=== PATIENT | male | born 1945 | race Caucasian/White ===

== ENCOUNTER → 2016-07-31 | Outpatient (CLI) | payer OTHER ==
[~2016-07-31] MED LIST: ALEN70TA2 PO; ALPR-412 PO; ATV5 PO; CHOL1000 PO; CLTP PO; CYAN100020 PO; CYCL5TAB PO; CYT100 PO; DOCU100C31 PO; ERGO1CAP35 PO; FLV1 PO; HYT/2 PO; LYR50 PO; MECL1TAB42 PO; METH2.5T PO; MULT-506 PO; NAPR-1169 PO; NXM/40 PO; ONDA8TAB6 PO; OXYC-57 PO; PRD/1 PO; PRED-301 PO
[2016-07-31 12:31] LABS: ESTIMATED AVERAGE GLUCOSE 114 mg/dl; HA1C FLAG Normal (Normal)
== END | disposition home or self-care (01) ==
LOC: C.LAB1850 10:52
PROVIDERS: ATTEND Nurse Practitioner Family
DX: E78.1 Pure hyperglyceridemia (principal); R73.9 Hyperglycemia, unspecified; M06.30 Rheumatoid nodule, unspecified site

== ENCOUNTER → 2016-12-12 | Outpatient (CLI) | payer OTHER ==
[2016-12-12 12:03] LABS: BASO % 0.3 %; BASO ABS # 0.03 K/uL (0-0.2); COMPLETE YES; EOS % 0.5 %; HEMATOCRIT 41.7 % (42-52); LYMPH % 6.3 %; LYMPH ABS # 0.66 K/uL (1.2-3.4); MEAN CELL VOLUME 85.1 fL (80-100); MEAN CORPUSCULAR HEMOGLOBIN 27.8 pg (25-34); MEAN CORPUSCULAR HGB CONC 32.6 g/dl (32-36); MEAN PLATELET VOLUME 9.3 fL (7.4-10.4); MONO % 5.2 %; NEUT % 86.7 %; PLATELET COUNT 220 K/uL (130-400); WHITE BLOOD COUNT 10.52 K/uL (4.8-10.8)
[2016-12-12 12:10] LABS: CALCIUM 8.2 mg/dl (8.5-10.1)
[2016-12-12 12:12] LABS: BLOOD UREA NITROGEN 26 mg/dl (7-18); GLUCOSE 92 mg/dl (70-99)
[2016-12-12 12:13] LABS: ALT/SGPT 22 U/L (12-78); AST/SGOT 15 U/L (15-37); BUN/CREATININE RATIO 37.4 (10-20); CARBON DIOXIDE 22 mmol/L (21-32); CHLORIDE 111 mmol/L (98-107); CHOLESTEROL 171 mg/dl (0-200); CREATININE 0.69 mg/dl (0.60-1.40); POTASSIUM 3.9 mmol/L (3.5-5.1); SODIUM 141 mmol/L (136-145); TRIGLYCERIDES 170 mg/dl (0-150); VERY LOW DENSITY LIPOPROT CALC 34 mg/dl
[2016-12-12 12:14] LABS: ALB/GLOB RATIO 1.1 (0.9-2); ALKALINE PHOSPHATASE 71 U/L (45-117); HDL CHOLESTEROL 57 mg/dl; LDL CHOLESTEROL CALCULATED 80 mg/dl
[2016-12-13 14:39] LABS: VARICELLA ZOS VIR IGM AB <=0.90 (<=0.90)
== END | disposition home or self-care (01) ==
LOC: C.LAB1850 09:53
PROVIDERS: ATTEND Nurse Practitioner Family
DX: E78.1 Pure hyperglyceridemia (principal); Z78.9 Other specified health status

== ENCOUNTER → 2017-02-19 | Day surgery (SDC) | payer OTHER ==
[2017-02-04 13:06] VITALS: Ht 162.6 cm; Wt 63.6 kg
[~2017-02-19] VITALS: Ht 162.6 cm; Wt 63.6 kg
[~2017-02-19] MED LIST changes: -ATV5 PO; -CLTP PO; -CYCL5TAB PO; -DOCU100C31 PO; -ERGO1CAP35 PO; +LIDOCAINE HCL 2% 2 ML VIAL (20MG/ML) ONE; -LYR50 PO; +PHENYLEPHRINE 100MCG/ML 5ML SYR ONE; +PROPOFOL IV EMULSION 10 MG/ML 20 ML VIAL IV ONE; +SODIUM CHLORIDE 0.9% 500ML 500 ML IV ONE
--- NOTE | 2017-02-19 14:52 | Endo History and Physical ---
History & Physical Date of Service: Feb 19, 2017. Chief Complaint: Benign colonic polyp Referring Physician: MELECIO Zhu III History of Present Illness 71 yo CM who presents for colonoscopy secondary to history of colon polyp Past Medical History Arthritis, Asthma, Male Genitourinary Prob., Anxiety, Depression Past Surgical History Hx Cardiac Surgery: No Hx Internal Defibrillator: No Hx Pacemaker: No Hx Abdominal Surgery: No Hx of Implantable Prosthesis: No Hx Post-Op Nausea and Vomiting: No Hx Cancer Surgery: No Hx Thoracic Surgery: No Hx Orthopedic: Yes (RT TSA, LT KNEE SURGERY) Hx Urinary Tract Surgery: No Family History None Social History Smoking Status: Former Smoker Hx Substance Use: No Hx Alcohol Use: No Allergies Coded Allergies: Iodinated Contrast Media (Verified Allergy, Severe, "FELT FUNNY", 02/04/17) Clavulanic Acid (Verified Allergy, Intermediate, RASH, 02/04/17) Replaces AUGMENTIN 250 Penicillins (Verified Allergy, Intermediate, RASH, 02/04/17) Replaces AUGMENTIN 250 Adhesives (Verified Allergy, Unknown, REDNESS WITH EXTENDED USE, 02/04/17) Amoxicillin (Verified Allergy, Unknown, RED BLOTCHES HEAD TO TOE, 02/04/17) Food (Verified Allergy, Unknown, SEAFOOD - EYES SWELL IF DRINKS ALCOHOL WITH, 02/04/17) Ioversol (Verified Allergy, Unknown, PASSED OUT, 02/04/17) Sulfa Antibiotics (Verified Allergy, Unknown, RASH, 02/04/17) Sulfamethoxazole w/Trimethoprim (Verified Allergy, Unknown, RASH, 02/04/17) Carboxymethylcellulose (Verified Adverse Reaction, Mild, Irritates the skin, 02/04/17) Daughter reports he can only use plain Aquacel Silver (Verified Adverse Reaction, Mild, Irritates the skin, 02/04/17) Daughter reports he can only use plain Aquacel Current Medications Reported Home Medications Medications Dose Route/Sig Max Daily Dose Days Date Category Dose Instructions Meclizine Hcl 25 Mg Tab 0.5-1 Tab PO TID PRN 02/04/17 Reported Vitamin D3 (Cholecalciferol) 1,000 Unit Tab 1 Tab PO DAILY 02/04/17 Reported Prednisone 1 Mg Tab 2 Mg PO QPM 12/07/14 Reported Vitamin B12 (Cyanocobalamin) 1,000 Mcg Tab 1,000 Mcg PO DAILY 11/29/14 Reported Zofran (Ondansetron HCl) 8 Mg Tab 8 Mg PO Q6H PRN 11/29/14 Reported Prednisone 5 Mg Tab 1 Tab PO QAM 10/17/14 Reported Alprazolam 0.25 Mg Tab 0.25 Mg PO TID PRN 02/12/13 Reported Naprosyn (Naproxen) 500 Mg Tab 500 Mg PO BID 02/12/13 Reported TAKE AFTER MEALS Fosamax (Alendronate Sodium) 70 Mg Tab 70 Mg PO WK 01/19/12 Reported TAKES ON Percocet 5MG/325MG (Oxycodone/Acetaminophen) Tab 1 Tablets PO Q6H PRN 12/25/11 Reported Multivitamin (Multivitamins) Tab 1 Tab PO NOON 06/06/11 Reported Folvite * (Folic Acid) 1 Mg Tab 1 Mg PO QAM 06/06/11 Reported Methotrexate 2.5 Mg Tab 6 Tabs PO WK 08/21/09 Reported TAKES ON FRIDAY Nexium (Esomeprazole Magnesium) 40 Mg Capcr 40 Mg PO QAM 11/24/07 Reported Cytotec * (Misoprostol) 100 Mcg Tab 100 Mcg PO BID 11/24/07 Reported Vital Signs Weight (Kilograms): 63.64 Height (Feet): 5 Height (Inches): 4 Date Time Temp Pulse Resp B/P (MAP) Pulse Ox O2 Delivery O2 Flow Rate FiO2 02/19/17 14:28 36.3 100 18 171/97 (121) 95 Room Air Physical Exam General Appearance: WD/WN, no apparent distress Respiratory/Chest: Auscultation: breath sounds normal Cardiovascular: Heart Auscultation: RRR Abdomen: Bowel Sounds: normal Inspection & Palpation: soft, non-distended, no tenderness, guarding & rebound Assessment and Plan Assessment: 71 yo CM who presents for colonoscopy secondary to history of colon polyp Plan: Proceed with colonoscopy.
--- NOTE | 2017-02-19 15:37 | Discharge Instructions ---
Endoscopy Patient Instructions Date / Procedure(s) Performed Feb 19, 2017. Colonoscopy Allergy Information Coded Allergies: Iodinated Contrast Media (Verified Allergy, Severe, "FELT FUNNY", 02/04/17) Clavulanic Acid (Verified Allergy, Intermediate, RASH, 02/04/17) Replaces AUGMENTIN 250 Penicillins (Verified Allergy, Intermediate, RASH, 02/04/17) Replaces AUGMENTIN 250 Adhesives (Verified Allergy, Unknown, REDNESS WITH EXTENDED USE, 02/04/17) Amoxicillin (Verified Allergy, Unknown, RED BLOTCHES HEAD TO TOE, 02/04/17) Food (Verified Allergy, Unknown, SEAFOOD - EYES SWELL IF DRINKS ALCOHOL WITH, 02/04/17) Ioversol (Verified Allergy, Unknown, PASSED OUT, 02/04/17) Sulfa Antibiotics (Verified Allergy, Unknown, RASH, 02/04/17) Sulfamethoxazole w/Trimethoprim (Verified Allergy, Unknown, RASH, 02/04/17) Carboxymethylcellulose (Verified Adverse Reaction, Mild, Irritates the skin, 02/04/17) Daughter reports he can only use plain Aquacel Silver (Verified Adverse Reaction, Mild, Irritates the skin, 02/04/17) Daughter reports he can only use plain Aquacel Discharge Date / Findings Feb 19, 2017. Diverticulosis Internal hemorrhoids Rectal polyp Medication Instructions Stopped Medication(s): Patient was told to stop the naproxen and vitamins. OK to resume all medications today as prescribed Reported Home Medications Medications Dose Route/Sig Max Daily Dose Days Date Category Dose Instructions Meclizine Hcl 25 Mg Tab 0.5-1 Tab PO TID PRN 02/04/17 Reported Vitamin D3 (Cholecalciferol) 1,000 Unit Tab 1 Tab PO DAILY 02/04/17 Reported Prednisone 1 Mg Tab 2 Mg PO QPM 12/07/14 Reported Vitamin B12 (Cyanocobalamin) 1,000 Mcg Tab 1,000 Mcg PO DAILY 11/29/14 Reported Zofran (Ondansetron HCl) 8 Mg Tab 8 Mg PO Q6H PRN 11/29/14 Reported Prednisone 5 Mg Tab 1 Tab PO QAM 10/17/14 Reported Alprazolam 0.25 Mg Tab 0.25 Mg PO TID PRN 02/12/13 Reported Naprosyn (Naproxen) 500 Mg Tab 500 Mg PO BID 7/26/13 Reported TAKE AFTER MEALS Fosamax (Alendronate Sodium) 70 Mg Tab 70 Mg PO WK 01/19/12 Reported TAKES ON Percocet 5MG/325MG (Oxycodone/Acetaminophen) Tab 1 Tablets PO Q6H PRN 12/25/11 Reported Multivitamin (Multivitamins) Tab 1 Tab PO NOON 06/06/11 Reported Folvite * (Folic Acid) 1 Mg Tab 1 Mg PO QAM 06/06/11 Reported Methotrexate 2.5 Mg Tab 6 Tabs PO WK 08/21/09 Reported TAKES ON FRIDAY Nexium (Esomeprazole Magnesium) 40 Mg Capcr 40 Mg PO QAM 11/24/07 Reported Cytotec * (Misoprostol) 100 Mcg Tab 100 Mcg PO BID 11/24/07 Reported Provider Instructions Activity Restrictions - No exercising or heavy lifting for 24 hours. - Do not drink alcohol the day of the procedure. - Do not drive a car or operate machinery until the day after the procedure. - Do not make any important decisions or sign important papers in 24 hours after the procedure. Following Day: - Return to full activity which may include returning to work/school. Diet Start your diet with liquids and light foods (jello, soup, juice, toast). Then eat your usual diet if not nauseated. Treatment For Common After Affects For mild abdominal pain, bloating, or excessive gas: - Rest - Eat lightly - Lie on right side Follow-Up Information Follow-up with MELECIO Zhu III as scheduled Anesthesia Information What You Should Know You have had a procedure that required some medicine to reduce anxiety and discomfort. This treatment is called moderate sedation. After receiving the treatment, you may be sleepy, but you will be able to breathe on your own. The effects of the treatment may last for several hours. Follow these instructions along with Activity/Diet recommendations noted above: * Do NOT do anything where dizziness or clumsiness would be dangerous. * Rest quietly at home today, then you can be up and about tomorrow. * Have a responsible person stay with you the rest of today. * You may have had an I.V. today. If so, you may take the dressing off later today. Recommendations Call your doctor if: * Trouble breathing * Continuous vomiting for more than 24 hours * Temperature above 101 degrees * Severe abdominal pain or bloating * Pain not relieved by pain medicine ordered * There is increased drainage or redness from any incision * A large amount of rectal bleeding greater than 2-3 tablespoons. (If you had a polyp/s removed or have hemorrhoids, a small amount of blood - from the rectum is to be expected.) * You have any unanswered questions or concerns. IN THE EVENT OF A SERIOUS EMERGENCY, GO TO THE NEAREST EMERGENCY ROOM Your discharge instructions were prepared by provider Rolando Hunt. Patient Instructions Signature Page Juventino Condon Patient (or Guardian) Signature/Date: I have read and understand the instructions given to me by my caregivers. Caregiver/RN/Doctor Signature/Date: The above-named patient and/or guardian has received patient instructions on this date. + Original Patient Signature Page (only) stays with chart. Please make copy for patient.
[2017-02-19 15:55] VITALS: BP 141/91; PULSE 81; O2SAT 98
--- NOTE | 2017-02-19 15:57 | Anesthesiology Progress Note ---
Anesthesia Post Op Note Date & Time Feb 19, 2017 at 15:57 Vital Signs Pain Intensity: 0 Vital Signs Past 12 Hours Date Time Temp Pulse Resp B/P (MAP) Pulse Ox O2 Delivery O2 Flow Rate FiO2 02/19/17 15:40 85 18 126/67 (86) 97 Room Air 02/19/17 15:28 130/68 (88) 02/19/17 15:25 79 18 84/60 (68) 98 Room Air 02/19/17 14:28 36.3 100 18 171/97 (121) 95 Room Air Notes Mental Status: alert / awake / arousable, participated in evaluation Pt Amnestic to Procedure: Yes Nausea / Vomiting: adequately controlled Pain: adequately controlled Airway Patency, RR, SpO2: stable & adequate BP & HR: stable & adequate Hydration State: stable & adequate Anesthetic Complications: no major complications apparent
--- NOTE | 2017-02-19 16:13 | GI REPORT ---
Procedure Date: 02/19/2017 2:23 PM Procedure: Colonoscopy Indications: High risk colon cancer surveillance: Personal history of colonic polyps Medicines: Monitored Anesthesia Care Complications: No immediate complications. Estimated Blood Loss: Estimated blood loss: none. Procedure: Pre-Anesthesia Assessment: - Prior to the procedure, a History and Physical was performed, and patient medications and allergies were reviewed. The patient's tolerance of previous anesthesia was also reviewed. The risks and benefits of the procedure and the sedation options and risks were discussed with the patient. All questions were answered, and informed consent was obtained. Prior Anticoagulants: The patient has taken no previous anticoagulant or antiplatelet agents. ASA Grade Assessment: III - A patient with severe systemic disease. After reviewing the risks and benefits, the patient was deemed in satisfactory condition to undergo the procedure. After I obtained informed consent, the scope was passed under direct vision. Throughout the procedure, the patient's blood pressure, pulse, and oxygen saturations were monitored continuously. The scope was introduced through the anus and advanced to the terminal ileum. The colonoscopy was performed without difficulty. The patient tolerated the procedure well. The quality of the bowel preparation was good. The terminal ileum, ileocecal valve, appendiceal orifice, and rectum were photographed. Findings: A 4 mm polyp was found in the rectum. The polyp was sessile. The polyp was removed with a cold snare. Resection and retrieval were complete. Multiple small-mouthed diverticula were found in the sigmoid colon. Non-bleeding internal hemorrhoids were found during retroflexion. The hemorrhoids were small. Impression: - One 4 mm polyp in the rectum, removed with a cold snare. Resected and retrieved. - Diverticulosis in the sigmoid colon. - Non-bleeding internal hemorrhoids. Recommendation: - Resume previous diet. - Continue present medications. - Repeat colonoscopy for surveillance based on pathology results. - Return to primary care physician as previously scheduled. Rolando Hunt DO 02/19/2017 4:13:08 PM This report has been signed electronically. Note Initiated On: 02/19/2017 2:23 PM I attest to the content of the Intraoperative Record and orders documented therein, exceptions below
== END | disposition home or self-care (01) ==
LOC: C.GI 13:56
PROVIDERS: ATTEND Internal Medicine
DX: Z12.11 Encounter for screening for malignant neoplasm of colon (principal); K62.1 Rectal polyp; Z86.010 Personal history of colon polyps; K64.8 Other hemorrhoids; K57.30 Diverticulosis of large intestine without perforation or abscess without bleeding; M19.90 Unspecified osteoarthritis, unspecified site; J45.909 Unspecified asthma, uncomplicated; F41.9 Anxiety disorder, unspecified; F32.9 Major depressive disorder, single episode, unspecified; Z87.891 Personal history of nicotine dependence; I10 Essential (primary) hypertension; E78.5 Hyperlipidemia, unspecified; M06.9 Rheumatoid arthritis, unspecified; N40.0 Benign prostatic hyperplasia without lower urinary tract symptoms

== ENCOUNTER → 2017-04-04 | Outpatient (CLI) | payer OTHER ==
[~2017-04-04] MED LIST changes: -HYT/2 PO; -LIDOCAINE HCL 2% 2 ML VIAL (20MG/ML) ONE; -PHENYLEPHRINE 100MCG/ML 5ML SYR ONE; -PROPOFOL IV EMULSION 10 MG/ML 20 ML VIAL IV ONE; -SODIUM CHLORIDE 0.9% 500ML 500 ML IV ONE
[2017-04-04 12:11] LABS: BASO % 0.2 %; BASO ABS # 0.02 K/uL (0-0.2); COMPLETE YES; EOS % 0.9 %; HEMATOCRIT 44.7 % (42-52); IG% 1.4 %; LYMPH % 9.8 %; LYMPH ABS # 0.83 K/uL (1.2-3.4); MEAN CELL VOLUME 89.9 fL (80-100); MEAN CORPUSCULAR HEMOGLOBIN 28.8 pg (25-34); MEAN PLATELET VOLUME 9.3 fL (7.4-10.4); MONO % 7.4 %; NEUT % 80.3 %; PLATELET COUNT 197 K/uL (130-400); RED BLOOD COUNT 4.97 M/uL (4.7-6.1); WHITE BLOOD COUNT 8.48 K/uL (4.8-10.8)
[2017-04-04 12:27] LABS: ALT/SGPT 23 U/L (12-78); BLOOD UREA NITROGEN 19 mg/dl (7-18); BUN/CREATININE RATIO 28.9 (10-20); CALCIUM 8.8 mg/dl (8.5-10.1); CARBON DIOXIDE 26 mmol/L (21-32); CHLORIDE 109 mmol/L (98-107); CREATININE 0.66 mg/dl (0.60-1.40); GLUCOSE 88 mg/dl (70-99); SODIUM 139 mmol/L (136-145)
[2017-04-04 12:30] LABS: ALB/GLOB RATIO 1.2 (0.9-2); ALKALINE PHOSPHATASE 82 U/L (45-117); AST/SGOT 21 U/L (15-37)
== END | disposition home or self-care (01) ==
LOC: C.LAB1850 10:01
PROVIDERS: ATTEND Internal Medicine
DX: M06.09 Rheumatoid arthritis without rheumatoid factor, multiple sites (principal); Z79.899 Other long term (current) drug therapy

== ENCOUNTER → 2017-07-30 | Outpatient (CLI) | payer OTHER ==
[2017-07-30 13:19] LABS: BASO % 0.1 %; BASO ABS # 0.01 K/uL (0-0.2); HEMATOCRIT 42.1 % (42-52); HEMOGLOBIN 14.2 g/dL (14.0-18.0); IG# 0.13 K/uL (0.00-0.02); LYMPH % 5.7 %; LYMPH ABS # 0.78 K/uL (1.2-3.4); MEAN CELL VOLUME 88.6 fL (80-100); MEAN CORPUSCULAR HEMOGLOBIN 29.9 pg (25-34); MEAN CORPUSCULAR HGB CONC 33.7 g/dl (32-36); MEAN PLATELET VOLUME 9.4 fL (7.4-10.4); MONO % 4.8 %; MONO ABS # 0.66 K/uL (0.11-0.59); NEUT % 88.4 %; NEUT ABS # 12.04 K/uL (1.4-6.5); PLATELET COUNT 211 K/uL (130-400); RED CELL DISTRIBUTION WIDTH SD 50.7 fL (36.4-46.3); WHITE BLOOD COUNT 13.62 K/uL (4.8-10.8)
[2017-07-30 13:51] LABS: ALBUMIN 3.6 gm/dl (3.4-5.0); ALT/SGPT 33 U/L (12-78); BLOOD UREA NITROGEN 28 mg/dl (7-18); CALCIUM 8.9 mg/dl (8.5-10.1); CARBON DIOXIDE 22 mmol/L (21-32); CHOLESTEROL 190 mg/dl (0-200); CREATININE 0.67 mg/dl (0.60-1.40); GLUCOSE 111 mg/dl (70-99); POTASSIUM 3.9 mmol/L (3.5-5.1); SODIUM 137 mmol/L (136-145)
[2017-07-30 13:55] LABS: ALKALINE PHOSPHATASE 93 U/L (45-117); AST/SGOT 21 U/L (15-37); LDL CHOLESTEROL CALCULATED 110 mg/dl; PHOSPHORUS 2.4 mg/dl (2.5-4.9); TOTAL PROTEIN 7.4 gm/dl (6.4-8.2)
[2017-07-31 06:08] LABS: HEMOGLOBIN A1C 5.5 % (4.5-5.6)
== END | disposition home or self-care (01) ==
LOC: C.LAB1850 11:53
PROVIDERS: ATTEND Nurse Practitioner Family
DX: K21.9 Gastro-esophageal reflux disease without esophagitis (principal); M06.9 Rheumatoid arthritis, unspecified; E78.1 Pure hyperglyceridemia; R73.9 Hyperglycemia, unspecified; E53.8 Deficiency of other specified B group vitamins

== ENCOUNTER 2017-11-17 21:15 | Emergency (ER) | payer OTHER ==
[~2017-11-17 21:15] MED LIST changes: +ONDA-170 PO; -ONDA8TAB6 PO
[2017-11-17 21:28] VITALS: Ht 162.6 cm
--- NOTE | 2017-11-17 22:32 | DIAGNOSTIC IMAGING REPORT ---
FOOT MIN 3 VIEWS ROUTINE CLINICAL HISTORY: ?osteo and ulcer COMPARISON: None. DISCUSSION: Generalized degenerative change. Pars planus deformity of the calcaneus. Mild soft tissue edematous change. Bone osteopenia is present throughout. A true lytic or blastic process is not appreciated. Soft tissue vascular calcifications are present. IMPRESSION: Severe degenerative change. Osteopenia. Mild soft tissue edema. No evidence for bony destructive process The above report was generated using voice recognition software. It may contain grammatical, syntax or spelling errors. Electronically signed by: Janusz Owen M.D. 11/17/2017 10:31 PM Dictated Date/Time: 11/17/2017 10:28 PM
[2017-11-17 23:21] LABS: BASO % 0.4 %; BASO ABS # 0.03 K/uL (0-0.2); EOS % 2.1 %; EOS ABS # 0.17 K/uL (0-0.5); HEMATOCRIT 40.9 % (42-52); IG# 0.13 K/uL (0.00-0.02); LYMPH ABS # 1.39 K/uL (1.2-3.4); MEAN CORPUSCULAR HEMOGLOBIN 30.1 pg (25-34); MEAN CORPUSCULAR HGB CONC 34.2 g/dl (32-36); MEAN PLATELET VOLUME 9.1 fL (7.4-10.4); MONO ABS # 0.82 K/uL (0.11-0.59); NEUT % 68.9 %; NEUT ABS # 5.63 K/uL (1.4-6.5); PLATELET COUNT 174 K/uL (130-400); RED CELL DISTRIBUTION WIDTH CV 16.4 % (11.5-14.5); RED CELL DISTRIBUTION WIDTH SD 51.7 fL (36.4-46.3); WHITE BLOOD COUNT 8.17 K/uL (4.8-10.8)
[2017-11-17 23:41] LABS: BLOOD UREA NITROGEN 26 mg/dl (7-18); CALCIUM 8.7 mg/dl (8.5-10.1); CARBON DIOXIDE 25 mmol/L (21-32); GLUCOSE 102 mg/dl (70-99); POTASSIUM 4.2 mmol/L (3.5-5.1); SODIUM 141 mmol/L (136-145)
[2017-11-17] MEDS ORDERED: CEPH500C PO (23:53)
[2017-11-18] MEDS ORDERED: CEPHALEXIN MONOHYDRATE 250 MG CAP PO ONE
[2017-11-18 00:06] VITALS: BP 135/72; PULSE 78; TEMP 36.4; O2SAT 96
--- NOTE | 2017-11-18 01:44 | EMERGENCY ROOM VISIT NOTE ---
History Report prepared by Scott: Abram Christensen Under the Supervision of: Dr. Sukhi Nogueira D.O. First contact with patient: 22:03 Chief Complaint: FOOT PAIN Stated Complaint: RIGHT FOOT History of Present Illness The patient is a 72 year old male who presents to the Emergency Room with complaints of a worsening redness to his right foot beginning this morning. The patient states he has a nodule on the arch of his right foot that he has had for a year. He reports he follows with the wound clinic and evaluated two weeks ago. No new pain. No new discharge. No exacerbating or remitting factors. The patient notes his daughter changed his wound dressing today and noticed redness going up the patient's right calf. He denies fever, cough, runny nose, abdominal pain, any other pain than the foot, and a history of diabetes. At this point patient believes that the redness is now resolved which she saw her earlier. Source of History: patient Onset: this morning Position: foot (right) Quality: other (redness) Timing: worsening Associated Symptoms: No fevers, No cough, No abdominal pain Note: Denies: runny nose Review of Systems See HPI for pertinent positives & negatives. A total of 10 systems reviewed and were otherwise negative. Past Medical & Surgical Medical Problems: (1) Asthma (2) Essential hypertension (3) Gastroesophageal reflux disease (4) Rheumatoid arthritis Family History Heart disease Social History Smoking Status: Never Smoker Alcohol Use: none Drug Use: none Marital Status: Housing Status: lives with family Occupation Status: retired Current/Historical Medications Scheduled Alendronate Sodium (Fosamax), 70 MG PO WK Cephalexin Monohydrate (Keflex), 500 MG PO TID Cholecalciferol (Vitamin D3), 1 TAB PO DAILY Cyanocobalamin (Vitamin B12), 1,000 MCG PO DAILY Esomeprazole Magnesium (Nexium), 40 MG PO QAM Folic Acid (Folvite *), 1 MG PO QAM Methotrexate (Methotrexate), 6 TABS PO WK Misoprostol (Cytotec *), 100 MCG PO BID Multivitamin (Multivitamin), 1 TAB PO NOON Naproxen (Naprosyn), 500 MG PO BID Prednisone (Prednisone), 1 TAB PO QAM Prednisone (Prednisone), 2 MG PO QPM Scheduled PRN Alprazolam (Alprazolam), 0.25 MG PO TID PRN for Anxiety Meclizine Hcl (Meclizine Hcl), 0.5-1 TAB PO TID PRN for Dizziness or Vertigo Ondansetron Hcl (Zofran), 8 MG PO Q6H PRN for GI Upset Oxycodone/Acetaminophen 5MG/325MG (Percocet 5MG/325MG), 1 TABLETS PO Q6H PRN for Pain Allergies Coded Allergies: Iodinated Contrast Media (Verified Allergy, Severe, "FELT FUNNY", 11/18/17) Clavulanic Acid (Verified Allergy, Intermediate, RASH, 11/18/17) Replaces AUGMENTIN 250 Penicillins (Verified Allergy, Intermediate, RASH, 11/18/17) Replaces AUGMENTIN 250 Adhesives (Verified Allergy, Unknown, REDNESS WITH EXTENDED USE, 11/18/17) Amoxicillin (Verified Allergy, Unknown, RED BLOTCHES HEAD TO TOE, 11/18/17) Food (Verified Allergy, Unknown, SEAFOOD - EYES SWELL IF DRINKS ALCOHOL WITH, 11/18/17) Ioversol (Verified Allergy, Unknown, PASSED OUT, 11/18/17) Sulfa Antibiotics (Verified Allergy, Unknown, RASH, 11/18/17) Sulfamethoxazole w/Trimethoprim (Verified Allergy, Unknown, RASH, 11/18/17) Carboxymethylcellulose (Verified Adverse Reaction, Mild, Irritates the skin, 11/18/17) Daughter reports he can only use plain Aquacel Silver (Verified Adverse Reaction, Mild, Irritates the skin, 11/18/17) Daughter reports he can only use plain Aquacel Physical Exam Vital Signs Date Time Temp Pulse Resp B/P (MAP) Pulse Ox O2 Delivery O2 Flow Rate FiO2 11/18/17 00:06 36.4 78 18 135/72 96 Room Air 11/17/17 23:44 77 20 139/73 96 Room Air 11/17/17 21:28 36.9 89 20 161/82 96 Room Air Physical Exam GENERAL: Sitting up in bed, alert, well appearing, well nourished, no distress, non-toxic EYE EXAM: normal conjunctiva. OROPHARYNX: no exudate, no erythema, lips, buccal mucosa, and tongue normal and mucous membranes are moist NECK: supple, no nuchal rigidity, no adenopathy, non-tender LUNGS: Clear to auscultation. Normal chest wall mechanics HEART: no murmurs, S1 normal and S2 normal ABDOMEN: abdomen soft, non-tender, normo-active bowel sounds, no masses, no rebound or guarding. BACK: Back is symmetrical on inspection and there is no deformity, no midline tenderness, no CVA tenderness. SKIN: no rashes and no bruising UPPER EXTREMITIES: upper extremities are grossly normal. LOWER EXTREMITIES: No pitting edema. 0.5 cm opening on the right foot, mid-sole with 4.5cm x 5cm of erythema and a small vesicle posterior to the hole which is draining. NEURO EXAM: Normal sensorium, cranial nerves II-XII grossly intact, normal speech, no gross weakness of arms, no gross weakness of legs. Medical Decision & Procedures ER Provider Diagnostic Interpretation: Radiology results as stated below per my review and the radiologist's interpretation: FOOT MIN 3 VIEWS ROUTINE CLINICAL HISTORY: ?osteo and ulcer COMPARISON: None. DISCUSSION: Generalized degenerative change. Pars planus deformity of the calcaneus. Mild soft tissue edematous change. Bone osteopenia is present throughout. A true lytic or blastic process is not appreciated. Soft tissue vascular calcifications are present. IMPRESSION: Severe degenerative change. Osteopenia. Mild soft tissue edema. No evidence for bony destructive process The above report was generated using voice recognition software. It may contain grammatical, syntax or spelling errors. Electronically signed by: Janusz Owen M.D. 11/17/2017 10:31 PM Dictated Date/Time: 11/17/2017 10:28 PM Laboratory Results 11/17/17 23:07 Red Blood Count 4.65, Mean Corpuscular Volume 88.0, Mean Corpuscular Hemoglobin 30.1, Mean Corpuscular Hemoglobin Concent 34.2, Mean Platelet Volume 9.1, Neutrophils (%) (Auto) 68.9, Lymphocytes (%) (Auto) 17.0, Monocytes (%) (Auto) 10.0, Eosinophils (%) (Auto) 2.1, Basophils (%) (Auto) 0.4, Neutrophils # (Auto ) 5.63, Lymphocytes # (Auto) 1.39, Monocytes # (Auto) 0.82, Eosinophils # (Auto ) 0.17, Basophils # (Auto) 0.03 11/17/17 23:07 Test 11/17/17 23:07 White Blood Count 8.17 K/uL (4.8-10.8) Red Blood Count 4.65 M/uL (4.7-6.1) Hemoglobin 14.0 g/dL (14.0-18.0) Hematocrit 40.9 % (42-52) Mean Corpuscular Volume 88.0 fL (80-100) Mean Corpuscular Hemoglobin 30.1 pg (25-34) Mean Corpuscular Hemoglobin Concent 34.2 g/dl (32-36) Platelet Count 174 K/uL (130-400) Mean Platelet Volume 9.1 fL (7.4-10.4) Neutrophils (%) (Auto) 68.9 % Lymphocytes (%) (Auto) 17.0 % Monocytes (%) (Auto) 10.0 % Eosinophils (%) (Auto) 2.1 % Basophils (%) (Auto) 0.4 % Neutrophils # (Auto) 5.63 K/uL (1.4-6.5) Lymphocytes # (Auto) 1.39 K/uL (1.2-3.4) Monocytes # (Auto) 0.82 K/uL (0.11-0.59) Eosinophils # (Auto) 0.17 K/uL (0-0.5) Basophils # (Auto) 0.03 K/uL (0-0.2) RDW Standard Deviation 51.7 fL (36.4-46.3) RDW Coefficient of Variation 16.4 % (11.5-14.5) Immature Granulocyte % (Auto) 1.6 % Immature Granulocyte # (Auto) 0.13 K/uL (0.00-0.02) Anion Gap 6.0 mmol/L (3-11) Estimated GFR () 102.7 Estimated GFR (Non- 88.6 BUN/Creatinine Ratio 32.6 (10-20) Calcium Level 8.7 mg/dl (8.5-10.1) Laboratory results per my review. Medications Administered Medications (Trade) Dose Ordered Sig/Celso Route Start Time Stop Time Status Last Admin Dose Admin Cephalexin Monohydrate (Keflex Cap) 500 mg NOW ONCE PO 11/18/17 00:00 11/18/17 00:01 DC 11/18/17 00:08 500 MG ED Course ED COURSE: Vital signs were reviewed and showed normal vitals. The patients medical record was reviewed The above diagnostic studies were performed and reviewed. ED treatments and interventions as stated above. 2206: The patient was evaluated in room C06. A complete history and physical examination was performed. 0000: Ordered Keflex 500mg PO 2356: Upon reevaluation, the patient is resting comfortably.I discussed my findings with the patient and he understands and agrees with the treatment plan. Based on the patients age, coexisting illnesses, exam and lab findings the decision to treat as an outpatient was made. The patient remained stable while under my care. The patient appeared well at the time of discharge. Medical Decision Differential diagnosis includes etiologies such as cellulitis, abscess, MRSA infection, DVT, necrotizing fasciitis, dermatitis, drug eruption, as well as others were entertained. Patient has an ulcer with surrounding erythema on the right foot. Follows with wound care clinic. Does appear to be slightly worse. There is no obvious streaking up the leg. CBC and BMP were unremarkable. Vitals are stable. Patient was given Keflex. He is discharged follow-up wound care clinic as an outpatient. Discussed with Pt concerning signs and symptoms to watch out for. Pt was instructed to follow up with their PCP and discussed with the patient their option to return to the ED at anytime for persistent or worsening symptoms. The appropriate anticipatory guidance and out-patient management, including indications for return to the emergency department, were explained at length to the patient and understood. Medication Reconcilliation Current Medication List: was personally reviewed by me Blood Pressure Screening Patient's blood pressure: Normal blood pressure Blood pressure disposition: Did not require urgent referral Impression Primary Impression: Foot pain, right Scribe Attestation The scribe's documentation has been prepared under my direction and personally reviewed by me in its entirety. I confirm that the note above accurately reflects all work, treatment, procedures, and medical decision making performed by me. Departure Information Dispostion Home / Self-Care Prescriptions Cephalexin Monohydrate (Keflex) 500 Mg Cap 500 MG PO TID for 7 Days, CAP Prov: Sukhi Nogueira, DO 11/17/17 Referrals Daniele Martinez III, CRNP (PCP) Forms HOME CARE DOCUMENTATION FORM, IMPORTANT VISIT INFORMATION Patient Instructions Diabetes Treat Minor Foot Infecs, My [facility] Additional Instructions Please follow up with your primary care doctor with in the next 24 hours. Any worsening of your symptoms, please return to the ED immediately. This includes any fevers greater than 100.4, worsening pain, chest pain, shortness breath, persistent nausea, vomiting, unable to eat or drink, streaking redness up the leg or any other concerning signs or symptoms from your standpoint. Please take antibiotics as prescribed.
== END 2017-11-18 00:14 | disposition home or self-care (01) ==
LOC: C.EDB 21:16 → C.EDC 11-18 00:14
DX: L97.419 Non-pressure chronic ulcer of right heel and midfoot with unspecified severity (principal); K21.9 Gastro-esophageal reflux disease without esophagitis; M06.9 Rheumatoid arthritis, unspecified; I10 Essential (primary) hypertension; Z91.041 Radiographic dye allergy status; Z88.1 Allergy status to other antibiotic agents; Z88.0 Allergy status to penicillin; Z91.048 Other nonmedicinal substance allergy status; Z91.018 Allergy to other foods; Z88.2 Allergy status to sulfonamides; Z88.8 Allergy status to other drugs, medicaments and biological substances

== ENCOUNTER → 2018-02-09 | Outpatient (CLI) | payer OTHER ==
[~2018-02-09] MED LIST changes: -NAPR-1169 PO; +NAPR-22 PO
--- NOTE | 2018-02-09 07:58 | DIAGNOSTIC IMAGING REPORT ---
MRI of the LEFT FOREFOOT NO CONTRAST CLINICAL HISTORY: Nonhealing wound fourth toe. COMPARISON STUDY: Conventional radiographic evaluation dated 11/17/2017 FINDINGS: Imaging was performed in the sagittal, coronal, and axial planes. The examination is mildly compromised due to motion artifact. There are flexion deformities of the third through fifth toes. There are no areas of marrow edema to indicate osteomyelitis. There are no fluid collections to indicate an abscess. Arthritic changes are present the level of the tarsometatarsal joints. At the level the first tarsal metatarsal joint on the plantar aspect of the foot there is a cutaneous T1 and T2 hypointense lesion. This lesion is flat measuring 12 x 12 x 2 mm. The lesion appears cutaneous and likely represents an area of scarring/fibrosis. IMPRESSION: 1. No evidence of osteomyelitis 2. No evidence of soft tissue abscess Electronically signed by: Elfego Giron M.D. 02/09/2018 7:56 AM Dictated Date/Time: 02/09/2018 7:49 AM
== END | disposition home or self-care (01) ==
LOC: C.MRI 06:52
PROVIDERS: ATTEND Emergency Medicine
DX: S91.302D Unspecified open wound, left foot, subsequent encounter (principal); R60.0 Localized edema; X58.XXXD Exposure to other specified factors, subsequent encounter

== ENCOUNTER 2018-03-08 19:22 | Emergency (ER) | payer OTHER ==
[~2018-03-08] VITALS: Ht 165.1 cm; Wt 68.5 kg
[~2018-03-08 19:22] MED LIST changes: +DOXY100C76 PO
[2018-03-08 19:25] VITALS: TEMP 37.3; Ht 165.1 cm; Wt 68.5 kg
[2018-03-08] MEDS ORDERED: CEFTRIAXONE SOD INJ 1 GM ADDVIAL IV STA (20:07)
[2018-03-08 20:31] LABS: BASO % 0.1 %; BASO ABS # 0.01 K/uL (0-0.2); EOS % 2.9 %; HEMATOCRIT 36.5 % (42-52); HEMOGLOBIN 11.9 g/dL (14.0-18.0); IG# 0.05 K/uL (0.00-0.02); LYMPH % 16.7 %; LYMPH ABS # 1.15 K/uL (1.2-3.4); MEAN CELL VOLUME 89.7 fL (80-100); MEAN CORPUSCULAR HEMOGLOBIN 29.2 pg (25-34); MEAN CORPUSCULAR HGB CONC 32.6 g/dl (32-36); MEAN PLATELET VOLUME 9.2 fL (7.4-10.4); MONO % 12.6 %; MONO ABS # 0.87 K/uL (0.11-0.59); NEUT ABS # 4.62 K/uL (1.4-6.5); PLATELET COUNT 248 K/uL (130-400); RED CELL DISTRIBUTION WIDTH CV 16.1 % (11.5-14.5); RED CELL DISTRIBUTION WIDTH SD 52.7 fL (36.4-46.3)
--- NOTE | 2018-03-08 20:53 | DIAGNOSTIC IMAGING REPORT ---
L FOOT MIN 3 VIEWS ROUTINE CLINICAL HISTORY: Left foot pain. COMPARISON: Left third toe radiographs October 17, 2014 and MRI of the left forefoot February 09, 2018. FINDINGS: Tarsometatarsal joints are intact. Pes planus deformity is noted with extensive vascular calcification. Old, healed fracture of the distal shaft of the left second metatarsal is noted. 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 Amputation of the third digit at the level of the proximal interphalangeal joint is noted. Evaluation of the toes is difficult given chronic deformities. IMPRESSION: No acute fracture or evidence for osteomyelitis within the left foot although evaluation of the toes is difficult given chronic deformities. Electronically signed by: Edmund Bronson M.D. 03/08/2018 8:52 PM Dictated Date/Time: 03/08/2018 8:44 PM
[2018-03-08 21:03] LABS: CALCIUM 8.3 mg/dl (8.5-10.1); CREATININE 0.94 mg/dl (0.60-1.40)
--- NOTE | 2018-03-08 21:21 | EMERGENCY ROOM VISIT NOTE ---
History Report prepared by Scott: Yina Padilla Under the Supervision of: Dr. Sukhi Nogueira D.O. First contact with patient: 19:30 Chief Complaint: WOUND INFECTION Stated Complaint: PAIN IN FOOT AN LEG FROM WOUND History of Present Illness The patient is a 72 year old male who presents to the Emergency Room with complaints of a constant wound infection starting a year ago. The patient states that he is a Diabetic and has had an infection that started on his toe on his left foot and has since traveled. He states that he does follow with the wound care clinic and is currently been taking Doxycycline since the . The patient states that he came in tonight because the pain is so bad he has not been able to sleep. He states that he was given Tramadol and Oxycodone, but it is not working. The patient complains of increased leg swelling. The patient denies fever, cough, and a runny nose. Source of History: patient Onset: a year ago Position: foot (left) Quality: other (wound infection) Timing: constant Associated Symptoms: No fevers, No cough Note: The patient complains of not being able to sleep and increased leg swelling. The patient denies a runny nose. Review of Systems See HPI for pertinent positives & negatives. A total of 10 systems reviewed and were otherwise negative. Past Medical & Surgical Medical Problems: (1) Asthma (2) Diabetes (3) Essential hypertension (4) Gastroesophageal reflux disease (5) Rheumatoid arthritis Family History Heart disease Social History Smoking Status: Former Smoker Alcohol Use: none Drug Use: none Marital Status: Housing Status: lives with family Occupation Status: retired Current/Historical Medications Scheduled Alendronate Sodium (Fosamax), 70 MG PO WK Cholecalciferol (Vitamin D3), 1 TAB PO DAILY Cyanocobalamin (Vitamin B12), 1,000 MCG PO DAILY Doxycycline Monohydrate (Monodox), 100 MG PO BID Esomeprazole Magnesium (Nexium), 40 MG PO QAM Folic Acid (Folvite *), 1 MG PO QAM Methotrexate (Methotrexate), 6 TABS PO WK Misoprostol (Cytotec *), 100 MCG PO BID Multivitamin (Multivitamin), 1 TAB PO NOON Naproxen (Naprosyn), 500 MG PO BID Prednisone (Prednisone), 1 TAB PO QAM Prednisone (Prednisone), 2 MG PO QPM Scheduled PRN Alprazolam (Alprazolam), 0.25 MG PO TID PRN for Anxiety Meclizine Hcl (Meclizine Hcl), 0.5-1 TAB PO TID PRN for Dizziness or Vertigo Ondansetron Hcl (Zofran), 8 MG PO Q6H PRN for GI Upset Oxycodone/Acetaminophen 5MG/325MG (Percocet 5MG/325MG), 1 TABLETS PO Q6H PRN for Pain Allergies Coded Allergies: Iodinated Contrast Media (Verified Allergy, Severe, "FELT FUNNY", 11/18/17) Clavulanic Acid (Verified Allergy, Intermediate, RASH, 11/18/17) Replaces AUGMENTIN 250 Penicillins (Verified Allergy, Intermediate, RASH, 11/18/17) Replaces AUGMENTIN 250 Adhesives (Verified Allergy, Unknown, REDNESS WITH EXTENDED USE, 11/18/17) Amoxicillin (Verified Allergy, Unknown, RED BLOTCHES HEAD TO TOE, 11/18/17) Food (Verified Allergy, Unknown, SEAFOOD - EYES SWELL IF DRINKS ALCOHOL WITH, 11/18/17) Ioversol (Verified Allergy, Unknown, PASSED OUT, 11/18/17) Sulfa Antibiotics (Verified Allergy, Unknown, RASH, 11/18/17) Sulfamethoxazole w/Trimethoprim (Verified Allergy, Unknown, RASH, 11/18/17) Carboxymethylcellulose (Verified Adverse Reaction, Mild, Irritates the skin, 11/18/17) Daughter reports he can only use plain Aquacel Silver (Verified Adverse Reaction, Mild, Irritates the skin, 11/18/17) Daughter reports he can only use plain Aquacel Physical Exam Vital Signs Date Time Temp Pulse Resp B/P (MAP) Pulse Ox O2 Delivery O2 Flow Rate FiO2 03/08/18 21:40 97 20 142/88 95 Room Air 03/08/18 19:25 37.3 104 18 139/72 94 Room Air Physical Exam GENERAL: Sitting up in bed, alert, well appearing, well nourished, no distress, non-toxic EYE EXAM: normal conjunctiva. OROPHARYNX: no exudate, no erythema, lips, buccal mucosa, and tongue normal and mucous membranes are moist NECK: supple, no nuchal rigidity, no adenopathy, non-tender LUNGS: Clear to auscultation. Normal chest wall mechanics HEART: no murmurs, S1 normal and S2 normal ABDOMEN: abdomen soft, non-tender, normo-active bowel sounds, no masses, no rebound or guarding. BACK: Back is symmetrical on inspection and there is no deformity, no midline tenderness, no CVA tenderness. SKIN: Second and fourth toes on dorsal aspect have granulation tissue present, second toe has a 1.5 x 1 cm and fourth 2 x 1.5 cm. No bone involvement. Distal arch base of second through fourth MTPs 1x1 cm quarter cm deep wound. Mild surrounding redness. UPPER EXTREMITIES: upper extremities are grossly normal. LOWER EXTREMITIES: No pitting edema. NEURO EXAM: Normal sensorium, cranial nerves II-XII grossly intact, normal speech, no gross weakness of arms, no gross weakness of legs. Medical Decision & Procedures ER Provider Diagnostic Interpretation: Radiology results as stated below per my review and the radiologist's interpretation: L FOOT MIN 3 VIEWS ROUTINE CLINICAL HISTORY: Left foot pain. COMPARISON: Left third toe radiographs October 17, 2014 and MRI of the left forefoot February 09, 2018. FINDINGS: Tarsometatarsal joints are intact. Pes planus deformity is noted with extensive vascular calcification. Old, healed fracture of the distal shaft of the left second metatarsal is noted. 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 Amputation of the third digit at the level of the proximal interphalangeal joint is noted. Evaluation of the toes is difficult given chronic deformities. IMPRESSION: No acute fracture or evidence for osteomyelitis within the left foot although evaluation of the toes is difficult given chronic deformities. Electronically signed by: Edmund Bronson M.D. 03/08/2018 8:52 PM Dictated Date/Time: 03/08/2018 8:44 PM Laboratory Results 03/08/18 20:18 Red Blood Count 4.07, Mean Corpuscular Volume 89.7, Mean Corpuscular Hemoglobin 29.2, Mean Corpuscular Hemoglobin Concent 32.6, Mean Platelet Volume 9.2, Neutrophils (%) (Auto) 67.0, Lymphocytes (%) (Auto) 16.7, Monocytes (%) (Auto) 12.6, Eosinophils (%) (Auto) 2.9, Basophils (%) (Auto) 0.1, Neutrophils # (Auto ) 4.62, Lymphocytes # (Auto) 1.15, Monocytes # (Auto) 0.87, Eosinophils # (Auto ) 0.20, Basophils # (Auto) 0.01 03/08/18 20:18 Test 03/08/18 20:18 White Blood Count 6.90 K/uL (4.8-10.8) Red Blood Count 4.07 M/uL (4.7-6.1) Hemoglobin 11.9 g/dL (14.0-18.0) Hematocrit 36.5 % (42-52) Mean Corpuscular Volume 89.7 fL (80-100) Mean Corpuscular Hemoglobin 29.2 pg (25-34) Mean Corpuscular Hemoglobin Concent 32.6 g/dl (32-36) Platelet Count 248 K/uL (130-400) Mean Platelet Volume 9.2 fL (7.4-10.4) Neutrophils (%) (Auto) 67.0 % Lymphocytes (%) (Auto) 16.7 % Monocytes (%) (Auto) 12.6 % Eosinophils (%) (Auto) 2.9 % Basophils (%) (Auto) 0.1 % Neutrophils # (Auto) 4.62 K/uL (1.4-6.5) Lymphocytes # (Auto) 1.15 K/uL (1.2-3.4) Monocytes # (Auto) 0.87 K/uL (0.11-0.59) Eosinophils # (Auto) 0.20 K/uL (0-0.5) Basophils # (Auto) 0.01 K/uL (0-0.2) RDW Standard Deviation 52.7 fL (36.4-46.3) RDW Coefficient of Variation 16.1 % (11.5-14.5) Immature Granulocyte % (Auto) 0.7 % Immature Granulocyte # (Auto) 0.05 K/uL (0.00-0.02) Anion Gap 8.0 mmol/L (3-11) Est Creatinine Clear Calc Drug Dose 60.9 ml/min Estimated GFR () 92.9 Estimated GFR (Non- 80.1 BUN/Creatinine Ratio 17.8 (10-20) Calcium Level 8.3 mg/dl (8.5-10.1) Laboratory results per my review. Medications Administered Medications (Trade) Dose Ordered Sig/Celso Route Start Time Stop Time Status Last Admin Dose Admin Ceftriaxone Sodium (Rocephin Inj) 1 gm NOW STAT IV 03/08/18 20:07 03/08/18 20:08 DC 03/08/18 20:24 1 GM Morphine Sulfate (MoRPHine SULFATE INJ) 4 mg NOW STAT IV 03/08/18 21:43 03/08/18 21:44 DC 03/08/18 21:49 4 MG Ondansetron HCl (Zofran Inj) 4 mg NOW STAT IV 03/08/18 21:43 03/08/18 21:44 DC 03/08/18 21:48 4 MG ED Course ED COURSE: Vital signs were reviewed and showed tachycardic and hypertensive situationally. The patients medical record was reviewed The above diagnostic studies were performed and reviewed. ED treatments and interventions as stated above. 1930: The patient was evaluated in room B3B. A complete history and physical examination was performed. 2006: Ordered Rocephin Inj 1 gm IV. 2111: I reviewed the patient's previous imaging at this time and there is no significant change. 2142: Ordered Zofran Inj 4 mg IV, Morphine Sulfate 4 mg IV. 2157: Upon reevaluation, the patient is resting comfortably. I discussed my findings with the patient and he understands and agrees with the treatment plan. Based on the patients age, coexisting illnesses, exam and lab findings the decision to treat as an outpatient was made. The patient remained stable while under my care. The patient appeared well at the time of discharge. Medical Decision Differential diagnosis includes etiologies such as cellulitis, abscess, MRSA infection, DVT, necrotizing fasciitis, dermatitis, drug eruption, as well as others were entertained. Patient is a 72-year-old male who presents the ER for left foot pain secondary to 3 ulcers present. Patient follows with the wound care clinic. Images were reviewed from the of this month and does not appear to be significantly changed. No significant dilators. Vitals are stable. X-rays were unremarkable. CBC and BMP were fairly stable with previous blood work. Patient was given IV Rocephin. He was also given 1 dose of IV morphine. He was updated bedside and discharged follow-up with wound care clinic as an outpatient. Discussed with Pt concerning signs and symptoms to watch out for. Pt was instructed to follow up with their PCP and discussed with the patient their option to return to the ED at anytime for persistent or worsening symptoms. The appropriate anticipatory guidance and out-patient management, including indications for return to the emergency department, were explained at length to the patient and understood. Medication Reconcilliation Current Medication List: was personally reviewed by me Blood Pressure Screening Patient's blood pressure: Elevated blood pressure Blood pressure disposition: Elevated BP felt to be situational Impression Primary Impression: Ulcer Scribe Attestation The scribe's documentation has been prepared under my direction and personally reviewed by me in its entirety. I confirm that the note above accurately reflects all work, treatment, procedures, and medical decision making performed by me. Departure Information Dispostion Home / Self-Care Referrals Daniele Martinez III, CRNP (PCP) Forms HOME CARE DOCUMENTATION FORM, IMPORTANT VISIT INFORMATION, WORK / SCHOOL INSTRUCTIONS Patient Instructions My [facility] Additional Instructions Please follow up with your primary care doctor with in the next 24 hours. Any worsening of your symptoms, please return to the ED immediately. This includes any fevers greater than 100.4, worsening pain, chest pain, shortness breath, persistent nausea, vomiting, unable to eat or drink, or any other concerning signs or symptoms from your standpoint. Please continue your antibiotics as previously prescribed. Please follow-up with wound care clinic first thing tomorrow morning. Please continue OxyIR or Ultram but do not take both at the same time.
[2018-03-08 21:40] VITALS: BP 142/88; PULSE 97; O2SAT 95
[2018-03-08] MEDS ORDERED: MoRPHine SULFATE 4 MG/ML 1 ML CARP\\VIAL IV STA (21:43)
[2018-03-08] MEDS ORDERED: ONDANSETRON INJ 2 MG/ML 2 ML VIAL IV STA (21:43)
[2018-03-08 21:59] LABS: POTASSIUM 4.1 mmol/L (3.5-5.1)
== END 2018-03-08 22:11 | disposition home or self-care (01) ==
LOC: C.EDB 19:24
DX: L97.429 Non-pressure chronic ulcer of left heel and midfoot with unspecified severity (principal); M06.9 Rheumatoid arthritis, unspecified; I10 Essential (primary) hypertension; J45.909 Unspecified asthma, uncomplicated; E11.9 Type 2 diabetes mellitus without complications; K21.9 Gastro-esophageal reflux disease without esophagitis; Z87.891 Personal history of nicotine dependence; Z79.899 Other long term (current) drug therapy; Z91.041 Radiographic dye allergy status; Z88.1 Allergy status to other antibiotic agents; Z88.0 Allergy status to penicillin; Z88.2 Allergy status to sulfonamides; Z88.8 Allergy status to other drugs, medicaments and biological substances; Z91.048 Other nonmedicinal substance allergy status; Z91.018 Allergy to other foods

== ENCOUNTER 2018-08-04 16:15 | Inpatient (IN) ==
[2018-08-04] MEDS ORDERED: ACETAMINOPHEN 500 MG TAB PO STA (16:24)
--- NOTE | 2018-08-04 17:22 | CT Scan Report ---
CT chest wo con CLINICAL HISTORY: Right-sided chest pain status post trauma COMPARISON STUDY: CT scan dated 02/12/2013 CT DOSE: 415.74 mGycm TECHNIQUE: CT of the thorax was performed from the thoracic inlet to the lung bases. Images are revi ewed in the axial, sagittal, and coronal planes. IV contrast was not administered for this examinatio n. A dose lowering technique was utilized adhering to the principles of ALARA. FINDINGS: Thyroid: Imaged portions of the thyroid gland are normal in appearance. Thoracic aorta: The ascending thoracic aorta measures 37 mm. There is no mediastinal hematoma. Heart: There are coronary artery calcifications. There is trace pericardial fluid. Lungs and pleural spaces: There are no pleural effusions. There is no pneumothorax. There are depende nt atelectatic changes. There are upper lobe partially calcified irregular masses which are felt to b e chronic. There is a 16 mm focus of ill-defined groundglass attenuation within the right upper lobe. This is nonspecific. A six-month follow-up is recommended. There is a 4 mm right upper lobe pulmonar y nodule. Mediastinum: There is no mediastinal hematoma. There is no pathologic adenopathy. Rika: There is no evidence of pathologic hilar adenopathy given the limitations of a noncontrast stud y Axilla: There is no evidence of pathologic axillary lymphadenopathy Upper abdomen: Partially visualized upper abdominal viscera is within normal limits. Skeletal structures: There is a new/enlarging 8 mm sclerotic lesion within T4 vertebral body. Diagnos tic considerations include an enlarging bone island versus blastic metastasis. There is a healing rig ht posterior fifth rib fracture. There is a healing scapular fracture. There are acute fractures of t he right sixth through 10th ribs laterally. IMPRESSION: 1. Acute fractures of the right sixth through 10th ribs laterally 2. No evidence of pneumothorax. No pleural effusions 3. No evidence of mediastinal injury given the limitations of a noncontrast study 4. Postinflammatory upper lobe scarring. 5. Very subtle 16mm right upper lobe groundglass density. A six-month follow-up study is recommended. Electronically signed by: Elfego Giron M.D. 08/04/2018 5:20 PM
--- NOTE | 2018-08-04 17:25 | CT Scan Report ---
CT SCAN OF THE ABDOMEN AND PELVIS WITHOUT CONTRAST CLINICAL HISTORY: Right-sided pain status post trauma COMPARISON STUDY: 12/25/2011 TECHNIQUE: CT scan of the abdomen and pelvis was performed from the lung bases to the proximal femurs . Images are reviewed in the axial, sagittal, and coronal planes. IV contrast was not administered fo r this examination. A dose lowering technique was utilized adhering to the principles of ALARA. CT DOSE: 509.23 mGycm FINDINGS: Lower chest: There are dependent atelectatic changes. There are acute fractures of the right sixth th rough 10th ribs. There is an old right 11th rib fracture. Liver: The unenhanced liver is normal in size, contour, and attenuation. There is no intrahepatic bill iary ductal dilatation. Gallbladder: Unremarkable. Spleen: Normal in size and attenuation. Pancreas: Unremarkable. Adrenal glands: Unremarkable. Kidneys: There is a 3 mm left renal calculus. There are left renal parapelvic cysts. Bowel: There are no transition zones indicate bowel obstruction. There is colonic diverticulosis. The re is no evidence of acute peridiverticular inflammatory change. Appendix appears normal. There is no evidence for pathologic interloop fluid. There is a right inguinal hernia which contains several bow el loops. There is no current evidence of obstruction. Peritoneum: There is no intraperitoneal free air or abdominal ascites. Vasculature: The abdominal aorta is normal in course and caliber. Adenopathy: None. Pelvic viscera: The bladder, and pelvic viscera are unremarkable. Skeletal structures: There are acute fractures the right sixth through 10th ribs IMPRESSION: 1. No evidence of acute intra-abdominal or pelvic injury 2. Acute fractures of the right sixth through 10th ribs 3. Left-sided nephrolithiasis 4. Right inguinal hernia containing small bowel loops. No current evidence of obstruction Electronically signed by: Elfego Giron M.D. 08/04/2018 5:24 PM
[2018-08-04] MEDS ORDERED: fentaNYL citrate 100 MCG/2 ML VIAL IV STA (17:47)
[2018-08-04] MEDS ORDERED: KETOROLAC TROMETHAMINE 15 MG/ML VIAL IV STA (17:51)
[2018-08-04 18:25] LABS: Basophils # (auto) 0.02 K/uL (0-0.2); Basophils % (auto) 0.2 %; Eosinophils # (auto) 0.08 K/uL (0-0.5); Eosinophils % (auto) 0.7 %; Hematocrit (blood only) 33.8 % (42-52); Hemoglobin 10.7 g/dL (14.0-18.0); Immature Granulocytes # (auto) 0.11 K/uL (0.00-0.02); Immature Granulocytes % (auto) 0.9 %; Lymphocytes # (auto) 1.07 K/uL (1.2-3.4); Lymphocytes % (auto) 9.2 %; Mean Corpuscular Hgb Conc 31.7 g/dL (32-36); Mean Corpuscular Volume 80.7 fL (80-100); Mean Platelet Volume 9.3 fL (7.4-10.4); Monocytes # (auto) 0.82 K/uL (0.11-0.59); Neutrophils # (auto) 9.54 K/uL (1.4-6.5); Platelet Count 185 K/uL (130-400); RDW Coefficient of Variation 18.1 % (11.5-14.5); RDW Standard Deviation 53.4 fL (36.4-46.3); Red Blood Count 4.19 M/uL (4.7-6.1); White Blood Count 11.64 K/uL (4.8-10.8)
--- NOTE | 2018-08-04 18:26 | History & Physical Report ---
Date of Service August 04, 2018 Assessment & Plan (1) Fall: (2) Rib fracture: - Admit to med surg for mechanical fall off scooter. -Incentive spirometry, O2 as needed, continue pain control with morphine sulfate IV for now, encourage deep breaths -CT of the chest reviewed: 1. No evidence of acute intra-abdominal or pelvic injury 2. Acute fractures of the right sixth through 10th ribs 3. Left-sided nephrolithiasis 4. Right inguinal hernia containing small bowel loops. No current evidence of obstruction -Consider pulmonary consult if status worsens -O2 sats are adequate on room air at 99% (3) B12 deficiency: -Continue supplementation (4) Rheumatoid arthritis: -Continue prednisone 5 mg every morning and 2 mg every evening -Continue methotrexate weekly (5) PAD (peripheral artery disease): (6) Chronic foot ulcer with fat layer exposed: -Patient follows with podiatry and infectious disease as an outpatient -Last known cultures of this wound grew out stenotrophomonas maltophilia resistant to multiple drugs -Has wound care/home health nurse come to wrap the foot several times per week as an outpatient -We will consult wound care here -Continue Levaquin 500 mg daily and doxycycline 100 p.o. BID -PT/OT (7) Essential hypertension: - Monitor BP, slightly elevated likely secondary to pain. History of Present Illness Primary Care Provider: Daniele Martinez, III, MELECIO This is a 73 yo M with asthma, RA, B12 deficiency, HTN, DM II, chronic foot ulceration and PAD who presents after mechanical fall with subsequent rib fracture. Patient states that he was at home sitting on a scooter which did not have the arms on it and accidentally slid off the side fell down. Patient denies any trauma to the head or other area of injury. He does have pain currently in his right side of his ribs but states that is manageable with pain medication given in the ER. Patient is able to take deep breaths currently without much difficulty. Imaging reveals right-sided 6th-10th fractures. Allergies Allergy/AdvReac Type Severity Reaction Status Date / Time amoxicillin Allergy Severe RED Verified 08/04/18 17:51 BLOTCHES HEAD TO TOE Iodinated Contrast- Oral and Allergy Severe "FELT Verified 08/04/18 17:51 IV Dye FUNNY" ioversol Allergy Severe PASSED OUT Verified 08/04/18 17:51 clavulanic acid Allergy Intermediate RASH Verified 08/04/18 17:51 Penicillins Allergy Intermediate RASH Verified 08/04/18 17:51 adhesive Allergy Mild REDNESS Verified 08/04/18 17:51 WITH EXTENDED USE Sulfa (Sulfonamide Allergy Mild RASH Verified 08/04/18 17:51 Antibiotics) sulfamethoxazole Allergy Mild RASH Verified 08/04/18 17:51 trimethoprim Allergy Mild RASH Verified 08/04/18 17:51 Bactrim Allergy Unknown RASH Verified 11/18/17 00:19 Fish Containing Products Allergy Verified 08/04/18 17:51 fish derived Allergy Verified 08/04/18 17:51 fish oil Allergy Verified 08/04/18 17:51 shellfish derived Allergy Verified 08/04/18 17:51 Latex, Natural Rubber AdvReac Intermediate Redness of Verified 08/04/18 17:51 Skin silver AdvReac Mild Irritates Verified 08/04/18 17:51 the skin Food Allergy Severe SEAFOOD - Uncoded 08/04/18 17:51 EYES SWELL IF DRINKS ALCOHOL WITH Carboxymethylcellulose AdvReac Mild Irritates Uncoded 08/04/18 17:51 the skin Home Medications Home Medications Medication Instructions Recorded Confirmed Type meclizine 25 mg tablet 12.5 - 25 mg PO TID PRN 03/18/18 08/04/18 History levofloxacin [Levaquin] 500 mg PO QAM 04/22/18 08/04/18 History acetaminophen [Tylenol Extra 500 mg PO Q6H PRN 07/14/18 08/04/18 History Strength] cyanocobalamin (vitamin B-12) 1,000 mcg PO QAM 07/14/18 08/04/18 History [Vitamin B-12] alendronate [Fosamax] 70 mg PO WK 07/16/18 08/04/18 History alprazolam [Xanax] 0.25 mg PO TID PRN 07/16/18 08/04/18 History esomeprazole magnesium [Nexium] 40 mg PO QAM 07/16/18 08/04/18 History folic acid 1 mg PO QAM 07/16/18 08/04/18 History methotrexate sodium 15 mg PO WK 07/16/18 08/04/18 History misoprostol 100 mcg PO BID 07/16/18 08/04/18 History multivitamin 1 cap PO DAILY 07/16/18 08/04/18 History naproxen 500 mg PO BID PRN 07/16/18 08/04/18 History prednisone 2 mg PO QPM 07/16/18 08/04/18 History prednisone 5 mg PO QAM 07/16/18 08/04/18 History albuterol sulfate [ProAir 2 inha INH Q4H 08/04/18 08/04/18 History RespiClick] cholecalciferol (vitamin D3) 1,000 unit PO QAM 08/04/18 08/04/18 History [Vitamin D3] doxycycline hyclate 100 mg PO BID 08/04/18 08/04/18 History ondansetron 8 mg PO Q6 PRN 08/04/18 08/04/18 History terazosin 2 mg PO HS 08/04/18 08/04/18 History Past Med/Surg History Medical History Rib fracture Fall Asthma exacerbation B12 deficiency Rheumatoid arthritis PAD (peripheral artery disease) Chronic foot ulcer with fat layer exposed Essential hypertension (Chronic 02/12/13) Diabetes Asthma (Chronic) Cellulitis (Chronic) Foot pain, right (Chronic) GERD (gastroesophageal reflux disease) (Chronic) Ulcer (Chronic) LEFT FOOT Anxiety Arrhythmia BPH (benign prostatic hyperplasia) Osteoarthritis Rheumatoid arthritis Surgical History History of colectomy POLYPS REMOVED History of colonoscopy History of esophagogastroduodenoscopy (EGD) History of repair of rotator cuff RT History of tooth extraction Social History Current Living Situation: Family Current Living Situation Comment: home w/ and dtr Other Information That Helps Us Care for You: No Feels Safe at Home: Yes Safety Concerns: Feels Safe At This Time Smoking Status: Former smoker Do You Dip or Chew Tobacco: No Smoking End Date: quit in the s Second Hand Exposure: No Hx Alcohol Use: No Hx Substance Use: No Beliefs That Will Affect Care: None Preferred Language: Mohawk Communication Ability: Effective 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 Extremities: Chronic left foot ulcer Neurologic: No weakness, numbness/tingling, or balance problems Psychiatric: No anxiety or depression Skin: No rash or itch Physical Exam 2 Vital Signs (Past 24 Hours): Last Vital Signs Temp 36.6 C 08/04/18 16:00 Pulse 114 H 08/04/18 16:00 Resp 18 08/04/18 16:00 BP 146/85 H 08/04/18 16:00 Pulse Ox 99 08/04/18 16:00 Physical Exam: General: awake, alert, no apparent distress Head: Normocephalic, atraumatic ENT: PERRL, EOMI, no pharyngeal exudate, mucous membranes moist Chest: Clear to auscultation, on room air, no adventitious breath sounds Cardiac: Regular rhythm, slightly tachycardic with HR around 100, no murmur, no JVD, normal peripheral pulses, good capillary refill Abdominal: NABS x 4 quadrants, soft, nontender to palpation, no rebound, guarding or tenderness Extremities: + Severe arthritic deformities of fingers, wrists ankles and feet. + mild erythema on BLE, + chronic Left sided foot ulceration with dressing intact. No peripheral edema or erythema, calfs nontender to palpation Psych: Normal mood and affect Neuro: AAO x 3, speech is clear, no peripheral sensory deficits Constitutional: WD/WN, vitals as above Eyes: normal visual pang by confrontation and + anicteric sclerae Neck: normal visual inspection and trachea midline Respiratory: normal respiratory effort, lungs clear to auscultation Cardiovascular: Rate/Rhythm: regular rate and regular rhythm Gastrointestinal (Abdomen): Inspection/Auscultation: abdomen not distended Percussion/Palpation: abdomen soft; abdomen nontender Musculoskeletal: Head/Neck/Chest: normocephalic and head atraumatic Neg for peripheral LE edema, + pedal pulses Skin: R dorsal surface of foot with skin breakdown and purulence. R foot is wrapped Neurologic: awake; not confused Psychiatric: A+Ox3, euthymic affect Lymphatic: Exam as done by Cecelia Shrestha DO Results & Data Diagnostic Findings CT SCAN OF THE ABDOMEN AND PELVIS WITHOUT CONTRAST CLINICAL HISTORY: Right-sided pain status post trauma COMPARISON STUDY: 12/25/2011 TECHNIQUE: CT scan of the abdomen and pelvis was performed from the lung bases to the proximal femurs. Images are reviewed in the axial, sagittal, and coronal planes. IV contrast was not administered for this examination. A dose lowering technique was utilized adhering to the principles of ALARA. CT DOSE: 509.23 mGycm FINDINGS: Lower chest: There are dependent atelectatic changes. There are acute fractures of the right sixth through 10th ribs. There is an old right 11th rib fracture. Liver: The unenhanced liver is normal in size, contour, and attenuation. There is no intrahepatic biliary ductal dilatation. Gallbladder: Unremarkable. Spleen: Normal in size and attenuation. Pancreas: Unremarkable. Adrenal glands: Unremarkable. Kidneys: There is a 3 mm left renal calculus. There are left renal parapelvic cysts. Bowel: There are no transition zones indicate bowel obstruction. There is colonic diverticulosis. There is no evidence of acute peridiverticular inflammatory change. Appendix appears normal. There is no evidence for pathologic interloop fluid. There is a right inguinal hernia which contains several bowel loops. There is no current evidence of obstruction. Peritoneum: There is no intraperitoneal free air or abdominal ascites. Vasculature: The abdominal aorta is normal in course and caliber. Adenopathy: None. Pelvic viscera: The bladder, and pelvic viscera are unremarkable. Skeletal structures: There are acute fractures the right sixth through 10th ribs IMPRESSION: 1. No evidence of acute intra-abdominal or pelvic injury 2. Acute fractures of the right sixth through 10th ribs 3. Left-sided nephrolithiasis 4. Right inguinal hernia containing small bowel loops. No current evidence of obstruction ECG Additional Comments: 04-AUG-2018 16:38:34 [facility] Sinus tachycardia Right bundle branch block Left posterior fascicular block Bifascicular block Cannot rule out Inferior infarct , age undetermined Abnormal ECG When compared with ECG of 14-JUL-2018 12:33, No significant change was found Vent. rate 109 BPM HI interval 168 ms QRS duration 134 ms QT/QTc 360/484 ms P-R-T axes 65 115 -12 Supervising Physician Co-Signing Physician Notes Pt seen and examined by me. Denies SOB. States he fell asleep in his wheelchair and the arms had been removed for some reason. He fell out of chair while sleeping. Has pain related to R sided rib fractures. Tolerating PO without issue. Agree with HPI/ROS as noted by PA See above for my exam in PE section Agree with plan as outlined above R sided rib fractures s/p falling out of wheelchair while sleeping Pt states he is not following with wound care clinic, but a Dr. Bernal (sp) and Dr. Johns. Chronic abx use CT chest neg for pneumothorax Did note a density with recs for 6 mo f/u
[2018-08-04 18:30] LABS: BUN Creatinine Ratio 28.7 (10-20); Calcium 8.5 mg/dl (8.5-10.1); Creatinine Clr Calc Pharmacy 72.4 ml/min; Est GFR (African American) 104.7; Est GFR (Non-African American) 90.4; Potassium 4.4 mmol/L (3.5-5.1)
[2018-08-04] MEDS ORDERED: ONDANSETRON 8MG OD TAB PO PRN (20:10)
[2018-08-04] MEDS ORDERED: ONDANSETRON INJ 2 MG/ML 2 ML VIAL IV PRN (20:10)
[2018-08-04] MEDS ORDERED: ACETAMINOPHEN 500 MG TAB PO PRN (20:10)
[2018-08-04] MEDS ORDERED: ALPRAZolam 0.25 MG TABLET PO PRN (20:10)
[2018-08-04] MEDS ORDERED: ALBUTEROL HFA 8 GM INHALER INH PRN (20:10)
[2018-08-04] MEDS: TERAZOSIN HCL 1 MG CAP PO SCH (22:20)
[2018-08-04] MEDS: predniSONE 1 MG TAB PO SCH (22:20)
[2018-08-04] MEDS: miSOPROStol 50 MCG TAB PO SCH (22:21)
[2018-08-04] MEDS: DOXYCYCLINE HYCLATE 100 MG CAP PO SCH (22:22)
[2018-08-04] MEDS: MoRPHine SULFATE 2 MG/ML CARP IV PRN (22:34)
--- NOTE | 2018-08-04 22:49 | Emergency Department Note ---
Entered by Perri Torrez acting as a scribe for Дмитрий Bonner M.D. History of Present Illness General Chief complaint: Fall Stated complaint: FALL, R RIB PAIN Source: patient Mode of arrival: EMS Limitations: no limitations History of Present Illness Provider complaint: fall Location: chest and right Pain Consistency: + other (episode) Quality: + other (fall) Relieved By: + other (deep breath) Associated symptoms: no shortness of breath Treatments prior to arrival: none The patient is a 73 year old male who presents to the Emergency Room via EMS following a fall that occurred at 1500 today. The patient reports that he fell asleep and fell from his wheelchair and on his right side. He denies any head injuries or neck pain as well as any right arm or right leg pain but states that since his fall, he has been experiencing right-sided rib pain. He notes that the pain is exacerbated by deep breaths but denies any shortness of breath. He denies any treatments prior to arrival. Home Medications Home Medications Medication Instructions Recorded Confirmed Type meclizine 25 mg tablet 12.5 - 25 mg PO TID PRN 03/18/18 08/04/18 History levofloxacin [Levaquin] 500 mg PO QAM 04/22/18 08/04/18 History acetaminophen [Tylenol Extra 500 mg PO Q6H PRN 07/14/18 08/04/18 History Strength] cyanocobalamin (vitamin B-12) 1,000 mcg PO QAM 07/14/18 08/04/18 History [Vitamin B-12] alendronate [Fosamax] 70 mg PO WK 07/16/18 08/04/18 History alprazolam [Xanax] 0.25 mg PO TID PRN 07/16/18 08/04/18 History esomeprazole magnesium [Nexium] 40 mg PO QAM 07/16/18 08/04/18 History folic acid 1 mg PO QAM 07/16/18 08/04/18 History methotrexate sodium 15 mg PO WK 07/16/18 08/04/18 History misoprostol 100 mcg PO BID 07/16/18 08/04/18 History multivitamin 1 cap PO DAILY 07/16/18 08/04/18 History naproxen 500 mg PO BID PRN 07/16/18 08/04/18 History prednisone 2 mg PO QPM 07/16/18 08/04/18 History prednisone 5 mg PO QAM 07/16/18 08/04/18 History albuterol sulfate [ProAir 2 inha INH Q4H 08/04/18 08/04/18 History RespiClick] cholecalciferol (vitamin D3) 1,000 unit PO QAM 08/04/18 08/04/18 History [Vitamin D3] doxycycline hyclate 100 mg PO BID 08/04/18 08/04/18 History ondansetron 8 mg PO Q6 PRN 08/04/18 08/04/18 History terazosin 2 mg PO HS 08/04/18 08/04/18 History Allergies Allergy/AdvReac Type Severity Reaction Status Date / Time amoxicillin Allergy Severe RED Verified 08/04/18 17:51 BLOTCHES HEAD TO TOE Iodinated Contrast- Oral and Allergy Severe "FELT Verified 08/04/18 17:51 IV Dye FUNNY" ioversol Allergy Severe PASSED OUT Verified 08/04/18 17:51 clavulanic acid Allergy Intermediate RASH Verified 08/04/18 17:51 Penicillins Allergy Intermediate RASH Verified 08/04/18 17:51 adhesive Allergy Mild REDNESS Verified 08/04/18 17:51 WITH EXTENDED USE Sulfa (Sulfonamide Allergy Mild RASH Verified 08/04/18 17:51 Antibiotics) sulfamethoxazole Allergy Mild RASH Verified 08/04/18 17:51 trimethoprim Allergy Mild RASH Verified 08/04/18 17:51 Bactrim Allergy Unknown RASH Verified 11/18/17 00:19 Fish Containing Products Allergy Verified 08/04/18 17:51 fish derived Allergy Verified 08/04/18 17:51 fish oil Allergy Verified 08/04/18 17:51 shellfish derived Allergy Verified 08/04/18 17:51 Latex, Natural Rubber AdvReac Intermediate Redness of Verified 08/04/18 17:51 Skin silver AdvReac Mild Irritates Verified 08/04/18 17:51 the skin Food Allergy Severe SEAFOOD - Uncoded 08/04/18 17:51 EYES SWELL IF DRINKS ALCOHOL WITH Carboxymethylcellulose AdvReac Mild Irritates Uncoded 08/04/18 17:51 the skin Past Med/Surg History Medical History Rib fracture Fall Asthma exacerbation B12 deficiency Rheumatoid arthritis PAD (peripheral artery disease) Chronic foot ulcer with fat layer exposed Essential hypertension (Chronic 02/12/13) Diabetes Asthma (Chronic) Cellulitis (Chronic) Foot pain, right (Chronic) GERD (gastroesophageal reflux disease) (Chronic) Ulcer (Chronic) LEFT FOOT Anxiety Arrhythmia BPH (benign prostatic hyperplasia) Osteoarthritis Rheumatoid arthritis Surgical History History of colectomy POLYPS REMOVED History of colonoscopy History of esophagogastroduodenoscopy (EGD) History of repair of rotator cuff RT History of tooth extraction Social History Current Living Situation: Family Current Living Situation Comment: home w/ and dtr Other Information That Helps Us Care for You: No Feels Safe at Home: Yes Safety Concerns: Feels Safe At This Time Smoking Status: Former smoker Do You Dip or Chew Tobacco: No Smoking End Date: quit in the Second Hand Exposure: No Hx Alcohol Use: No Hx Substance Use: No Beliefs That Will Affect Care: None Preferred Language: [place] Communication Ability: Effective Talent Sourcer Required: No Review of Systems See HPI for pertinent positives & negatives. and A total of 10 systems reviewed and were otherwise negative Physical Exam Vital Signs Vital Signs - 24 hr 08/04/18 16:00 08/04/18 18:51 08/04/18 19:34 Temperature 36.6 C Temperature Source Oral Sepsis Recent Fever Within 48 Hours No Sepsis New/Unexplained Change in Mental Status No Sepsis Action Taken by Nursing No Action Required Pulse Rate 114 H 115 H Pulse Rhythm Regular Pulse Strength Normal Respiratory Rate 18 22 Respiratory Effort / Characteristics Non-Labored Spontaneous Respiratory Depth Normal Respiratory Pattern Regular Regular Blood Pressure 146/85 H 125/80 Blood Pressure Mean 105 Blood Pressure Position Lying Pulse Oximetry 99 96 Oxygen Delivery Method Room Air Room Air Room Air GENERAL: Awake, alert, in no distress HENT: Normocephalic, atraumatic. EYES: Normal conjunctiva. Sclera non-icteric. NECK: Supple. No nuchal rigidity. CHEST: right chest wall pain, no bruising. RESPIRATORY: Clear to auscultation. No wheezes. Normal respiratory effort. CARDIAC: Normal rate. Normal rhythm. Extremities warm and well perfused. GI: Soft, non-distended. No tenderness to palpation. No rebound or guarding. RECTAL: Deferred. MUSCULOSKELETAL: Atraumatic. Chest examination reveals no tenderness. LOWER EXTREMITIES: Calves are equal size bilaterally and non-tender. No edema. Chronic bilateral foot wounds bandaged. NEURO: Normal sensorium. No lsurred speech. No facial droop. SKIN: Warm and dry. No rash or jaundice noted. Course 1617: Past medical records reviewed. The patient was evaluated in room C1B, and a complete history and physical examination were performed. 1809: I reviewed the patient's case with Dr. Shrestha - [facility] Hospitalist. She will evaluate the patient for further management. Administered Medications Doxycycline Hyclate (Vibramycin) 100 mg PO BID ROBIN Stop: 08/14/18 20:59 Last Admin: 08/04/18 22:22 Dose: 100 mg Misoprostol (Cytotec) 100 mcg PO BID ROBIN Stop: 09/03/18 20:59 Last Admin: 08/04/18 22:21 Dose: 100 mcg Morphine Sulfate (Morphine Sulfate) 2 mg IV Q2H PRN PRN Reason: Pain Stop: 08/18/18 20:09 Last Admin: 08/04/18 22:34 Dose: 2 mg Prednisone (Prednisone) 2 mg PO QPM ROBIN Stop: 09/03/18 20:59 Last Admin: 08/04/18 22:20 Dose: 2 mg Terazosin HCl (Hytrin) 2 mg PO HS ROBIN Stop: 09/03/18 20:59 Last Admin: 08/04/18 22:20 Dose: 2 mg Discontinued Medications Acetaminophen (Tylenol) 1,000 mg PO NOW STA Stop: 08/04/18 16:25 Last Admin: 08/04/18 16:49 Dose: 1,000 mg Fentanyl Citrate (Fentanyl Citrate) 25 mcg IV NOW STA Stop: 08/04/18 17:48 Last Admin: 08/04/18 18:14 Dose: 25 mcg Ketorolac Tromethamine (Toradol) 10 mg IV NOW STA Stop: 08/04/18 17:52 Last Admin: 08/04/18 18:12 Dose: 10 mg Medical Decision Making Differential Diagnosis Differential diagnosis includes: major intracranial, cervical, spinal, thoracic , abdominal, pelvic and neurologic injury, fracture, contusion, sprain, strain, laceration, and abrasions. Medical Records Attestation: I reviewed the patient's medical records. Home Medications Current Medication List: was personally reviewed by me Laboratory Data Attestation: I reviewed the patient's lab results. Result diagrams: 08/04/18 18:08 08/04/18 18:08 Lab Results 08/04/18 08/04/18 Range/Units 18:08 18:08 WBC 11.64 H (4.8-10.8) K/uL RBC 4.19 L (4.7-6.1) M/uL Hgb 10.7 L (14.0-18.0) g/dL Hct 33.8 L (42-52) % MCV 80.7 (80-100) fL MCH 25.5 (25-34) pg MCHC 31.7 L (32-36) g/dL RDW Std Deviation 53.4 H (36.4-46.3) fL RDW Coeff of Nick 18.1 H (11.5-14.5) % Plt Count 185 (130-400) K/uL MPV 9.3 (7.4-10.4) fL Immature Gran % (Auto) 0.9 % Neut % (Auto) 82.0 % Lymph % (Auto) 9.2 % [place] % (Auto) 7.0 % Eos % (Auto) 0.7 % Baso % (Auto) 0.2 % Immature Gran # (Auto) 0.11 H (0.00-0.02) K/uL Neut # (Auto) 9.54 H (1.4-6.5) K/uL Lymph # (Auto) 1.07 L (1.2-3.4) K/uL [place] # (Auto) 0.82 H (0.11-0.59) K/uL Eos # (Auto) 0.08 (0-0.5) K/uL Baso # (Auto) 0.02 (0-0.2) K/uL Sodium 138 (136-145) mmol/L Potassium 4.4 (3.5-5.1) mmol/L Chloride 108 H (98-107) mmol/L Carbon Dioxide 23 (21-32) mmol/L Anion Gap 7.0 (3-11) BUN 21 H (7-18) mg/dl Creatinine 0.75 (0.6-1.4) mg/dl Est Cr Clr Drug Dosing 72.4 ml/min Est GFR ( Amer) 104.7 Est GFR (Non-Af Amer) 90.4 BUN/Creatinine Ratio 28.7 H (10-20) Glucose 100 H (70-99) mg/dl Calcium 8.5 (8.5-10.1) mg/dl Imaging Data Radiologist's Impression: Radiology results as stated below per my review and the radiologist's interpretation: CT SCAN OF THE ABDOMEN AND PELVIS WITHOUT CONTRAST CLINICAL HISTORY: Right-sided pain status post trauma COMPARISON STUDY: 12/25/2011 TECHNIQUE: CT scan of the abdomen and pelvis was performed from the lung bases to the proximal femurs. Images are reviewed in the axial, sagittal, and coronal planes. IV contrast was not administered for this examination. A dose lowering technique was utilized adhering to the principles of ALARA. CT DOSE: 509.23 mGycm FINDINGS: Lower chest: There are dependent atelectatic changes. There are acute fractures of the right sixth through 10th ribs. There is an old right 11th rib fracture. Liver: The unenhanced liver is normal in size, contour, and attenuation. There is no intrahepatic biliary ductal dilatation. Gallbladder: Unremarkable. Spleen: Normal in size and attenuation. Pancreas: Unremarkable. Adrenal glands: Unremarkable. Kidneys: There is a 3 mm left renal calculus. There are left renal parapelvic cysts. Bowel: There are no transition zones indicate bowel obstruction. There is colonic diverticulosis. There is no evidence of acute peridiverticular inflammatory change. Appendix appears normal. There is no evidence for pathologic interloop fluid. There is a right inguinal hernia which contains several bowel loops. There is no current evidence of obstruction. Peritoneum: There is no intraperitoneal free air or abdominal ascites. Vasculature: The abdominal aorta is normal in course and caliber. Adenopathy: None. Pelvic viscera: The bladder, and pelvic viscera are unremarkable. Skeletal structures: There are acute fractures the right sixth through 10th ribs IMPRESSION: 1. No evidence of acute intra-abdominal or pelvic injury 2. Acute fractures of the right sixth through 10th ribs 3. Left-sided nephrolithiasis 4. Right inguinal hernia containing small bowel loops. No current evidence of obstruction Electronically signed by: Elfego Giron M.D. 08/04/2018 5:[address] chest wo con CLINICAL HISTORY: Right-sided chest pain status post trauma COMPARISON STUDY: CT scan dated 02/12/2013 CT DOSE: 415.74 mGycm TECHNIQUE: CT of the thorax was performed from the thoracic inlet to the lung bases. Images are reviewed in the axial, sagittal, and coronal planes. IV contrast was not administered for this examination. A dose lowering technique was utilized adhering to the principles of ALARA. FINDINGS: Thyroid: Imaged portions of the thyroid gland are normal in appearance. Thoracic aorta: The ascending thoracic aorta measures 37 mm. There is no mediastinal hematoma. Heart: There are coronary artery calcifications. There is trace pericardial fluid. Lungs and pleural spaces: There are no pleural effusions. There is no pneumothorax. There are dependent atelectatic changes. There are upper lobe partially calcified irregular masses which are felt to be chronic. There is a 16 mm focus of ill-defined groundglass attenuation within the right upper lobe. This is nonspecific. A six-month follow-up is recommended. There is a 4 mm right upper lobe pulmonary nodule. Mediastinum: There is no mediastinal hematoma. There is no pathologic adenopathy. Rika: There is no evidence of pathologic hilar adenopathy given the limitations of a noncontrast study Axilla: There is no evidence of pathologic axillary lymphadenopathy Upper abdomen: Partially visualized upper abdominal viscera is within normal limits. Skeletal structures: There is a new/enlarging 8 mm sclerotic lesion within T4 vertebral body. Diagnostic considerations include an enlarging bone island versus blastic metastasis. There is a healing right posterior fifth rib fracture. There is a healing scapular fracture. There are acute fractures of the right sixth through 10th ribs laterally. IMPRESSION: 1. Acute fractures of the right sixth through 10th ribs laterally 2. No evidence of pneumothorax. No pleural effusions 3. No evidence of mediastinal injury given the limitations of a noncontrast study 4. Postinflammatory upper lobe scarring. 5. Very subtle 16mm right upper lobe groundglass density. A six-month follow-up study is recommended. Electronically signed by: Elfego Giron M.D. 08/04/2018 5:20 PM ECG Data Attestation: I personally reviewed and interpreted this ECG as follows: Indication: chest pain Rate (beats per minute): 109 Rhythm: sinus tachycardia Findings: + other (non specific T wave changes) and + RBBB; no ST elevation Comparison ECG Date: from (14-JUL-2018) Change: no significant change Blood Pressure Blood Pressure Findings: Elevated blood pressure Blood Pressure Disposition: further management by hospitalist CASIMIRO Narrative 73-year-old gentleman presented via EMS today after a fall complaining of rib pain. Was in his electric wheelchair and slid out of the right side onto the rug. States he was sleeping at this time. Occurred around 3 PM. Denies striking his head. Complaining only some right-sided chest pain and pain with deep breath. No anticoagulants or antiplatelets. CT of the chest and abdomen pelvis completed noncontrast given his allergies. EKG completed. Doubt this is ACS. Denies any prodromal symptoms. Do not believe additional laboratory studies are indicated. Given some Tylenol, Toradol, and fentanyl with 10/10 pain. Given the finding of 5 right-sided rib fractures and given his age and comorbidities feel that monitoring overnight for pain control is prudent. Discussed with hospitalist for admission the patient. Basic laboratory studies were obtained without significant abnormality. Impression & Plan Fracture of rib of right side, Fall Discharge Plan Visit Data *Final* Discharge Date/Time: 08/04/18 19:34 Chief Complaint: Fall Stated Complaint: FALL, R RIB PAIN ED Provider: Дмитрий Bonner Discharge Problem: Fracture of rib of right side, Fall Patient Disposition: Admitted As Inpatient Discharge Instructions Interventions: ED Discharge Assessment Last Done: 08/04/18 19:34 The jessicaibe's documentation has been prepared under my direction and personally reviewed by me in its entirety. I confirm that the note above accurately reflects all work, treatment, procedures, and medical decision making performed by me.
[2018-08-05] MEDS: ACETAMINOPHEN 325 MG TAB PO PRN ×2 (06:10→16:15)
[2018-08-05 07:27] LABS: Hematocrit (blood only) 30.6 % (42-52); Hemoglobin 9.7 g/dL (14.0-18.0); Mean Corpuscular Hgb Conc 31.7 g/dL (32-36); Mean Corpuscular Volume 80.3 fL (80-100); Mean Platelet Volume 9.8 fL (7.4-10.4); Platelet Count 163 K/uL (130-400); RDW Coefficient of Variation 18.1 % (11.5-14.5); RDW Standard Deviation 52.8 fL (36.4-46.3); Red Blood Count 3.81 M/uL (4.7-6.1); White Blood Count 8.51 K/uL (4.8-10.8)
[2018-08-05 08:06] LABS: Albumin Level 2.6 gm/dl (3.4-5.0); BUN Creatinine Ratio 34.8 (10-20); Calcium 7.8 mg/dl (8.5-10.1); Creatinine Clr Calc Pharmacy 87.5 ml/min; Est GFR (African American) 113.3; Est GFR (Non-African American) 97.7; Potassium 3.8 mmol/L (3.5-5.1)
[2018-08-05 08:09] LABS: Albumin Globulin Ratio 0.9 (0.9-2); Bilirubin,Total 0.6 mg/dl (0.2-1); Total Protein 5.6 gm/dl (6.4-8.2)
[2018-08-05] MEDS: predniSONE 5 MG TAB PO SCH (08:18)
[2018-08-05] MEDS: FOLIC ACID 1 MG TAB PO SCH (08:18)
[2018-08-05] MEDS: CHOLECALCIFEROL 1,000 UNITS TAB PO SCH (08:18)
[2018-08-05] MEDS: CYANOCOBALAMIN 500 MCG TABLET (VITAMIN B-12) PO SCH (08:18)
[2018-08-05] MEDS: levoFLOXacin 500 MG TAB PO SCH (08:18)
[2018-08-05] MEDS: MULTIVITAMIN TAB PO SCH (08:18)
[2018-08-05] MEDS: DOXYCYCLINE HYCLATE 100 MG CAP PO SCH ×2 (08:18→20:21)
[2018-08-05] MEDS: PANTOprazole 40 MG TAB PO SCH (08:18)
[2018-08-05] MEDS: miSOPROStol 50 MCG TAB PO SCH ×2 (08:19→20:21)
[2018-08-05] MEDS ORDERED: metHOTREXate sodium 2.5 MG TAB PO SCH (09:00)
[2018-08-05] MEDS: NAPROXEN 250 MG TAB PO PRN (09:36)
[2018-08-05] MEDS: MoRPHine SULFATE 2 MG/ML CARP IV PRN (13:43)
[2018-08-05] MEDS: LIDOCAINE 5% 1 PATCH TD SCH (19:20)
[2018-08-05] MEDS: TERAZOSIN HCL 1 MG CAP PO SCH (20:20)
[2018-08-05] MEDS: predniSONE 1 MG TAB PO SCH (20:21)
--- NOTE | 2018-08-05 23:37 | Hospitalist Progress Note ---
Date of Service August 05, 2018 Assessment & Plan (1) Fall: (2) Rib fracture: - Admit to med surg for mechanical fall off scooter. -Incentive spirometry, O2 as needed, continue pain control with morphine sulfate IV for now, encourage deep breaths -CT of the chest reviewed: 1. No evidence of acute intra-abdominal or pelvic injury 2. Acute fractures of the right sixth through 10th ribs 3. Left-sided nephrolithiasis 4. Right inguinal hernia containing small bowel loops. No current evidence of obstruction Patient appears to be tolerating his pain. Plan is to consult PT/OT in AM, to assess his abiltiy to transfer into [place]ooter. Patient continues to tolerate room air. Placed lidoderm patch for better pain control (3) B12 deficiency: -Continue supplementation (4) Rheumatoid arthritis: -Continue prednisone 5 mg every morning and 2 mg every evening -Continue methotrexate weekly (5) PAD (peripheral artery disease): (6) Chronic foot ulcer with fat layer exposed: -Patient follows with podiatry and infectious disease as an outpatient -Last known cultures of this wound grew out stenotrophomonas maltophilia resistant to multiple drugs -Has wound care/home health nurse come to wrap the foot several times per week as an outpatient -We will consult wound care here -Continue Levaquin 500 mg daily and doxycycline 100 p.o. BID -PT/OT Will also consult podiatry at request of family. (7) Essential hypertension: - Monitor BP, slightly elevated likely secondary to pain. Spent 35 minutes in management of patient. Subjective Patient reports that he uses a motorized scooter at home. He states he feel and this likely caused his fractures. He states that he is able to transfer from bed to his chair. He states his pain is better today than it was yesterday. Pain is located on R side of his chest, non radiating, 4/10 pain. Patient states that tylenol is helping, however. Nurse states that he grimaces with pain on movement. Physical Exam 2 Vital Signs (Past 24 Hours): Last Vital Signs Temp 37.3 C 08/05/18 14:23 Pulse 110 H 08/05/18 14:23 Resp 20 08/05/18 14:23 BP 105/67 08/05/18 14:23 Pulse Ox 93 08/05/18 14:23 Physical Exam: General: awake, alert, no apparent distress Head: Normocephalic, atraumatic ENT: PERRL, EOMI, no pharyngeal exudate, mucous membranes moist Chest: Clear to auscultation, on room air, no adventitious breath sounds, tenderness to palpation on righ side of chest. Cardiac: Regular rhythm, slightly tachycardic with HR around 100, no murmur, no JVD, normal peripheral pulses, good capillary refill Abdominal: NABS x 4 quadrants, soft, nontender to palpation, no rebound, guarding or tenderness Extremities: + Severe arthritic deformities of fingers, wrists ankles and feet. + mild erythema on BLE, + chronic Left sided foot ulceration with dressing intact. No peripheral edema or erythema, calfs nontender to palpation Psych: Normal mood and affect Neuro: AAO x 3, speech is clear, no peripheral sensory deficits
[2018-08-06] MEDS: ACETAMINOPHEN 325 MG TAB PO PRN (00:20)
[2018-08-06] MEDS: MoRPHine SULFATE 2 MG/ML CARP IV PRN ×3 (05:23→21:27)
[2018-08-06 07:15] LABS: Hematocrit (blood only) 32.8 % (42-52); Hemoglobin 10.4 g/dL (14.0-18.0); Mean Corpuscular Hgb Conc 31.7 g/dL (32-36); Mean Corpuscular Volume 80.4 fL (80-100); Mean Platelet Volume 11.2 fL (7.4-10.4); Platelet Count 133 K/uL (130-400); RDW Coefficient of Variation 18.2 % (11.5-14.5); RDW Standard Deviation 52.9 fL (36.4-46.3); Red Blood Count 4.08 M/uL (4.7-6.1); White Blood Count 9.07 K/uL (4.8-10.8)
[2018-08-06 07:59] LABS: Albumin Globulin Ratio 0.8 (0.9-2); Albumin Level 2.7 gm/dl (3.4-5.0); BUN Creatinine Ratio 31.2 (10-20); Bilirubin,Total 0.7 mg/dl (0.2-1); Calcium 8.1 mg/dl (8.5-10.1); Creatinine Clr Calc Pharmacy 77.5 ml/min; Est GFR (African American) 107.8; Globulin 3.4 gm/dl (2.5-4.0); Total Protein 6.1 gm/dl (6.4-8.2)
[2018-08-06] MEDS: FOLIC ACID 1 MG TAB PO SCH (08:08)
[2018-08-06] MEDS: levoFLOXacin 500 MG TAB PO SCH (08:08)
[2018-08-06] MEDS: miSOPROStol 50 MCG TAB PO SCH ×2 (08:08→20:53)
[2018-08-06] MEDS: LIDOCAINE 5% 1 PATCH TD SCH (08:08)
[2018-08-06] MEDS: PANTOprazole 40 MG TAB PO SCH (08:09)
[2018-08-06] MEDS: CYANOCOBALAMIN 500 MCG TABLET (VITAMIN B-12) PO SCH (08:09)
[2018-08-06] MEDS: DOXYCYCLINE HYCLATE 100 MG CAP PO SCH (08:09)
[2018-08-06] MEDS: predniSONE 5 MG TAB PO SCH (08:09)
[2018-08-06] MEDS: MULTIVITAMIN TAB PO SCH (08:09)
[2018-08-06] MEDS: CHOLECALCIFEROL 1,000 UNITS TAB PO SCH (08:09)
--- NOTE | 2018-08-06 09:43 | Infectious Disease Consult ---
Date of Consultation August 06, 2018 Assessment & Plan (1) Chronic foot ulcer with fat layer exposed: 73-year-old male with chronic left foot ulceration with previous secondary infection with MRSA and stenotrophomonas. Foot wound appears improved , given multiple drug resistance of previous isolates, would consider holding antibiotics for now given clinical improvement, and will follow as outpatient at the wound care center. Will discuss with all involved. 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 Has been treated with courses of antibiotics, most recently doxycycline in ofloxacin with positive cultures for stenotrophomonas and MRSA. Most recent isolates now resistant to current therapy. Patient has had slow improvement in the wound over the last 2 weeks, no increase in redness or swelling, no purulent drainage , no fever chills. Now admitted after falling from his wheelchair and suffering multiple fractures. Complaining of severe right-sided chest pain, currently 9/10 in intensity. Allergies Allergy/AdvReac Type Severity Reaction Status Date / Time amoxicillin Allergy Severe RED Verified 08/05/18 10:45 BLOTCHES HEAD TO TOE Iodinated Contrast- Oral and Allergy Severe "FELT Verified 08/05/18 10:45 IV Dye FUNNY" ioversol Allergy Severe PASSED OUT Verified 08/05/18 10:45 clavulanic acid Allergy Intermediate RASH Verified 08/05/18 10:45 Penicillins Allergy Intermediate RASH Verified 08/05/18 10:45 adhesive Allergy Mild REDNESS Verified 08/05/18 10:45 WITH EXTENDED USE Sulfa (Sulfonamide Allergy Mild RASH Verified 08/05/18 10:45 Antibiotics) sulfamethoxazole Allergy Mild RASH Verified 08/05/18 10:45 trimethoprim Allergy Mild RASH Verified 08/05/18 10:45 Bactrim Allergy Unknown RASH Verified 11/18/17 00:19 Fish Containing Products Allergy Unknown Verified 08/05/18 10:45 fish derived Allergy Unknown Verified 08/05/18 10:45 fish oil Allergy Unknown Verified 08/05/18 10:45 shellfish derived Allergy Unknown Verified 08/05/18 10:45 Latex, Natural Rubber AdvReac Intermediate Redness of Verified 08/05/18 10:45 Skin silver AdvReac Mild Irritates Verified 08/05/18 10:45 the skin Food Allergy Severe SEAFOOD - Uncoded 08/05/18 10:45 EYES SWELL IF DRINKS ALCOHOL WITH Carboxymethylcellulose AdvReac Mild Irritates Uncoded 08/05/18 10:45 the skin Home Medications Home Medications Medication Instructions Recorded Confirmed Type meclizine 25 mg tablet 12.5 - 25 mg PO TID PRN 03/18/18 08/05/18 History levofloxacin [Levaquin] 500 mg PO QAM 04/22/18 08/05/18 History acetaminophen [Tylenol Extra 500 mg PO Q6H PRN 07/14/18 08/05/18 History Strength] cyanocobalamin (vitamin B-12) 1,000 mcg PO QAM 07/14/18 08/05/18 History [Vitamin B-12] alendronate [Fosamax] 70 mg PO WK 07/16/18 08/05/18 History alprazolam [Xanax] 0.25 mg PO TID PRN 07/16/18 08/05/18 History esomeprazole magnesium [Nexium] 40 mg PO QAM 07/16/18 08/05/18 History folic acid 1 mg PO QAM 07/16/18 08/05/18 History methotrexate sodium 15 mg PO WK 07/16/18 08/05/18 History misoprostol 100 mcg PO BID 07/16/18 08/05/18 History multivitamin 1 cap PO DAILY 07/16/18 08/05/18 History naproxen 500 mg PO BID PRN 07/16/18 08/05/18 History prednisone 2 mg PO QPM 07/16/18 08/05/18 History prednisone 5 mg PO QAM 07/16/18 08/05/18 History albuterol sulfate [ProAir 2 inha INH Q4H 08/04/18 08/05/18 History RespiClick] cholecalciferol (vitamin D3) 1,000 unit PO QAM 08/04/18 08/05/18 History [Vitamin D3] doxycycline hyclate 100 mg PO BID 08/04/18 08/05/18 History ondansetron 8 mg PO Q6 PRN 08/04/18 08/05/18 History terazosin 2 mg PO HS 08/04/18 08/05/18 History Patient History Medical History Rib fracture Fall Asthma exacerbation B12 deficiency Rheumatoid arthritis PAD (peripheral artery disease) Chronic foot ulcer with fat layer exposed - continue treatment with aqaucell ag and gauze to left foot and adaptic with allyven foam to right foot and ankle, continue recommendations per ID for left foot - patient will follow up in the office with me after discharge Essential hypertension (Chronic 02/12/13) Diabetes Asthma (Chronic) Cellulitis (Chronic) Foot pain, right (Chronic) GERD (gastroesophageal reflux disease) (Chronic) Ulcer (Chronic) LEFT FOOT Anxiety Arrhythmia BPH (benign prostatic hyperplasia) Osteoarthritis Rheumatoid arthritis Surgical History History of colectomy POLYPS REMOVED History of colonoscopy History of esophagogastroduodenoscopy (EGD) History of repair of rotator cuff RT History of tooth extraction Social History Current Living Situation: Family Current Living Situation Comment: home w/ and dtr Other Information That Helps Us Care for You: No Feels Safe at Home: Yes Safety Concerns: Feels Safe At This Time Smoking Status: Former smoker Do You Dip or Chew Tobacco: No Smoking End Date: quit in the s Second Hand Exposure: No Hx Alcohol Use: No Hx Substance Use: No Beliefs That Will Affect Care: None Communication Ability: Effective Review of Systems All systems were reviewed and are negative except as per HPI Physical Exam 2 Vital Signs (Past 24 Hours): Last Vital Signs Temp 36.7 C 08/06/18 07:15 Pulse 105 H 08/06/18 07:15 Resp 20 08/06/18 07:15 BP 109/66 08/06/18 07:15 Pulse Ox 96 08/06/18 07:15 Constitutional: WD/WN, vitals as above + acute distress (From right-sided chest pain) Eyes: PERRL, conjunctivae normal, anicteric sclerae ENMT: external ear and nose normal, oropharynx normal Neck: trachea midline, no thyromegaly neck nontender Respiratory: normal respiratory effort, lungs clear to auscultation normal percussion; does not use accessory muscles Cardiovascular: Rate/Rhythm: regular rate and regular rhythm Heart Sounds: normal S1 and normal S2; no gallop, no murmur and no cardiac rub Vessels: normal peripheral pulses; no JVD Gastrointestinal (Abdomen): normal bowel sounds, soft, nontender, no hepatosplenomegaly Musculoskeletal: Head/Neck/Chest: normocephalic and head atraumatic Severe rheumatoid deformities Skin: no rashes, warm and dry Large open dorsal foot wound without purulence or significant surrounding erythema Neurologic: patellar DTR's 2+ bilat, sensation intact no focal motor deficits Psychiatric: A+Ox3, euthymic affect Orientation: cooperative Lymphatic: no cervical or axillary lymphadenopathy no inguinal lymphadenopathy Results & Data Laboratory Results Short CBC 08/06/18 Range/Units 06:42 WBC 9.07 (4.8-10.8) K/uL Hgb 10.4 L (14.0-18.0) g/dL Hct 32.8 L (42-52) % Plt Count 133 (130-400) K/uL BMP 08/06/18 06:42 Sodium 137 Potassium 4.0 Chloride 106 Carbon Dioxide 21 BUN 22 H Creatinine 0.70 Glucose 91 Calcium 8.1 L Liver Function 08/06/18 Range/Units 06:42 Total Bilirubin 0.7 (0.2-1) mg/dl AST 27 (15-37) U/L ALT 20 (12-78) U/L Alkaline Phosphatase 59 (45-117) U/L Albumin 2.7 L (3.4-5.0) gm/dl Diagnostic Findings OV Order: Ordered: Aer/Mary Cult/Sm Procedure Result Verified Site Gram Stain Final 04/25/18-0707 Gram Stain Result Rare Epithelial Cells No WBCs Seen No Organisms Seen Aero/Mary Cult Final 04/29/18-1301 Organism 1 Stenotrophomonas maltophilia Quantity Few Sens Sensitivities to Follow No Anaerobes Isolated No Anaerobes Isolated Organism 2 Staph aureus MRSA Quantity Rare Sens Sensitivities to Follow Sensitivity results indicate a Methicillin-Resistant Staph aureus. Phoned to [facility] AND [facility]ENJI CRUZ () on 04/27/18 at 1251 by Santana Duggan and results were verbalized back. Steno malt MRSA RX M.I.C. RX M.I.C. --- --------- --- --------- Ceftazidime I 16 Clindamycin R >4 Daptomycin S <=0.5 Erythromycin R >4 Levofloxacin R >4 Oxacillin R >2 Rifampin S <=1 Tetracycline R >8 Trimeth/Sulfa S <=2/38 S <=0.5/9.5 Vancomycin S 2 S = SENSITIVE I = INTERMEDIATE R = RESISTANT FINDINGS: Thyroid: Imaged portions of the thyroid gland are normal in appearance. Thoracic aorta: The ascending thoracic aorta measures 37 mm. There is no mediastinal hematoma. Heart: There are coronary artery calcifications. There is trace pericardial fluid. Lungs and pleural spaces: There are no pleural effusions. There is no pneumothorax. There are dependent atelectatic changes. There are upper lobe partially calcified irregular masses which are felt to be chronic. There is a 16 mm focus of ill-defined groundglass attenuation within the right upper lobe. This is nonspecific. A six-month follow-up is recommended. There is a 4 mm right upper lobe pulmonary nodule. Mediastinum: There is no mediastinal hematoma. There is no pathologic adenopathy. Rika: There is no evidence of pathologic hilar adenopathy given the limitations of a noncontrast study Axilla: There is no evidence of pathologic axillary lymphadenopathy Upper abdomen: Partially visualized upper abdominal viscera is within normal limits. Skeletal structures: There is a new/enlarging 8 mm sclerotic lesion within T4 vertebral body. Diagnostic considerations include an enlarging bone island versus blastic metastasis. There is a healing right posterior fifth rib fracture. There is a healing scapular fracture. There are acute fractures of the right sixth through 10th ribs laterally. IMPRESSION: 1. Acute fractures of the right sixth through 10th ribs laterally 2. No evidence of pneumothorax. No pleural effusions 3. No evidence of mediastinal injury given the limitations of a noncontrast study 4. Postinflammatory upper lobe scarring. 5. Very subtle 16mm right upper lobe groundglass density. A six-month follow-up study is recommended. Electronically signed by: Elfego Giron M.D. 08/04/2018 5:20 PM
[2018-08-06] MEDS: NAPROXEN 250 MG TAB PO PRN ×2 (09:46→20:51)
--- NOTE | 2018-08-06 12:11 | Podiatry Consultation ---
Date of Consultation August 06, 2018 History of Present Illness Reason for Consultation: left foot ulcer, right foot ulcer, continuity of care for bilateral foot ulcers Requesting Physician: Dr. Suarez Attending Physician: Joseph Suarez History of Present Illness Patient is a pleasant 73 year old male patient, known to me. Patient is seen weekly at the office for debridement and ulceration evaluations. Patient has a dorsal left foot ulcer that is chronic, healing complicated related to his medical co morbidities including rheumatoid arthritis, PAD, and diabetes. Patient most recently had a infection of the left foot after being hospitalized due to the flu over [place], after stay in hospital patient developed cellulitis of the left foot, cultures taken at [facility] showed gram negative bacteria - patient has been treat by ID for this as well,currently on Levo and doxy with improvement noted to the foot Allergies Allergy/AdvReac Type Severity Reaction Status Date / Time amoxicillin Allergy Severe RED Verified 08/05/18 10:45 BLOTCHES HEAD TO TOE Iodinated Contrast- Oral and Allergy Severe "FELT Verified 08/05/18 10:45 IV Dye FUNNY" ioversol Allergy Severe PASSED OUT Verified 08/05/18 10:45 clavulanic acid Allergy Intermediate RASH Verified 08/05/18 10:45 Penicillins Allergy Intermediate RASH Verified 08/05/18 10:45 adhesive Allergy Mild REDNESS Verified 08/05/18 10:45 WITH EXTENDED USE Sulfa (Sulfonamide Allergy Mild RASH Verified 08/05/18 10:45 Antibiotics) sulfamethoxazole Allergy Mild RASH Verified 08/05/18 10:45 trimethoprim Allergy Mild RASH Verified 08/05/18 10:45 Bactrim Allergy Unknown RASH Verified 11/18/17 00:19 Fish Containing Products Allergy Unknown Verified 08/05/18 10:45 fish derived Allergy Unknown Verified 08/05/18 10:45 fish oil Allergy Unknown Verified 08/05/18 10:45 shellfish derived Allergy Unknown Verified 08/05/18 10:45 Latex, Natural Rubber AdvReac Intermediate Redness of Verified 08/05/18 10:45 Skin silver AdvReac Mild Irritates Verified 08/05/18 10:45 the skin Food Allergy Severe SEAFOOD - Uncoded 08/05/18 10:45 EYES SWELL IF DRINKS ALCOHOL WITH Carboxymethylcellulose AdvReac Mild Irritates Uncoded 08/05/18 10:45 the skin Home Medications Home Medications Medication Instructions Recorded Confirmed Type meclizine 25 mg tablet 12.5 - 25 mg PO TID PRN 03/18/18 08/05/18 History levofloxacin [Levaquin] 500 mg PO QAM 04/22/18 08/05/18 History acetaminophen [Tylenol Extra 500 mg PO Q6H PRN 07/14/18 08/05/18 History Strength] cyanocobalamin (vitamin B-12) 1,000 mcg PO QAM 07/14/18 08/05/18 History [Vitamin B-12] alendronate [Fosamax] 70 mg PO WK 07/16/18 08/05/18 History alprazolam [Xanax] 0.25 mg PO TID PRN 07/16/18 08/05/18 History esomeprazole magnesium [Nexium] 40 mg PO QAM 07/16/18 08/05/18 History folic acid 1 mg PO QAM 07/16/18 08/05/18 History methotrexate sodium 15 mg PO WK 07/16/18 08/05/18 History misoprostol 100 mcg PO BID 07/16/18 08/05/18 History multivitamin 1 cap PO DAILY 07/16/18 08/05/18 History naproxen 500 mg PO BID PRN 07/16/18 08/05/18 History prednisone 2 mg PO QPM 07/16/18 08/05/18 History prednisone 5 mg PO QAM 07/16/18 08/05/18 History albuterol sulfate [ProAir 2 inha INH Q4H 08/04/18 08/05/18 History RespiClick] cholecalciferol (vitamin D3) 1,000 unit PO QAM 08/04/18 08/05/18 History [Vitamin D3] doxycycline hyclate 100 mg PO BID 08/04/18 08/05/18 History ondansetron 8 mg PO Q6 PRN 08/04/18 08/05/18 History terazosin 2 mg PO HS 08/04/18 08/05/18 History Patient History Medical History Rib fracture Fall Asthma exacerbation B12 deficiency Rheumatoid arthritis PAD (peripheral artery disease) Chronic foot ulcer with fat layer exposed Essential hypertension (Chronic 02/12/13) Diabetes Asthma (Chronic) Cellulitis (Chronic) Foot pain, right (Chronic) GERD (gastroesophageal reflux disease) (Chronic) Ulcer (Chronic) LEFT FOOT Anxiety Arrhythmia BPH (benign prostatic hyperplasia) Osteoarthritis Rheumatoid arthritis Surgical History History of colectomy POLYPS REMOVED History of colonoscopy History of esophagogastroduodenoscopy (EGD) History of repair of rotator cuff RT History of tooth extraction Social History Current Living Situation: Family Current Living Situation Comment: home w/ and dtr Other Information That Helps Us Care for You: No Feels Safe at Home: Yes Safety Concerns: Feels Safe At This Time Smoking Status: Former smoker Do You Dip or Chew Tobacco: No Smoking End Date: quit in the Second Hand Exposure: No Hx Alcohol Use: No Hx Substance Use: No Beliefs That Will Affect Care: None Communication Ability: Effective Review of Systems Integumentary: + non-healing lesions, + skin ulcer and + sores ulcer present on the dorsal aspect of the left - ulceration is full thickness with exposed tendons, granular with fibrotic tissue is present, much improved erythema (erythema was present over the entire forefoot) it is almost fully resolved at this point, swelling is resolved left foot with dorsal digital wounds over digits 2,3,4 with fibrotic tissue present - patient is having dressings applied by wound care consisting of aquacell ag and gauze, this should continue ulcer present right ankle - likely arterial in nature with granular tissue ulcer plantar medial right foot - related to arthritic changes of the midfoot with dry Escher and granular tissue ulcer right 4th digit dorsal aspect - stable with granular and dry tissue present Physical Exam 2 Vital Signs (Past 24 Hours): Last Vital Signs Temp 36.7 C 08/06/18 07:15 Pulse 105 H 08/06/18 07:15 Resp 20 08/06/18 07:15 BP 109/66 08/06/18 07:15 Pulse Ox 96 08/06/18 07:15 Skin: - stable ulcers present bilateral feet, right medial ankle, midfoot plantar aspect and 4th digit - improving / stable ulcer dorsal left foot and dorsal 2,3,4 digits
[2018-08-06] MEDS: predniSONE 1 MG TAB PO SCH (20:53)
[2018-08-06] MEDS: TERAZOSIN HCL 1 MG CAP PO SCH (20:54)
--- NOTE | 2018-08-06 21:31 | Hospitalist Progress Note ---
Date of Service August 06, 2018 Assessment & Plan (1) Fall: (2) Rib fracture: - Admit to med surg for mechanical fall off scooter. -Incentive spirometry, O2 as needed, continue pain control with morphine sulfate IV for now, encourage deep breaths -CT of the chest reviewed: 1. No evidence of acute intra-abdominal or pelvic injury 2. Acute fractures of the right sixth through 10th ribs 3. Left-sided nephrolithiasis 4. Right inguinal hernia containing small bowel loops. No current evidence of obstruction Patient is breathing well, tolerating the pain. Ordered lidoderm patch to see if this help his pain. Ordered PT/OT. Recommend SNF. Will try to taper off narcotic due to possibilty of causing confusion. (3) B12 deficiency: -Continue supplementation (4) Rheumatoid arthritis: -Continue prednisone 5 mg every morning and 2 mg every evening -Continue methotrexate weekly (5) PAD (peripheral artery disease): (6) Chronic foot ulcer with fat layer exposed: -Patient follows with podiatry and infectious disease as an outpatient -Last known cultures of this wound grew out stenotrophomonas maltophilia resistant to multiple drugs -Has wound care/home health nurse come to wrap the foot several times per week as an outpatient -We will consult wound care here Consulted ID. Recommend stopping antibiotics at this time. Foot appears to be healing. Consulted podiatry. (7) Essential hypertension: - Monitor BP, slightly elevated likely secondary to pain. Spent 25 minutes in management of patient. Subjective Patient reports that he uses a motorized scooter at home. Patient continues to have pain in the right side of his chest. Pain is still about a 4/10. Patient though reports he is able to breath well. Physical Exam 2 Vital Signs (Past 24 Hours): Last Vital Signs Temp 37.1 C 08/06/18 15:22 Pulse 99 H 08/06/18 15:22 Resp 18 08/06/18 15:22 BP 123/68 08/06/18 15:22 Pulse Ox 93 08/06/18 15:22 Physical Exam: General: awake, alert, no apparent distress Head: Normocephalic, atraumatic ENT: PERRL, EOMI, no pharyngeal exudate, mucous membranes moist Chest: Clear to auscultation, on room air, no adventitious breath sounds, tenderness to palpation on righ side of chest. Cardiac: Regular rhythm, regular rate, no murmur, no JVD, normal peripheral pulses, good capillary refill Abdominal: NABS x 4 quadrants, soft, nontender to palpation, no rebound, guarding or tenderness Extremities: + Severe arthritic deformities of fingers, wrists ankles and feet. + chronic Left sided foot ulceration with dressing intact. No peripheral edema or erythema, calfs nontender to palpation Psych: Normal mood and affect Neuro: AAO x 3, speech is clear, no peripheral sensory deficits
[2018-08-07] MEDS ORDERED: ALENDRONATE SODIUM 70 MG TAB PO SCH (06:00)
[2018-08-07 07:40] LABS: Hematocrit (blood only) 31.6 % (42-52); Hemoglobin 9.9 g/dL (14.0-18.0); Mean Corpuscular Hgb Conc 31.3 g/dL (32-36); Mean Corpuscular Volume 80.6 fL (80-100); Mean Platelet Volume 9.4 fL (7.4-10.4); Platelet Count 157 K/uL (130-400); RDW Coefficient of Variation 18.4 % (11.5-14.5); RDW Standard Deviation 53.5 fL (36.4-46.3); Red Blood Count 3.92 M/uL (4.7-6.1)
[2018-08-07 08:03] LABS: Albumin Level 2.6 gm/dl (3.4-5.0); BUN Creatinine Ratio 30.4 (10-20); Calcium 7.7 mg/dl (8.5-10.1); Creatinine Clr Calc Pharmacy 77.5 ml/min; Est GFR (African American) 107.8
[2018-08-07 08:05] LABS: Albumin Globulin Ratio 0.8 (0.9-2); Bilirubin,Total 0.7 mg/dl (0.2-1); Globulin 3.2 gm/dl (2.5-4.0); Total Protein 5.8 gm/dl (6.4-8.2)
[2018-08-07] MEDS: LIDOCAINE 5% 1 PATCH TD SCH (08:26)
[2018-08-07] MEDS: predniSONE 5 MG TAB PO SCH (08:27)
[2018-08-07] MEDS: PANTOprazole 40 MG TAB PO SCH (08:27)
[2018-08-07] MEDS: MULTIVITAMIN TAB PO SCH (08:27)
[2018-08-07] MEDS: CHOLECALCIFEROL 1,000 UNITS TAB PO SCH (08:27)
[2018-08-07] MEDS: NAPROXEN 250 MG TAB PO PRN (08:28)
[2018-08-07] MEDS: CYANOCOBALAMIN 500 MCG TABLET (VITAMIN B-12) PO SCH (08:28)
[2018-08-07] MEDS: miSOPROStol 50 MCG TAB PO SCH (08:29)
[2018-08-07] MEDS: FOLIC ACID 1 MG TAB PO SCH (08:30)
[2018-08-07] MEDS ORDERED: LACTULOSE SYRUP 30 GM/45 ML UDP PO ONE (11:15)
--- NOTE | 2018-08-07 12:36 | Progress Note ---
Date of Service August 07, 2018 Subjective patient seen today at bedside prior to going to [facility] dressign removed left foot and ulcers examined - dressings removed, area cleaned and aquacell with gauze reapplied - dressing orders placed for [facility] - they are to change the dressings daily and apply aquacell with gauze to the left foot, right foot to apply adaptic with allyven foam - patient will follow up with me in my offcei in 1 week - patient is beign d/c today Integumentary: + non-healing lesions, + skin ulcer and + sores Physical Exam 2 Vital Signs (Past 24 Hours): Last Vital Signs Temp 36.8 C 08/07/18 11:21 Pulse 100 H 08/07/18 11:21 Resp 20 08/07/18 11:21 BP 99/62 L 08/07/18 11:21 Pulse Ox 95 08/07/18 11:21 Skin: left foot examined and dressing removed, improved erythema and swelling - noted bleeding fromthe digits - new dressings applied - stable appearance of the left foot
--- NOTE | 2018-08-12 11:47 | Discharge Summary ---
Date of Service August 07, 2018 Admission HPI Per Admitting Provider This is a 73 yo M with asthma, RA, B12 deficiency, HTN, DM II, chronic foot ulceration and PAD who presents after mechanical fall with subsequent rib fracture. Patient states that he was at home sitting on a scooter which did not have the arms on it and accidentally slid off the side fell down. Patient denies any trauma to the head or other area of injury. He does have pain currently in his right side of his ribs but states that is manageable with pain medication given in the ER. Patient is able to take deep breaths currently without much difficulty. Imaging reveals right-sided 6th-10th fractures. Principal Diagnosis Rib fracture Discharge Exam General: awake, alert, no apparent distress Head: Normocephalic, atraumatic ENT: PERRL, EOMI, no pharyngeal exudate, mucous membranes moist Chest: Clear to auscultation, on room air, no adventitious breath sounds, tenderness to palpation on right side of chest. Cardiac: Regular rhythm, regular rate, no murmur, no JVD, normal peripheral pulses, good capillary refill Abdominal: NABS x 4 quadrants, soft, nontender to palpation, no rebound, guarding or tenderness Extremities: + Severe arthritic deformities of fingers, wrists ankles and feet. + chronic Left sided foot ulceration with dressing intact. No peripheral edema or erythema, calfs nontender to palpation Psych: Normal mood and affect Neuro: AAO x 3, speech is clear, no peripheral sensory deficits Discharge Data Allergies Allergy/AdvReac Type Severity Reaction Status Date / Time amoxicillin Allergy Severe RED Verified 08/05/18 10:45 BLOTCHES HEAD TO TOE Iodinated Contrast- Oral and Allergy Severe "FELT Verified 08/05/18 10:45 IV Dye FUNNY" ioversol Allergy Severe PASSED OUT Verified 08/05/18 10:45 clavulanic acid Allergy Intermediate RASH Verified 08/05/18 10:45 Penicillins Allergy Intermediate RASH Verified 08/05/18 10:45 adhesive Allergy Mild REDNESS Verified 08/05/18 10:45 WITH EXTENDED USE Sulfa (Sulfonamide Allergy Mild RASH Verified 08/05/18 10:45 Antibiotics) sulfamethoxazole Allergy Mild RASH Verified 08/05/18 10:45 trimethoprim Allergy Mild RASH Verified 08/05/18 10:45 Bactrim Allergy Unknown RASH Verified 11/18/17 00:19 Fish Containing Products Allergy Unknown Verified 08/05/18 10:45 fish derived Allergy Unknown Verified 08/05/18 10:45 fish oil Allergy Unknown Verified 08/05/18 10:45 shellfish derived Allergy Unknown Verified 08/05/18 10:45 Latex, Natural Rubber AdvReac Intermediate Redness of Verified 08/05/18 10:45 Skin silver AdvReac Mild Irritates Verified 08/05/18 10:45 the skin Food Allergy Severe SEAFOOD - Uncoded 08/05/18 10:45 EYES SWELL IF DRINKS ALCOHOL WITH Carboxymethylcellulose AdvReac Mild Irritates Uncoded 08/05/18 10:45 the skin Consultations 08/04/18 17:58 ED Decision to Admit Stat 08/04/18 20:10 Consult Case Management - Discharge Planning Routine 08/05/18 11:34 Consult Infectious Diseases Routine 08/05/18 16:34 Consult Podiatry Routine Ordered Studies 08/04/18 16:23 CT abd pelvis wo con Stat CT chest wo con Stat Hospital Course (1) Fall: (2) Rib fracture: - Admit to med surg for mechanical fall off scooter. -Incentive spirometry, O2 as needed, continue pain control with morphine sulfate IV for now, encourage deep breaths -CT of the chest reviewed: 1. No evidence of acute intra-abdominal or pelvic injury 2. Acute fractures of the right sixth through 10th ribs 3. Left-sided nephrolithiasis 4. Right inguinal hernia containing small bowel loops. No current evidence of obstruction Patient is breathing well, tolerating the pain. Ordered lidoderm patch to see if this help his pain. On day of discharge, patient noticed an improvement with the lidocrem patch. Ordered PT/OT. Recommended SNF. Will hold off narcotics at discharge (3) B12 deficiency: -Continue supplementation (4) Rheumatoid arthritis: -Continue prednisone 5 mg every morning and 2 mg every evening -Continue methotrexate weekly (5) PAD (peripheral artery disease): (6) Chronic foot ulcer with fat layer exposed: -Patient follows with podiatry and infectious disease as an outpatient -Last known cultures of this wound grew out stenotrophomonas maltophilia resistant to multiple drugs -Has wound care/home health nurse come to wrap the foot several times per week as an outpatient -We will consult wound care here Consulted ID. Recommend stopping antibiotics at this time. Foot appears to be healing. Consulted podiatry. (7) Essential hypertension: - Monitor BP, slightly elevated likely secondary to pain. Total Time Total Time Spent Total Time Spent (In Minutes): 33 Total Time Includes: Examination of the Patient, Discharge Planning and Medication Reconciliation Discharge Plan Discharge Items Patient Disposition: Transfer [facility] Fac Reason For Visit: S/P FALL,R 6-10 RIB FRACTURE Discharge Diagnosis: S/P fall, rib fracture Condition: Fair Discharge Goals: Decrease discomfort and Improve nutritional status Activity: Resume your previous activity Non-emergency contact: Primary Care Provider Call non-emergency contact if: you have any medication questions Diet: Carb Consistent or DM2 Addtl Provider Instructions: Followup with PCP in 1-[address] Johns for ID Appointment scheduled for Thursday 08/[address] Long for Monday 08/14 Followup with podiatry Prescriptions: New lidocaine 5 % Adhesive Patch,Medicated 1 patch Transdermal QAM Qty: 30 RF: 0 oxycodone-acetaminophen [Percocet] 5-325 mg tablet 1 tab PO HS PRN (Reason: pain) Qty: 1 RF: 0 Continue cyanocobalamin (vitamin B-12) [Vitamin B-12] 1,000 mcg Tablet 1,000 mcg PO QAM RF: 0 acetaminophen [Tylenol Extra Strength] 500 mg Tablet 500 mg PO Q6H PRN (Reason: Pain) RF: 0 alendronate [Fosamax] 70 mg tablet 70 mg PO WK RF: 0 alprazolam [Xanax] 0.25 mg tablet 0.25 mg PO TID PRN (Reason: Anxiety) RF: 0 multivitamin Tablet 1 cap PO DAILY RF: 0 prednisone 5 mg tablet 5 mg PO QAM RF: 0 methotrexate sodium 2.5 mg tablet 15 mg PO WK RF: 0 prednisone 1 mg tablet 2 mg PO QPM RF: 0 esomeprazole magnesium [Nexium] 40 mg capsule,delayed release(DR/EC) 40 mg PO QAM RF: 0 misoprostol 100 mcg tablet 100 mcg PO BID RF: 0 folic acid 1 mg tablet 1 mg PO QAM RF: 0 naproxen 500 mg tablet 500 mg PO BID PRN (Reason: Inflammation) RF: 0 cholecalciferol (vitamin D3) [Vitamin D3] 1,000 unit Capsule 1,000 unit PO QAM RF: 0 ondansetron 8 mg Tablet,Disintegrating 8 mg PO Q6 PRN (Reason: Nausea) RF: 0 terazosin 2 mg capsule 2 mg PO HS RF: 0 albuterol sulfate [ProAir RespiClick] 90 mcg/actuation aerosol powdr breath activated 2 inha INH Q4H RF: 0 Discontinued meclizine 25 mg tablet 12.5 - 25 mg PO TID PRN (Reason: Dizziness) RF: 0 levofloxacin [Levaquin] 500 mg Tablet 500 mg PO QAM RF: 0 doxycycline hyclate 100 mg capsule 100 mg PO BID RF: 0 Visit Report Forms: [facility] Stand-Alone Forms: [facility] Discharge Orders: Discharge Order (Routine); Ordered 08/07/18 Ordered By: Joseph Suarez Skilled Items Patient informed of condition?: Yes DNR: No Discharge Level of Care: Skilled Communicable Disease: No Discharge Prognosis: Stable Admission Data Admit Date/Time: 08/04/18 18:53 Attending Provider: Joseph Suarez Admit Provider: Cecelia Shrestha Primary Care Provider: Daniele Martinez III Other Providers: Allison Fleming Evan T. Service: Medical Other Interventions: Discharge Summary Assessment (RN) Last Done: 08/07/18 11:21 DC Date/Time DO NOT enter until pt leaves facility: 08/07/18 13:22
== END 2018-08-07 13:22 | DRG 184 ==
LOC: ED 16:15 → 4W 18:53 → SUATTDRO 18:53 → 4W 19:34
DX: Z79.899 Other long term (current) drug therapy; Z79.52 Long term (current) use of systemic steroids; L97.529 Non-pressure chronic ulcer of other part of left foot with unspecified severity; E11.621 Type 2 diabetes mellitus with foot ulcer; K21.9 Gastro-esophageal reflux disease without esophagitis; I10 Essential (primary) hypertension; N40.0 Benign prostatic hyperplasia without lower urinary tract symptoms; L97.319 Non-pressure chronic ulcer of right ankle with unspecified severity; W05.0XXA Fall from non-moving wheelchair, initial encounter; M06.9 Rheumatoid arthritis, unspecified; E53.8 Deficiency of other specified B group vitamins; S22.41XA Multiple fractures of ribs, right side, initial encounter for closed fracture; E11.51 Type 2 diabetes mellitus with diabetic peripheral angiopathy without gangrene

== ENCOUNTER 2018-09-02 08:55 | Inpatient (IN) ==
[2018-09-02] MEDS ORDERED: ALBUT/IPRATROP 3MG/0.5MG NEB 3 ML VIAL NEB STA (09:28)
--- NOTE | 2018-09-02 09:28 | Emergency Department Note ---
Entered by Airam Mota acting as a scribe for Nico Nicolas DO History of Present Illness General Chief complaint: Shortness of Breath/Dyspnea Stated complaint: SHORT OF BREATH Source: patient History of Present Illness Provider complaint: shortness of breath Onset (ago): week(s) 1 Location: chest Pain Consistency: + other (persistent) Quality: + other (shortness of breath) Associated symptoms: + other (wheezing. denies: cough, chest pain) Treatments prior to arrival: other (steroids) The patient is a 73 year old male who presents to the Emergency Room with complaints of persistent, worsening shortness of breath beginning 1 week ago. He reports he has been wheezing. The patient denies a cough, chest pain. He notes a history of asthma and states he is currently taking steroids for his foot. The patient was sent to the ED by his PCP. Home Medications Home Medications Medication Instructions Recorded Confirmed Type acetaminophen [Tylenol Extra 500 mg PO Q6H PRN 07/14/18 09/02/18 History Strength] cyanocobalamin (vitamin B-12) 1,000 mcg PO QAM 07/14/18 09/02/18 History [Vitamin B-12] alendronate [Fosamax] 70 mg PO WK 07/16/18 09/02/18 History alprazolam [Xanax] 0.25 mg PO TID PRN 07/16/18 09/02/18 History esomeprazole magnesium [Nexium] 40 mg PO QAM 07/16/18 09/02/18 History folic acid 1 mg PO QAM 07/16/18 09/02/18 History methotrexate sodium 15 mg PO WK 07/16/18 09/02/18 History misoprostol 100 mcg PO BID 07/16/18 09/02/18 History multivitamin 1 cap PO DAILY 07/16/18 09/02/18 History naproxen 500 mg PO BID PRN 07/16/18 09/02/18 History prednisone 2 mg PO QPM 07/16/18 09/02/18 History prednisone 5 mg PO QAM 07/16/18 09/02/18 History albuterol sulfate [ProAir 2 inha INH Q4H 08/04/18 09/02/18 History RespiClick] cholecalciferol (vitamin D3) 1,000 unit PO QAM 08/04/18 09/02/18 History [Vitamin D3] ondansetron 8 mg PO Q6 PRN 08/04/18 09/02/18 History terazosin 2 mg PO HS 08/04/18 09/02/18 History lidocaine 1 patch TRANSDERMAL QAM #30 ea 08/07/18 09/02/18 Rx oxycodone-acetaminophen [Percocet] 1 tab PO HS PRN #1 tab 08/07/18 09/02/18 Rx Allergies Allergy/AdvReac Type Severity Reaction Status Date / Time amoxicillin Allergy Severe RED Verified 09/02/18 10:14 BLOTCHES HEAD TO TOE Iodinated Contrast- Oral and Allergy Severe "FELT Verified 09/02/18 10:14 IV Dye FUNNY" ioversol Allergy Severe PASSED OUT Verified 09/02/18 10:14 clavulanic acid Allergy Intermediate RASH Verified 09/02/18 10:14 Penicillins Allergy Intermediate RASH Verified 09/02/18 10:14 adhesive Allergy Mild REDNESS Verified 09/02/18 10:14 WITH EXTENDED USE Sulfa (Sulfonamide Allergy Mild RASH Verified 09/02/18 10:14 Antibiotics) sulfamethoxazole Allergy Mild RASH Verified 09/02/18 10:14 trimethoprim Allergy Mild RASH Verified 09/02/18 10:14 Bactrim Allergy Unknown RASH Verified 11/18/17 00:19 Fish Containing Products Allergy Unknown Verified 09/02/18 10:14 fish derived Allergy Unknown Verified 09/02/18 10:14 fish oil Allergy Unknown Verified 09/02/18 10:14 shellfish derived Allergy Unknown Verified 09/02/18 10:14 Latex, Natural Rubber AdvReac Intermediate Redness of Verified 09/02/18 10:14 Skin silver AdvReac Mild Irritates Verified 09/02/18 10:14 the skin Food Allergy Severe SEAFOOD - Uncoded 09/02/18 10:14 EYES SWELL IF DRINKS ALCOHOL WITH Carboxymethylcellulose AdvReac Mild Irritates Uncoded 09/02/18 10:14 the skin Past Med/Surg History Medical History Rib fracture Fall Asthma exacerbation B12 deficiency Rheumatoid arthritis PAD (peripheral artery disease) Chronic foot ulcer with fat layer exposed - continue treatment with aqaucell ag and gauze to left foot and adaptic with allyven foam to right foot and ankle, continue recommendations per ID for left foot - patient will follow up in the office with me after discharge Essential hypertension (Chronic 02/12/13) Diabetes Asthma (Chronic) Cellulitis (Chronic) Foot pain, right (Chronic) GERD (gastroesophageal reflux disease) (Chronic) Ulcer (Chronic) LEFT FOOT Anxiety Arrhythmia BPH (benign prostatic hyperplasia) Osteoarthritis Rheumatoid arthritis Surgical History History of colectomy POLYPS REMOVED History of colonoscopy History of esophagogastroduodenoscopy (EGD) History of repair of rotator cuff RT History of tooth extraction Social History Current Living Situation: Family Current Living Situation Comment: home w/ and dtr Feels Safe at Home: Yes Smoking Status: Former smoker Second Hand Exposure: No Hx Alcohol Use: No Hx Substance Use: No Beliefs That Will Affect Care: None Preferred Language: Japanese Review of Systems See HPI for pertinent positives & negatives. and A total of 10 systems reviewed and were otherwise negative Physical Exam Vital Signs Vital Signs - 24 hr 09/02/18 09:02 09/02/18 09:39 09/02/18 10:03 Temperature 36.3 C L Temperature Source Oral Sepsis Recent Fever Within 48 Hours No Sepsis New/Unexplained Change in Mental Status No Sepsis Action Taken by Nursing No Action Required Pulse Rate 107 H Pulse Rate [Left Finger] 115 H Respiratory Rate 24 20 Respiratory Effort / Characteristics Non-Labored Spontaneous Respiratory Depth Normal Respiratory Pattern Regular Blood Pressure 101/49 L Blood Pressure [Left Arm] 112/80 Blood Pressure Mean 66 Blood Pressure Mean [Left Arm] 90 Blood Pressure Position [Left Arm] Lying Pulse Oximetry 99 98 98 Oxygen Delivery Method Room Air Room Air Room Air 09/02/18 11:04 09/02/18 12:10 09/02/18 13:28 Temperature Temperature Source Sepsis Recent Fever Within 48 Hours Sepsis New/Unexplained Change in Mental Status Sepsis Action Taken by Nursing Pulse Rate Pulse Rate [Left Finger] 112 H 116 H 115 H Respiratory Rate 18 20 20 Respiratory Effort / Characteristics Non-Labored Spontaneous Non-Labored Spontaneous Non-Labored Spontaneous Respiratory Depth Normal Normal Normal Respiratory Pattern Regular Regular Regular Blood Pressure Blood Pressure [Left Arm] 119/96 129/95 123/79 Blood Pressure Mean Blood Pressure Mean [Left Arm] 103 106 93 Blood Pressure Position [Left Arm] Lying Lying Lying Pulse Oximetry 98 97 96 Oxygen Delivery Method Room Air Room Air Room Air GENERAL: Patient is awake and alert. He is not anxious appearing. EYES: The conjunctivae are clear. The pupils are round and reactive. EARS, NOSE, MOUTH AND THROAT: The nose is without any evidence of any deformity. Mucous membranes are moist tongue is midline NECK: The neck is nontender and supple. RESPIRATORY: Shallow respirations were noted. There are rales noted in all lung pang. There is no tachypnea or conversational dyspnea. CARDIOVASCULAR: Regular rate and rhythm noted there no murmurs rubs or gallops normal S1 normal S2 GASTROINTESTINAL: The abdomen is soft. Bowel sounds are present in all quadrants. Abdomen is nontender PELVIS: The Pelvis is stable. No tenderness to palpation is noted. MUSCULOSKELETAL/EXTREMITIES: There is no evidence of gross deformity full range of motion is noted in the hips and shoulders. There were deformities in both hands which appear to be chronic. SKIN: There is no obvious evidence of any rash. Trace pedal edema was noted bilaterally. NEUROLOGIC: Patient is awake alert and oriented x3. Course 0918: Past medical records reviewed. The patient was evaluated in room B9, and a complete history and physical examination were performed. 1133: I reevlauated and updated the patient. 1422: Upon reevaluation, the patient is resting. I discussed test results. They verbalized agreement with the treatment plan. 1436: Dr. Clancy, [facility] hospitalist, is aware of the case. Consultations Consultation #1: Dr. Clancy, [facility] hospitalist Time: 14:36 Administered Medications Discontinued Medications Albuterol (Duoneb) 3 ml NEB NOW STA Stop: 09/02/18 09:29 Last Admin: 09/02/18 09:43 Dose: 3 ml Furosemide (Lasix) 40 mg IV NOW STA Stop: 09/02/18 12:01 Last Admin: 09/02/18 12:11 Dose: 40 mg Medical Decision Making Differential Diagnosis Etiologies such as infections, reactive airway disease, COPD, pneumonia, pleural effusion, pulmonary edema, ARDS, pneumothorax, CHF, cardiac ischemia, cardiac tamponade, dysrhythmia, anemia, pulmonary embolism, musculoskeletal, gastrointestinal process, as well as others were entertained. Medical Records Attestation: I reviewed the patient's medical records. Home Medications Current Medication List: was personally reviewed by me Laboratory Data Attestation: I reviewed the patient's lab results. Result diagrams: 09/02/18 09:35 09/02/18 09:35 Lab Results 09/02/18 09/02/18 09/02/18 Range/Units 09:35 09:35 09:35 WBC 8.07 (4.8-10.8) K/uL RBC 4.19 L (4.7-6.1) M/uL Hgb 10.7 L (14.0-18.0) g/dL Hct 34.1 L (42-52) % MCV 81.4 (80-100) fL MCH 25.5 (25-34) pg MCHC 31.4 L (32-36) g/dL RDW Std Deviation 56.1 H (36.4-46.3) fL RDW Coeff of Nick 19.3 H (11.5-14.5) % Plt Count 225 (130-400) K/uL MPV 9.3 (7.4-10.4) fL Immature Gran % (Auto) 0.5 % Neut % (Auto) 67.5 % Lymph % (Auto) 14.4 % Latimer % (Auto) 13.8 % Eos % (Auto) 3.6 % Baso % (Auto) 0.2 % Immature Gran # (Auto) 0.04 H (0.00-0.02) K/uL Neut # (Auto) 5.45 (1.4-6.5) K/uL Lymph # (Auto) 1.16 L (1.2-3.4) K/uL [place]imer # (Auto) 1.11 H (0.11-0.59) K/uL Eos # (Auto) 0.29 (0-0.5) K/uL Baso # (Auto) 0.02 (0-0.2) K/uL PT 11.4 (9.0-12.0) Seconds INR 1.1 (0.9-1.1) APTT 24.9 (21.0-31.0) Seconds PTT Ratio 1.0 Sodium 141 (136-145) mmol/L Potassium 4.0 (3.5-5.1) mmol/L Chloride 109 H (98-107) mmol/L Carbon Dioxide 23 (21-32) mmol/L Anion Gap 8.0 (3-11) BUN 27 H (7-18) mg/dl Creatinine 0.63 (0.6-1.4) mg/dl Est Cr Clr Drug Dosing 80.0 ml/min Est GFR ( Amer) 112.5 Est GFR (Non-Af Amer) 97.1 BUN/Creatinine Ratio 42.9 H (10-20) Glucose 96 (70-99) mg/dl Calcium 8.7 (8.5-10.1) mg/dl Magnesium 2.1 (1.8-2.4) mg/dl Total Bilirubin 0.5 (0.2-1) mg/dl AST 24 (15-37) U/L ALT 37 (12-78) U/L Alkaline Phosphatase 99 (45-117) U/L Troponin I 0.031 (0-0.045) ng/ml NT-Pro-B Natriuret Pep 2214 H (0-900) pg/ml Total Protein 6.7 (6.4-8.2) gm/dl Albumin 3.4 (3.4-5.0) gm/dl Globulin 3.3 (2.5-4.0) gm/dl Albumin/Globulin Ratio 1.0 (0.9-2) Urine Color Urine Appearance (Clear) Urine pH (4.5-7.5) Ur Specific [place] (1.000-1.030) Urine Protein (Negative) Urine Glucose (UA) (Negative) Urine Ketones (Negative) Urine Blood (Negative) Urine Nitrite (Negative) Urine Bilirubin (Negative) Urine Urobilinogen (Negative) Ur Leukocyte Esterase (Negative) 09/02/18 Range/Units 12:30 WBC (4.8-10.8) K/uL RBC (4.7-6.1) M/uL Hgb (14.0-18.0) g/dL Hct (42-52) % MCV (80-100) fL MCH (25-34) pg MCHC (32-36) g/dL RDW Std Deviation (36.4-46.3) fL RDW Coeff of Nick (11.5-14.5) % Plt Count (130-400) K/uL MPV (7.4-10.4) fL Immature Gran % (Auto) % Neut % (Auto) % Lymph % (Auto) % Latimer % (Auto) % Eos % (Auto) % Baso % (Auto) % Immature Gran # (Auto) (0.00-0.02) K/uL Neut # (Auto) (1.4-6.5) K/uL Lymph # (Auto) (1.2-3.4) K/uL [place] # (Auto) (0.11-0.59) K/uL Eos # (Auto) (0-0.5) K/uL Baso # (Auto) (0-0.2) K/uL PT (9.0-12.0) Seconds INR (0.9-1.1) APTT (21.0-31.0) Seconds PTT Ratio Sodium (136-145) mmol/L Potassium (3.5-5.1) mmol/L Chloride (98-107) mmol/L Carbon Dioxide (21-32) mmol/L Anion Gap (3-11) BUN (7-18) mg/dl Creatinine (0.6-1.4) mg/dl Est Cr Clr Drug Dosing ml/min Est GFR ( Amer) Est GFR (Non-Af Amer) BUN/Creatinine Ratio (10-20) Glucose (70-99) mg/dl Calcium (8.5-10.1) mg/dl Magnesium (1.8-2.4) mg/dl Total Bilirubin (0.2-1) mg/dl AST (15-37) U/L ALT (12-78) U/L Alkaline Phosphatase (45-117) U/L Troponin I (0-0.045) ng/ml NT-Pro-B Natriuret Pep (0-900) pg/ml Total Protein (6.4-8.2) gm/dl Albumin (3.4-5.0) gm/dl Globulin (2.5-4.0) gm/dl Albumin/Globulin Ratio (0.9-2) Urine Color Yellow Urine Appearance Clear (Clear) Urine pH 5.5 (4.5-7.5) Ur Specific [place] 1.013 (1.000-1.030) Urine Protein Negative (Negative) Urine Glucose (UA) Negative (Negative) Urine Ketones Negative (Negative) Urine Blood Negative (Negative) Urine Nitrite Negative (Negative) Urine Bilirubin Negative (Negative) Urine Urobilinogen Negative (Negative) Ur Leukocyte Esterase Negative (Negative) Imaging Data Radiologist's Impression: Radiology results as stated below per my review and the radiologist's interpretation: SINGLE VIEW CHEST CLINICAL HISTORY: Dyspnea. FINDINGS: An AP, portable, upright chest radiograph is compared to study dated and correlated with chest CT dated 08/04/2018. The examination is degraded by portable technique and patient rotation. The heart is enlarged and there is atherosclerotic calcification of the thoracic aorta. There is pulmonary vascular congestion and interstitial edema. Small layering pleural effusions are identified with bibasilar consolidation. No pneumothorax is seen. The skeletal structures are osteopenic. There are healed bilateral rib fractures. A right shoulder arthroplasty is in place. Advanced arthritic change is noted in the left shoulder. Degenerative change is also seen throughout the thoracic spine. IMPRESSION: 1. Cardiomegaly with evidence of congestive failure and interstitial edema. 2. There are layering pleural effusions with bibasilar consolidation. This likely represents atelectasis. Clinical correlation will be required. Electronically signed by: Kemar Wright M.D. 09/02/2018 9:50 AM ECG Data Attestation: I personally reviewed and interpreted this ECG as follows: Indication: SOB/dyspnea Rate (beats per minute): 109 Rhythm: sinus tachycardia Findings: + PVC and + RBBB Comparison ECG Date: from (08/04/18) Change: no significant change Blood Pressure Blood Pressure Findings: Normal blood pressure Blood Pressure Disposition: did not require urgent referral MDM Narrative The patient is a 73-year-old male who presented to the emergency department for an evaluation of difficulty breathing. Patient's history and physical exam appear to be consistent with pulmonary edema. The patient was treated with Lasix in the emergency department and diuresed a significant amount of fluid. He was feeling somewhat better. Certainly before diuresis the patient had significant dyspnea at rest. I discussed the patient's laboratory and radiographic studies with him. Since this would appear to be a new diagnosis for the patient I discussed his case with the on-call [facility] hospitalist. They have agreed to evaluate the patient in the emergency department for further management and disposition. Impression & Plan Pulmonary edema, Elevated troponin Discharge Plan Visit Data Chief Complaint: Shortness of Breath/Dyspnea Stated Complaint: SHORT OF BREATH ED Provider: Nico Nicolas Discharge Problem: Pulmonary edema, Elevated troponin Patient Disposition: Being Evaluated by Hospitalist Forms Stand Alone Forms: [facility] Prescriptions Prescriptions: No Action cyanocobalamin (vitamin B-12) [Vitamin B-12] 1,000 mcg Tablet 1,000 mcg PO QAM RF: 0 acetaminophen [Tylenol Extra Strength] 500 mg Tablet 500 mg PO Q6H PRN (Reason: Pain) RF: 0 alendronate [Fosamax] 70 mg tablet 70 mg PO WK RF: 0 alprazolam [Xanax] 0.25 mg tablet 0.25 mg PO TID PRN (Reason: Anxiety) RF: 0 multivitamin Tablet 1 cap PO DAILY RF: 0 prednisone 5 mg tablet 5 mg PO QAM RF: 0 methotrexate sodium 2.5 mg tablet 15 mg PO WK RF: 0 prednisone 1 mg tablet 2 mg PO QPM RF: 0 esomeprazole magnesium [Nexium] 40 mg capsule,delayed release(DR/EC) 40 mg PO QAM RF: 0 misoprostol 100 mcg tablet 100 mcg PO BID RF: 0 folic acid 1 mg tablet 1 mg PO QAM RF: 0 naproxen 500 mg tablet 500 mg PO BID PRN (Reason: Inflammation) RF: 0 cholecalciferol (vitamin D3) [Vitamin D3] 1,000 unit Capsule 1,000 unit PO QAM RF: 0 ondansetron 8 mg Tablet,Disintegrating 8 mg PO Q6 PRN (Reason: Nausea) RF: 0 terazosin 2 mg capsule 2 mg PO HS RF: 0 albuterol sulfate [ProAir RespiClick] 90 mcg/actuation aerosol powdr breath activated 2 inha INH Q4H RF: 0 lidocaine 5 % Adhesive Patch,Medicated 1 patch Transdermal QAM Qty: 30 RF: 0 oxycodone-acetaminophen [Percocet] 5-325 mg tablet 1 tab PO HS PRN (Reason: pain) Qty: 1 RF: 0 Referrals Referrals: Daniele Martinez III, CRNP [Primary Care Provider] - The scribe's documentation has been prepared under my direction and personally reviewed by me in its entirety. I confirm that the note above accurately reflects all work, treatment, procedures, and medical decision making performed by me.
[2018-09-02 09:43] LABS: Basophils # (auto) 0.02 K/uL (0-0.2); Basophils % (auto) 0.2 %; Eosinophils # (auto) 0.29 K/uL (0-0.5); Eosinophils % (auto) 3.6 %; Hematocrit (blood only) 34.1 % (42-52); Hemoglobin 10.7 g/dL (14.0-18.0); Immature Granulocytes # (auto) 0.04 K/uL (0.00-0.02); Immature Granulocytes % (auto) 0.5 %; Lymphocytes # (auto) 1.16 K/uL (1.2-3.4); Lymphocytes % (auto) 14.4 %; Mean Corpuscular Hgb Conc 31.4 g/dL (32-36); Mean Corpuscular Volume 81.4 fL (80-100); Mean Platelet Volume 9.3 fL (7.4-10.4); Monocytes # (auto) 1.11 K/uL (0.11-0.59); Monocytes % (auto) 13.8 %; Neutrophils # (auto) 5.45 K/uL (1.4-6.5); Neutrophils % (auto) 67.5 %; Platelet Count 225 K/uL (130-400); RDW Coefficient of Variation 19.3 % (11.5-14.5); RDW Standard Deviation 56.1 fL (36.4-46.3); Red Blood Count 4.19 M/uL (4.7-6.1); White Blood Count 8.07 K/uL (4.8-10.8)
--- NOTE | 2018-09-02 09:52 | XRay Report ---
SINGLE VIEW CHEST CLINICAL HISTORY: Dyspnea. FINDINGS: An AP, portable, upright chest radiograph is compared to study dated 08/28/2018 and correlate d with chest CT dated 08/04/2018. The examination is degraded by portable technique and patient rotati on. The heart is enlarged and there is atherosclerotic calcification of the thoracic aorta. There is pulmonary vascular congestion and interstitial edema. Small layering pleural effusions are identifie d with bibasilar consolidation. No pneumothorax is seen. The skeletal structures are osteopenic. Ther e are healed bilateral rib fractures. A right shoulder arthroplasty is in place. Advanced arthritic c hange is noted in the left shoulder. Degenerative change is also seen throughout the thoracic spine. IMPRESSION: 1. Cardiomegaly with evidence of congestive failure and interstitial edema. 2. There are layering pleural effusions with bibasilar consolidation. This likely represents atelecta sis. Clinical correlation will be required. Electronically signed by: Kemar Wright M.D. 09/02/2018 9:50 AM
[2018-09-02 09:54] LABS: INR 1.1 (0.9-1.1); Partial Thromboplastin Time 24.9 Seconds (21.0-31.0); Prothrombin Time 11.4 Seconds (9.0-12.0)
[2018-09-02 10:01] LABS: Albumin Level 3.4 gm/dl (3.4-5.0); BUN Creatinine Ratio 42.9 (10-20); Calcium 8.7 mg/dl (8.5-10.1); Est GFR (African American) 112.5; Est GFR (Non-African American) 97.1; Magnesium 2.1 mg/dl (1.8-2.4)
[2018-09-02 10:06] LABS: Bilirubin,Total 0.5 mg/dl (0.2-1); Globulin 3.3 gm/dl (2.5-4.0); Total Protein 6.7 gm/dl (6.4-8.2); Troponin I 0.031 ng/ml (0-0.045)
[2018-09-02] MEDS ORDERED: FUROSEMIDE 40 MG/4 ML VIAL IV STA (12:00)
[2018-09-02 12:38] LABS: Appearance Urine Clear (Clear); Bilirubin Urine Negative (Negative); Blood Urine Negative (Negative); Color Urine Yellow; Glucose Urine UA Negative (Negative); Ketones Urine Negative (Negative); Leukocyte Esterase Urine Negative (Negative); Nitrite Urine Negative (Negative); Protein Urine Negative (Negative); Specific Gravity Urine 1.013 (1.000-1.030); Urobilinogen Urine Negative (Negative); pH Urine 5.5 (4.5-7.5)
--- NOTE | 2018-09-02 14:46 | History & Physical Report ---
Date of Service September 02, 2018 Assessment & Plan (1) Pulmonary edema: 73 y/o M Hx RA treated with Prednisone and MTx. Recurrent BL lower extremity ulcers, PAD. Recenty admitted with influenza and acute on chronic wound infections. Presents with progressive SOB and orthopnea. Denies a productive cough, CP or a fever. Initial imaging, labs and exam are consistent with new onset CHF. Regarding his wounds, he is following up at a wound clinic and with a manager winter for a large ulcer on the dorsum of the L foot which appears to be improving some. He has an additional ulcer on the medial R ankle which his daughter feels is getting worse. Wound cultures from 04/07 proved + for MRSA and strep maltophilia. He is currently being treated with BID doxy. 1) New-onset CHF - provided with Lasix in ER which led to rapid improvement. We will schedule an echo and request a cardiology consult. He will be maintained on BID Lasix and we will trend I/O, daily weights. The pt's trop is within normal limits but higher than prior. There is no evidence of ACS and an EKG is essentially unchanged. We will repeat an additional trop. 2) Chronic ulcers - cont Doxy and wound care. As his daughter states his R ankle ulcer is worsening, we will obtain a new culture. 3) RA - cont prednisone - MTx due Fri Full code - Lovenox prophylaxis Total time for this admit including review of labs, meds, imaging, records - discussion with pt, daughter and ER attending - 39 min History of Present Illness Chief Complaint: Shortness of breath Primary Care Provider: Daniele Martinez, III, [employer]EL[employer] 73 y/o M Hx RA treated with Prednisone and MTx. Recurrent BL lower extremity ulcers, PAD. Recenty admitted with influenza and acute on chronic wound infections. Presents with progressive SOB and orthopnea. Denies a productive cough, CP or a fever. Initial imaging, labs and exam are consistent with new onset CHF. Regarding his wounds, he is following up at a wound clinic and with a manager winter for a large ulcer on the dorsum of the L foot which appears to be improving some. He has an additional ulcer on the medial R ankle which his daughter feels is getting worse. Wound cultures from 04/07 proved + for MRSA and strep maltophilia. He is currently being treated with BID doxy. PMH: 1) RA - Prednisone, MTx 2) Nonhealing LE ulcers 3) B12 deficiency 4) Osteoporosis 5) PAD Surgical: Multiple wound debridements L SFA stent Social: Distant smoking history, does not drink alcohol Family: Noncontributory to preset complaint Allergies Allergy/AdvReac Type Severity Reaction Status Date / Time amoxicillin Allergy Severe RED Verified 09/02/18 10:14 BLOTCHES HEAD TO TOE Iodinated Contrast- Oral and Allergy Severe "FELT Verified 09/02/18 10:14 IV Dye FUNNY" ioversol Allergy Severe PASSED OUT Verified 09/02/18 10:14 clavulanic acid Allergy Intermediate RASH Verified 09/02/18 10:14 Penicillins Allergy Intermediate RASH Verified 09/02/18 10:14 adhesive Allergy Mild REDNESS Verified 09/02/18 10:14 WITH EXTENDED USE Sulfa (Sulfonamide Allergy Mild RASH Verified 09/02/18 10:14 Antibiotics) sulfamethoxazole Allergy Mild RASH Verified 09/02/18 10:14 trimethoprim Allergy Mild RASH Verified 09/02/18 10:14 Bactrim Allergy Unknown RASH Verified 11/18/17 00:19 Fish Containing Products Allergy Unknown Verified 09/02/18 10:14 fish derived Allergy Unknown Verified 09/02/18 10:14 fish oil Allergy Unknown Verified 09/02/18 10:14 shellfish derived Allergy Unknown Verified 09/02/18 10:14 Latex, Natural Rubber AdvReac Intermediate Redness of Verified 09/02/18 10:14 Skin silver AdvReac Mild Irritates Verified 09/02/18 10:14 the skin Food Allergy Severe SEAFOOD - Uncoded 09/02/18 10:14 EYES SWELL IF DRINKS ALCOHOL WITH Carboxymethylcellulose AdvReac Mild Irritates Uncoded 09/02/18 10:14 the skin Home Medications Home Medications Medication Instructions Recorded Confirmed Type acetaminophen [Tylenol Extra 500 mg PO Q6H PRN 07/14/18 09/02/18 History Strength] cyanocobalamin (vitamin B-12) 1,000 mcg PO QAM 07/14/18 09/02/18 History [Vitamin B-12] alendronate [Fosamax] 70 mg PO WK 07/16/18 09/02/18 History alprazolam [Xanax] 0.25 mg PO TID PRN 07/16/18 09/02/18 History esomeprazole magnesium [Nexium] 40 mg PO QAM 07/16/18 09/02/18 History folic acid 1 mg PO QAM 07/16/18 09/02/18 History methotrexate sodium 15 mg PO WK 07/16/18 09/02/18 History misoprostol 100 mcg PO BID 07/16/18 09/02/18 History multivitamin 1 cap PO DAILY 07/16/18 09/02/18 History naproxen 500 mg PO BID PRN 07/16/18 09/02/18 History prednisone 2 mg PO QPM 07/16/18 09/02/18 History prednisone 5 mg PO QAM 07/16/18 09/02/18 History albuterol sulfate [ProAir 2 inha INH Q4H 08/04/18 09/02/18 History RespiClick] cholecalciferol (vitamin D3) 1,000 unit PO QAM 08/04/18 09/02/18 History [Vitamin D3] ondansetron 8 mg PO Q6 PRN 08/04/18 09/02/18 History terazosin 2 mg PO HS 08/04/18 09/02/18 History lidocaine 1 patch TRANSDERMAL QAM #30 ea 08/07/18 09/02/18 Rx oxycodone-acetaminophen [Percocet] 1 tab PO HS PRN #1 tab 08/07/18 09/02/18 Rx Past Med/Surg History Medical History Rib fracture Fall Asthma exacerbation B12 deficiency Rheumatoid arthritis PAD (peripheral artery disease) Chronic foot ulcer with fat layer exposed - continue treatment with aqaucell ag and gauze to left foot and adaptic with allyven foam to right foot and ankle, continue recommendations per ID for left foot - patient will follow up in the office with me after discharge Essential hypertension (Chronic 02/12/13) Diabetes Asthma (Chronic) Cellulitis (Chronic) Foot pain, right (Chronic) GERD (gastroesophageal reflux disease) (Chronic) Ulcer (Chronic) LEFT FOOT Anxiety Arrhythmia BPH (benign prostatic hyperplasia) Osteoarthritis Rheumatoid arthritis Surgical History History of colectomy POLYPS REMOVED History of colonoscopy History of esophagogastroduodenoscopy (EGD) History of repair of rotator cuff RT History of tooth extraction Social History Current Living Situation: Family Current Living Situation Comment: home w/ and dtr Feels Safe at Home: Yes Smoking Status: Former smoker Second Hand Exposure: No Hx Alcohol Use: No Hx Substance Use: No Beliefs That Will Affect Care: None Preferred Language: Sinhala Review of Systems Gen: Denies fevers, night sweats, rigors, fatigue, malaise, weight loss/gain ENT: Denies congestion, throat pain, hearing loss Eyes: Denies acute visual changes CV: Denies CP, palpitations Pulmonary: Progressive SOB as per HPI GI: Denies N/V, diarrhea, constipation Neuro: Denies acute or unilateral weakness, acute gait impairment, headache or acute visual changes Musculoskeletal: Denies joint pain, inflammation Endocrine: Denies polydipsia, polyuria Skin: Chronic BL ulcers as aboves Physical Exam 2 Vital Signs (Past 24 Hours): Last Vital Signs Temp 36.3 C L 09/02/18 09:02 Pulse 115 H 09/02/18 13:28 Resp 20 09/02/18 13:28 BP 123/79 09/02/18 13:28 Pulse Ox 96 09/02/18 13:28 Physical Exam: General: AAO x 3, no distress ENT: No erythema or exudates, no thrush Eyes: LANETTE, EOMI Head and neck: Normocephalic, atraumatic - JVD is apparent Chest/heart: Nontender, S1,2, RRR, no murmurs, no gallops Lungs: BL crackles at bases Abdomen: Nontender, nondistended, BS+ Neuro: AAO x 3, speech is clear, no unilateral weakness or loss of sensation, coordination intact Musculoskeletal: RA-related deformities Skin: Ulcers as per extrem exam Extremities: edema and multiple ulcers - BL shins, dorsum of L foot, medial R ankle - some surrounding erythema which by distribution looks to be related to the adhesives he had on Results & Data Diagnostic Findings 1. Cardiomegaly with evidence of congestive failure and interstitial edema. 2. There are layering pleural effusions with bibasilar consolidation. This likely represents atelectasis. Clinical correlation will be required. EKG: Sinus tach, RBBB - no significant change from recent _ (1) Pulmonary edema Chronicity: acute Qualified Code(s): J81.0 - Acute pulmonary edema
[2018-09-02] MEDS ORDERED: MAGNESIUM HYDROXIDE SUSP 30 ML UDC PO PRN (17:28)
[2018-09-02] MEDS ORDERED: ALBUTEROL HFA 8 GM INHALER INH PRN (17:28)
[2018-09-02] MEDS ORDERED: ALUMINUM/MAGNESIUM SUSP 30 ML UDC PO PRN (17:28)
[2018-09-02] MEDS: FUROSEMIDE 20 MG in SYRINGE 0 ML IV SCH (18:40)
[2018-09-02] MEDS: DOXYCYCLINE HYCLATE 100 MG CAP PO SCH (18:40)
[2018-09-02] MEDS: OXYCODONE/ACETAMINOPHEN 5mg/325mg TAB PO PRN (20:32)
[2018-09-02] MEDS: predniSONE 1 MG TAB PO SCH (20:34)
[2018-09-02] MEDS: ENOXAPARIN INJ 30 MG/0.3 ML SYR SQ SCH (20:34)
[2018-09-02] MEDS: miSOPROStol 50 MCG TAB PO SCH (20:35)
[2018-09-02] MEDS: TERAZOSIN HCL 1 MG CAP PO SCH (20:35)
[2018-09-02] MEDS ORDERED: FUROSEMIDE 40 MG/4 ML VIAL IV SCH (21:00)
[2018-09-02] MEDS ORDERED: ROPINIROLE HCL 1 MG TABLET PO PRN (21:33)
[2018-09-02] MEDS ORDERED: LIDOCAINE 5% 1 PATCH TD SCH (23:50)
[2018-09-03] MEDS: DOXYCYCLINE HYCLATE 100 MG CAP PO SCH ×2 (05:45→17:07)
[2018-09-03 06:57] LABS: BUN Creatinine Ratio 39.1 (10-20); Calcium 7.8 mg/dl (8.5-10.1); Creatinine Clr Calc Pharmacy 77.5 ml/min; Est GFR (African American) 107.8; Magnesium 1.8 mg/dl (1.8-2.4); Potassium 3.5 mmol/L (3.5-5.1)
[2018-09-03] MEDS: CYANOCOBALAMIN 500 MCG TABLET (VITAMIN B-12) PO SCH (08:30)
[2018-09-03] MEDS: miSOPROStol 50 MCG TAB PO SCH ×2 (08:30→19:36)
[2018-09-03] MEDS: FOLIC ACID 1 MG TAB PO SCH (08:30)
[2018-09-03] MEDS: predniSONE 5 MG TAB PO SCH (08:31)
[2018-09-03] MEDS: FUROSEMIDE 20 MG in SYRINGE 0 ML IV SCH ×2 (08:31→17:06)
[2018-09-03] MEDS: PANTOprazole 40 MG TAB PO SCH (08:31)
--- NOTE | 2018-09-03 08:52 | Cardiology Consultation ---
Date of Consultation September 03, 2018 Assessment & Plan (1) Heart failure with reduced ejection fraction: Mr. Viera is a 73yo M with aPMHx of PAD, prior HTN no longer on medical therapy, and remote history of DM with A1C 5.5 in 12/2017 not on medical therapy who presented to the ED with increasing shortness of breath and orthopnea with pulmonary vascular congestions and bibasilar effusions consistent with new onset congestive heart failure. New Heart Failure with Reduced EF 30-35% - Feels SoB has improved following diuresis in ED with 40mg IV lasix and 20mg lasix BID17. No chest pain/chest pressure/shoulder pain/palpitations. - His echocardiogram shows a dilated LV with LVEF 30-35% and an akenetic inferior wall and mid-apical anterior and lateral hypokinesis consistent with new onset HFrEF suspicious for ischemic origin. No ST changes on ECG, troponins equivocal (.031,.[phone]) - Begin medical directed therapy for ischemic heart disease & heart failure as follows: - Atorvastatin 40mg - Metoprolol tartrate 12.5mg, titrate as appropriate and convert to succinate on d/c - Valsartan 80mg qAM. Would not start entresto at this point given his normal pressure, would be at increased risk for hypotension. - ASA 81mg - Plan for cardiac catheterization tomorrow, NPO at midnight. Cr normal. - Fasting lipid panel in AM. Glucose 91mg/dL today. - Continue diuresis with lasix 20mg BID17. Improved today, but remains mildly clinically overloaded with soft crackles and mild JVD 1cm below the angle of the mandible. Supervising Physician Co-Signing Physician Notes DR. CHOWDHURY ADDENDUM Patient seen and examined. Agree with assessment and plan as outlined above by Dr. Guzman. Reviewed patient's echocardiogram which shows new severe LV dysfunction with regional wall motion abnormalities. Concern for ischemic cardiomyopathy and multivessel coronary artery disease. Recommend cardiac catheterization for further ischemic evaluation. In the interim continue diuresis for mild residual congestion. Attempt to initiate guideline directed medical therapy for cardiomyopathy as BP allows. History of Present Illness Reason for Consultation: New CHF Requesting Physician: Sudheer Ambrosio Attending Physician: Joseph Suarez History of Present Illness Mr. Viera is a 73yo M with a PMHx of RA tx with prednisone & MTX who presented to the ED with one week of increasing shortness of breath and 2-3 weeks of worsening orthopnea. On admit his CXR showed pulmonary vascular congestion, interstitial edema, and bibasilar effusions with a proBNP of 2214. He was treated with lasix 40mg IV in the ED with rapid improvement in his symptoms. Mr. Viera reports his symptoms began with shortness of breath which began to acutely worsen 1 week ago. His has noted slow worsening of his breathing while lying flat for a few weeks prior to this. Denies any chest pain/chest pressure/ palpitations/lightheadedness/dizziness/syncope/presyncope. Endorses some weakness and increased fatigue for a few weeks. Denies any history of heart disease and heart failure. Thinks he had an ' irregular rhythm' at one point. [employer] review shows he was seen by Dr. Chowdhury on [id number] for an irregular rhythm noted during a vascular ultrasound ultimately asymptomatic and though to be consistent with PACs/PVS. RBBB was noted on ECG at the time. He has a history of venous insufficiency and lower extremity peripheral artery disease s/p SFA [place] [address] Long. MedHx: Endorses Rheumatoid Arthritis, HTN many years ago. Denies other medical history. Meds: Prednisone, MTX. Denies other medications. Previously on 'a blood pressure medicine' several years ago but was stopped for hypotension. FHx: ID in his father in 70s, HTN in mother. Denies other family history Social: <5 pack year history of tobacco use abstinent since 1960s. Rare EtoH use. Denies recreational drug use. Lives at his home in [place] with his and daughter. Diet: Reports he is a 'light eater.' Denies increased salt intake in the last few weeks. ROS: In addition to above denies nausea, vomiting, diarrhea, abdominal pain, vision change, hearing change, skin lesions, rash, fever, chills, diaphoresis. Endorses some chronic constipation at baseline. no melana, bright red blood per rectum. No dysuria, polyuria, anuria. No numbness/tingling. Endorses chronic arthritis and joint pain at baseline. Allergies Allergy/AdvReac Type Severity Reaction Status Date / Time amoxicillin Allergy Severe RED Verified 09/02/18 10:14 BLOTCHES HEAD TO TOE Iodinated Contrast- Oral and Allergy Severe "FELT Verified 09/02/18 10:14 IV Dye FUNNY" ioversol Allergy Severe PASSED OUT Verified 09/02/18 10:14 clavulanic acid Allergy Intermediate RASH Verified 09/02/18 10:14 Penicillins Allergy Intermediate RASH Verified 09/02/18 10:14 adhesive Allergy Mild REDNESS Verified 09/02/18 10:14 WITH EXTENDED USE Sulfa (Sulfonamide Allergy Mild RASH Verified 09/02/18 10:14 Antibiotics) sulfamethoxazole Allergy Mild RASH Verified 09/02/18 10:14 trimethoprim Allergy Mild RASH Verified 09/02/18 10:14 Bactrim Allergy Unknown RASH Verified 11/18/17 00:19 Fish Containing Products Allergy Unknown Verified 09/02/18 10:14 fish derived Allergy Unknown Verified 09/02/18 10:14 fish oil Allergy Unknown Verified 09/02/18 10:14 shellfish derived Allergy Unknown Verified 09/02/18 10:14 Latex, Natural Rubber AdvReac Intermediate Redness of Verified 09/02/18 10:14 Skin silver AdvReac Mild Irritates Verified 09/02/18 10:14 the skin Food Allergy Severe SEAFOOD - Uncoded 09/02/18 10:14 EYES SWELL IF DRINKS ALCOHOL WITH Carboxymethylcellulose AdvReac Mild Irritates Uncoded 09/02/18 10:14 the skin Home Medications Home Medications Medication Instructions Recorded Confirmed Type acetaminophen [Tylenol Extra 500 mg PO Q6H PRN 07/14/18 09/02/18 History Strength] cyanocobalamin (vitamin B-12) 1,000 mcg PO QAM 07/14/18 09/02/18 History [Vitamin B-12] alendronate [Fosamax] 70 mg PO WK 07/16/18 09/02/18 History alprazolam [Xanax] 0.25 mg PO TID PRN 07/16/18 09/02/18 History esomeprazole magnesium [Nexium] 40 mg PO QAM 07/16/18 09/02/18 History folic acid 1 mg PO QAM 07/16/18 09/02/18 History methotrexate sodium 15 mg PO WK 07/16/18 09/02/18 History misoprostol 100 mcg PO BID 07/16/18 09/02/18 History multivitamin 1 cap PO DAILY 07/16/18 09/02/18 History naproxen 500 mg PO BID PRN 07/16/18 09/02/18 History prednisone 2 mg PO QPM 07/16/18 09/02/18 History prednisone 5 mg PO QAM 07/16/18 09/02/18 History albuterol sulfate [ProAir 2 inha INH Q4H 08/04/18 09/02/18 History RespiClick] cholecalciferol (vitamin D3) 1,000 unit PO QAM 08/04/18 09/02/18 History [Vitamin D3] ondansetron 8 mg PO Q6 PRN 08/04/18 09/02/18 History terazosin 2 mg PO HS 08/04/18 09/02/18 History lidocaine 1 patch TRANSDERMAL QAM #30 ea 08/07/18 09/02/18 Rx oxycodone-acetaminophen [Percocet] 1 tab PO HS PRN #1 tab 08/07/18 09/02/18 Rx Patient History Medical History Rib fracture Fall Asthma exacerbation B12 deficiency Rheumatoid arthritis PAD (peripheral artery disease) Chronic foot ulcer with fat layer exposed - continue treatment with aqaucell ag and gauze to left foot and adaptic with allyven foam to right foot and ankle, continue recommendations per ID for left foot - patient will follow up in the office with me after discharge Essential hypertension (Chronic 02/12/13) Diabetes Asthma (Chronic) Cellulitis (Chronic) Foot pain, right (Chronic) GERD (gastroesophageal reflux disease) (Chronic) Ulcer (Chronic) LEFT FOOT Anxiety Arrhythmia BPH (benign prostatic hyperplasia) Osteoarthritis Rheumatoid arthritis Surgical History History of colectomy POLYPS REMOVED History of colonoscopy History of esophagogastroduodenoscopy (EGD) History of repair of rotator cuff RT History of tooth extraction Social History Current Living Situation: Spouse and Family Current Living Situation Comment: spouse and dtr Feels Safe at Home: Yes Safety Concerns: Feels Safe At This Time Smoking Status: Former smoker Do You Dip or Chew Tobacco: No Smoking End Date: quit in the s Hx Alcohol Use: No Hx Substance Use: No Beliefs That Will Affect Care: None Communication Ability: Effective Review of Systems See HPI Physical Exam 2 Vital Signs (Past 24 Hours): Last Vital Signs Temp 36.8 C 09/03/18 07:16 Pulse 113 H 09/03/18 07:16 Resp 20 09/03/18 07:16 BP 113/71 09/03/18 07:16 Pulse Ox 96 09/03/18 07:16 Physical Exam: General: A&Ox3. NAD. Cooperative. HEENT: Atraumatic, normocephalic. Pulm: Fine crackles in RLL>LLL. Otherwise CTAB A&P. -wheezes, -rhonchi. Symmetrical chest rise. No increase work of breathing. No respiratory distress. Cardiac: RRR, -mrg. Radial pulses intact and symmetrical. 1+ pitting edema to calf bilaterally. JVD to 1cm below the angle of the mandible bilaterally. Ext: Prominent arthritic changes in MCP joints bilaterally. Results & Data Laboratory Results Abnormal lab results 09/03/18 Range/Units 06:00 Chloride 110 H (98-107) mmol/L BUN 27 H (7-18) mg/dl BUN/Creatinine Ratio 39.1 H (10-20) Calcium 7.8 L (8.5-10.1) mg/dl Medications Administered Current Inpatient Medications Acetaminophen (Tylenol) 650 mg PO Q4H PRN PRN Reason: Pain or Fever Stop: 10/02/18 17:27 Al Hydrox/Mg Hydrox/Simethicone (Maalox) 15 ml PO Q4H PRN PRN Reason: Dyspepsia Stop: 10/02/18 17:27 Albuterol (Ventolin Hfa) 2 puffs INH Q4H PRN PRN Reason: Shortness Of Breath Stop: 10/02/18 17:27 Alprazolam (Xanax) 0.25 mg PO TID PRN PRN Reason: Anxiety Stop: 10/02/18 17:27 Aspirin (Ecotrin Ectab) [facility] Stop: 10/03/18 10:44 Atorvastatin Calcium (Lipitor) 40 mg PO QAM [facility] Stop: 10/03/18 10:44 Cyanocobalamin (Vitamin B-12) 1,000 mcg PO [facility] Stop: 10/03/18 08:59 Last Admin: 09/03/18 08:30 Dose: 1,000 mcg Doxycycline Hyclate (Vibramycin) 100 mg PO BID@0600,1800 [facility] Stop: 09/12/18 17:59 Last Admin: 09/03/18 05:45 Dose: 100 mg Enoxaparin Sodium (Lovenox) 30 mg SQ Q24H [facility] Stop: 10/02/18 19:29 Last Admin: 09/02/18 20:34 Dose: 30 mg Folic Acid (Folvite) 1 mg [facility] Stop: 10/03/18 08:59 Last Admin: 09/03/18 08:30 Dose: 1 mg Furosemide 20 mg/ Syringe 2 mls @ 4 mls/min IV BID17 [facility] Stop: 10/02/18 17:59 Last Admin: 09/03/18 08:31 Dose: 4 mls/min Lidocaine (Lidoderm 5%) 1 patch TD [facility] Stop: 10/03/18 08:59 Last Admin: 09/03/18 08:31 Dose: 1 patch Lidocaine (Lidoderm 5%) 1 patch TD QPM [facility] Stop: 10/02/18 23:49 Last Admin: 09/03/18 00:43 Dose: 1 patch Magnesium Hydroxide (Milk Of Magnesia) 30 ml PO Q12H PRN PRN Reason: Constipation Stop: 10/02/18 17:27 Metoprolol Tartrate (Lopressor) 12.5 mg PO [facility] Stop: 10/03/18 10:44 Miscellaneous (Remove Lidoderm Patch) 1 ea N/A DAILY@2100 [facility] Stop: 10/02/18 20:59 Last Admin: 09/02/18 20:33 Dose: Not Given Miscellaneous (Remove Lidoderm Patch) 1 ea N/A [facility] Stop: 10/03/18 09:59 Last Admin: 09/03/18 08:32 Dose: 1 ea Misoprostol (Cytotec) 100 mcg PO BID [facility] Stop: 10/02/18 20:59 Last Admin: 09/03/18 08:30 Dose: 100 mcg Ondansetron HCl (Zofran) 4 mg IV Q6H PRN PRN Reason: Nausea Stop: 10/02/18 17:27 Oxycodone/Acetaminophen (Percocet 5mg/325mg) 1 tab PO HS PRN PRN Reason: pain Stop: 09/16/18 17:27 Last Admin: 09/02/18 20:32 Dose: 1 tab Pantoprazole Sodium (Protonix) 40 mg PO QAM [facility] Stop: 10/03/18 08:59 Last Admin: 09/03/18 08:31 Dose: 40 mg Polyethylene Glycol (Miralax Powder Packet) 17 gm PO DAILY PRN PRN Reason: Constipation Stop: 10/02/18 17:27 Prednisone (Prednisone) 5 mg PO QAM [facility] Stop: 10/03/18 08:59 Last Admin: 09/03/18 08:31 Dose: 5 mg Prednisone (Prednisone) 2 mg PO QPM [facility] Stop: 10/02/18 20:59 Last Admin: 09/02/18 20:34 Dose: 2 mg Ropinirole HCl (Requip) 1 mg PO HS PRN PRN Reason: restless legs Stop: 10/03/18 20:59 Last Admin: 09/02/18 22:19 Dose: 1 mg Terazosin HCl (Hytrin) 2 mg PO HS [facility] Stop: 10/02/18 20:59 Last Admin: 09/02/18 20:35 Dose: 2 mg Valsartan (Diovan) 80 mg PO QAM [facility] Stop: 10/03/18 10:44 Resident Activity Tracking Resident Involvement: Resident Care Provided Care Provided: Adult Hospital Medicine
[2018-09-03] MEDS ORDERED: LIDOCAINE 5% 1 PATCH TD SCH (09:00)
[2018-09-03] MEDS: POLYETHYLENE (MIRALAX) 17 GM PACK PO PRN (10:49)
[2018-09-03] MEDS: ASPIRIN 81 MG ECTAB PO SCH (11:27)
[2018-09-03] MEDS: METOPROLOL TARTRATE 25 MG TAB PO SCH (11:27)
[2018-09-03] MEDS: VALSARTAN 80 MG TAB PO SCH (11:27)
[2018-09-03] MEDS: ATORVASTATIN 40 MG TAB PO SCH (11:27)
[2018-09-03] MEDS: ONDANSETRON INJ 2 MG/ML 2 ML VIAL IV PRN (12:08)
[2018-09-03] MEDS: ACETAMINOPHEN 325 MG TAB PO PRN ×2 (15:18→18:32)
[2018-09-03] MEDS ORDERED: ROPINIROLE HCL 1 MG TABLET PO STA (17:45)
[2018-09-03] MEDS: ALPRAZolam 0.25 MG TABLET PO PRN (19:22)
[2018-09-03] MEDS: TERAZOSIN HCL 1 MG CAP PO SCH (19:35)
[2018-09-03] MEDS: ENOXAPARIN INJ 30 MG/0.3 ML SYR SQ SCH (19:36)
[2018-09-03] MEDS: predniSONE 1 MG TAB PO SCH (19:36)
[2018-09-03] MEDS: ROPINIROLE HCL 1 MG TABLET PO SCH (19:36)
--- NOTE | 2018-09-03 22:54 | Hospitalist Progress Note ---
Date of Service September 03, 2018 Assessment & Plan (1) Pulmonary edema: 73 y/o M Hx RA treated with Prednisone and MTx. Recurrent BL lower extremity ulcers, PAD. Recenty admitted with influenza and acute on chronic wound infections. Presents with progressive SOB and orthopnea. Denies a productive cough, CP or a fever. Initial imaging, labs and exam are consistent with new onset CHF. Regarding his wounds, he is following up at a wound clinic and with a cigarette lighter repairer for a large ulcer on the dorsum of the L foot which appears to be improving some. He has an additional ulcer on the medial R ankle which his daughter feels is getting worse. Wound cultures from 04/07 proved + for MRSA and strep maltophilia. He is currently being treated with BID doxy. 1) New Heart Failure with Reduced EF 30-35% -Likely ischemic. -provided with Lasix in ER which led to rapid improvement. -Appreciate cardio input. - He will be maintained on BID Lasix and we will trend I/O, daily weights. -Patient will need ischemic workup, will likely get a cath tomorrow. 2) Chronic ulcers - cont Doxy and wound care. As his daughter states his R ankle ulcer is worsening, we will obtain a new culture. Awaiting wound culture consult 3) RA - cont prednisone - MTx due Fri Full code - Lovenox prophylaxis Spent 35 minutes in management of patient. Subjective Patient reports breathing better today. As per nurse patient has been tolerating room air. Patient denies any new complaints. Family at bedside and are updated. Physical Exam 2 Vital Signs (Past 24 Hours): Last Vital Signs Temp 36.7 C 09/03/18 19:10 Pulse 91 H 09/03/18 19:10 Resp 20 09/03/18 19:10 BP 76/44 L 09/03/18 19:10 Pulse Ox 93 09/03/18 19:10 Physical Exam: General: AAO x 3, no distress ENT: No erythema or exudates, no thrush Eyes: LANETTE, EOMI Head and neck: Normocephalic, atraumatic - JVD is apparent Chest/heart: Nontender, S1,2, RRR, no murmurs, no gallops Lungs: BL crackles at bases Abdomen: Nontender, nondistended, BS+ Neuro: AAO x 3, speech is clear Musculoskeletal: RA-related deformities Skin: Ulcers as per extrem exam Extremities: edema and multiple ulcers - BL shins, dorsum of L foot, medial R ankle - some surrounding erythema which by distribution looks to be related to the adhesives he had on _ (1) Pulmonary edema Chronicity: acute Qualified Code(s): J81.0 - Acute pulmonary edema
[2018-09-04] MEDS: ACETAMINOPHEN 325 MG TAB PO PRN (04:01)
[2018-09-04] MEDS: DOXYCYCLINE HYCLATE 100 MG CAP PO SCH ×2 (05:56→18:00)
[2018-09-04 06:44] LABS: Chol HDL Ratio 2; Cholesterol 106 mg/dl (0-200); HDL Cholesterol 48 mg/dl; LDL Cholesterol Calculated 36 mg/dl; Triglycerides 108 mg/dl (0-150); VLDL Cholesterol 22 mg/dl
[2018-09-04] MEDS: METOPROLOL TARTRATE 25 MG TAB PO SCH ×3 (07:43→08:57)
[2018-09-04] MEDS: miSOPROStol 50 MCG TAB PO SCH ×2 (09:10→19:54)
[2018-09-04] MEDS: CYANOCOBALAMIN 500 MCG TABLET (VITAMIN B-12) PO SCH (09:14)
--- NOTE | 2018-09-04 09:20 | Cardiology Progress Note ---
Date of Service September 04, 2018 Assessment & Plan (1) Heart failure with reduced ejection fraction: 2. Ischemic cardiomyopathy with regional wall motion abnormalities 3. History of peripheral arterial disease post prior SFA stenting in 2010 4. Rheumatoid arthritis on methotrexate, prednisone 5. Anemia 6. Questionable IV contrast allergy Patient here with new acute heart failure in the setting of newly diagnosed, presumed ischemic cardiomyopathy. Today appears well-perfused, congestion improved. Plan for cardiac catheterization later today to evaluate for coronary artery disease. Would hold ARB. OK to try low dose beta-thomas. Appears euvolemic on exam. Can hold IV diuretics this AM. Subjective Breathing improved from admission today. Denies any chest pain. Telemetry reviewno events Review of Systems 10 point review of systems was completed and was otherwise negative unless stated in HPI Physical Exam 2 Vital Signs (Past 24 Hours): Last Vital Signs Temp 36.6 C 09/04/18 07:07 Pulse 88 09/04/18 08:27 Resp 19 09/04/18 07:07 BP 88/49 L 09/04/18 07:07 Pulse Ox 96 09/04/18 07:07 Physical Exam: General: Comfortable, no acute distress, thin Eyes: Sclerae anicteric, extraocular movements intact HENT: Oropharynx clear mucous membranes moist Neck: Normal carotid upstrokes, no bruits. No JVD. Lungs: Clear to auscultation bilaterally, no rhonchi or wheezes Cardiac: Regular rate and rhythm, no murmurs, rubs or gallops. Vascular: 2+ radial, bilaterally Abdomen: Soft, nontender, nondistended, positive bowel sounds. Extremities: Well perfused, no peripheral edema, left lower extremity wound dressed, clean/dry/intact Neuro: Nonfocal Psych: Alert orient x3, normal affect and mood
[2018-09-04] MEDS: PANTOprazole 40 MG TAB PO SCH (09:40)
[2018-09-04] MEDS: FOLIC ACID 1 MG TAB PO SCH (09:40)
[2018-09-04] MEDS: ATORVASTATIN 40 MG TAB PO SCH (09:41)
[2018-09-04] MEDS: predniSONE 5 MG TAB PO SCH (09:41)
[2018-09-04] MEDS: ROPINIROLE HCL 1 MG TABLET PO SCH ×3 (09:41→19:56)
[2018-09-04] MEDS: ASPIRIN 81 MG ECTAB PO SCH (09:42)
[2018-09-04] MEDS: VALSARTAN 80 MG TAB PO SCH (11:01)
[2018-09-04] MEDS: FUROSEMIDE 20 MG in SYRINGE 0 ML IV SCH (11:01)
[2018-09-04] MEDS: ALPRAZolam 0.25 MG TABLET PO PRN ×2 (14:07→19:54)
[2018-09-04] MEDS ORDERED: HEPARIN (PORCINE) 1000 UNIT/ML 10 ML (CATH LAB USE ONLY) ONE (14:54)
[2018-09-04] MEDS ORDERED: fentaNYL citrate 100 MCG/2 ML VIAL ONE (14:54)
[2018-09-04] MEDS ORDERED: MIDAZOLAM HCL 1 MG/ML 2ML VIAL ONE ×2 (14:54→16:03)
[2018-09-04] MEDS ORDERED: raNITIdine HCl 25 MG/ML VIAL ONE (14:55)
[2018-09-04] MEDS ORDERED: NITROGLYCERIN/D5W 100MCG/ML 20ML SYR ONE (14:55)
[2018-09-04] MEDS ORDERED: DiphenhydrAMINE HCL 50 MG/ML VIAL ONE (14:55)
[2018-09-04] MEDS ORDERED: NiCARDipine HCL INJ 2.5 MG/ML 10 ML AMP ONE (14:55)
[2018-09-04] MEDS ORDERED: methylPREDNISolone 125 MG/2 ML VIAL ONE (14:56)
[2018-09-04] MEDS ORDERED: NOREPINEPHRINE BITARTRATE 1 MG/ML 4 ML VIAL (CATH LAB USE ONLY) ONE (16:03)
[2018-09-04] MEDS ORDERED: CLOPIDOGREL BISULFATE 300 MG TAB ONE (16:22)
--- NOTE | 2018-09-04 16:39 | Pre Anesthesia Assessment ---
Date of Service September 04, 2018 Pre Sedation Assessment Vital Signs Temp Pulse Pulse Resp BP BP Pulse Ox 09/04/18 14:55 86/53 L 09/04/18 10:55 36.6 C 72 18 76/46 L 94 09/04/18 08:27 88 09/04/18 07:07 36.6 C 86 19 88/49 L 96 09/04/18 03:33 36.8 C 96 H 21 95/57 L 95 09/03/18 23:13 95 H 09/03/18 22:58 36.6 C 92 H 20 82/49 L 94 09/03/18 19:10 36.7 C 91 H 20 76/44 L 93 Cardiovascular RRR, no murmur, no edema Respiratory normal respiratory effort, lungs clear to auscultation Pre-Sedation Airway Assessment Smoking Status: Former smoker Hx Sleep Apnea: No Hx Difficult Intubation: No Short, Thick Neck: No Thyromental Distance: > or= 3.5 Finger Breadths Mallampati Class: II Procedure Planning Contraindications for Sedation: none Current Medications Reviewed: Yes Notes The planned sedation has been discussed with the patient. Informed Consent was obtained. I have identified the patient, determined the appropriateness of sedation and have assessed the patient immediately prior to the procedure. All medicine(s) and interventions are by my order.
--- NOTE | 2018-09-04 16:40 | Post Anesthesia Assessment ---
Date of Service September 04, 2018 Post Sedation Assessment Vital Signs Temp Pulse Pulse Resp BP BP Pulse Ox 09/04/18 14:55 86/53 L 09/04/18 10:55 36.6 C 72 18 76/46 L 94 09/04/18 08:27 88 09/04/18 07:07 36.6 C 86 19 88/49 L 96 09/04/18 03:33 36.8 C 96 H 21 95/57 L 95 09/03/18 23:13 95 H 09/03/18 22:58 36.6 C 92 H 20 82/49 L 94 09/03/18 19:10 36.7 C 91 H 20 76/44 L 93 Recovery Score Activity: Moves 4 extremities Respiration: Deep Breath/Cough Circulation: +/-20% PreAnes Value Consciousness: Fully Awake Oxygen Saturation: O2 needed for >90% Discharge Sedation Level of Care: Fast Track Phase II Post Sedation Plan On clinical assessment, the patient appears to have tolerated the sedation without complications. Patient is recovering as anticipated. Patient will continue to be monitored by nursing and may be discharged when sedation discharge criteria are met per below protocol. Upon Completions of procedure and additional 15 minutes continue every 5 minute vital signs and the P.A.R. score; then discharge to a Phase I or Fast Track to Phase II per the following guidelines: * Discharge Patient to appropriate Phase II area if PAR is 8 or greater or return to pre- procedure baseline. The post - procedure orders will be as directed. * If PAR score is less than 8 or not return to pre-procedure baseline then patient will follow Phase I monitoring till PAR is reached for Phase II. The Phase I may be done in procedure room or may call to secure a Phase I area. * If naloxone or flumazenil are used for reversal, hold in Phase I for continued monitoring from when last reversal dose was given for a minimum of 60 minutes or longer pending the nurse and/or physician discretion of patient condition before discharge to Phase II. Please call the Sedation Physician to re-evaluate and complete post-note for discharge to Phase II area. Do NOT discharge from procedure sedation or Phase 1 until post- sedation evaluation note is complete by procedure /sedation MD Sedation Discharge Instructions to be given to the patient at discharge to home.
--- NOTE | 2018-09-04 16:53 | Cardiac Catheterization ---
Cardiac Cath Procedure Full Procedure Date September 04, 2018 Pre-Procedure Diagnosis Pre-Procedure Diagnosis: Cardiomyopathy AUC Score AUC Score: 7 Post-Procedure Diagnosis Post-Procedure Diagnosis: Severe CAD, Successful PCI and Elevated Intracardiac Pressures Procedure(s) Performed Procedure(s) Performed: Coronary Angiography, Left Heart Cath and Drug Eluting Stent Music Box Mechanic Joce Wright MD Explosive Operator Supervisor(s) Bernadette Estimated Blood Loss Estimated Blood Loss: 15 Medication(s) Medication(s): Clopidogrel, Fentanyl, Heparin, Lidocaine 1%, Nitroglycerin and Versed Summary of Findings Indication: New severe LV dysfunction with regional wall motion abnormalities and acute heart failure Access: 6 Maori right radial artery with ultrasound guidance Catheters: Stacy, EBU 3.5 guide Findings: LM -moderate caliber, long length, luminal irregularities LAD -moderate caliber, 70-80% lateproximal stenosis, mid and distal vessel tortuous without significant disease and wraps around apex. Gives off collaterals to right PDA. Circumflex -small caliber vessel, 60-70 % diffuse mid segment disease RCA -dominant, 100% mid RCA chronic occlusion. Right PLB, PDA partially filled via left to right collaterals. LVEDP -22 -- PCI -- Antithrombotic therapy: Heparin, clopidogrel Procedure: Left main cannulated with EBU 3.5 guide Automotive Buyer 50 wire passed across lesion into distal vessel Lateproximal LAD lesion predilated with 2.0 compliant balloon Dilated lesion stented with 2.5 x 18 mm Zachary drug-eluting stent Stent post-dilated with 2.5 noncompliant balloon Post procedure ROSSY 3 flow, stent well expanded with minimal residual stenosis and no apparent cardiac complications. Arterial Closure: TR band Summary: 1. Severe multi vessel coronary artery disease -70-80% lateproximal LAD 60-70% diffuse small mid circumflex 100% chronic mid RCA occlusion, PDA/PLB fills via [id number] collaterals 2. Elevated intracardiac filling pressure 3. Successful PCI of lateproximal LAD with single drug-eluting stent (2.5 x 18 mm Zachary). Recommendations: To PCU for continued monitoring Loaded with clopidogrel 600 mg in cath Continue dual-antiplatelet therapy for at least 6 months Continue statin, and ASCVD risk factor modification Continue IV diuresis Continue guideline directed medical therapy for cardiomyopathy as BP allows Consult cardiac Rehab Hemodynamics Rest Ao:: 90/52/68 Final Ao: 84/45/61 LV: 96/22 Recommendations Recommendations: PCI without planned CABG Specimens Specimens: None Radiation Exposure (mGy) 2058 Contrast (mls) 120 Fluids (cc crystalloids) Fluids (cc crystalloids): 50 Drains Drains: None Anesthesia Moderate Procedural Complication(s) None Disposition PCU 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 Cardiac Status Clinical evaluation leading to the procedure CAD Presenation: Sx unlikely to be ischemic Anginal Classification: No Symptoms Heart Failure: NYHA Class: CCS IV Cardiogenic Shock within 24 Hours: No Cardiac Arrest within 24 Hours: No Imaging Studies Past 6 Months: Yes Stress Studies Past 6 Months: No Diagnostic Physicians Name: Joce Wright MD Status: Elective Closure Device Percutaneous Entry Location: Radial Closure Device: Radial Band Recommendations: PCI without planned CABG PCI Indication: Unstable Angina Lesion Segment Name: Proximal LAD Culprit Artery: Yes Stenosis Prior to Rx (%): 70-80 Chronic Total Occlusion: No IVUS: No FFR: No Pre-Procedure ROSSY Flow: 3 Previously Treated Lesion: No Lesion Complexity: Non-High/Non-C Lesion Length (mm): 15 Thrombus Present: No Bifurcation Lesion: No Guidewire Across Lesion: Stenosis Post-Procedure (%): 0 Post-Procedure ROSSY Flow : 3 Devices(s) Deployed: Yes Yes Intraprocedure Events Significant Disection: No Perforation: No
[2018-09-04] MEDS: TERAZOSIN HCL 1 MG CAP PO SCH (19:56)
[2018-09-04] MEDS: ENOXAPARIN INJ 30 MG/0.3 ML SYR SQ SCH (19:57)
[2018-09-04] MEDS: predniSONE 1 MG TAB PO SCH (19:57)
[2018-09-05] MEDS: ACETAMINOPHEN 325 MG TAB PO PRN ×3 (01:11→21:56)
[2018-09-05] MEDS: DOXYCYCLINE HYCLATE 100 MG CAP PO SCH ×2 (05:43→17:37)
[2018-09-05 08:39] LABS: Hematocrit (blood only) 34.2 % (42-52); Hemoglobin 10.7 g/dL (14.0-18.0); Mean Corpuscular Hgb Conc 31.3 g/dL (32-36); Mean Corpuscular Volume 80.7 fL (80-100); Platelet Count 247 K/uL (130-400); RDW Coefficient of Variation 18.8 % (11.5-14.5); Red Blood Count 4.24 M/uL (4.7-6.1); White Blood Count 7.66 K/uL (4.8-10.8)
[2018-09-05] MEDS: METOPROLOL TARTRATE 25 MG TAB PO SCH (08:40)
[2018-09-05] MEDS: miSOPROStol 50 MCG TAB PO SCH ×2 (08:40→21:56)
[2018-09-05] MEDS: ASPIRIN 81 MG ECTAB PO SCH (08:40)
[2018-09-05] MEDS: CLOPIDOGREL BISULFATE 75 MG TAB PO SCH (08:41)
[2018-09-05] MEDS: CYANOCOBALAMIN 500 MCG TABLET (VITAMIN B-12) PO SCH (08:41)
[2018-09-05] MEDS: FOLIC ACID 1 MG TAB PO SCH (08:41)
[2018-09-05] MEDS: predniSONE 5 MG TAB PO SCH (08:41)
[2018-09-05] MEDS: PANTOprazole 40 MG TAB PO SCH (08:41)
[2018-09-05] MEDS: ATORVASTATIN 40 MG TAB PO SCH (08:42)
[2018-09-05] MEDS: ROPINIROLE HCL 1 MG TABLET PO SCH ×3 (08:42→21:56)
[2018-09-05 09:08] LABS: BUN Creatinine Ratio 58.3 (10-20); Calcium 8.5 mg/dl (8.5-10.1); Creatinine Clr Calc Pharmacy 68.7 ml/min; Est GFR (African American) 102.5; Est GFR (Non-African American) 88.5; Potassium 4.5 mmol/L (3.5-5.1)
[2018-09-05] MEDS ORDERED: NITROGLYCERIN SL 0.4 MG/TAB TAB ONE (12:39)
--- NOTE | 2018-09-05 15:13 | Cardiology Progress Note ---
Date of Service September 05, 2018 Assessment & Plan (1) Heart failure with reduced ejection fraction: 2. Ischemic cardiomyopathy with regional wall motion abnormalities 3. History of peripheral arterial disease post prior SFA stenting in 2010 4. Rheumatoid arthritis on methotrexate, prednisone 5. Anemia 6. Questionable IV contrast allergy Patient found to have severe multivessel CAD on cardiac cath yesterday. Now s/ p PCI with single KATHERINE to proximal LAD. Today appears well-perfused with minimal residual congestion. Going forward: -- continue DAPT with ASA/Clopidogrel -- Transition to metoprolol succinate 25 mg daily -- ARB as BP allows -- Home on maintenance lasix 20mg daily -- continue high intensity statin. From a cardiac standpoint would be OK with d/c tomorrow if remains chest pain free. Follow-up with cardiology in 1 week. Subjective Brief episode of chest pain this AM. Resolved without intervention. Denies significant shortness of breath. Mild discomfort at right radial artery access site. Ecchymosis extending up forearm. Telemetry reviewno events Review of Systems All systems reviewed & are unremarkable except as noted in HPI & below Physical Exam 2 Vital Signs (Past 24 Hours): Last Vital Signs Temp 36.8 C 09/05/18 11:58 Pulse 66 09/05/18 12:50 Resp 20 09/05/18 12:39 BP 98/66 L 09/05/18 12:50 Pulse Ox 96 09/05/18 12:50 Constitutional: WD/WN, vitals as above Eyes: PERRL, conjunctivae normal, anicteric sclerae Respiratory: normal respiratory effort, lungs clear to auscultation Cardiovascular: RRR, no murmur, no edema Vessels: no JVD Gastrointestinal (Abdomen): Percussion/Palpation: abdomen soft Musculoskeletal: RA contractures Skin: Diffuse ecchymosis involving right radial artery access site extending up forearm. Distal pulse, sensation intact Psychiatric: A+Ox3, euthymic affect
--- NOTE | 2018-09-05 18:15 | Hospitalist Progress Note ---
Date of Service September 04, 2018 Assessment & Plan (1) Pulmonary edema: 73 y/o M Hx RA treated with Prednisone and MTx. Recurrent BL lower extremity ulcers, PAD. Recenty admitted with influenza and acute on chronic wound infections. Presents with progressive SOB and orthopnea. Denies a productive cough, CP or a fever. Initial imaging, labs and exam are consistent with new onset CHF. Regarding his wounds, he is following up at a wound clinic and with a spectacle truer for a large ulcer on the dorsum of the L foot which appears to be improving some. He has an additional ulcer on the medial R ankle which his daughter feels is getting worse. Wound cultures from 04/07 proved + for MRSA and strep maltophilia. He is currently being treated with BID doxy. 1) New Heart Failure with Reduced EF 30-35% -cath shows evidence of ischemia Cath findings and recommendations are the following: Summary: 1. Severe multi vessel coronary artery disease -70-80% lateproximal LAD 60-70% diffuse small mid circumflex 100% chronic mid RCA occlusion, PDA/PLB fills via [id number] collaterals 2. Elevated intracardiac filling pressure 3. Successful PCI of lateproximal LAD with single drug-eluting stent (2.5 x 18 mm [employer]). Recommendations: To PCU for continued monitoring Loaded with clopidogrel 600 mg in cath Continue dual-antiplatelet therapy for at least 6 months Continue statin, and ASCVD risk factor modification Continue IV diuresis Continue guideline directed medical therapy for cardiomyopathy as BP allows Consult cardiac Rehab 2) Chronic ulcers - Unstageable wounds on r ankle. cont Doxy and wound care. As his daughter states his R ankle ulcer is worsening, we will obtain a new culture. Awaiting wound culture consult 3) RA - cont prednisone - MTx due Fri Full code - Lovenox prophylaxis Spent 25 minutes in management of patient. Subjective Patient reports feeling better. Patient denies any chest pain at this time. Physical Exam 2 Vital Signs (Past 24 Hours): Last Vital Signs Temp 37 C L 09/04/18 18:01 Pulse 80 09/04/18 18:01 Resp 15 09/04/18 18:01 BP 93/56 09/04/18 18:01 Pulse Ox 100 09/04/18 18:01 Physical Exam: General: AAO x 3, no distress ENT: No erythema or exudates, no thrush Eyes: LANETTE, EOMI Head and neck: Normocephalic, atraumatic - JVD is apparent Chest/heart: Nontender, S1,2, RRR, no murmurs, no gallops Lungs: clear Abdomen: Nontender, nondistended, BS+ Neuro: AAO x 3, speech is clear Musculoskeletal: RA-related deformities Skin: Ulcers as per extrem exam Extremities: edema and multiple ulcers - BL shins, dorsum of L foot, medial R ankle _ (1) Pulmonary edema Chronicity: acute Qualified Code(s): J81.0 - Acute pulmonary edema
[2018-09-05] MEDS ORDERED: METOPROLOL SUCC 25MG EXT REL TAB PO STA (18:30)
[2018-09-05] MEDS: ENOXAPARIN INJ 30 MG/0.3 ML SYR SQ SCH (19:54)
[2018-09-05] MEDS: TERAZOSIN HCL 1 MG CAP PO SCH (21:56)
[2018-09-05] MEDS: predniSONE 1 MG TAB PO SCH (21:56)
[2018-09-06] MEDS: DOXYCYCLINE HYCLATE 100 MG CAP PO SCH ×2 (06:25→17:53)
--- NOTE | 2018-09-06 08:06 | Hospitalist Progress Note ---
Date of Service September 05, 2018 Assessment & Plan (1) Pulmonary edema: 73 y/o M Hx RA treated with Prednisone and MTx. Recurrent BL lower extremity ulcers, PAD. Recenty admitted with influenza and acute on chronic wound infections. Presents with progressive SOB and orthopnea. Denies a productive cough, CP or a fever. Initial imaging, labs and exam are consistent with new onset CHF. Regarding his wounds, he is following up at a wound clinic and with a metal fabricating shop helper for a large ulcer on the dorsum of the L foot which appears to be improving some. He has an additional ulcer on the medial R ankle which his daughter feels is getting worse. Wound cultures from 04/07 proved + for MRSA and strep maltophilia. He is currently being treated with BID doxy. 1) New Heart Failure with Reduced EF 30-35% -cath shows evidence of ischemia Cath findings and recommendations are the following: Summary: 1. Severe multi vessel coronary artery disease -70-80% lateproximal LAD 60-70% diffuse small mid circumflex 100% chronic mid RCA occlusion, PDA/PLB fills via [id number] collaterals 2. Elevated intracardiac filling pressure 3. Successful PCI of lateproximal LAD with single drug-eluting stent (2.5 x 18 mm [place]). Recommendations: To PCU for continued monitoring Loaded with clopidogrel 600 mg in cath Continue dual-antiplatelet therapy for at least 6 months Continue statin, and ASCVD risk factor modification Continue IV diuresis Continue guideline directed medical therapy for cardiomyopathy as BP allows Consult cardiac Rehab On 09/05 switch metoprolol tartrate to succinate and will give a one time dose of 12.5 PM and start 25 mg AM thereafter. Goal is to improve HR control prior to discharge.. 2) Chronic ulcers - Unstageable wounds on r ankle. cont Doxy and wound care. As his daughter states his R ankle ulcer is worsening, we will obtain a new culture. Awaiting wound culture consult 3) RA - cont prednisone - MTx due Fri Full code - Lovenox prophylaxis Spent 25 minutes in management of patient. Subjective Patient reports feeling better. Patient denies any chest pain at this time. Physical Exam 2 Vital Signs (Past 24 Hours): Last Vital Signs Temp 36.4 C 09/05/18 16:00 Pulse 93 09/05/18 16:00 Resp 20 09/05/18 16:00 BP 98/75 09/05/18 16:00 Pulse Ox 95 09/05/18 16:00 Physical Exam: Physical Exam: General: AAO x 3, no distress ENT: No erythema or exudates, no thrush Eyes: LANETTE, EOMI Head and neck: Normocephalic, atraumatic - JVD is apparent Chest/heart: Nontender, S1,2, RRR, no murmurs, no gallops Lungs: clear Abdomen: Nontender, nondistended, BS+ Neuro: AAO x 3, speech is clear Musculoskeletal: RA-related deformities Skin: Ulcers as per extrem exam Extremities: edema and multiple ulcers - BL shins, dorsum of L foot, medial R ankle _ (1) Pulmonary edema Chronicity: acute Qualified Code(s): J81.0 - Acute pulmonary edema
[2018-09-06] MEDS: predniSONE 5 MG TAB PO SCH (08:17)
[2018-09-06] MEDS: ROPINIROLE HCL 1 MG TABLET PO SCH ×3 (08:17→20:17)
[2018-09-06] MEDS: miSOPROStol 50 MCG TAB PO SCH ×2 (08:17→20:16)
[2018-09-06] MEDS: PANTOprazole 40 MG TAB PO SCH (08:17)
[2018-09-06] MEDS: CLOPIDOGREL BISULFATE 75 MG TAB PO SCH (08:17)
[2018-09-06] MEDS: CYANOCOBALAMIN 500 MCG TABLET (VITAMIN B-12) PO SCH (08:17)
[2018-09-06] MEDS: ATORVASTATIN 40 MG TAB PO SCH (08:17)
[2018-09-06] MEDS: METOPROLOL SUCC 25MG EXT REL TAB PO SCH (08:17)
[2018-09-06] MEDS: ASPIRIN 81 MG ECTAB PO SCH (08:17)
[2018-09-06] MEDS: FOLIC ACID 1 MG TAB PO SCH (08:17)
[2018-09-06] MEDS: ACETAMINOPHEN 325 MG TAB PO PRN (08:18)
[2018-09-06] MEDS: ONDANSETRON INJ 2 MG/ML 2 ML VIAL IV PRN (10:03)
--- NOTE | 2018-09-06 10:15 | Hospitalist Progress Note ---
Date of Service September 06, 2018 Assessment & Plan (1) Pulmonary edema: 73 y/o M Hx RA treated with Prednisone and MTx. Recurrent BL lower extremity ulcers, PAD. Recenty admitted with influenza and acute on chronic wound infections. Presents with progressive SOB and orthopnea. Denies a productive cough, CP or a fever. Initial imaging, labs and exam are consistent with new onset CHF. Regarding his wounds, he is following up at a wound clinic and with a commercial field inspector for a large ulcer on the dorsum of the L foot which appears to be improving some. He has an additional ulcer on the medial R ankle which his daughter feels is getting worse. Wound cultures from 04/07 proved + for MRSA and strep maltophilia. He is currently being treated with BID doxy. 1) New Heart Failure with Reduced EF 30-35% Ischemic cardiomyopathy -cath shows evidence of ischemia Cath findings and recommendations are the following: Summary: -Severe multi vessel coronary artery disease -70-80% lateproximal LAD 60-70% diffuse small mid circumflex 100% chronic mid RCA occlusion, PDA/PLB fills via [id number] collaterals -Elevated intracardiac filling pressure -Successful PCI of lateproximal LAD with single drug-eluting stent (2.5 x 18 mm Zachary). Continue dual-antiplatelet therapy for at least 6 months Continue statin, and ASCVD risk factor modification Continue IV diuresis Continue guideline directed medical therapy for cardiomyopathy as BP allows Consult cardiac Rehab On 09/05 switched metoprolol tartrate to succinate and will give a one time dose of 12.5 PM and start 25 mg AM thereafter. Goal is to improve HR control prior to discharge.. on 09/06, will continue current management. 2) Chronic ulcers - Unstageable wounds on r ankle. cont Doxy and wound care. As his daughter states his R ankle ulcer is worsening, we will obtain a new culture. Awaiting wound culture consult 3) RA - cont prednisone - MTx due Fri Full code - Lovenox prophylaxis Spent 25 minutes in management of patient. discharge was held as patient was tachycardic and may not have taken his pills. patient will be on zofran. obtain speech eval. Perhaps discharge in AM. Subjective Patient seen in the morning. Patient reports that he had an episode of nausea and vomited a portion of his morning pills. I had discussed this with his nurse. The nurse believes he only vomited perhaps the ASA. Patient reports not having an appetite today. His family states that he normally needs to take zofran. Patient is denying chest pain at this time. Physical Exam 2 Vital Signs (Past 24 Hours): Last Vital Signs Temp 36.7 C 09/06/18 07:06 Pulse 92 H 09/06/18 08:00 Resp 16 09/06/18 07:06 BP 113/71 09/06/18 07:06 Pulse Ox 98 09/06/18 07:06 Physical Exam: Physical Exam: General: AAO x 3, no distress ENT: No erythema or exudates, no thrush Eyes: LANETTE, EOMI Head and neck: Normocephalic, atraumatic - JVD is apparent Chest/heart: Nontender, S1,2, RRR, no murmurs, no gallops Lungs: clear Abdomen: Nontender, nondistended, BS+ Neuro: AAO x 3, speech is clear Musculoskeletal: RA-related deformities Skin: Ulcers as per extrem exam Extremities: edema and multiple ulcers - BL shins, dorsum of L foot, medial R ankle _ (1) Pulmonary edema Chronicity: acute Qualified Code(s): J81.0 - Acute pulmonary edema
[2018-09-06] MEDS: ENOXAPARIN INJ 30 MG/0.3 ML SYR SQ SCH (20:16)
[2018-09-06] MEDS: TERAZOSIN HCL 1 MG CAP PO SCH (20:16)
[2018-09-06] MEDS: predniSONE 1 MG TAB PO SCH (20:17)
[2018-09-06] MEDS: OXYCODONE/ACETAMINOPHEN 5mg/325mg TAB PO PRN (23:00)
[2018-09-07] MEDS: DOXYCYCLINE HYCLATE 100 MG CAP PO SCH ×2 (05:00→16:33)
[2018-09-07 06:32] LABS: Basophils # (auto) 0.01 K/uL (0-0.2); Basophils % (auto) 0.1 %; Eosinophils % (auto) 1.2 %; Hematocrit (blood only) 31.3 % (42-52); Hemoglobin 9.9 g/dL (14.0-18.0); Immature Granulocytes # (auto) 0.03 K/uL (0.00-0.02); Immature Granulocytes % (auto) 0.4 %; Lymphocytes # (auto) 0.93 K/uL (1.2-3.4); Lymphocytes % (auto) 11.1 %; Mean Corpuscular Hgb Conc 31.6 g/dL (32-36); Mean Corpuscular Volume 79.4 fL (80-100); Mean Platelet Volume 9.8 fL (7.4-10.4); Monocytes # (auto) 1.08 K/uL (0.11-0.59); Monocytes % (auto) 12.9 %; Neutrophils # (auto) 6.21 K/uL (1.4-6.5); Neutrophils % (auto) 74.3 %; Platelet Count 205 K/uL (130-400); RDW Coefficient of Variation 18.5 % (11.5-14.5); RDW Standard Deviation 53.4 fL (36.4-46.3); Red Blood Count 3.94 M/uL (4.7-6.1); White Blood Count 8.36 K/uL (4.8-10.8)
[2018-09-07 07:14] LABS: BUN Creatinine Ratio 53.1 (10-20); Calcium 7.8 mg/dl (8.5-10.1); Creatinine Clr Calc Pharmacy 93.6 ml/min; Est GFR (African American) 116.4; Est GFR (Non-African American) 100.4; Potassium 3.7 mmol/L (3.5-5.1)
--- NOTE | 2018-09-07 08:40 | Hospitalist Progress Note ---
Date of Service September 07, 2018 Assessment & Plan (1) Pulmonary edema: 73 y/o M Hx RA treated with Prednisone and MTx. Recurrent BL lower extremity ulcers, PAD. Recenty admitted with influenza and acute on chronic wound infections. Presents with progressive SOB and orthopnea. Initial imaging, labs and exam are consistent with new onset CHF. acute systolic Heart Failure with Reduced EF 30-35% Ischemic cardiomyopathy Cath findings and recommendations are the following: Summary: -Severe multi vessel coronary artery disease -70-80% lateproximal LAD 60-70% diffuse small mid circumflex 100% chronic mid RCA occlusion, PDA/PLB fills via [id number] collaterals -Elevated intracardiac filling pressure -Successful PCI of lateproximal LAD with single drug-eluting stent (2.5 x 18 mm Zachary). Continue dual-antiplatelet therapy for at least 6 months Continue statin, and ASCVD risk factor modification Continue diuresis Continue guideline directed medical therapy for cardiomyopathy as BP allows Consult cardiac Rehab switched metoprolol tartrate to succinate goal is to improve HR control prior to discharge.. (2) PAD (peripheral artery disease): Regarding his wounds, he is following up at a wound clinic and with a brass cutter for a large ulcer on the dorsum of the L foot which appears to be improving . He has an additional ulcer on the medial R ankle. Wound cultures from 04/07 proved + for MRSA and strep maltophilia. He is currently being treated with BID doxy. (3) Rheumatoid arthritis: RA - cont prednisone - MTx usually on Fri (4) Restless leg: Pt will has requip stopped and try on time dose of neurontin since requip was not helping (5) Constipation: Pt given prune juice and mom this am, will try to add senna in afternoon if not successful Subjective Patient has multiple somatic complaints mostly revolving around his restless legs and constipation with increased gas. Patient has no complaints of chest pain or pressure or no side effects resulting from him having a cardiac stent. His daughter is at the bedside and updated she is agreeable that he needs to come home because he will be more settled at home is he does have significant physical limitations and she believes that they are better to accommodate him at home Review of Systems ROS: Appears chronically ill with obvious rheumatological deformities No double vision blurry vision No problems with speech or swallowing No palpitations, chest pain or pressure No Wheezing or breathing issues Patient complains of increased belching some generalized abdominal pain and constipation No burning urine urine frequency or changes in color No new focal joint pain or muscle pain No skin rashes or oral lesions No unusual bruising or bleeding No focused back pain or numbness or loss of strength No changes in memory or confusion Physical Exam 2 Vital Signs (Past 24 Hours): Last Vital Signs Temp 36.8 C 09/07/18 07:13 Pulse 86 09/07/18 07:13 Resp 16 09/07/18 07:13 BP 102/66 09/07/18 07:13 Pulse Ox 94 09/07/18 07:13 The patient appeared chronically ill and thin Vital signs as documented. Head exam is unremarkable. normocephalic, atraumatic Neck is without jugular venous distension, thyromegaly, or lymphademopathy Lungs are clear to auscultation and percussion. Cardiac exam reveals Rhythm is regular. First and second heart sounds normal. Abdominal exam reveals normal bowel sounds, no masses, no organomegaly soft no focal tenderness Extremities are nonedematous and both pedal pulses are present marked rheumatoid arthritic deformities with enlarged joints and ulnar deviation Neurologic exam is A&Ox3, patient has deformities which make his strength and movement challenging Psychologically seems neither anxious or depressed _ (1) Pulmonary edema Chronicity: acute Qualified Code(s): J81.0 - Acute pulmonary edema
[2018-09-07] MEDS: CLOPIDOGREL BISULFATE 75 MG TAB PO SCH (08:52)
[2018-09-07] MEDS: CYANOCOBALAMIN 500 MCG TABLET (VITAMIN B-12) PO SCH (08:52)
[2018-09-07] MEDS: METOPROLOL SUCC 25MG EXT REL TAB PO SCH (08:52)
[2018-09-07] MEDS: ATORVASTATIN 40 MG TAB PO SCH (08:52)
[2018-09-07] MEDS: ALPRAZolam 0.25 MG TABLET PO PRN (08:52)
[2018-09-07] MEDS: ONDANSETRON INJ 2 MG/ML 2 ML VIAL IV PRN (08:52)
[2018-09-07] MEDS: ASPIRIN 81 MG ECTAB PO SCH (08:53)
[2018-09-07] MEDS: PANTOprazole 40 MG TAB PO SCH (08:53)
[2018-09-07] MEDS: miSOPROStol 50 MCG TAB PO SCH ×2 (08:53→20:31)
[2018-09-07] MEDS: FOLIC ACID 1 MG TAB PO SCH (08:53)
[2018-09-07] MEDS: ROPINIROLE HCL 1 MG TABLET PO SCH ×2 (08:53→12:34)
[2018-09-07] MEDS: predniSONE 5 MG TAB PO SCH (08:53)
[2018-09-07] MEDS: POLYETHYLENE (MIRALAX) 17 GM PACK PO PRN (11:24)
[2018-09-07] MEDS: ACETAMINOPHEN 325 MG TAB PO PRN (12:34)
[2018-09-07] MEDS ORDERED: SENNA 8.6 MG TAB PO PRN (14:01)
--- NOTE | 2018-09-07 16:25 | Heart Failure Progress Note ---
Date of Service September 07, 2018 Assessment & Plan (1) Heart failure with reduced ejection fraction: Acute systolic congestive heart failure: As per Dr. Wright: -- continue DAPT with ASA/Clopidogrel -- Transition to metoprolol succinate 25 mg daily -- ARB as BP allows -- Home on maintenance lasix 20mg daily -- continue high intensity statin. Consider transitioning Valsartan to Entresto however he is hypotensive today, may re-evaluate on an outpatient basis. We discussed the importance of daily weights and low sodium diet. Recommend Lasix 20 mg daily as above on discharge. Recommend close follow up with the heart failure program within 7 days of discharge. Subjective Mr. Condon has been referred to the heart failure program by Dr. Moss. He has a new onset of CHF with ischemic cardiomyopathy with EF of 30-25%. Patient found to have severe multi-vessel CAD on cardiac cath. Now s/p PCI with single KATHERINE to proximal LAD. Denies significant shortness of breath and swelling currently. He is net negative 2.8 L so far this admission. His weight is up from 55 kg to 63 kg. He is currently getting IV Lasix 20 mg BID. Physical Exam 2 Vital Signs (Past 24 Hours): Last Vital Signs Temp 36.8 C 09/07/18 16:00 Pulse 94 H 09/07/18 16:00 Resp 20 09/07/18 16:00 BP 98/60 L 09/07/18 16:00 Pulse Ox 95 09/07/18 16:00
[2018-09-07] MEDS: GABAPENTIN 600 MG TAB PO SCH (16:33)
[2018-09-07] MEDS: ENOXAPARIN INJ 30 MG/0.3 ML SYR SQ SCH (20:29)
[2018-09-07] MEDS: predniSONE 1 MG TAB PO SCH (20:30)
[2018-09-07] MEDS: TERAZOSIN HCL 1 MG CAP PO SCH (20:30)
[2018-09-08] MEDS: DOXYCYCLINE HYCLATE 100 MG CAP PO SCH ×2 (05:50→15:59)
[2018-09-08] MEDS: miSOPROStol 50 MCG TAB PO SCH (07:30)
[2018-09-08] MEDS: ALPRAZolam 0.25 MG TABLET PO PRN (07:30)
[2018-09-08] MEDS: PANTOprazole 40 MG TAB PO SCH (07:30)
[2018-09-08] MEDS: METOPROLOL SUCC 25MG EXT REL TAB PO SCH (08:51)
[2018-09-08] MEDS: ASPIRIN 81 MG ECTAB PO SCH (08:51)
[2018-09-08] MEDS: predniSONE 5 MG TAB PO SCH (08:51)
[2018-09-08] MEDS: CLOPIDOGREL BISULFATE 75 MG TAB PO SCH (08:51)
[2018-09-08] MEDS: CYANOCOBALAMIN 500 MCG TABLET (VITAMIN B-12) PO SCH (08:51)
[2018-09-08] MEDS: ATORVASTATIN 40 MG TAB PO SCH (08:51)
[2018-09-08] MEDS: FOLIC ACID 1 MG TAB PO SCH (08:52)
--- NOTE | 2018-09-08 11:09 | Cardiology Progress Note ---
Date of Service September 08, 2018 Assessment & Plan (1) Heart failure with reduced ejection fraction: 2. Ischemic cardiomyopathy 3. History of peripheral arterial disease post prior SFA stenting 2010 4. Multivessel CAD-- s/p PCI with single KATHERINE to proximal LAD 5. Rheumatoid arthritis on methotrexate, prednisone 6. Anemia 7. Paroxysmal atrial fibrillation--new onset Patient found to have severe, multivessel CAD on cath 09/04/18 status post PCI of prox LAD. He is chest pain free. Noted to have new onset paroxysmal atrial fibrillation with controlled rate. He is asymptomatic. He has an elevated CHADS- VASc and recommend anticoagulation for stroke risk reduction. Discontinue aspirin. Continue antiplatelet therapy with Plavix alone. He appears well perfused on exam without any significant congestion. He has a negative fluid balance. Continue Lasix 20 mg daily. Recommend daily weights, low sodium diet. Continue guideline based medical therapy with metoprolol succinate and valsartan, can titrate meds as outpatient as BP allows. He will need close followup with cardiology after discharge. Supervising Physician Co-Signing Physician Notes Patient seen and examined. Agree with assessment and plan as outlined by physician medical clerical assistant Rosy Padilla. No recurrent chest pain. Well compensated on exam. New rate controlled A. fib without symptoms. Agree with starting anticoagulation along with clopidogrel. Can discontinue aspirin. Follow-up with cardiology in 1-2 weeks. Subjective Patient is feeling well. No recurrent episodes of chest pain. He denies shortness of breath, orthopnea, PND or edema. Paroxysmal atrial fibrillation noted on telemetry. He is asymptomatic without palpitations. No prior history of afib. No significant discomfort at R radial access site. Review of Systems All systems reviewed & are unremarkable except as noted in HPI & below Physical Exam 2 Vital Signs (Past 24 Hours): Last Vital Signs Temp 36.7 C 09/08/18 07:03 Pulse 84 09/08/18 07:03 Resp 17 09/08/18 07:03 BP 103/64 09/08/18 07:03 Pulse Ox 94 09/08/18 07:03 Physical Exam: General: No acute distress. Comfortable. HEENT: Head is normal. PERRLA. Anicteric sclerae Neck: No JVD. Lungs: Clear to auscultation bilaterally without rales, rhonchi or wheezes. Cardiac: Regular rate and rhythm. S1 and S2 normal. No murmur, gallop or rub. Abdomen: Soft. Nontender. Bowel sounds present. No abdominal bruit. Extremities: No peripheral edema. Peripheral pulses intact. R radial artery access site with ecchymosis extending up forearm. No hematoma. Neuro: nonfocal. Psych: Alert and oriented.
[2018-09-08] MEDS: GABAPENTIN 600 MG TAB PO SCH (15:59)
--- NOTE | 2018-09-08 18:31 | Discharge Summary ---
Date of Service September 08, 2018 Admission HPI Per Admitting Provider 73 y/o M Hx RA treated with Prednisone and MTx. Recurrent BL lower extremity ulcers, PAD. Recenty admitted with influenza and acute on chronic wound infections. Presents with progressive SOB and orthopnea. Denies a productive cough, CP or a fever. Initial imaging, labs and exam are consistent with new onset CHF. Regarding his wounds, he is following up at a wound clinic and with a baby registry sales consultant for a large ulcer on the dorsum of the L foot which appears to be improving some. He has an additional ulcer on the medial R ankle which his daughter feels is getting worse. Wound cultures from 04/07 proved + for MRSA and strep maltophilia. He is currently being treated with BID doxy. PMH: 1) RA - Prednisone, MTx 2) Nonhealing LE ulcers 3) B12 deficiency 4) Osteoporosis 5) PAD Surgical: Multiple wound debridements L SFA stent Social: Distant smoking history, does not drink alcohol Family: Noncontributory to preset complaint Principal Diagnosis new onset of systolic heart failure cardiac catheterization with intervention PCI, lower extremity wounds deforming rheumatoid arthritis Discharge Exam Patient is a significant rheumatological deformities he is in no further shortness of breath he is fairly sedentary is markedly weak his leg wounds are improved Discharge Data Allergies Allergy/AdvReac Type Severity Reaction Status Date / Time amoxicillin Allergy Severe RED Verified 09/02/18 10:14 BLOTCHES HEAD TO TOE Iodinated Contrast- Oral and Allergy Severe "FELT Verified 09/02/18 10:14 IV Dye FUNNY" ioversol Allergy Severe PASSED OUT Verified 09/02/18 10:14 clavulanic acid Allergy Intermediate RASH Verified 09/02/18 10:14 Penicillins Allergy Intermediate RASH Verified 09/02/18 10:14 adhesive Allergy Mild REDNESS Verified 09/02/18 10:14 WITH EXTENDED USE Sulfa (Sulfonamide Allergy Mild RASH Verified 09/02/18 10:14 Antibiotics) sulfamethoxazole Allergy Mild RASH Verified 09/02/18 10:14 trimethoprim Allergy Mild RASH Verified 09/02/18 10:14 Bactrim Allergy Unknown RASH Verified 11/18/17 00:19 Fish Containing Products Allergy Unknown Verified 09/02/18 10:14 fish derived Allergy Unknown Verified 09/02/18 10:14 fish oil Allergy Unknown Verified 09/02/18 10:14 shellfish derived Allergy Unknown Verified 09/02/18 10:14 Latex, Natural Rubber AdvReac Intermediate Redness of Verified 09/02/18 10:14 Skin silver AdvReac Mild Irritates Verified 09/02/18 10:14 the skin Food Allergy Severe SEAFOOD - Uncoded 09/02/18 10:14 EYES SWELL IF DRINKS ALCOHOL WITH Carboxymethylcellulose AdvReac Mild Irritates Uncoded 09/02/18 10:14 the skin Consultations 09/02/18 14:35 ED Decision to Admit Stat 09/02/18 17:28 Consult Cardiology Stat Procedures Performed Operation Date: 09/04/18 12:00 Actual Procedures s Cineradiography w/Routine Exam - Kuldip Woodward MD p Cath, Left with Cors and Vent - Kuldip Woodward MD s Drug Eluting Stent SGl Vessel - Kuldip Woodward MD Ordered Studies 09/04/18 07:10 CL Cath Imgs for PACS use only Routine Hospital Course (1) Pulmonary edema: 73 y/o M Hx RA treated with Prednisone and MTx. Recurrent BL lower extremity ulcers, PAD. Recenty admitted with influenza and acute on chronic wound infections. Presents with progressive SOB and orthopnea. Initial imaging, labs and exam are consistent with new onset CHF. acute systolic Heart Failure with Reduced EF 30-35% Ischemic cardiomyopathy Cath findings and recommendations are the following: Summary: -Severe multi vessel coronary artery disease -70-80% lateproximal LAD 60-70% diffuse small mid circumflex 100% chronic mid RCA occlusion, PDA/PLB fills via [id number] collaterals -Elevated intracardiac filling pressure -Successful PCI of lateproximal LAD with single drug-eluting stent (2.5 x 18 mm [place]). Continue dual-antiplatelet therapy for at least 6 months Continue statin, and ASCVD risk factor modification Continue diuresis Continue guideline directed medical therapy for cardiomyopathy as BP allow switched metoprolol tartrate to succinate (2) PAD (peripheral artery disease): Regarding his wounds, he is following up at a wound clinic and with a baby registry sales consultant for a large ulcer on the dorsum of the L foot which appears to be improving . He has an additional ulcer on the medial R ankle. Wound cultures from 04/07 proved + for MRSA and strep maltophilia. He is currently being treated with BID doxy racially based on the wound improvement. (3) Rheumatoid arthritis: RA - cont prednisone - MTx usually on Fri (4) Restless leg: Pt will has requip stopped , greatly improved with Neurontin (5) Constipation: Total Time Total Time Spent Total Time Spent (In Minutes): greater than 30 minutes were required to prepare discharge Discharge Plan Discharge Items Patient Disposition: Transfer Inpatient Rehab Fac Reason For Visit: NEW CHF Discharge Diagnosis: acute IA s/p stent Discharge Goals: Decrease discomfort, Diagnostic testing and Improve disease control Activity: As commented below Activity Comment: as per PT/OT recommendations Non-emergency contact: Primary Care Provider and Telephone Cleaner Call non-emergency contact if: you have any medication questions Follow-up/Referrals: Daniele Martinez III, CRNP [Primary Care Provider] - 09/15/18 11:00 am (Please, follow up with Daniele MAJANO on FridaySeptember 15 at 11:00 am. *If you need to change this appointment, call the office at [phone].) Diet: Heart Healthy Addtl Provider Instructions: please follow up with dr woodward Prescriptions: New doxycycline hyclate 100 mg Capsule 100 mg PO BID@0600,1800 Qty: 14 RF: 0 atorvastatin 40 mg Tablet 40 mg PO QAM Qty: 30 RF: 0 valsartan [Diovan] 80 mg Tablet 80 mg PO QAM Qty: 30 RF: 0 clopidogrel 75 mg Tablet 75 mg PO QAM Qty: 30 RF: 0 metoprolol succinate 25 mg Tablet Extended Release 24 Hr 25 mg PO QAM Qty: 30 RF: 0 apixaban [Eliquis] 5 mg Tablet 5 mg PO BID Qty: 30 RF: 0 gabapentin 600 mg Tablet 600 mg PO DAILY@1700 Qty: 30 RF: 0 Continue cyanocobalamin (vitamin B-12) [Vitamin B-12] 1,000 mcg Tablet 1,000 mcg PO QAM RF: 0 acetaminophen [Tylenol Extra Strength] 500 mg Tablet 500 mg PO Q6H PRN (Reason: Pain) RF: 0 alendronate [Fosamax] 70 mg tablet 70 mg PO WK RF: 0 multivitamin Tablet 1 cap PO DAILY RF: 0 prednisone 5 mg tablet 5 mg PO QAM RF: 0 methotrexate sodium 2.5 mg tablet 15 mg PO WK RF: 0 prednisone 1 mg tablet 2 mg PO QPM RF: 0 esomeprazole magnesium [Nexium] 40 mg capsule,delayed release(/EC) 40 mg PO QAM RF: 0 misoprostol 100 mcg tablet 100 mcg PO BID RF: 0 folic acid 1 mg tablet 1 mg PO QAM RF: 0 cholecalciferol (vitamin D3) [Vitamin D3] 1,000 unit Capsule 1,000 unit PO QAM RF: 0 ondansetron 8 mg Tablet,Disintegrating 8 mg PO Q6 PRN (Reason: Nausea) RF: 0 terazosin 2 mg capsule 2 mg PO HS RF: 0 albuterol sulfate [ProAir RespiClick] 90 mcg/actuation aerosol powdr breath activated 2 inha INH Q4H RF: 0 lidocaine 5 % Adhesive Patch,Medicated 1 patch Transdermal QAM Qty: 30 RF: 0 oxycodone-acetaminophen [Percocet] 5-325 mg tablet 1 tab PO HS PRN (Reason: pain) Qty: 10 RF: 0 alprazolam [Xanax] 0.25 mg tablet 0.25 mg PO TID PRN (Reason: Anxiety) Qty: 10 RF: 0 Discontinued naproxen 500 mg tablet 500 mg PO BID PRN (Reason: Inflammation) RF: 0 Stand-Alone Forms: [facility] Discharge Orders: Discharge Order (Routine); Ordered 09/08/18 Ordered By: Thomas Moss Skilled Items Patient informed of condition?: Yes DNR: No Discharge Level of Care: Acute rehab Communicable Disease: No Discharge Prognosis: Stable Admission Data Admit Date/Time: 09/02/18 15:45 Attending Provider: Thomas Moss Admit Provider: Sudheer Clancy Primary Care Provider: Daniele Martinez III Other Providers: Sudheer Clancy ; Pepe Calle ; Home,Nursing Agency ; Joseph Suarez Service: Telemetry Other Interventions: Discharge Summary Assessment (RN) Last Done: 09/08/18 15:25 DC Date/Time DO NOT enter until pt leaves facility: 09/08/18 17:29
[2018-09-08] MEDS ORDERED: APIXABAN 5 MG TABLET PO SCH (21:00)
== END 2018-09-08 17:29 | DRG 246 ==
LOC: ED 08:55 → SUATTDRO 15:45 → 2E 15:45

== ENCOUNTER 2018-09-29 13:48 | Inpatient (IN) ==
--- NOTE | 2018-09-29 15:23 | XRay Report ---
SINGLE VIEW CHEST CLINICAL HISTORY: Dyspnea. FINDINGS: An AP, portable, upright chest radiograph is compared to study dated 09/02/2018 and correlat ed with chest CT dated 08/04/2018. The examination is degraded by portable technique and patient rotat ion. The heart is enlarged and there is atherosclerotic calcification of the thoracic aorta. There i s mild pulmonary vascular congestion. Small layering pleural effusions are identified with bibasilar consolidation. Apical scarring is observed. No pneumothorax is seen. The skeletal structures are oste openic. There are healed bilateral rib fractures. A right shoulder arthroplasty is in place. Advanced arthritic change end deformity is noted in the left shoulder. Degenerative change is also seen throu ghout the thoracic spine. IMPRESSION: 1. Cardiomegaly with evidence of mild congestive failure. 2. There are layering pleural effusions with bibasilar consolidation. This likely represents atelecta sis. Clinical correlation will be required. Electronically signed by: Kemar Wright M.D. 09/29/2018 3:22 PM
[2018-09-29] MEDS ORDERED: FUROSEMIDE 20 MG in SYRINGE 0 ML IV ONE (15:56)
[2018-09-29 16:14] LABS: Basophils # (auto) 0.01 K/uL (0-0.2); Basophils % (auto) 0.1 %; Eosinophils # (auto) 0.02 K/uL (0-0.5); Eosinophils % (auto) 0.2 %; Hematocrit (blood only) 29.2 % (42-52); Hemoglobin 9.3 g/dL (14.0-18.0); Immature Granulocytes # (auto) 0.07 K/uL (0.00-0.02); Immature Granulocytes % (auto) 0.7 %; Lymphocytes # (auto) 0.49 K/uL (1.2-3.4); Lymphocytes % (auto) 4.7 %; Mean Corpuscular Hgb Conc 31.8 g/dL (32-36); Mean Platelet Volume 9.3 fL (7.4-10.4); Monocytes # (auto) 0.58 K/uL (0.11-0.59); Monocytes % (auto) 5.6 %; Neutrophils # (auto) 9.18 K/uL (1.4-6.5); Neutrophils % (auto) 88.7 %; Platelet Count 279 K/uL (130-400); RDW Standard Deviation 53.2 fL (36.4-46.3); Red Blood Count 3.79 M/uL (4.7-6.1); White Blood Count 10.35 K/uL (4.8-10.8)
[2018-09-29] MEDS ORDERED: FUROSEMIDE 40 MG/4 ML VIAL IV ONE (16:17)
[2018-09-29 16:24] LABS: INR 1.6 (0.9-1.1); Partial Thromboplastin Ratio 1.2; Partial Thromboplastin Time 32.2 Seconds (21.0-31.0); Prothrombin Time 16.1 Seconds (9.0-12.0)
[2018-09-29 16:33] LABS: Appearance Urine Cloudy (Clear); Bacteria Urine Automated Negative (Negative); Bilirubin Urine Negative (Negative); Blood Urine Negative (Negative); Color Urine Yellow; Epithelial Cell Urine Auto 20-30 /lpf (0-5); Glucose Urine UA Negative (Negative); Ketones Urine Trace (Negative); Leukocyte Esterase Urine Negative (Negative); Nitrite Urine Negative (Negative); Protein Urine Negative (Negative); RBC Urine Automated 0-4 /hpf (0-4); Specific Gravity Urine 1.017 (1.000-1.030); Urobilinogen Urine Negative (Negative)
[2018-09-29 16:35] LABS: Albumin Level 2.3 gm/dl (3.4-5.0); BUN Creatinine Ratio 34.8 (10-20); Calcium 7.9 mg/dl (8.5-10.1); Creatinine Clr Calc Pharmacy 96.9 ml/min; Est GFR (African American) 118.1; Est GFR (Non-African American) 101.9; Magnesium 2.2 mg/dl (1.8-2.4); Potassium 4.1 mmol/L (3.5-5.1)
[2018-09-29 16:39] LABS: Albumin Globulin Ratio 0.6 (0.9-2); Bilirubin,Total 0.7 mg/dl (0.2-1); Globulin 3.8 gm/dl (2.5-4.0); Total Protein 6.1 gm/dl (6.4-8.2); Troponin I 0.028 ng/ml (0-0.045)
--- NOTE | 2018-09-29 17:32 | History & Physical Report ---
Date of Service September 29, 2018 Assessment & Plan (1) CHF (congestive heart failure): Concern from cardiology regarding missing medical tx and lung exam Pt was to be on lasix 20mg BID and this was not continued on d/c Lasix in the ED, will resume tx Cardiology c/s pending ECHO last month, will leave status of repeat ECHO to their discretion (2) Weakness: Likely deconditioning s/p AR in the setting of other medical issues PT/OT pending Daughter states that if pt needs rehab on d/c, they would prefer a facility other than [facility] (3) Rheumatoid arthritis: continue home meds Mild leukocytosis in the setting of chronic steroid use (4) Chronic foot ulcer with fat layer exposed: WCC Follows with podiatry as outpt generally (5) Diabetes: Listed in PMH, daughter states no prior hx of DM A1c pending (6) Essential hypertension: continue home meds (7) CAD (coronary artery disease): Continue plavix Cath 09/04/[address] Wright (8) Anxiety: xanax PRN as at home (9) Afib: continue home meds Eliquis (10) Restless leg: continue home meds (11) DVT prophylaxis: Eliquis History of Present Illness Primary Care Provider: Daniele Martinez III, SOIL SCIENCE PROFESSOR 73 y/o M who was sent here from the office after being seen by Dr. Wright for routine f/u. Pt states he has felt very weak and tired since his d/c from [facility]. His daughter states he has no strength and he sleeps most of the day. He is awake about 3 hours. Pt has no appetite and daughter states he does not eat much since this d/c. Pt had been admitted to [facility] and underwent a cath on 09/04. He had a stent placed. Pt is mostly wheelchair bound at baseline due to RA. He has issues with using his hands due to RA as well. Pt states he has his baseline pain in his joints, but no other new issues other than the fatigue and weakness. Pt denies fever, SOB, chest pain, abd pain, n/v/c/d, LE swelling. Pt was seen in the office today and Dr. Wright was concerned as pt was supposed to continue lasix on d/c from [facility], however this was not ordered. He has not had this medication since d/c and Dr. Wright was concerned on exam of lungs. Pt has no LE swelling. Allergies Allergy/AdvReac Type Severity Reaction Status Date / Time amoxicillin Allergy Severe RED Verified 09/28/18 12:52 BLOTCHES HEAD TO TOE Iodinated Contrast- Oral and Allergy Severe "FELT Verified 09/28/18 12:52 IV Dye FUNNY" ioversol Allergy Severe PASSED OUT Verified 09/28/18 12:52 clavulanic acid Allergy Intermediate RASH Verified 09/28/18 12:52 Penicillins Allergy Intermediate RASH Verified 09/28/18 12:52 adhesive Allergy Mild REDNESS Verified 09/28/18 12:52 WITH EXTENDED USE Sulfa (Sulfonamide Allergy Mild RASH Verified 09/28/18 12:52 Antibiotics) sulfamethoxazole Allergy Mild RASH Verified 09/28/18 12:52 trimethoprim Allergy Mild RASH Verified 09/28/18 12:52 Bactrim Allergy Unknown RASH Verified 11/18/17 00:19 Fish Containing Products Allergy Unknown Verified 09/28/18 12:52 fish derived Allergy Unknown Verified 09/28/18 12:52 fish oil Allergy Unknown Verified 09/28/18 12:52 shellfish derived Allergy Unknown Verified 09/28/18 12:52 Latex, Natural Rubber AdvReac Intermediate Redness of Verified 09/28/18 12:52 Skin silver AdvReac Mild Irritates Verified 09/28/18 12:52 the skin Food Allergy Severe SEAFOOD - Uncoded 09/02/18 10:14 EYES SWELL IF DRINKS ALCOHOL WITH Carboxymethylcellulose AdvReac Mild Irritates Uncoded 09/02/18 10:14 the skin Home Medications Home Medications Medication Instructions Recorded Confirmed Type cyanocobalamin (vitamin B-12) 1,000 mcg PO QAM 07/14/18 09/29/18 History [Vitamin B-12] alendronate [Fosamax] 70 mg PO WK 07/16/18 09/29/18 History esomeprazole magnesium [Nexium] 40 mg PO QAM 07/16/18 09/29/18 History folic acid 1 mg PO QAM 07/16/18 09/29/18 History methotrexate sodium 15 mg PO WK 07/16/18 09/29/18 History misoprostol 100 mcg PO BID 07/16/18 09/29/18 History multivitamin 1 cap PO DAILY 07/16/18 09/29/18 History prednisone 2 mg PO QPM 07/16/18 09/29/18 History prednisone 5 mg PO QAM 07/16/18 09/29/18 History ProAir RespiClick 2 inha INH Q4H 08/04/18 09/29/18 History cholecalciferol (vitamin D3) 1,000 unit PO QAM 08/04/18 09/29/18 History [Vitamin D3] apixaban [Eliquis] 5 mg PO BID #30 tab 09/08/18 09/29/18 Rx atorvastatin 40 mg PO QAM #30 tab 09/08/18 09/29/18 Rx clopidogrel 75 mg PO QAM #30 tab 09/08/18 09/29/18 Rx gabapentin 600 mg PO DAILY@1700 #30 tab 09/08/18 09/29/18 Rx acetaminophen [Tylenol] 650 mg PO Q4 PRN 09/29/18 09/29/18 History ferrous sulfate 325 mg PO BID 09/29/18 09/29/18 History metoprolol succinate 12.5 mg PO QAM 09/29/18 09/29/18 History ropinirole [Requip] 0.25 mg PO HS 09/29/18 09/29/18 History terazosin 1 mg PO HS 09/29/18 09/29/18 History tramadol [Ultram] 50 - 100 mg PO Q6 PRN 09/29/18 09/29/18 History Past Med/Surg History Medical History Rib fracture Fall Asthma exacerbation B12 deficiency Rheumatoid arthritis PAD (peripheral artery disease) Chronic foot ulcer with fat layer exposed - continue treatment with aqaucell ag and gauze to left foot and adaptic with allyven foam to right foot and ankle, continue recommendations per ID for left foot - patient will follow up in the office with me after discharge Essential hypertension (Chronic 02/12/13) Diabetes Asthma (Chronic) Cellulitis (Chronic) Foot pain, right (Chronic) GERD (gastroesophageal reflux disease) (Chronic) Ulcer (Chronic) LEFT FOOT Anxiety Arrhythmia BPH (benign prostatic hyperplasia) Osteoarthritis Rheumatoid arthritis Surgical History History of colectomy POLYPS REMOVED History of colonoscopy History of esophagogastroduodenoscopy (EGD) History of repair of rotator cuff RT History of tooth extraction Social History Preferred Language: Syriac Beliefs That Will Affect Care: None Current Living Situation: Spouse and Family Current Living Situation Comment: spouse and dtr Feels Safe at Home: Yes Smoking Status: Former smoker Hx Alcohol Use: Yes (hx of heavy use, none since 1984) Hx Substance Use: No Review of Systems Pertinent positives and negatives reviewed in HPI--all others negative Physical Exam Vital Signs (Past 24 Hours): Last Vital Signs Temp 36.4 C L 09/29/18 13:50 Pulse 96 H 09/29/18 17:00 Resp 23 09/29/18 17:00 BP 111/75 09/29/18 17:00 Pulse Ox 97 09/29/18 17:00 Constitutional: WD/WN, vitals as above Eyes: normal visual pang by confrontation and + anicteric sclerae Neck: normal visual inspection and trachea midline Respiratory: normal respiratory effort; no respiratory distress Auscultation: + crackles (bases); no wheezes Cardiovascular: Rate/Rhythm: regular rate and regular rhythm Gastrointestinal (Abdomen): Inspection/Auscultation: abdomen not distended Percussion/Palpation: abdomen soft; abdomen nontender Musculoskeletal: Head/Neck/Chest: normocephalic and head atraumatic negative for edema, peripheral pulses intact Skin: no rashes, warm and dry many superficial ulcerations on LE Neurologic: awake; not confused Speech / Cognition: normal speech Psychiatric: A+Ox3, euthymic affect Results & Data Diagnostic Findings CXR: CHF ECG Rhythm: normal sinus Additional Comments: non-specific conduction block Code Status & VTE Plan Code Status Full code VTE Prophylaxis Plan VTE Prophylaxis will be ordered: Yes (1) CHF (congestive heart failure) Heart failure chronicity: acute on chronic Heart failure type: unspecified Qualified Code(s): I50.9 - Heart failure, unspecified
[2018-09-29] MEDS ORDERED: ONDANSETRON INJ 2 MG/ML 2 ML VIAL IV PRN (17:47)
[2018-09-29] MEDS ORDERED: MAGNESIUM HYDROXIDE SUSP 30 ML UDC PO PRN (17:47)
[2018-09-29] MEDS ORDERED: ACETAMINOPHEN 325 MG TAB PO PRN (17:47)
[2018-09-29] MEDS: TRAMADOL HCL 50 MG TABLET PO PRN (20:15)
[2018-09-29] MEDS: ALBUTEROL HFA 8 GM INHALER INH SCH ×2 (20:20→23:00)
[2018-09-29] MEDS: miSOPROStol 50 MCG TAB PO SCH (20:23)
[2018-09-29] MEDS: predniSONE 1 MG TAB PO SCH (20:23)
[2018-09-29] MEDS: ROPINIROLE HCL 0.25 MG TABLET PO SCH (20:24)
[2018-09-29] MEDS: APIXABAN 5 MG TABLET PO SCH (20:26)
[2018-09-29] MEDS: TERAZOSIN HCL 1 MG CAP PO SCH (20:27)
--- NOTE | 2018-09-29 21:44 | Emergency Department Note ---
Entered by Isaías Horton acting as a scribe for Yasemin Justice MD History of Present Illness General Chief complaint: Referred by Doctor Stated complaint: REF BY DOC FOR ADMISSION Source: patient and family History of Present Illness Onset (ago): day(s) 3 Location: lower extremity Pain Consistency: + other (persistent) Quality: + other (swelling) Relieved By: + other (at night after urination) Exacerbated By: + other (getting up and moving around in the morning) Associated symptoms: + other (wheezing last night per family) The patient is a 73 year old male who presents to the Emergency Room with complaints of persistent leg swelling beginning three days ago. Family reports that the patient was evaluated by Dr. Wright Cardiology prior to arrival, who referred the patient to the ER for possible hospitalization. She states that the patients swelling seems to improve at night after he urinates, but it worsens again in the morning when he starts to get up and move around. She states that he is not wearing compression socks throughout the day. The patient denies shortness of breath, but family notes that he was wheezing last night. The patient has a history of heart failure and had cardiac stents placed the last time he was admitted to the hospital. 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 Home Medications Home Medications Medication Instructions Recorded Confirmed Type cyanocobalamin (vitamin B-12) 1,000 mcg PO QAM 07/14/18 09/29/18 History [Vitamin B-12] alendronate [Fosamax] 70 mg PO WK 07/16/18 09/29/18 History esomeprazole magnesium [Nexium] 40 mg PO QAM 07/16/18 09/29/18 History folic acid 1 mg PO QAM 07/16/18 09/29/18 History methotrexate sodium 15 mg PO WK 07/16/18 09/29/18 History misoprostol 100 mcg PO BID 07/16/18 09/29/18 History multivitamin 1 cap PO DAILY 07/16/18 09/29/18 History prednisone 2 mg PO QPM 07/16/18 09/29/18 History prednisone 5 mg PO QAM 07/16/18 09/29/18 History ProAir RespiClick 2 inha INH Q4H 08/04/18 09/29/18 History cholecalciferol (vitamin D3) 1,000 unit PO QAM 08/04/18 09/29/18 History [Vitamin D3] apixaban [Eliquis] 5 mg PO BID #30 tab 09/08/18 09/29/18 Rx atorvastatin 40 mg PO QAM #30 tab 09/08/18 09/29/18 Rx clopidogrel 75 mg PO QAM #30 tab 09/08/18 09/29/18 Rx gabapentin 600 mg PO DAILY@1700 #30 tab 09/08/18 09/29/18 Rx acetaminophen [Tylenol] 650 mg PO Q4 PRN 09/29/18 09/29/18 History dalbavancin 1,500 mg IV UD 09/29/18 09/29/18 History ferrous sulfate 325 mg PO BID 09/29/18 09/29/18 History metoprolol succinate 12.5 mg PO QAM 09/29/18 09/29/18 History ropinirole [Requip] 0.25 mg PO HS 09/29/18 09/29/18 History terazosin 1 mg PO HS 09/29/18 09/29/18 History tramadol [Ultram] 50 - 100 mg PO Q6 PRN 09/29/18 09/29/18 History Allergies Allergy/AdvReac Type Severity Reaction Status Date / Time amoxicillin Allergy Severe RED Verified 09/28/18 12:52 BLOTCHES HEAD TO TOE Iodinated Contrast- Oral and Allergy Severe "FELT Verified 09/28/18 12:52 IV Dye FUNNY" ioversol Allergy Severe PASSED OUT Verified 09/28/18 12:52 clavulanic acid Allergy Intermediate RASH Verified 09/28/18 12:52 Penicillins Allergy Intermediate RASH Verified 09/28/18 12:52 adhesive Allergy Mild REDNESS Verified 09/28/18 12:52 WITH EXTENDED USE Sulfa (Sulfonamide Allergy Mild RASH Verified 09/28/18 12:52 Antibiotics) sulfamethoxazole Allergy Mild RASH Verified 09/28/18 12:52 trimethoprim Allergy Mild RASH Verified 09/28/18 12:52 Bactrim Allergy Unknown RASH Verified 11/18/17 00:19 Fish Containing Products Allergy Unknown Verified 09/28/18 12:52 fish derived Allergy Unknown Verified 09/28/18 12:52 fish oil Allergy Unknown Verified 09/28/18 12:52 shellfish derived Allergy Unknown Verified 09/28/18 12:52 Latex, Natural Rubber AdvReac Intermediate Redness of Verified 09/28/18 12:52 Skin silver AdvReac Mild Irritates Verified 09/28/18 12:52 the skin Food Allergy Severe SEAFOOD - Uncoded 09/02/18 10:14 EYES SWELL IF DRINKS ALCOHOL WITH Carboxymethylcellulose AdvReac Mild Irritates Uncoded 09/02/18 10:14 the skin Past Med/Surg History Medical History Rib fracture Fall Asthma exacerbation B12 deficiency Rheumatoid arthritis PAD (peripheral artery disease) Chronic foot ulcer with fat layer exposed - continue treatment with aqaucell ag and gauze to left foot and adaptic with allyven foam to right foot and ankle, continue recommendations per ID for left foot - patient will follow up in the office with me after discharge Essential hypertension (Chronic 02/12/13) Diabetes Asthma (Chronic) Cellulitis (Chronic) Foot pain, right (Chronic) GERD (gastroesophageal reflux disease) (Chronic) Ulcer (Chronic) LEFT FOOT Anxiety Arrhythmia BPH (benign prostatic hyperplasia) Osteoarthritis Rheumatoid arthritis Surgical History History of colectomy POLYPS REMOVED History of colonoscopy History of esophagogastroduodenoscopy (EGD) History of repair of rotator cuff RT History of tooth extraction Social History Communication Ability: Impaired Beliefs That Will Affect Care: None Current Living Situation: Spouse and Family Current Living Situation Comment: spouse and dtr Other Information That Helps Us Care for You: No Feels Safe at Home: Yes Safety Concerns: Feels Safe At This Time Smoking Status: Former smoker Hx Alcohol Use: No Hx Substance Use: No Review of Systems See HPI for pertinent positives & negatives. and A total of 10 systems reviewed and were otherwise negative Physical Exam Vital Signs Vital Signs - 24 hr 09/29/18 23:00 09/30/18 00:00 09/30/18 04:13 Temperature 37.3 C 37.2 C Temperature Source Oral Oral Pulse Rate - Sitting Pulse Rate 96 H Pulse Rate [Apical] 96 H 96 H Pulse Rate [Finger] Respiratory Rate 19 16 Respiratory Effort / Characteristics Non-Labored Spontaneous Non-Labored Respiratory Depth Normal Normal Respiratory Pattern Regular Regular Blood Pressure - Sitting Blood Pressure [Left Arm] 91/51 L 109/55 L Blood Pressure Mean [Left Arm] 64 73 Blood Pressure Position [Left Arm] Lying Pulse Oximetry 95 96 Oxygen Delivery Method Room Air Room Air 09/30/18 08:20 09/30/18 08:21 09/30/18 15:09 Temperature 36.9 C Temperature Source Oral Pulse Rate - Sitting 107 H Pulse Rate 94 H Pulse Rate [Apical] 95 H Pulse Rate [Finger] Respiratory Rate 20 Respiratory Effort / Characteristics Non-Labored Spontaneous Respiratory Depth Normal Respiratory Pattern Regular Blood Pressure - Sitting 109/67 Blood Pressure [Left Arm] 102/62 Blood Pressure Mean [Left Arm] 75 Blood Pressure Position [Left Arm] Lying Pulse Oximetry 95 96 Oxygen Delivery Method Room Air Room Air 09/30/18 20:00 09/30/18 21:20 Temperature 36.5 C Temperature Source Oral Pulse Rate - Sitting Pulse Rate Pulse Rate [Apical] Pulse Rate [Finger] 90 Respiratory Rate 16 Respiratory Effort / Characteristics Respiratory Depth Respiratory Pattern Blood Pressure - Sitting Blood Pressure [Left Arm] 96/62 L 101/68 Blood Pressure Mean [Left Arm] 73 79 Blood Pressure Position [Left Arm] Lying Sitting Pulse Oximetry 93 Oxygen Delivery Method Room Air Vital signs reviewed. General: Chronically ill-appearing and edentulous male, in no significant distress. HEENT: No scleral icterus, PERRLA, neck supple. Atraumatic. Cardiovascular: Regular rate and rhythm, no extra sounds. Pulmonary: Clear to auscultation bilaterally, diminished breath sounds at the bases, normal work of breathing. Abdomen: Soft, nontender, nondistended, positive bowel sounds. Musculoskeletal: 1+ pitting edema of the ankles bilaterally. There is a large wound on the dorsum of the left foot that appears to be surgically debrided with serous-appearing drainage and no acute infectious findings. There is also a quarter-sized ulceration on the medial malleolus of the right ankle with minimal surrounding erythema, no drainage, and no tenderness. Neurologic: Patient awake alert and oriented x 3. Skin: Warm, dry. Course 1435: Past medical records reviewed. The patient was evaluated in room A2, and a complete history and physical examination were performed. 1607: I consulted Dr. Shrestha [facility] Hospitalist. She will reevaluate the patient for hospitalization. 161: I consulted Dr. Wright [facility] Cardiology, he recommends evaluation by the hospitalist for diuresis and further care. Consultations Consultation #1: I consulted Dr. Shrestha [facility] Hospitalist. She will reevaluate the patient for hospitalization. Time: 16:07 Consultation #2: I consulted Dr. Wright [facility] Cardiology. Time: 16:11 Administered Medications Albuterol (Ventolin Hfa) 2 puffs INH Q4H ROBIN Stop: 10/29/18 17:46 Last Admin: 09/30/18 21:18 Dose: 2 puffs Documented by: [id number] Admin: 09/30/18 17:45 Dose: 2 puffs Documented by: [id number] Admin: 09/30/18 14:21 Dose: 2 puffs Documented by: [id number] Admin: 09/30/18 10:25 Dose: 2 puffs Documented by: [id number] Admin: 09/30/18 05:55 Dose: 2 puffs Documented by: [id number] Admin: 09/30/18 02:05 Dose: 2 puffs Documented by: [id number] Admin: 09/29/18 23:00 Dose: 2 puffs Documented by: [id number] Admin: 09/29/18 20:20 Dose: 2 puffs Documented by: [id number] Apixaban (Eliquis) 5 mg PO BID ROBIN Stop: 10/29/18 20:59 Last Admin: 09/30/18 21:17 Dose: 5 mg Documented by: [id number] Admin: 09/30/18 07:48 Dose: 5 mg Documented by: [id number] Admin: 09/29/18 20:26 Dose: 5 mg Documented by: [id number] Atorvastatin Calcium [facility]) [facility] [place] Stop: 10/30/18 08:59 Last Admin: 09/30/18 07:49 Dose: 40 mg Documented by: [id number] Clopidogrel Bisulfate (Plavix) 75 mg PO QAM [facility] Stop: 10/30/18 08:59 Last Admin: 09/30/18 07:49 Dose: 75 mg Documented by: [id number] Cyanocobalamin (Vitamin B-12) 1,000 mcg PO QAM [facility] Stop: 10/30/18 08:59 Last Admin: 09/30/18 07:49 Dose: 1,000 mcg Documented by: [id number] Ferrous Sulfate (Feosol) 325 mg PO BIDM [facility] Stop: 10/30/18 07:59 Last Admin: 09/30/18 17:45 Dose: 325 mg Documented by: [id number] Admin: 09/30/18 07:47 Dose: 325 mg Documented by: [id number] Folic Acid (Folvite) 1 mg PO QAM ROBIN Stop: 10/30/18 08:59 Last Admin: 09/30/18 07:48 Dose: 1 mg Documented by: [id number] Furosemide (Lasix) 20 mg PO BID17 ROBIN Stop: 10/30/18 08:59 Last Admin: 09/30/18 17:45 Dose: 20 mg Documented by: [id number] Admin: 09/30/18 07:49 Dose: 20 mg Documented by: [id number] Gabapentin (Neurontin) 600 mg PO DAILY@1700 [facility] Stop: 10/30/18 16:59 Last Admin: 09/30/18 17:45 Dose: 600 mg Documented by: [id number] Methotrexate (Methotrexate) 15 mg PO We@0900 [facility]IN Stop: 10/30/18 08:59 Last Admin: 09/30/18 07:50 Dose: 15 mg Documented by: [id number] Cosigned by: [id number] Metoprolol Succinate (Toprol Xl) 12.5 mg PO QAM [facility] Stop: 10/30/18 08:59 Last Admin: 09/30/18 07:49 Dose: 12.5 mg Documented by: [id number] Misoprostol (Cytotec) 100 mcg PO BID [facility] Stop: 10/29/18 20:59 Last Admin: 09/30/18 07:47 Dose: 100 mcg Documented by: [id number] Admin: 09/29/18 20:23 Dose: 100 mcg Documented by: [id number] Multivitamins (Multivitamin Tab) 1 tab PO DAILY ROBIN Stop: 10/30/18 08:59 Last Admin: 09/30/18 07:48 Dose: 1 tab Documented by: [id number] Pantoprazole Sodium (Protonix) 40 mg PO QAM [facility]IN Stop: 10/30/18 08:59 Last Admin: 09/30/18 07:49 Dose: 40 mg Documented by: [id number] Prednisone (Prednisone) 2 mg PO QPM [facility] Stop: 10/29/18 20:59 Last Admin: 09/30/18 21:16 Dose: 2 mg Documented by: [id number] Admin: 09/29/18 20:23 Dose: 2 mg Documented by: [id number] Prednisone (Prednisone) [facility] [place] Stop: 10/30/18 08:59 Last Admin: 09/30/18 07:48 Dose: 5 mg Documented by: [id number] Ropinirole HCl (Requip) 0.25 mg PO [facility] Stop: 10/29/18 20:59 Last Admin: 09/30/18 21:17 Dose: 0.25 mg Documented by: [id number] Admin: 09/29/18 20:24 Dose: 0.25 mg Documented by: [id number] Terazosin HCl (Hytrin) 1 mg PO [facility] Stop: 10/29/18 20:59 Last Admin: 09/30/18 21:20 Dose: 1 mg Documented by: [id number] Admin: 09/29/18 20:27 Dose: 1 mg Documented by: [id number] Tramadol HCl (Ultram) 50 - 100 mg PO Q6 PRN PRN Reason: Pain Stop: 10/29/18 17:46 Last Admin: 09/30/18 02:03 Dose: 100 mg Documented by: [id number] Admin: 09/29/18 20:15 Dose: 50 mg Documented by: [id number] Vitamin D (Vitamin D3) 1,000 [facility] [place] Stop: 10/30/18 08:59 Last Admin: 09/30/18 07:48 Dose: 1,000 units Documented by: [id number] Discontinued Medications Furosemide (Lasix) Confirm Administered Dose 40 mg IV .STK-MED ONE Stop: 09/29/18 16:18 Last Admin: 09/29/18 16:18 Dose: 20 mg Documented by: [id number] Furosemide 20 mg/ Syringe 2 mls @ 4 mls/min IV ONE ONE Stop: 09/29/18 15:57 Last Admin: 09/29/18 16:18 Dose: Not Given Documented by: [id number] Medical Decision Making Differential Diagnosis Differential diagnosis: Etiologies such as infections, reactive airway disease, pneumonia, pneumothorax, COPD, CHF, cardiac ischemia, pulmonary embolism, musculoskeletal, gastrointestinal, as well as others were entertained. Medical Records Attestation: I reviewed the patient's medical records. Home Medications Current Medication List: was personally reviewed by me Laboratory Data Attestation: I reviewed the patient's lab results. Result diagrams: 09/30/18 16:10 09/30/18 06:51 Lab Results 03/07/0809/29/18 09/29/18 Range/Units 16:03 16:03 16:03 WBC 10.35 (4.8-10.8) K/uL RBC 3.79 L (4.7-6.1) M/uL Hgb 9.3 L (14.0-18.0) g/dL Hct 29.2 L (42-52) % MCV 77.0 L (80-100) fL MCH 24.5 L (25-34) pg MCHC 31.8 L (32-36) g/dL RDW Std Deviation 53.2 H (36.4-46.3) fL RDW Coeff of Nick 19.0 H (11.5-14.5) % Plt Count 279 (130-400) K/uL MPV 9.3 (7.4-10.4) fL Immature Gran % (Auto) 0.7 % Neut % (Auto) 88.7 % Lymph % (Auto) 4.7 % [place] % (Auto) 5.6 % Eos % (Auto) 0.2 % Baso % (Auto) 0.1 % Immature Gran # (Auto) 0.07 H (0.00-0.02) K/uL Neut # (Auto) 9.18 H (1.4-6.5) K/uL Lymph # (Auto) 0.49 L (1.2-3.4) K/uL [place] # (Auto) 0.58 (0.11-0.59) K/uL Eos # (Auto) 0.02 (0-0.5) K/uL Baso # (Auto) 0.01 (0-0.2) K/uL Toxic Granulation Ovalocytes PT 16.1 H (9.0-12.0) Seconds INR 1.6 H (0.9-1.1) APTT 32.2 H (21.0-31.0) Seconds PTT Ratio 1.2 Sodium 134 L (136-145) mmol/L Potassium 4.1 (3.5-5.1) mmol/L Chloride 105 (98-107) mmol/L Carbon Dioxide 22 (21-32) mmol/L Anion Gap 7.0 (3-11) BUN 20 H (7-18) mg/dl Creatinine 0.56 L (0.6-1.4) mg/dl Est Cr Clr Drug Dosing 96.9 ml/min Est GFR ( Amer) 118.1 Est GFR (Non-Af Amer) 101.9 BUN/Creatinine Ratio 34.8 H (10-20) Glucose 100 H (70-99) mg/dl Estimat Average Glucose mg/dl Hemoglobin A1c (4.5-5.6) % Calcium 7.9 L (8.5-10.1) mg/dl Phosphorus (2.5-4.9) mg/dl Magnesium 2.2 (1.8-2.4) mg/dl Total Bilirubin 0.7 (0.2-1) mg/dl AST 22 (15-37) U/L ALT 28 (12-78) U/L Alkaline Phosphatase 86 (45-117) U/L Troponin I 0.028 (0-0.045) ng/ml Total Protein 6.1 L (6.4-8.2) gm/dl Albumin 2.3 L (3.4-5.0) gm/dl Globulin 3.8 (2.5-4.0) gm/dl Albumin/Globulin Ratio 0.6 L (0.9-2) Urine Color Urine Appearance (Clear) Urine pH (4.5-7.5) Ur Specific [place] (1.000-1.030) Urine Protein (Negative) Urine Glucose (UA) (Negative) Urine Ketones (Negative) Urine Blood (Negative) Urine Nitrite (Negative) Urine Bilirubin (Negative) Urine Urobilinogen (Negative) Ur Leukocyte Esterase (Negative) Urine WBC (Auto) (0-5) /hpf Urine RBC (Auto) (0-4) /hpf U Hyaline Cast (Auto) (0-5) /lpf U Epithel Cells (Auto) (0-5) /lpf Urine Bacteria (Auto) (Negative) Urine Yeast 09/29/18 09/30/18 09/30/18 Range/Units 16:19 06:51 06:51 WBC 8.26 (4.8-10.8) K/uL RBC 3.26 L (4.7-6.1) M/uL Hgb 7.9 L (14.0-18.0) g/dL Hct 25.1 L (42-52) % MCV 77.0 L (80-100) fL MCH 24.2 L (25-34) pg MCHC 31.5 L (32-36) g/dL RDW Std Deviation 52.9 H (36.4-46.3) fL RDW Coeff of Nick 19.0 H (11.5-14.5) % Plt Count 274 (130-400) K/uL MPV 9.6 (7.4-10.4) fL Immature Gran % (Auto) 0.6 % Neut % (Auto) 78.1 % Lymph % (Auto) 12.0 % [place] % (Auto) 8.4 % Eos % (Auto) 0.8 % Baso % (Auto) 0.1 % Immature Gran # (Auto) 0.05 H (0.00-0.02) K/uL Neut # (Auto) 6.45 (1.4-6.5) K/uL Lymph # (Auto) 0.99 L (1.2-3.4) K/uL [place] # (Auto) 0.69 H (0.11-0.59) K/uL Eos # (Auto) 0.07 (0-0.5) K/uL Baso # (Auto) 0.01 (0-0.2) K/uL Toxic Granulation 1+ Ovalocytes 1+ PT (9.0-12.0) Seconds INR (0.9-1.1) APTT (21.0-31.0) Seconds PTT Ratio Sodium 140 (136-145) mmol/L Potassium 3.5 (3.5-5.1) mmol/L Chloride 108 H (98-107) mmol/L Carbon Dioxide 22 (21-32) mmol/L Anion Gap 10.0 (3-11) BUN 19 H (7-18) mg/dl Creatinine 0.63 (0.6-1.4) mg/dl Est Cr Clr Drug Dosing 86.1 ml/min Est GFR ( Amer) 112.5 Est GFR (Non-Af Amer) 97.1 BUN/Creatinine Ratio 29.6 H (10-20) Glucose 81 (70-99) mg/dl Estimat Average Glucose mg/dl Hemoglobin A1c (4.5-5.6) % Calcium 7.7 L (8.5-10.1) mg/dl Phosphorus 3.2 (2.5-4.9) mg/dl Magnesium 1.9 (1.8-2.4) mg/dl Total Bilirubin (0.2-1) mg/dl AST (15-37) U/L ALT (12-78) U/L Alkaline Phosphatase (45-117) U/L Troponin I (0-0.045) ng/ml Total Protein (6.4-8.2) gm/dl Albumin (3.4-5.0) gm/dl Globulin (2.5-4.0) gm/dl Albumin/Globulin Ratio (0.9-2) Urine Color Yellow Urine Appearance Cloudy H (Clear) Urine pH 6.0 (4.5-7.5) Ur Specific [place] 1.017 (1.000-1.030) Urine Protein Negative (Negative) Urine Glucose (UA) Negative (Negative) Urine Ketones Trace H (Negative) Urine Blood Negative (Negative) Urine Nitrite Negative (Negative) Urine Bilirubin Negative (Negative) Urine Urobilinogen Negative (Negative) Ur Leukocyte Esterase Negative (Negative) Urine WBC (Auto) 1-5 (0-5) /hpf Urine RBC (Auto) 0-4 (0-4) /hpf U Hyaline Cast (Auto) 1-5 (0-5) /lpf U Epithel Cells (Auto) 20-30 H (0-5) /lpf Urine Bacteria (Auto) Negative (Negative) Urine Yeast Not Reportable 09/30/18 09/30/18 Range/Units 06:51 16:10 WBC (4.8-10.8) K/uL RBC (4.7-6.1) M/uL Hgb 8.6 L (14.0-18.0) g/dL Hct 27.4 L (42-52) % MCV (80-100) fL MCH (25-34) pg MCHC (32-36) g/dL RDW Std Deviation (36.4-46.3) fL RDW Coeff of Nick (11.5-14.5) % Plt Count (130-400) K/uL MPV (7.4-10.4) fL Immature Gran % (Auto) % Neut % (Auto) % Lymph % (Auto) % [place] % (Auto) % Eos % (Auto) % Baso % (Auto) % Immature Gran # (Auto) (0.00-0.02) K/uL Neut # (Auto) (1.4-6.5) K/uL Lymph # (Auto) (1.2-3.4) K/uL [place] # (Auto) (0.11-0.59) K/uL Eos # (Auto) (0-0.5) K/uL Baso # (Auto) (0-0.2) K/uL Toxic Granulation Ovalocytes PT (9.0-12.0) Seconds INR (0.9-1.1) APTT (21.0-31.0) Seconds PTT Ratio Sodium (136-145) mmol/L Potassium (3.5-5.1) mmol/L Chloride (98-107) mmol/L Carbon Dioxide (21-32) mmol/L Anion Gap (3-11) BUN (7-18) mg/dl Creatinine (0.6-1.4) mg/dl Est Cr Clr Drug Dosing ml/min Est GFR ( Amer) Est GFR (Non-Af Amer) BUN/Creatinine Ratio (10-20) Glucose (70-99) mg/dl Estimat Average Glucose 120 mg/dl Hemoglobin A1c 5.8 H (4.5-5.6) % Calcium (8.5-10.1) mg/dl Phosphorus (2.5-4.9) mg/dl Magnesium (1.8-2.4) mg/dl Total Bilirubin (0.2-1) mg/dl AST (15-37) U/L ALT (12-78) U/L Alkaline Phosphatase (45-117) U/L Troponin I (0-0.045) ng/ml Total Protein (6.4-8.2) gm/dl Albumin (3.4-5.0) gm/dl Globulin (2.5-4.0) gm/dl Albumin/Globulin Ratio (0.9-2) Urine Color Urine Appearance (Clear) Urine pH (4.5-7.5) Ur Specific [place] (1.000-1.030) Urine Protein (Negative) Urine Glucose (UA) (Negative) Urine Ketones (Negative) Urine Blood (Negative) Urine Nitrite (Negative) Urine Bilirubin (Negative) Urine Urobilinogen (Negative) Ur Leukocyte Esterase (Negative) Urine WBC (Auto) (0-5) /hpf Urine RBC (Auto) (0-4) /hpf U Hyaline Cast (Auto) (0-5) /lpf U Epithel Cells (Auto) (0-5) /lpf Urine Bacteria (Auto) (Negative) Urine Yeast Imaging Data Radiologist's Impression: Radiology results as stated below per my review and the radiologist's interpretation: SINGLE VIEW CHEST CLINICAL HISTORY: Dyspnea. FINDINGS: An AP, portable, upright chest radiograph is compared to study dated 09/02/2018 and correlated with chest CT dated 08/04/2018. The examination is degraded by portable technique and patient rotation. The heart is enlarged and there is atherosclerotic calcification of the thoracic aorta. There is mild pulmonary vascular congestion. Small layering pleural effusions are identified with bibasilar consolidation. Apical scarring is observed. No pneumothorax is seen. The skeletal structures are osteopenic. There are healed bilateral rib fractures. A right shoulder arthroplasty is in place. Advanced arthritic change end deformity is noted in the left shoulder. Degenerative change is also seen throughout the thoracic spine. IMPRESSION: 1. Cardiomegaly with evidence of mild congestive failure. 2. There are layering pleural effusions with bibasilar consolidation. This likely represents atelectasis. Clinical correlation will be required. Electronically signed by: Kemar Wright M.D. 09/29/2018 3:22 PM ECG Data Attestation: I personally reviewed and interpreted this ECG as follows: Indication: other (leg swelling) Rate (beats per minute): 94 Rhythm: normal sinus Findings: + other (intraventricular conduction delay; prior septal infarct); no PAC, no PVC, no ST depression and no ST elevation Blood Pressure Blood Pressure Findings: Normal blood pressure Blood Pressure Disposition: did not require urgent referral MDM Narrative This patient was evaluated and appeared to be in no significant distress. IV access was obtained and laboratory work was drawn. Patient was placed on the bus monitor and found to be in a normal sinus rhythm. EKG confirms no acute ischemic change. Laboratory work reveals anemia which is at the patient's baseline. Patient's weight was trended and it appears to be up by almost 20 pounds. Patient was given 20 mg of IV Lasix as his blood pressure is borderline. He was resting comfortably and appears to be happy with the plan for admission. I did speak with Dr. Wright of cardiology who feels the patient should be diuresed secondary to his significant fluid retention and weakness. Impression & Plan CHF (congestive heart failure), Anemia, Bilateral leg ulcer Discharge Plan Visit Data *Final* Discharge Date/Time: 09/29/18 17:38 Chief Complaint: Referred by Doctor Stated Complaint: REF BY DOC FOR ADMISSION ED Provider: Yasemin Justice Discharge Problem: CHF (congestive heart failure), Anemia, Bilateral leg ulcer Patient Disposition: Admitted As Inpatient Discharge Instructions Interventions: ED Discharge Assessment Last Done: 09/29/18 17:38 Discharge Problem: CHF (congestive heart failure) Qualifiers: Heart failure type: unspecified Heart failure chronicity: acute on chronic Qualified Code(s): I50.9 - Heart failure, unspecified Anemia Qualifiers: Anemia type: unspecified type Qualified Code(s): D64.9 - Anemia, unspecified Bilateral leg ulcer Qualifiers: Non-pressure ulcer stage: with fat layer exposed Qualified Code(s): L97.912 - Non-pressure chronic ulcer of unspecified part of right lower leg with fat layer exposed The scribe's documentation has been prepared under my direction and personally reviewed by me in its entirety. I confirm that the note above accurately reflects all work, treatment, procedures, and medical decision making performed by me.
[2018-09-30] MEDS: TRAMADOL HCL 50 MG TABLET PO PRN (02:03)
[2018-09-30] MEDS: ALBUTEROL HFA 8 GM INHALER INH SCH ×6 (02:05→21:18)
[2018-09-30 07:30] LABS: Basophils # (auto) 0.01 K/uL (0-0.2); Basophils % (auto) 0.1 %; Eosinophils # (auto) 0.07 K/uL (0-0.5); Eosinophils % (auto) 0.8 %; Hematocrit (blood only) 25.1 % (42-52); Hemoglobin 7.9 g/dL (14.0-18.0); Immature Granulocytes # (auto) 0.05 K/uL (0.00-0.02); Immature Granulocytes % (auto) 0.6 %; Lymphocytes # (auto) 0.99 K/uL (1.2-3.4); Mean Corpuscular Hgb Conc 31.5 g/dL (32-36); Mean Platelet Volume 9.6 fL (7.4-10.4); Monocytes # (auto) 0.69 K/uL (0.11-0.59); Monocytes % (auto) 8.4 %; Neutrophils # (auto) 6.45 K/uL (1.4-6.5); Neutrophils % (auto) 78.1 %; Platelet Count 274 K/uL (130-400); RDW Standard Deviation 52.9 fL (36.4-46.3); Red Blood Count 3.26 M/uL (4.7-6.1); White Blood Count 8.26 K/uL (4.8-10.8)
[2018-09-30] MEDS: miSOPROStol 50 MCG TAB PO SCH ×2 (07:47→22:28)
[2018-09-30] MEDS: FERROUS SULFATE 325 MG TAB PO SCH ×2 (07:47→17:45)
[2018-09-30] MEDS: CHOLECALCIFEROL 1,000 UNITS TAB PO SCH (07:48)
[2018-09-30] MEDS: FOLIC ACID 1 MG TAB PO SCH (07:48)
[2018-09-30] MEDS: MULTIVITAMIN TAB PO SCH (07:48)
[2018-09-30] MEDS: APIXABAN 5 MG TABLET PO SCH ×2 (07:48→21:17)
[2018-09-30] MEDS: predniSONE 5 MG TAB PO SCH (07:48)
[2018-09-30] MEDS: PANTOprazole 40 MG TAB PO SCH (07:49)
[2018-09-30] MEDS: ATORVASTATIN 40 MG TAB PO SCH (07:49)
[2018-09-30] MEDS: CYANOCOBALAMIN 500 MCG TABLET (VITAMIN B-12) PO SCH (07:49)
[2018-09-30] MEDS: FUROSEMIDE 20 MG TAB PO SCH ×2 (07:49→17:45)
[2018-09-30] MEDS: CLOPIDOGREL BISULFATE 75 MG TAB PO SCH (07:49)
[2018-09-30] MEDS: METOPROLOL SUCC 25MG EXT REL TAB PO SCH (07:49)
[2018-09-30 07:53] LABS: Ovalocytes 1+; Toxic Granulation 1+
[2018-09-30 08:08] LABS: BUN Creatinine Ratio 29.6 (10-20); Calcium 7.7 mg/dl (8.5-10.1); Creatinine Clr Calc Pharmacy 86.1 ml/min; Est GFR (African American) 112.5; Est GFR (Non-African American) 97.1; Magnesium 1.9 mg/dl (1.8-2.4); Potassium 3.5 mmol/L (3.5-5.1)
[2018-09-30 08:09] LABS: Phosphorus 3.2 mg/dl (2.5-4.9)
[2018-09-30 08:18] LABS: Estimated Average Glucose 120 mg/dl; Hemoglobin A1C 5.8 % (4.5-5.6)
--- NOTE | 2018-09-30 08:59 | Cardiology Consultation ---
Date of Consultation September 30, 2018 Assessment & Plan (1) CAD (coronary artery disease): 2. Acute systolic CHF 3. Ischemic cardiomyopathy 4. Peripheral arterial disease 5. Lower extremity ulcerations 6. Weakness 7. Rheumatoid arthritis Patient was admitted about one month ago with new onset systolic CHF (LVEF 30- 35%). Cardiac cath revealed multivessel CAD status post proximal LAD stent. He was not discharged on any diuretics. He presented to the office yesterday with progressive weakness and failure to thrive at home. He appeared hypervolemic but was also hypotensive and there was concern for a possible infectious process. He was referred for admission. Since receiving Lasix he is feeling better and on exam vascular congestion has improved significantly. Renal function and electrolytes are stable. Going forward recommend: -PT/OT evaluation and discharge to rehab facility -Discharge on PO Lasix -Continue anticoagulation and Plavix -Continue losartan and metoprolol succinate -Followup in cardiology office in 2 weeks Supervising Physician Co-Signing Physician Notes Patient seen and examined. Agree with assessment and plan as oultined by Physician Drug Purchaser Rosy Padilla. Briefly, patient with moderately improved vascular congestion on exam following IV Lasix yesterday. Recorded fluid balance net even. Now on twice daily p.o. diuretics. Remains well perfused. Blood pressure stable. No evidence of active infection. From a cardiac standpoint we will continue to follow I/Os, weights on current diuretics. If remains net even would consider additional IV diuretic. No change to home guideline directed medical therapy for ischemic cardiomyopathy. Continue anticoagulation with Eliquis, antiplatelet therapy with clopidogrel. History of Present Illness Attending Physician: Joseph Suarez History of Present Illness Mr. Viera is a 73 year old male with a medical history significant for PAD (SFA stenting 2010), hypertension, rheumatoid arthritis and recently diagnosed multivessel CAD status post LAD stent and ischemic cardiomyopathy. He was admitted to [facility] on 09/03/18 with new onset acute systolic CHF. He presented with shortness of breath and orthopnea. He was noted to have a new cardiomyopathy (EF 30-35%) as well as multiple wall motion abnormalities. His troponin was mildly elevated (0.038) and he had no acute changes noted on EKG. Cardiac catheterization demonstrated severe multi vessel CAD (70-80% late- proximal LAD, 60-70% diffuse small mid circumflex, 100% chronic mid RCA with collaterals). He underwent successful PCI to proximal LAD with single KATHERINE. He was diuresed with IV Lasix. He was also noted to have new onset rate controlled afib and was initiated on anticoagulation plus antiplatelet therapy with Plavix alone. He was also initiated on losartan and metoprolol succinate given his cardiomyopathy. He was discharged to rehab facility and then home about 5 days ago. He was seen in our office yesterday for hospital followup appointment. He was accompanied by his daughter who was concerned about progressive weakness. He was also sleeping the majority of the day. He denied any significant shortness of breath, orthopnea or PND. He was noted to have increased lower extremity edema. He had not been discharged on any diuretics. He also noted an episode of fever and chills in the setting of multiple lower extremity wounds. Due to concerns of fluid retention and a possible infectious process he was referred to [facility] for admission. His chest x-ray demonstrated mild pulmonary vascular congestion with small pleural effusions. He was given a dose of IV Lasix in the ED and then was started on PO Lasix 20 mg BID. Labs demonstrated worsening anemia and an elevated WBC. He reports feeling much better today. His energy level has improved and he notes significant improvement in his breathing. No orthopnea, PND or chest pain. No fever, chills or sweats. No palpitations, lightheadedness, near syncope or syncope. ROS: 10 point ROS completed and otherwise negative. Allergies Allergy/AdvReac Type Severity Reaction Status Date / Time amoxicillin Allergy Severe RED Verified 09/28/18 12:52 BLOTCHES HEAD TO TOE Iodinated Contrast- Oral and Allergy Severe "FELT Verified 09/28/18 12:52 IV Dye FUNNY" ioversol Allergy Severe PASSED OUT Verified 09/28/18 12:52 clavulanic acid Allergy Intermediate RASH Verified 09/28/18 12:52 Penicillins Allergy Intermediate RASH Verified 09/28/18 12:52 adhesive Allergy Mild REDNESS Verified 09/28/18 12:52 WITH EXTENDED USE Sulfa (Sulfonamide Allergy Mild RASH Verified 09/28/18 12:52 Antibiotics) sulfamethoxazole Allergy Mild RASH Verified 09/28/18 12:52 trimethoprim Allergy Mild RASH Verified 09/28/18 12:52 Bactrim Allergy Unknown RASH Verified 11/18/17 00:19 Fish Containing Products Allergy Unknown Verified 09/28/18 12:52 fish derived Allergy Unknown Verified 09/28/18 12:52 fish oil Allergy Unknown Verified 09/28/18 12:52 shellfish derived Allergy Unknown Verified 09/28/18 12:52 Latex, Natural Rubber AdvReac Intermediate Redness of Verified 09/28/18 12:52 Skin silver AdvReac Mild Irritates Verified 09/28/18 12:52 the skin Food Allergy Severe SEAFOOD - Uncoded 09/02/18 10:14 EYES SWELL IF DRINKS ALCOHOL WITH Carboxymethylcellulose AdvReac Mild Irritates Uncoded 09/02/18 10:14 the skin Home Medications Home Medications Medication Instructions Recorded Confirmed Type cyanocobalamin (vitamin B-12) 1,000 mcg PO QAM 07/14/18 09/29/18 History [Vitamin B-12] alendronate [Fosamax] 70 mg PO WK 07/16/18 09/29/18 History esomeprazole magnesium [Nexium] 40 mg PO QAM 07/16/18 09/29/18 History folic acid 1 mg PO QAM 07/16/18 09/29/18 History methotrexate sodium 15 mg PO WK 07/16/18 09/29/18 History misoprostol 100 mcg PO BID 07/16/18 09/29/18 History multivitamin 1 cap PO DAILY 07/16/18 09/29/18 History prednisone 2 mg PO QPM 07/16/18 09/29/18 History prednisone 5 mg PO QAM 07/16/18 09/29/18 History ProAir RespiClick 2 inha INH Q4H 08/04/18 09/29/18 History cholecalciferol (vitamin D3) 1,000 unit PO QAM 08/04/18 09/29/18 History [Vitamin D3] apixaban [Eliquis] 5 mg PO BID #30 tab 09/08/18 09/29/18 Rx atorvastatin 40 mg PO QAM #30 tab 09/08/18 09/29/18 Rx clopidogrel 75 mg PO QAM #30 tab 09/08/18 09/29/18 Rx gabapentin 600 mg PO DAILY@1700 #30 tab 09/08/18 09/29/18 Rx acetaminophen [Tylenol] 650 mg PO Q4 PRN 09/29/18 09/29/18 History dalbavancin 1,500 mg IV UD 09/29/18 09/29/18 History ferrous sulfate 325 mg PO BID 09/29/18 09/29/18 History metoprolol succinate 12.5 mg PO QAM 09/29/18 09/29/18 History ropinirole [Requip] 0.25 mg PO HS 09/29/18 09/29/18 History terazosin 1 mg PO HS 09/29/18 09/29/18 History tramadol [Ultram] 50 - 100 mg PO Q6 PRN 09/29/18 09/29/18 History Patient History Medical History Rib fracture Fall Asthma exacerbation B12 deficiency Rheumatoid arthritis PAD (peripheral artery disease) Chronic foot ulcer with fat layer exposed - continue treatment with aqaucell ag and gauze to left foot and adaptic with allyven foam to right foot and ankle, continue recommendations per ID for left foot - patient will follow up in the office with me after discharge Essential hypertension (Chronic 02/12/13) Diabetes Asthma (Chronic) Cellulitis (Chronic) Foot pain, right (Chronic) GERD (gastroesophageal reflux disease) (Chronic) Ulcer (Chronic) LEFT FOOT Anxiety Arrhythmia BPH (benign prostatic hyperplasia) Osteoarthritis Rheumatoid arthritis Surgical History History of colectomy POLYPS REMOVED History of colonoscopy History of esophagogastroduodenoscopy (EGD) History of repair of rotator cuff RT History of tooth extraction Social History Communication Ability: Impaired Beliefs That Will Affect Care: None Current Living Situation: Spouse and Family Current Living Situation Comment: spouse and dtr Other Information That Helps Us Care for You: No Feels Safe at Home: Yes Safety Concerns: Feels Safe At This Time Smoking Status: Former smoker Hx Alcohol Use: No Hx Substance Use: No Physical Exam Vital Signs (Past 24 Hours): Last Vital Signs Temp 36.9 C 09/30/18 08:21 Pulse 95 H 09/30/18 08:21 Resp 20 09/30/18 08:21 BP 102/62 09/30/18 08:21 Pulse Ox 95 09/30/18 08:21 Physical Exam: General: No acute distress, comfortable. HEENT: Head is normal. PERRLA. EOMI. Sclerae anicteric. Ears, nose and throat unremarkable. Mucous membranes moist. Neck: Normal carotid upstrokes, no bruits. No significant JVD. Lungs: Few faint bibasilar crackes, improved from exam yesterday. Cardiac: Regular rate and rhythm. S1-S2 normal. Grade 2/6 holosystolic murmur at the apex. Abdomen: Soft and nontender. Bowel sounds normal. No mass or organomegaly. No abdominal bruit. Extremities/vascular: Well perfused. Trace pretibial edema bilaterally. Radial pulses 2+, DP/PT pulses diminished Skin: Multiple superficial ulcerations bilateral lower extremities/feet. Neurologic: Nonfocal Psychiatric: Affect appropriate. Alert and oriented. Results & Data Laboratory Results Laboratory Results - last 24 hr 09/29/18 09/29/18 09/29/18 16:03 16:03 16:03 WBC 10.35 RBC 3.79 L Hgb 9.3 L Hct 29.2 L MCV 77.0 L MCH 24.5 L MCHC 31.8 L RDW Std Deviation 53.2 H RDW Coeff of Nick 19.0 H Plt Count 279 MPV 9.3 Immature Gran % (Auto) 0.7 Neut % (Auto) 88.7 Lymph % (Auto) 4.7 Josephine % (Auto) 5.6 Eos % (Auto) 0.2 Baso % (Auto) 0.1 Immature Gran # (Auto) 0.07 H Neut # (Auto) 9.18 H Lymph # (Auto) 0.49 L Josephine # (Auto) 0.58 Eos # (Auto) 0.02 Baso # (Auto) 0.01 Toxic Granulation Ovalocytes PT 16.1 H INR 1.6 H APTT 32.2 H PTT Ratio 1.2 Sodium 134 L Potassium 4.1 Chloride 105 Carbon Dioxide 22 Anion Gap 7.0 BUN 20 H Creatinine 0.56 L Est Cr Clr Drug Dosing 96.9 Est GFR ( Amer) 118.1 Est GFR (Non-Af Amer) 101.9 BUN/Creatinine Ratio 34.8 H Glucose 100 H Estimat Average Glucose Hemoglobin A1c Calcium 7.9 L Phosphorus Magnesium 2.2 Total Bilirubin 0.7 AST 22 ALT 28 Alkaline Phosphatase 86 Troponin I 0.028 Total Protein 6.1 L Albumin 2.3 L Globulin 3.8 Albumin/Globulin Ratio 0.6 L Urine Color Urine Appearance Urine pH Ur Specific Jewell Urine Protein Urine Glucose (UA) Urine Ketones Urine Blood Urine Nitrite Urine Bilirubin Urine Urobilinogen Ur Leukocyte Esterase Urine WBC (Auto) Urine RBC (Auto) U Hyaline Cast (Auto) U Epithel Cells (Auto) Urine Bacteria (Auto) Urine Yeast 09/29/18 09/30/18 09/30/18 16:19 06:51 06:51 WBC 8.26 RBC 3.26 L Hgb 7.9 L Hct 25.1 L MCV 77.0 L MCH 24.2 L MCHC 31.5 L RDW Std Deviation 52.9 H RDW Coeff of Nick 19.0 H Plt Count 274 MPV 9.6 Immature Gran % (Auto) 0.6 Neut % (Auto) 78.1 Lymph % (Auto) 12.0 Josephine % (Auto) 8.4 Eos % (Auto) 0.8 Baso % (Auto) 0.1 Immature Gran # (Auto) 0.05 H Neut # (Auto) 6.45 Lymph # (Auto) 0.99 L Josephine # (Auto) 0.69 H Eos # (Auto) 0.07 Baso # (Auto) 0.01 Toxic Granulation 1+ Ovalocytes 1+ PT INR APTT PTT Ratio Sodium 140 Potassium 3.5 Chloride 108 H Carbon Dioxide 22 Anion Gap 10.0 BUN 19 H Creatinine 0.63 Est Cr Clr Drug Dosing 86.1 Est GFR ( Amer) 112.5 Est GFR (Non-Af Amer) 97.1 BUN/Creatinine Ratio 29.6 H Glucose 81 Estimat Average Glucose Hemoglobin A1c Calcium 7.7 L Phosphorus 3.2 Magnesium 1.9 Total Bilirubin AST ALT Alkaline Phosphatase Troponin I Total Protein Albumin Globulin Albumin/Globulin Ratio Urine Color Yellow Urine Appearance Cloudy H Urine pH 6.0 Ur Specific Jewell 1.017 Urine Protein Negative Urine Glucose (UA) Negative Urine Ketones Trace H Urine Blood Negative Urine Nitrite Negative Urine Bilirubin Negative Urine Urobilinogen Negative Ur Leukocyte Esterase Negative Urine WBC (Auto) 1-5 Urine RBC (Auto) 0-4 U Hyaline Cast (Auto) 1-5 U Epithel Cells (Auto) 20-30 H Urine Bacteria (Auto) Negative Urine Yeast Not Reportable 09/30/18 06:51 WBC RBC Hgb Hct MCV MCH MCHC RDW Std Deviation RDW Coeff of Nick Plt Count MPV Immature Gran % (Auto) Neut % (Auto) Lymph % (Auto) Josephine % (Auto) Eos % (Auto) Baso % (Auto) Immature Gran # (Auto) Neut # (Auto) Lymph # (Auto) Josephine # (Auto) Eos # (Auto) Baso # (Auto) Toxic Granulation Ovalocytes PT INR APTT PTT Ratio Sodium Potassium Chloride Carbon Dioxide Anion Gap BUN Creatinine Est Cr Clr Drug Dosing Est GFR ( Amer) Est GFR (Non-Af Amer) BUN/Creatinine Ratio Glucose Estimat Average Glucose 120 Hemoglobin A1c 5.8 H Calcium Phosphorus Magnesium Total Bilirubin AST ALT Alkaline Phosphatase Troponin I Total Protein Albumin Globulin Albumin/Globulin Ratio Urine Color Urine Appearance Urine pH Ur Specific Jewell Urine Protein Urine Glucose (UA) Urine Ketones Urine Blood Urine Nitrite Urine Bilirubin Urine Urobilinogen Ur Leukocyte Esterase Urine WBC (Auto) Urine RBC (Auto) U Hyaline Cast (Auto) U Epithel Cells (Auto) Urine Bacteria (Auto) Urine Yeast ECG Additional Comments: EKG 09/29/18: Sinus rhythm, RBBB Telemetry reviewed: Sinus rhythm
[2018-09-30] MEDS ORDERED: metHOTREXate sodium 2.5 MG TAB PO SCH (09:00)
--- NOTE | 2018-09-30 15:31 | Hospitalist Progress Note ---
Date of Service September 30, 2018 Assessment & Plan (1) CHF (congestive heart failure): Possible patient may have acute systolic CHF. However possiblity remains that his symptoms could be from symptomatic anemia. Will continue to monitor. Currently there is concern from cardiology that patient was not taking his diuretics. Pt was to be on lasix 20mg BID and this was not continued on d/c Lasix in the ED, will resume tx Cardiology consulted appreciate input. ECHO last month, will leave status of repeat ECHO to their discretion; (2) Weakness: Likely deconditioning s/p PA in the setting of other medical issues PT/OT pending Daughter states that if pt needs rehab on d/c, they would prefer a facility other than [facility] (3) Rheumatoid arthritis: continue home meds Mild leukocytosis in the setting of chronic steroid use (4) Chronic foot ulcer with fat layer exposed: W[facility] Follows with podiatry as outpt generally (5) Diabetes: Listed in PMH, daughter states no prior hx of DM A1c at goal. (6) Essential hypertension: continue home meds (7) CAD (coronary artery disease): Continue plavix Cath 09/04/[address] Wright (8) Anxiety: xanax PRN as at home (9) Afib: continue home meds Eliquis (10) Restless leg: continue home meds (11) DVT prophylaxis: Kellyqumyrna Spent 35 minutes in management of patient. Subjective 73 yo male is a poor historian. I was call patient daughter, concerned about his blood work. All questions were answered. As stated above patient is a poor hsitorian but currently has no new complaints. Review of Systems Unobtainable due to mental health condition Physical Exam Vital Signs (Past 24 Hours): Last Vital Signs Temp 36.9 C 09/30/18 08:21 Pulse 95 H 09/30/18 08:21 Resp 20 09/30/18 08:21 BP 102/62 09/30/18 08:21 Pulse Ox 96 09/30/18 15:09 Physical Exam: Constitutional: WD/WN, vitals as above Eyes: normal visual pang by confrontation and + anicteric sclerae Neck: normal visual inspection and trachea midline Respiratory: normal respiratory effort; no respiratory distress Auscultation: + mild crackles (bases); no wheezes Cardiovascular: Rate/Rhythm: regular rate and regular rhythm Gastrointestinal (Abdomen): Inspection/Auscultation: abdomen not distended Percussion/Palpation: abdomen soft; abdomen nontender Musculoskeletal: Head/Neck/Chest: normocephalic and head atraumatic negative for edema, peripheral pulses intact Skin: no rashes, warm and dry many superficial ulcerations on LE Neurologic: awake; not confused Speech / Cognition: normal speech Psychiatric: A+Ox2, not oriented to time, euthymic affect (1) CHF (congestive heart failure) Heart failure chronicity: acute on chronic Heart failure type: unspecified Qualified Code(s): I50.9 - Heart failure, unspecified
[2018-09-30 16:44] LABS: Hematocrit (blood only) 27.4 % (42-52); Hemoglobin 8.6 g/dL (14.0-18.0)
[2018-09-30] MEDS: GABAPENTIN 600 MG TAB PO SCH (17:45)
[2018-09-30] MEDS: predniSONE 1 MG TAB PO SCH (21:16)
[2018-09-30] MEDS: ROPINIROLE HCL 0.25 MG TABLET PO SCH (21:17)
[2018-09-30] MEDS: TERAZOSIN HCL 1 MG CAP PO SCH (21:20)
[2018-10-01] MEDS: TRAMADOL HCL 50 MG TABLET PO PRN ×3 (01:35→21:04)
[2018-10-01] MEDS: ALBUTEROL HFA 8 GM INHALER INH SCH ×6 (01:54→21:08)
[2018-10-01 07:54] LABS: Basophils # (auto) 0.01 K/uL (0-0.2); Basophils % (auto) 0.2 %; Eosinophils # (auto) 0.09 K/uL (0-0.5); Eosinophils % (auto) 1.4 %; Hematocrit (blood only) 25.4 % (42-52); Hemoglobin 7.9 g/dL (14.0-18.0); Immature Granulocytes # (auto) 0.02 K/uL (0.00-0.02); Immature Granulocytes % (auto) 0.3 %; Lymphocytes # (auto) 0.84 K/uL (1.2-3.4); Lymphocytes % (auto) 13.4 %; Mean Corpuscular Hgb Conc 31.1 g/dL (32-36); Mean Corpuscular Volume 76.5 fL (80-100); Mean Platelet Volume 9.2 fL (7.4-10.4); Monocytes # (auto) 0.44 K/uL (0.11-0.59); Neutrophils # (auto) 4.87 K/uL (1.4-6.5); Neutrophils % (auto) 77.7 %; Platelet Count 251 K/uL (130-400); RDW Coefficient of Variation 18.9 % (11.5-14.5); RDW Standard Deviation 52.7 fL (36.4-46.3); Red Blood Count 3.32 M/uL (4.7-6.1); White Blood Count 6.27 K/uL (4.8-10.8)
[2018-10-01 08:24] LABS: Microcytosis Present; Ovalocytes 1+
[2018-10-01 08:32] LABS: Calcium 7.6 mg/dl (8.5-10.1); Creatinine Clr Calc Pharmacy 110.7 ml/min; Est GFR (African American) 124.8; Est GFR (Non-African American) 107.6; Potassium 3.2 mmol/L (3.5-5.1)
[2018-10-01 08:36] LABS: Ferritin 89.2 ng/ml (8-388)
[2018-10-01] MEDS: APIXABAN 5 MG TABLET PO SCH ×2 (08:59→21:09)
[2018-10-01] MEDS: FUROSEMIDE 20 MG TAB PO SCH ×2 (08:59→17:30)
[2018-10-01] MEDS: FERROUS SULFATE 325 MG TAB PO SCH ×2 (08:59→17:30)
[2018-10-01] MEDS: PANTOprazole 40 MG TAB PO SCH (08:59)
[2018-10-01] MEDS: MULTIVITAMIN TAB PO SCH (08:59)
[2018-10-01] MEDS: FOLIC ACID 1 MG TAB PO SCH (08:59)
[2018-10-01] MEDS: ATORVASTATIN 40 MG TAB PO SCH (09:00)
[2018-10-01] MEDS: CHOLECALCIFEROL 1,000 UNITS TAB PO SCH (09:00)
[2018-10-01] MEDS: CYANOCOBALAMIN 500 MCG TABLET (VITAMIN B-12) PO SCH (09:00)
[2018-10-01] MEDS: miSOPROStol 50 MCG TAB PO SCH ×2 (09:00→21:10)
[2018-10-01] MEDS: CLOPIDOGREL BISULFATE 75 MG TAB PO SCH (09:00)
[2018-10-01] MEDS: predniSONE 5 MG TAB PO SCH (09:00)
[2018-10-01] MEDS: METOPROLOL SUCC 25MG EXT REL TAB PO SCH (09:01)
[2018-10-01] MEDS ORDERED: POTASSIUM CHLORIDE 20 MEQ TABCR PO STA (13:10)
--- NOTE | 2018-10-01 16:11 | Cardiology Progress Note ---
Date of Service October 01, 2018 Assessment & Plan (1) CAD (coronary artery disease): 2. Acute systolic CHF 3. Ischemic cardiomyopathy 4. Peripheral arterial disease 5. Lower extremity ulcerations 6. Weakness 7. Rheumatoid arthritis 8. Anemia Patient with moderately improved vascular congestion post IV diuretic, initiation of twice daily p.o. diuretics. On exam today appears well-perfused. Blood pressure well controlled. Renal function stable. Feel patient approaching euvolemia. Would give additional dose of IV Lasix today in the setting of modest residual congestion. Lasix 20 mg IV today Continue maintenance Lasix 20 mg p.o. twice daily Continue current metoprolol, add back low-dose losartan 12.5 mg daily Continue dual antiplatelet therapy with aspirin, Clopidogrel Continue anticoagulation with Eliquis. Follow H/H, target hemoglobin greater than 8 From a cardiac standpoint okay for discharge to SNF when bed available. Will need close heart failure follow-up on discharge Subjective Breathing symptoms improved. Denies any chest pain. Continues to endorse joint pain which he attributes to his rheumatoid arthritis. Telemetry reviewprimarily sinus rhythm, no significant arrhythmia Physical Exam Vital Signs (Past 24 Hours): Last Vital Signs Temp 36.6 C 10/01/18 15:34 Pulse 98 H 10/01/18 15:34 Resp 20 10/01/18 15:34 BP 102/64 10/01/18 15:34 Pulse Ox 98 10/01/18 15:34 Physical Exam: General: Comfortable, no acute distress, frail Eyes: Sclerae anicteric, extraocular movements intact HENT: Oropharynx clear mucous membranes moist Neck: JVP approximately 8 Lungs: Clear to auscultation bilaterally, no rhonchi or wheezes Cardiac: Regular rate and rhythm, 2/6 ejection murmur Vascular: 2+ radial. Abdomen: Soft, nontender, nondistended, positive bowel sounds. Extremities: Well perfused, trace bilateral lower extremity edema Skin: Lower extremity wounds dressed, reviewed images from wound care, no signs of active infection Psych: Alert and oriented
[2018-10-01] MEDS ORDERED: FUROSEMIDE 20 MG in SYRINGE 0 ML IV ONE ×2 (16:35→17:00)
--- NOTE | 2018-10-01 17:06 | Podiatry Consultation ---
Date of Consultation October 01, 2018 History of Present Illness Attending Physician: Joseph Suarez Patient is a very pleasant 73 y/o male patient known to me, I see him weekly in office, for bilateral foot and ankle ulcerations; patient has extensive ulcerations to bilateral lower extremity, with complicated healing due to medical comorbidities including RA, PVD and DM Patient seen at bedside and all dressings removed, all ulcerations examined, all ulcers are found to be stable from previous visit with me in the office, patient has been additionally seeing ID and was receiving IV vanco and enteroceptin Patient was most recently admitted from [facility] due to worsening CAD and swelling Allergies Allergy/AdvReac Type Severity Reaction Status Date / Time amoxicillin Allergy Severe RED Verified 09/28/18 12:52 BLOTCHES HEAD TO TOE Iodinated Contrast- Oral and Allergy Severe "FELT Verified 09/28/18 12:52 IV Dye FUNNY" ioversol Allergy Severe PASSED OUT Verified 09/28/18 12:52 clavulanic acid Allergy Intermediate RASH Verified 09/28/18 12:52 Penicillins Allergy Intermediate RASH Verified 09/28/18 12:52 adhesive Allergy Mild REDNESS Verified 09/28/18 12:52 WITH EXTENDED USE Sulfa (Sulfonamide Allergy Mild RASH Verified 09/28/18 12:52 Antibiotics) sulfamethoxazole Allergy Mild RASH Verified 09/28/18 12:52 trimethoprim Allergy Mild RASH Verified 09/28/18 12:52 Bactrim Allergy Unknown RASH Verified 11/18/17 00:19 Fish Containing Products Allergy Unknown Verified 09/28/18 12:52 fish derived Allergy Unknown Verified 09/28/18 12:52 fish oil Allergy Unknown Verified 09/28/18 12:52 shellfish derived Allergy Unknown Verified 09/28/18 12:52 Latex, Natural Rubber AdvReac Intermediate Redness of Verified 09/28/18 12:52 Skin Food Allergy Severe SEAFOOD - Uncoded 09/02/18 10:14 EYES SWELL IF DRINKS ALCOHOL WITH Carboxymethylcellulose AdvReac Mild Irritates Uncoded 09/02/18 10:14 the skin Home Medications Home Medications Medication Instructions Recorded Confirmed Type cyanocobalamin (vitamin B-12) 1,000 mcg PO QAM 07/14/18 09/29/18 History [Vitamin B-12] alendronate [Fosamax] 70 mg PO WK 07/16/18 09/29/18 History esomeprazole magnesium [Nexium] 40 mg PO QAM 07/16/18 09/29/18 History folic acid 1 mg PO QAM 07/16/18 09/29/18 History methotrexate sodium 15 mg PO WK 07/16/18 09/29/18 History misoprostol 100 mcg PO BID 07/16/18 09/29/18 History multivitamin 1 cap PO DAILY 07/16/18 09/29/18 History prednisone 2 mg PO QPM 07/16/18 09/29/18 History prednisone 5 mg PO QAM 07/16/18 09/29/18 History ProAir RespiClick 2 inha INH Q4H 08/04/18 09/29/18 History cholecalciferol (vitamin D3) 1,000 unit PO QAM 08/04/18 09/29/18 History [Vitamin D3] apixaban [Eliquis] 5 mg PO BID #30 tab 09/08/18 09/29/18 Rx atorvastatin 40 mg PO QAM #30 tab 09/08/18 09/29/18 Rx clopidogrel 75 mg PO QAM #30 tab 09/08/18 09/29/18 Rx gabapentin 600 mg PO DAILY@1700 #30 tab 09/08/18 09/29/18 Rx acetaminophen [Tylenol] 650 mg PO Q4 PRN 09/29/18 09/29/18 History dalbavancin 1,500 mg IV UD 09/29/18 09/29/18 History ferrous sulfate 325 mg PO BID 09/29/18 09/29/18 History metoprolol succinate 12.5 mg PO QAM 09/29/18 09/29/18 History ropinirole [Requip] 0.25 mg PO HS 09/29/18 09/29/18 History terazosin 1 mg PO HS 09/29/18 09/29/18 History tramadol [Ultram] 50 - 100 mg PO Q6 PRN 09/29/18 09/29/18 History Patient History Medical History Rib fracture Fall Asthma exacerbation B12 deficiency Rheumatoid arthritis PAD (peripheral artery disease) Chronic foot ulcer with fat layer exposed - continue treatment with aqaucell ag and gauze to left foot and adaptic with allyven foam to right foot and ankle, continue recommendations per ID for left foot - patient will follow up in the office with me after discharge Essential hypertension (Chronic 02/12/13) Diabetes Asthma (Chronic) Cellulitis (Chronic) Foot pain, right (Chronic) GERD (gastroesophageal reflux disease) (Chronic) Ulcer (Chronic) LEFT FOOT Anxiety Arrhythmia BPH (benign prostatic hyperplasia) Osteoarthritis Rheumatoid arthritis Surgical History History of colectomy POLYPS REMOVED History of colonoscopy History of esophagogastroduodenoscopy (EGD) History of repair of rotator cuff RT History of tooth extraction Family History Father Heart attack Other Family history non-contributory Social History Communication Ability: Impaired Beliefs That Will Affect Care: None Current Living Situation: Spouse and Family Current Living Situation Comment: spouse and dtr Other Information That Helps Us Care for You: No Feels Safe at Home: Yes Safety Concerns: Feels Safe At This Time Smoking Status: Former smoker Hx Alcohol Use: No Hx Substance Use: No Physical Exam Vital Signs (Past 24 Hours): Last Vital Signs Temp 36.6 C 10/01/18 15:34 Pulse 98 H 10/01/18 15:34 Resp 20 10/01/18 15:34 BP 102/64 10/01/18 15:34 Pulse Ox 98 10/01/18 15:34 Skin: bilateral ulcerations present right foot with ulcers present at medial ankle, 4th toe and heel all stable with dressings consisting of foam left foot with large dorsal foot ulcer stable in appearance with granular base, ulcer present at dorsal digits 2 and 4 and heel; both stable and unchanged from previous office visit - dressings removed and ulcers examined, new dressing with aquacell applied to left foot - this was used at home allergy that was indicated is not correct and removed
[2018-10-01] MEDS: GABAPENTIN 600 MG TAB PO SCH (17:30)
[2018-10-01] MEDS: ACETAMINOPHEN 325 MG TAB PO PRN (19:05)
[2018-10-01] MEDS: TERAZOSIN HCL 1 MG CAP PO SCH (21:05)
[2018-10-01] MEDS: ROPINIROLE HCL 0.25 MG TABLET PO SCH (21:09)
[2018-10-01] MEDS: predniSONE 1 MG TAB PO SCH (21:09)
[2018-10-02] MEDS: ALBUTEROL HFA 8 GM INHALER INH SCH ×6 (01:48→21:39)
[2018-10-02] MEDS ORDERED: ALENDRONATE SODIUM 70 MG TAB PO SCH (06:00)
[2018-10-02] MEDS: TRAMADOL HCL 50 MG TABLET PO PRN ×2 (08:54→21:47)
[2018-10-02] MEDS: METOPROLOL SUCC 25MG EXT REL TAB PO SCH (08:55)
[2018-10-02] MEDS: CLOPIDOGREL BISULFATE 75 MG TAB PO SCH (08:56)
[2018-10-02] MEDS: ATORVASTATIN 40 MG TAB PO SCH (08:56)
[2018-10-02] MEDS: predniSONE 5 MG TAB PO SCH (08:56)
[2018-10-02] MEDS: CYANOCOBALAMIN 500 MCG TABLET (VITAMIN B-12) PO SCH (08:56)
[2018-10-02] MEDS: MULTIVITAMIN TAB PO SCH (08:56)
[2018-10-02] MEDS: FERROUS SULFATE 325 MG TAB PO SCH ×2 (08:56→16:52)
[2018-10-02] MEDS: PANTOprazole 40 MG TAB PO SCH (08:56)
[2018-10-02] MEDS: FOLIC ACID 1 MG TAB PO SCH (08:56)
[2018-10-02] MEDS: FUROSEMIDE 20 MG TAB PO SCH (08:56)
[2018-10-02] MEDS: CHOLECALCIFEROL 1,000 UNITS TAB PO SCH (08:56)
[2018-10-02] MEDS: APIXABAN 5 MG TABLET PO SCH ×2 (08:57→21:39)
[2018-10-02] MEDS: miSOPROStol 50 MCG TAB PO SCH ×2 (08:57→21:39)
[2018-10-02] MEDS ORDERED: FUROSEMIDE 40 MG/4 ML VIAL IV STA (09:45)
[2018-10-02] MEDS ORDERED: LOSARTAN POTASSIUM 25 MG TAB PO SCH (09:45)
--- NOTE | 2018-10-02 09:49 | Cardiology Progress Note ---
Date of Service October 02, 2018 Assessment & Plan (1) CAD (coronary artery disease): 2. Acute systolic CHF 3. Ischemic cardiomyopathy 4. Peripheral arterial disease 5. Lower extremity ulcerations 6. Weakness 7. Rheumatoid arthritis 8. Anemia Patient with moderately improved vascular congestion overall. He appears well perfused on exam. He is approaching euvolemia but is not diuresing as well as hoped on current dose of Lasix. Renal function is stable. Blood pressure is well controlled. Recommend the following: Lasix 40 mg IV today Change maintenance Lasix to 40 mg PO once daily Continue current metoprolol, add back low-dose losartan 12.5 mg daily Continue antiplatelet therapy with Clopidogrel and anticoagulation with Eliquis Follow H/H, target hemoglobin greater than 8 --Replace K From a cardiac standpoint okay for discharge to SNF when bed available. Will need close heart failure follow-up on discharge Subjective Patient reports feeling much better overall. No significant shortness of breath. No orthopnea, PND or chest pain. His main complaint continues to be his chronic joint pain from his RA. Telemetry reviewprimarily sinus rhythm, no significant arrhythmia Physical Exam Vital Signs (Past 24 Hours): Last Vital Signs Temp 36.8 C 10/02/18 07:43 Pulse 88 10/02/18 07:43 Resp 16 10/02/18 07:43 BP 100/61 10/02/18 07:43 Pulse Ox 94 10/02/18 07:43 Physical Exam: General: No acute distress, comfortable. HEENT: Head is normal. PERRLA. EOMI. Sclerae anicteric. Ears, nose and throat unremarkable. Mucous membranes moist. Neck: Normal carotid upstrokes, no bruits. No significant JVD. Lungs: Clear to auscultation without rales, rhonchi or wheezes. Cardiac: Regular rate and rhythm. S1-S2 normal. Grade 2/6 holosystolic murmur at the apex. Abdomen: Soft and nontender. Bowel sounds normal. No mass or organomegaly. No abdominal bruit. Extremities/vascular: Well perfused. Trace pretibial edema bilaterally. Radial pulses 2+, DP/PT pulses diminished Skin: Multiple superficial ulcerations bilateral lower extremities/feet. Neurologic: Nonfocal Psychiatric: Affect appropriate. Alert and oriented.
[2018-10-02] MEDS ORDERED: FUROSEMIDE 40 MG in SYRINGE 0 ML IV STA (09:50)
--- NOTE | 2018-10-02 10:30 | Hospitalist Progress Note ---
Date of Service October 01, 2018 Assessment & Plan (1) CHF (congestive heart failure): Possible patient may have acute systolic CHF. However possiblity remains that his symptoms could be from symptomatic anemia. Cardiology is consulted and believes this to be mainly CHF. However hemoglobin has juliette hovering around 8. Will likely transfuse one unit of PRBC. Will continue to monitor. Will conitnue diuretics. Cardiology consulted appreciate input. ECHO last month, will leave status of repeat ECHO to their discretion; (2) Weakness: Likely deconditioning s/p MT in the setting of other medical issues PT/OT pending Daughter states that if pt needs rehab on d/c, they would prefer a facility other than [facility] (3) Rheumatoid arthritis: continue home meds Mild leukocytosis in the setting of chronic steroid use May require a higher dose of prednisone. (4) Chronic foot ulcer with fat layer exposed: Stage 3 pressure ulcer on right medial plantar foot, unstageable pressure ulcer on right medial ankle, full thickness unknown type of ulcer on right 3rd dorsal toe, a right unstageable pressure ulcer, unstageable ulcer of left posterior heel, and a full thickness failed graft on dorsum of left foot [facility] Follows with podiatry as outpt generall; consultued podiatry in hospital as daughter requested this. Patient is on Dalvance. Next dose on 10/05 (5) Diabetes: Listed in PMH, daughter states no prior hx of DM A1c at goal. (6) Essential hypertension: continue home meds (7) CAD (coronary artery disease): Continue plavix Cath 09/04/[address] Wright (8) Anxiety: xanax PRN as at home (9) Afib: continue home meds Eliquis (10) Restless leg: continue home meds (11) DVT prophylaxis: Eliquis Spent 25 minutes in management of patient. Subjective 73 yo male is a poor historian. Patient today has no complaints and reports breathing well. Physical Exam Vital Signs (Past 24 Hours): Last Vital Signs Temp 36.6 C 10/01/18 15:34 Pulse 98 10/01/18 15:34 Resp 20 10/01/18 15:34 BP 102/64 10/01/18 15:34 Pulse Ox 98 10/01/18 15:34 Physical Exam: Exam: Constitutional: WD/WN, vitals as above Eyes: normal visual pang by confrontation and + anicteric sclerae Neck: normal visual inspection and trachea midline Respiratory: normal respiratory effort; no respiratory distress Auscultation: + mild crackles (bases); no wheezes Cardiovascular: Rate/Rhythm: regular rate and regular rhythm Gastrointestinal (Abdomen): Inspection/Auscultation: abdomen not distended Percussion/Palpation: abdomen soft; abdomen nontender Musculoskeletal: Head/Neck/Chest: normocephalic and head atraumatic negative for edema, peripheral pulses intact Skin: no rashes, warm and dry many superficial ulcerations on LE Neurologic: awake; not confused Speech / Cognition: normal speech Psychiatric: A+Ox2, not oriented to time, euthymic affect (1) CHF (congestive heart failure) Heart failure chronicity: acute on chronic Heart failure type: unspecified Qualified Code(s): I50.9 - Heart failure, unspecified
[2018-10-02 10:35] LABS: Basophils # (auto) 0.01 K/uL (0-0.2); Basophils % (auto) 0.1 %; Eosinophils # (auto) 0.12 K/uL (0-0.5); Eosinophils % (auto) 1.8 %; Hematocrit (blood only) 26.8 % (42-52); Hemoglobin 8.3 g/dL (14.0-18.0); Immature Granulocytes # (auto) 0.02 K/uL (0.00-0.02); Immature Granulocytes % (auto) 0.3 %; Lymphocytes # (auto) 0.86 K/uL (1.2-3.4); Lymphocytes % (auto) 12.7 %; Mean Corpuscular Volume 77.2 fL (80-100); Mean Platelet Volume 9.4 fL (7.4-10.4); Monocytes # (auto) 0.84 K/uL (0.11-0.59); Monocytes % (auto) 12.4 %; Neutrophils # (auto) 4.93 K/uL (1.4-6.5); Neutrophils % (auto) 72.7 %; Platelet Count 274 K/uL (130-400); RDW Coefficient of Variation 18.9 % (11.5-14.5); RDW Standard Deviation 53.3 fL (36.4-46.3); Red Blood Count 3.47 M/uL (4.7-6.1); White Blood Count 6.78 K/uL (4.8-10.8)
[2018-10-02 10:58] LABS: Giant Platelets 1+; Hypochromasia Present; Ovalocytes 1+
[2018-10-02 11:13] LABS: Calcium 7.7 mg/dl (8.5-10.1); Est GFR (African American) 109.7; Est GFR (Non-African American) 94.7; Magnesium 1.8 mg/dl (1.8-2.4); Potassium 3.5 mmol/L (3.5-5.1)
[2018-10-02 11:23] LABS: Phosphorus 2.5 mg/dl (2.5-4.9)
[2018-10-02] MEDS ORDERED: SODIUM CHLORIDE 0.9% 250 ML IV PRN (14:53)
--- NOTE | 2018-10-02 16:38 | Progress Note ---
Date of Service October 02, 2018 Subjective Patient seen at bedside today, dressings removed and changed - patient stating he will be d/c to a nursing facility likely tomorrow, if so OK for skilled nursing to change dressings daily, applying aquacell with gauze over all dressings and to continue using the offloading heel boots at all times - ulcers stable at this point - patient will have follow up arranged with me in office next fridayoctober 07 Integumentary: + skin ulcer bilateral ulcers present on feet - stable in appearance, all dressings removed and reapplied today Physical Exam Vital Signs (Past 24 Hours): Last Vital Signs Temp 36.8 C 10/02/18 15:38 Pulse 96 H 10/02/18 15:56 Resp 20 10/02/18 15:38 BP 106/69 10/02/18 15:38 Pulse Ox 95 10/02/18 15:38 Skin: bilateral foot ulcerations with dressings in place
[2018-10-02] MEDS: GABAPENTIN 600 MG TAB PO SCH (16:52)
[2018-10-02] MEDS: ROPINIROLE HCL 0.25 MG TABLET PO SCH (21:38)
[2018-10-02] MEDS: TERAZOSIN HCL 1 MG CAP PO SCH (21:38)
[2018-10-02] MEDS: predniSONE 1 MG TAB PO SCH (21:38)
--- NOTE | 2018-10-02 23:54 | Hospitalist Progress Note ---
Date of Service October 02, 2018 Assessment & Plan (1) CHF (congestive heart failure): Possible patient may have acute systolic CHF. However possiblity remains that his symptoms could be from symptomatic anemia. Cardiology is consulted and believes this to be mainly CHF. However hemoglobin has been hovering around 8. Obtained consent and will transfuse one unit of PRBC. Will continue diuretics. Cardiology consulted appreciate input. ECHO last month, will leave status of repeat ECHO to their discretion; (2) Weakness: Likely deconditioning s/p [place] in the setting of other medical issues PT/OT ordered Daughter states that if pt needs rehab on d/c, they would prefer a facility other than [facility] (3) Rheumatoid arthritis: continue home meds Mild leukocytosis in the setting of chronic steroid use May require a higher dose of prednisone. Will hold off for now as patient is getting transfusion (4) Chronic foot ulcer with fat layer exposed: Stage 3 pressure ulcer on right medial plantar foot, unstageable pressure ulcer on right medial ankle, full thickness unknown type of ulcer on right 3rd dorsal toe, a right unstageable pressure ulcer, unstageable ulcer of left posterior heel, and a full thickness failed graft on dorsum of left foot [facility] Follows with podiatry as outpt generall; consultued podiatry in hospital as daughter requested this. Patient is on Dalvance. Next dose on 10/05 (5) Diabetes: Listed in PMH, daughter states no prior hx of DM A1c at goal. (6) Essential hypertension: continue home meds (7) CAD (coronary artery disease): Continue plavix Cath 09/04/[address] Wright (8) Anxiety: xanax PRN as at home (9) Afib: continue home meds Eliquis (10) Restless leg: continue home meds (11) DVT prophylaxis: Eliquis Spent 28 minutes in management of patient. Subjective 73 yo male is a poor historian. Patient today has no complaints and reports breathing well. Daughter was at bedside and was updated. Physical Exam Vital Signs (Past 24 Hours): Last Vital Signs Temp 36.3 C L 10/02/18 20:45 Pulse 93 H 10/02/18 20:45 Resp 16 10/02/18 20:45 BP 96/58 L 10/02/18 20:45 Pulse Ox 91 03/15/19 20:45 Physical Exam: Exam: Constitutional: WD/WN, vitals as above Eyes: normal visual pang by confrontation and + anicteric sclerae Neck: normal visual inspection and trachea midline Respiratory: normal respiratory effort; no respiratory distress Auscultation: + mild crackles (bases); no wheezes Cardiovascular: Rate/Rhythm: regular rate and regular rhythm Gastrointestinal (Abdomen): Inspection/Auscultation: abdomen not distended Percussion/Palpation: abdomen soft; abdomen nontender Musculoskeletal: Head/Neck/Chest: normocephalic and head atraumatic negative for edema, peripheral pulses intact Skin: no rashes, warm and dry many superficial ulcerations on LE Neurologic: awake; not confused Speech / Cognition: normal speech Psychiatric: A+Ox2, not oriented to time, euthymic affect (1) CHF (congestive heart failure) Heart failure chronicity: acute on chronic Heart failure type: unspecified Qualified Code(s): I50.9 - Heart failure, unspecified
[2018-10-03] MEDS: ALBUTEROL HFA 8 GM INHALER INH SCH ×7 (02:23→21:42)
[2018-10-03] MEDS: MULTIVITAMIN TAB PO SCH (08:45)
[2018-10-03] MEDS: predniSONE 5 MG TAB PO SCH (08:45)
[2018-10-03] MEDS: CYANOCOBALAMIN 500 MCG TABLET (VITAMIN B-12) PO SCH (08:45)
[2018-10-03] MEDS: PANTOprazole 40 MG TAB PO SCH (08:45)
[2018-10-03] MEDS: CLOPIDOGREL BISULFATE 75 MG TAB PO SCH (08:46)
[2018-10-03] MEDS: CHOLECALCIFEROL 1,000 UNITS TAB PO SCH (08:46)
[2018-10-03] MEDS: ATORVASTATIN 40 MG TAB PO SCH (08:46)
[2018-10-03] MEDS: TRAMADOL HCL 50 MG TABLET PO PRN (08:46)
[2018-10-03] MEDS: APIXABAN 5 MG TABLET PO SCH ×3 (08:47→21:41)
[2018-10-03] MEDS: FERROUS SULFATE 325 MG TAB PO SCH ×2 (08:47→16:49)
[2018-10-03] MEDS: FOLIC ACID 1 MG TAB PO SCH (08:47)
[2018-10-03] MEDS: LOSARTAN POTASSIUM 25 MG TAB PO SCH (08:48)
[2018-10-03] MEDS: miSOPROStol 50 MCG TAB PO SCH ×3 (08:48→21:41)
[2018-10-03] MEDS: METOPROLOL SUCC 25MG EXT REL TAB PO SCH (08:49)
[2018-10-03] MEDS ORDERED: FUROSEMIDE 40 MG TAB PO SCH (09:00)
[2018-10-03 09:18] LABS: Hematocrit (blood only) 31.6 % (42-52); Hemoglobin 9.9 g/dL (14.0-18.0); Mean Corpuscular Hgb Conc 31.3 g/dL (32-36); Mean Corpuscular Volume 77.1 fL (80-100); Mean Platelet Volume 9.5 fL (7.4-10.4); Platelet Count 269 K/uL (130-400); RDW Coefficient of Variation 18.2 % (11.5-14.5); RDW Standard Deviation 50.9 fL (36.4-46.3); White Blood Count 7.52 K/uL (4.8-10.8)
[2018-10-03 09:44] LABS: BUN Creatinine Ratio 22.4 (10-20); Calcium 7.9 mg/dl (8.5-10.1); Creatinine Clr Calc Pharmacy 74.3 ml/min; Est GFR (African American) 105.9; Est GFR (Non-African American) 91.4; Potassium 3.5 mmol/L (3.5-5.1)
--- NOTE | 2018-10-03 11:39 | Cardiology Progress Note ---
Date of Service October 03, 2018 Assessment & Plan (1) CAD (coronary artery disease): 2. Acute systolic CHF 3. Ischemic cardiomyopathy 4. Peripheral arterial disease 5. Lower extremity ulcerations 6. Weakness 7. Rheumatoid arthritis 8. Anemia Well-perfused with minimal residual congestion on exam today. Continue maintenance Lasix 40 mg daily. Continue current metoprolol, and losartan 12.5 mg daily Continue antiplatelet therapy with Clopidogrel and anticoagulation with Eliquis From a cardiac standpoint okay for discharge to SNF when bed available. Will need close heart failure follow-up on discharge Subjective No events overnight. No new concerns today. Breathing improved. His main complaint continues to be his chronic joint pain from his RA. Telemetry reviewsinus, no events Physical Exam Vital Signs (Past 24 Hours): Last Vital Signs Temp 36.7 C 10/03/18 11:31 Pulse 102 H 10/03/18 11:31 Resp 20 10/03/18 11:31 BP 98/61 L 10/03/18 11:31 Pulse Ox 96 10/03/18 11:31 Physical Exam: General: Comfortable, no acute distress Eyes: Sclerae anicteric, extraocular movements intact HENT: Oropharynx clear mucous membranes moist Lungs: Clear to auscultation bilaterally, no rhonchi or wheezes Cardiac: Tachycardic, regular, no murmurs Abdomen: Soft, nontender, nondistended, positive bowel sounds. Extremities: Well perfused, no peripheral edema Skin: No rashes or lesions. Psych: Alert orient x3, normal affect and mood
[2018-10-03] MEDS: GABAPENTIN 600 MG TAB PO SCH (16:49)
[2018-10-03] MEDS: TERAZOSIN HCL 1 MG CAP PO SCH ×2 (21:02→21:41)
[2018-10-03] MEDS: ROPINIROLE HCL 0.25 MG TABLET PO SCH ×2 (21:03→21:42)
[2018-10-03] MEDS: predniSONE 1 MG TAB PO SCH ×2 (21:03→21:42)
[2018-10-04] MEDS: ALBUTEROL HFA 8 GM INHALER INH SCH ×6 (02:21→22:02)
[2018-10-04] MEDS: TRAMADOL HCL 50 MG TABLET PO PRN ×2 (05:32→22:01)
--- NOTE | 2018-10-04 07:53 | Hospitalist Progress Note ---
Date of Service October 03, 2018 Assessment & Plan (1) Symptomatic anemia: It appears likely that the patient symptoms were stemming from his anemia rather than his congestive heart failure. Patient does not appear to be overloaded. Patient also appears to have responded from his blood transfusion. Hemoglobin has improved after receiving one unit of PRBC. (2) CHF (congestive heart failure): As noted above, doubt acute systolic heart failure Will continue diuretics, but will discuss with cardio if patient should go back to his previous dose of 20 instead of 40mg daily or perhaps 40mg q48h. Cardiology consulted appreciate input. ECHO last month. Heart failure clinic provider also does not feel patient was in heart failure exacerbation. (3) Weakness: Likely deconditioning s/p [place] in the setting of other medical issues PT/OT ordered Daughter states that if pt needs rehab on d/c, they would prefer a facility other than [facility]. Aaiting placement. (4) Rheumatoid arthritis: continue home meds Mild leukocytosis in the setting of chronic steroid use May require a higher dose of prednisone. Will hold off for now as patient just received transfusion. (5) Chronic foot ulcer with fat layer exposed: Stage 3 pressure ulcer on right medial plantar foot, unstageable pressure ulcer on right medial ankle, full thickness unknown type of ulcer on right 3rd dorsal toe, a right unstageable pressure ulcer, unstageable ulcer of left posterior heel, and a full thickness failed graft on dorsum of left foot [facility] Follows with podiatry as outpt generall; consultued podiatry in hospital as daughter requested this. Patient is on Dalvance. Next dose on 10/05 (6) Diabetes: Listed in PMH, daughter states no prior hx of DM A1c at goal. (7) Essential hypertension: continue home meds (8) CAD (coronary artery disease): Continue plavix Cath 09/04/[address] Wright (9) Anxiety: xanax PRN as at home (10) Afib: continue home meds Eliquis (11) Restless leg: continue home meds (12) DVT prophylaxis: Godfrey Spent 30 minutes in management of patient. Subjective 73 yo male is a poor historian. Patient today has no new complaints and reports breathing well. Physical Exam Vital Signs (Past 24 Hours): Last Vital Signs Temp 37.4 C 10/03/18 07:26 Pulse 89 10/03/18 07:26 Resp 18 10/03/18 07:26 BP 99/58 10/03/18 07:26 Pulse Ox 95 10/03/18 07:26 Physical Exam: Constitutional: WD/WN, vitals as above Eyes: normal visual pang by confrontation and + anicteric sclerae Neck: normal visual inspection and trachea midline Respiratory: normal respiratory effort; no respiratory distress Auscultation: clear; no wheezes Cardiovascular: Rate/Rhythm: regular rate and regular rhythm Gastrointestinal (Abdomen): Inspection/Auscultation: abdomen not distended Percussion/Palpation: abdomen soft; abdomen nontender Musculoskeletal: Head/Neck/Chest: normocephalic and head atraumatic negative for edema, peripheral pulses intact Skin: no rashes, warm and dry many superficial ulcerations on LE Neurologic: awake; not confused Speech / Cognition: normal speech Psychiatric: A+Ox2, not oriented to time, euthymic affect (1) CHF (congestive heart failure) Heart failure chronicity: acute on chronic Heart failure type: unspecified Qualified Code(s): I50.9 - Heart failure, unspecified
--- NOTE | 2018-10-04 08:12 | Hospitalist Progress Note ---
Date of Service October 04, 2018 Assessment & Plan (1) Symptomatic anemia: It appears likely that the patient symptoms were stemming from his anemia rather than his congestive heart failure. Patient does not appear to be overloaded. Patient also appears to have responded from his blood transfusion. Hemoglobin has improved after receiving one unit of PRBC. Will recheck hemoglobin this AM. Iron studies show: low TIBC, high ferritin (may be contributed to inflammation), low iron. This points towards anemia of chronic disease. Patient did have positive FOBT, but will hold off GI consult and will monitor hemoglobin trend for now. Patient has not been having significant diarrhea, or bleeding. Will contiue plavix, eliquis for now. This may change if his hemoglobin drops. (2) CHF (congestive heart failure): As noted above, doubt acute systolic heart failure Will continue diuretics, but will discuss with cardio if patient should go back to his previous dose of 20mg instead of 40mg daily or perhaps 40mg q48h. As blood pressure is dropping, will hold off diurectics today (10/04). May resume in AM. Cardiology consulted appreciate input. ECHO last month. Heart failure clinic provider also does not feel patient was in heart failure exacerbation either. (3) Weakness: Likely deconditioning s/p [place] in the setting of other medical issues PT/OT ordered Daughter states that if pt needs rehab on d/c, they would prefer a facility other than [facility]. Awaiting placement. (4) Rheumatoid arthritis: continue home meds Mild leukocytosis in the setting of chronic steroid use May require a higher dose of prednisone. Will hold off for now as patient just received transfusion. Patient appears to be having a flairup Will place patient on a 8 day taper of prednisone starting at 40mg. This has been placed and will be starting today on 10/04. (5) Chronic foot ulcer with fat layer exposed: Stage 3 pressure ulcer on right medial plantar foot, unstageable pressure ulcer on right medial ankle, full thickness unknown type of ulcer on right 3rd dorsal toe, a right unstageable pressure ulcer, unstageable ulcer of left posterior heel, and a full thickness failed graft on dorsum of left foot [facility] Follows with podiatry as outpt generall; consultued podiatry in hospital as daughter requested this. Consult has been done and appreciate recommendations. Patient is on Dalvance. Was told by ER that next dose was on 10/05. However, discussed case with pharmacy and [facility] appointment is on 10/12. May consider earlier date if patient is discharged this week. Medicine can only be administered as an outpatient. (6) Diabetes: Listed in PMH, daughter states no prior hx of DM A1c at goal. (7) Essential hypertension: continue home meds (8) CAD (coronary artery disease): Continue plavix Cath 09/04/[address] Wright (9) Anxiety: xanax PRN as at home (10) Afib: continue home meds Eliquis (11) Restless leg: continue home meds (12) DVT prophylaxis: Eliquis Spent 30 minutes in management of patient. Dispo: awaiting placement. Monitoring hemoglobin. Patient is asymptomatic, except for falir up for pain. Subjective 73 yo male is a poor historian. Patient today reports complaining of bilateral hip pain into his bilateral groin and trochanteric bursa. Pain radiates to his feet. He reports this pain is similar to his flair ups where he gets a prednisone taper. Physical Exam Vital Signs (Past 24 Hours): Last Vital Signs Temp 36.9 C 10/04/18 07:26 Pulse 60 10/04/18 07:26 Resp 18 10/04/18 07:26 BP 88/46 L 10/04/18 07:26 Pulse Ox 91 10/04/18 07:26 Physical Exam: Exam: Constitutional: WD/WN, vitals as above Eyes: normal visual pang by confrontation and + anicteric sclerae Neck: normal visual inspection and trachea midline, no JVD Respiratory: normal respiratory effort; no respiratory distress Auscultation: clear; no wheezes Cardiovascular: Rate/Rhythm: regular rate and regular rhythm Gastrointestinal (Abdomen): Inspection/Auscultation: abdomen not distended Percussion/Palpation: abdomen soft; abdomen nontender Musculoskeletal: Head/Neck/Chest: normocephalic and head atraumatic negative for edema, peripheral pulses intact; dressing in both feet with boots. Skin: no rashes, warm and dry many superficial ulcerations on LE Neurologic: awake; not confused Speech / Cognition: normal speech Psychiatric: A+Ox2, not oriented to time, euthymic affect (1) CHF (congestive heart failure) Heart failure chronicity: acute on chronic Heart failure type: unspecified Qualified Code(s): I50.9 - Heart failure, unspecified
[2018-10-04] MEDS: APIXABAN 5 MG TABLET PO SCH ×2 (08:17→19:09)
[2018-10-04] MEDS: PANTOprazole 40 MG TAB PO SCH (08:17)
[2018-10-04] MEDS: MULTIVITAMIN TAB PO SCH (08:17)
[2018-10-04] MEDS: CYANOCOBALAMIN 500 MCG TABLET (VITAMIN B-12) PO SCH (08:18)
[2018-10-04] MEDS: CHOLECALCIFEROL 1,000 UNITS TAB PO SCH (08:18)
[2018-10-04] MEDS: CLOPIDOGREL BISULFATE 75 MG TAB PO SCH (08:18)
[2018-10-04] MEDS: ATORVASTATIN 40 MG TAB PO SCH (08:20)
[2018-10-04] MEDS: FERROUS SULFATE 325 MG TAB PO SCH ×2 (08:21→16:56)
[2018-10-04] MEDS: FOLIC ACID 1 MG TAB PO SCH (08:21)
[2018-10-04] MEDS: LOSARTAN POTASSIUM 25 MG TAB PO SCH (08:21)
[2018-10-04 08:22] LABS: Hematocrit (blood only) 30.7 % (42-52); Hemoglobin 9.6 g/dL (14.0-18.0); Mean Corpuscular Hgb Conc 31.3 g/dL (32-36); Mean Corpuscular Volume 77.1 fL (80-100); Mean Platelet Volume 8.9 fL (7.4-10.4); Platelet Count 258 K/uL (130-400); RDW Coefficient of Variation 18.2 % (11.5-14.5); RDW Standard Deviation 50.8 fL (36.4-46.3); Red Blood Count 3.98 M/uL (4.7-6.1); White Blood Count 7.66 K/uL (4.8-10.8)
[2018-10-04] MEDS: predniSONE 5 MG TAB PO SCH (08:22)
[2018-10-04] MEDS: miSOPROStol 50 MCG TAB PO SCH ×2 (08:23→19:07)
[2018-10-04] MEDS: METOPROLOL SUCC 25MG EXT REL TAB PO SCH (08:23)
[2018-10-04 08:55] LABS: BUN Creatinine Ratio 25.9 (10-20); Calcium 7.8 mg/dl (8.5-10.1); Creatinine Clr Calc Pharmacy 95.2 ml/min; Est GFR (African American) 117.2; Est GFR (Non-African American) 101.2; Potassium 3.5 mmol/L (3.5-5.1)
[2018-10-04] MEDS: predniSONE 20 MG TAB PO SCH (09:52)
--- NOTE | 2018-10-04 12:02 | XRay Report ---
XR chest 1V portable CLINICAL HISTORY: tachycardia COMPARISON STUDY: 09/29/2018 FINDINGS: The cardiac and mediastinal contours remain stable. There is resolving pulmonary vascular c ongestion. There is no acute rectal consolidation. There is a suspected small right pleural effusion. Advanced arthritic changes are present within the left shoulder. There are postsurgical changes of a right shoulder arthroplasty. There is stable right apical parenchymal scarring. There are stable pos tinflammatory densities within the right midlung zone.[ IMPRESSION: 1. Resolving pulmonary vascular congestion 2. Small right pleural effusion 3. No evidence of acute parenchymal consolidation Electronically signed by: Eflego Giron M.D. 10/04/2018 12:01 PM
[2018-10-04] MEDS: GABAPENTIN 600 MG TAB PO SCH (16:56)
[2018-10-04] MEDS: ROPINIROLE HCL 0.25 MG TABLET PO SCH (19:08)
[2018-10-04] MEDS: TERAZOSIN HCL 1 MG CAP PO SCH (19:09)
[2018-10-04] MEDS: ACETAMINOPHEN 325 MG TAB PO PRN (23:43)
[2018-10-05] MEDS: ALBUTEROL HFA 8 GM INHALER INH SCH ×6 (01:45→20:40)
[2018-10-05] MEDS: FERROUS SULFATE 325 MG TAB PO SCH ×2 (07:31→15:52)
[2018-10-05] MEDS: LOSARTAN POTASSIUM 25 MG TAB PO SCH (07:32)
[2018-10-05] MEDS: miSOPROStol 50 MCG TAB PO SCH ×2 (07:32→20:38)
[2018-10-05] MEDS: APIXABAN 5 MG TABLET PO SCH ×2 (07:32→20:38)
[2018-10-05] MEDS: predniSONE 20 MG TAB PO SCH (07:33)
[2018-10-05] MEDS: MULTIVITAMIN TAB PO SCH (07:33)
[2018-10-05] MEDS: PANTOprazole 40 MG TAB PO SCH (07:33)
[2018-10-05] MEDS: METOPROLOL SUCC 25MG EXT REL TAB PO SCH (07:33)
[2018-10-05] MEDS: CHOLECALCIFEROL 1,000 UNITS TAB PO SCH (07:34)
[2018-10-05] MEDS: CYANOCOBALAMIN 500 MCG TABLET (VITAMIN B-12) PO SCH (07:34)
[2018-10-05] MEDS: ATORVASTATIN 40 MG TAB PO SCH (07:34)
[2018-10-05] MEDS: CLOPIDOGREL BISULFATE 75 MG TAB PO SCH (07:34)
[2018-10-05] MEDS: FOLIC ACID 1 MG TAB PO SCH (07:36)
--- NOTE | 2018-10-05 14:29 | Cardiology Progress Note ---
Date of Service October 05, 2018 Assessment & Plan (1) CAD (coronary artery disease): 2. Acute systolic CHF 3. Ischemic cardiomyopathy 4. Peripheral arterial disease 5. Lower extremity ulcerations 6. Weakness 7. Rheumatoid arthritis 8. Anemia -800 on Friday after 40 of p.o. Lasix. That afternoon had some relative hypotension. Diuretics have been on hold yesterday and today. Today appears well perfused with no significant congestion. Renal function stable. Patient was admitted with acute on chronic heart failure. Potentially triggered by anemia, intermittent diuretics as an outpatient. At present after diuresis appears euvolemic. Going forward: Would resume maintenance p.o. diuretic, Lasix 20 mg daily tomorrow. Continue current metoprolol, losartan 12.5 mg daily Continue dual antiplatelet therapy with aspirin, Clopidogrel Continue anticoagulation with Eliquis. From a cardiac standpoint okay for discharge to SNF when bed available. Will need close heart failure follow-up on discharge Subjective No events overnight. No new concerns today. Breathing improved. No chest pain. Physical Exam Vital Signs (Past 24 Hours): Last Vital Signs Temp 36.7 C 10/05/18 06:57 Pulse 94 H 10/05/18 08:00 Resp 20 10/05/18 06:57 BP 101/66 10/05/18 06:57 Pulse Ox 96 10/05/18 06:57 Physical Exam: General: Comfortable, no acute distress Eyes: Sclerae anicteric, extraocular movements intact Neck: No JVD. Lungs: Clear to auscultation bilaterally, no rhonchi or wheezes Cardiac: Regular rate and rhythm, no murmurs Abdomen: Soft, nontender, nondistended, positive bowel sounds. Extremities: Well perfused, no peripheral edema Skin: No rashes or lesions. Psych: Alert orient x3, normal affect and mood
[2018-10-05] MEDS: GABAPENTIN 600 MG TAB PO SCH (15:52)
[2018-10-05] MEDS: TRAMADOL HCL 50 MG TABLET PO PRN (20:36)
[2018-10-05] MEDS: TERAZOSIN HCL 1 MG CAP PO SCH (20:39)
[2018-10-05] MEDS: ROPINIROLE HCL 0.25 MG TABLET PO SCH (20:40)
--- NOTE | 2018-10-05 20:50 | Hospitalist Progress Note ---
Date of Service October 05, 2018 Assessment & Plan (1) Symptomatic anemia: It appears likely that the patient symptoms were stemming from his anemia rather than his congestive heart failure. Iron studies showed low TIBC, high ferritin (may be contributed to inflammation), low iron: anemia of chronic disease. - Continue Plavix & Eliquis. (2) CHF (congestive heart failure): Prior provider doubted acute systolic heart failure. Held diuretics on 10/04 & 10/05. - Return to home dosing Lasix 20mg PO daily (3) Weakness: Likely deconditioning s/p UT in the setting of other medical issues. - PT/OT ordered - Awaiting placement. (4) Rheumatoid arthritis: Some pain for prior provider. Started an 8-day steroid taper on 10/04. - Continue taper (5) Chronic foot ulcer with fat layer exposed: Stage 3 pressure ulcer on right medial plantar foot, unstageable pressure ulcer on right medial ankle, full thickness unknown type of ulcer on right 3rd dorsal toe, a right unstageable pressure ulcer, unstageable ulcer of left posterior heel, and a full thickness failed graft on dorsum of left foot. - Wound care following - Will be seen by podiatry in hospital - Patient is on Dalvance. [facility] appointment is [facility] - May consider earlier date if patient is discharged this week. - Medicine can only be administered as an outpatient. (6) Essential hypertension: Only on Toprol for his CAD with BPs in the 100/50 range. - Continue Toprol XL (7) CAD (coronary artery disease): Cath on 09/04/[address] Wright. - Continue Plavix, statin, beta-thomas (8) Anxiety: Xanax PRN as at home (9) Afib: Continue home meds Eliquis (10) Restless leg: continue home meds (11) DVT prophylaxis: On Eliquis for afib Subjective 73yo M w/ hx of CAD who presented with shortness of breath. Feels well this morning overall. Daughter is worried about his heels and the fact that one was bleeding yesterday and overnight. Reports no fevers/chills, chest pain, shortness of breath, abdominal pain, nausea, or vomiting. Physical Exam Vital Signs (Past 24 Hours): Last Vital Signs Temp 36.9 C 10/05/18 19:38 Pulse 111 H 10/05/18 19:38 Resp 20 10/05/18 19:38 BP 96/55 L 10/05/18 19:38 Pulse Ox 98 10/05/18 19:38 Constitutional: WD/WN, vitals as above Eyes: EOM intact bilaterally; no conjunctival abnormality ENMT: external ear and nose normal, oropharynx normal Neck: trachea midline, no thyromegaly normal visual inspection Respiratory: normal respiratory effort, lungs clear to auscultation no respiratory distress Cardiovascular: RRR, no murmur, no edema Gastrointestinal (Abdomen): Inspection/Auscultation: abdomen normal to inspection; abdomen not distended Musculoskeletal: no cyanosis or clubbing, extremities motor strength 5/5 Skin: no rashes, warm and dry Neurologic: moves all extremities and awake Psychiatric: Orientation: alert, oriented to person and cooperative (1) CHF (congestive heart failure) Heart failure chronicity: acute on chronic Heart failure type: unspecified Qualified Code(s): I50.9 - Heart failure, unspecified
[2018-10-06] MEDS: ALBUTEROL HFA 8 GM INHALER INH SCH ×3 (01:49→07:53)
[2018-10-06 07:49] LABS: Hematocrit (blood only) 32.4 % (42-52); Mean Corpuscular Hgb Conc 30.9 g/dL (32-36); Mean Corpuscular Volume 78.6 fL (80-100); Mean Platelet Volume 9.6 fL (7.4-10.4); Platelet Count 318 K/uL (130-400); RDW Coefficient of Variation 18.7 % (11.5-14.5); RDW Standard Deviation 53.3 fL (36.4-46.3); Red Blood Count 4.12 M/uL (4.7-6.1); White Blood Count 9.13 K/uL (4.8-10.8)
[2018-10-06] MEDS: LOSARTAN POTASSIUM 25 MG TAB PO SCH (07:54)
[2018-10-06] MEDS: METOPROLOL SUCC 25MG EXT REL TAB PO SCH (07:54)
[2018-10-06] MEDS: CYANOCOBALAMIN 500 MCG TABLET (VITAMIN B-12) PO SCH (07:55)
[2018-10-06] MEDS: PANTOprazole 40 MG TAB PO SCH (07:55)
[2018-10-06] MEDS: CLOPIDOGREL BISULFATE 75 MG TAB PO SCH (07:55)
[2018-10-06] MEDS: MULTIVITAMIN TAB PO SCH (07:55)
[2018-10-06] MEDS: CHOLECALCIFEROL 1,000 UNITS TAB PO SCH (07:55)
[2018-10-06] MEDS: FERROUS SULFATE 325 MG TAB PO SCH (07:56)
[2018-10-06] MEDS: FOLIC ACID 1 MG TAB PO SCH (07:56)
[2018-10-06] MEDS: ATORVASTATIN 40 MG TAB PO SCH (07:56)
[2018-10-06] MEDS: miSOPROStol 50 MCG TAB PO SCH (07:56)
[2018-10-06] MEDS: APIXABAN 5 MG TABLET PO SCH (07:56)
[2018-10-06 08:22] LABS: BUN Creatinine Ratio 41.6 (10-20); Calcium 8.3 mg/dl (8.5-10.1); Est GFR (African American) 115.6; Est GFR (Non-African American) 99.7; Potassium 3.5 mmol/L (3.5-5.1)
[2018-10-06] MEDS ORDERED: predniSONE 10 MG TABLET PO SCH (09:00)
[2018-10-06 11:54] VITALS: TEMP 97.5; O2SAT 96
[2018-10-06 13:03] VITALS: BP 96/55; PULSE 94
--- NOTE | 2018-10-06 18:11 | Discharge Summary ---
Date of Service October 06, 2018 Admission HPI Per Admitting Provider 73 y/o M who was sent here from the office after being seen by Dr. Wright for routine f/u. Pt states he has felt very weak and tired since his d/c from [facility]. His daughter states he has no strength and he sleeps most of the day. He is awake about 3 hours. Pt has no appetite and daughter states he does not eat much since this d/c. Pt had been admitted to [facility] and underwent a cath on 09/04. He had a stent placed. Pt is mostly wheelchair bound at baseline due to RA. He has issues with using his hands due to RA as well. Pt states he has his baseline pain in his joints, but no other new issues other than the fatigue and weakness. Pt denies fever, SOB, chest pain, abd pain, n/v/c/d, LE swelling. Pt was seen in the office today and Dr. Wright was concerned as pt was supposed to continue lasix on d/c from [facility], however this was not ordered. He has not had this medication since d/c and Dr. Wright was concerned on exam of lungs. Pt has no LE swelling. Principal Diagnosis Shortness of breath due to CHF and anemia Discharge Exam Constitutional WD/WN, vitals as above Eyes EOM intact bilaterally; no conjunctival abnormality ENMT external ear and nose normal, oropharynx normal Neck trachea midline, no thyromegaly normal visual inspection Respiratory normal respiratory effort, lungs clear to auscultation no respiratory distress Cardiovascular RRR, no murmur, no edema Gastrointestinal (Abdomen) Inspection/Auscultation: abdomen normal to inspection; abdomen not distended Musculoskeletal no cyanosis or clubbing, extremities motor strength 5/5 Skin no rashes, warm and dry Neurologic moves all extremities and awake Psychiatric Orientation: alert, oriented to person and cooperative Discharge Data Allergies Allergy/AdvReac Type Severity Reaction Status Date / Time amoxicillin Allergy Severe RED Verified 09/28/18 12:52 BLOTCHES HEAD TO TOE Iodinated Contrast- Oral and Allergy Severe "FELT Verified 09/28/18 12:52 IV Dye FUNNY" ioversol Allergy Severe PASSED OUT Verified 09/28/18 12:52 clavulanic acid Allergy Intermediate RASH Verified 09/28/18 12:52 Penicillins Allergy Intermediate RASH Verified 09/28/18 12:52 adhesive Allergy Mild REDNESS Verified 09/28/18 12:52 WITH EXTENDED USE Sulfa (Sulfonamide Allergy Mild RASH Verified 09/28/18 12:52 Antibiotics) sulfamethoxazole Allergy Mild RASH Verified 09/28/18 12:52 trimethoprim Allergy Mild RASH Verified 09/28/18 12:52 Bactrim Allergy Unknown RASH Verified 11/18/17 00:19 Fish Containing Products Allergy Unknown Verified 09/28/18 12:52 fish derived Allergy Unknown Verified 09/28/18 12:52 fish oil Allergy Unknown Verified 09/28/18 12:52 shellfish derived Allergy Unknown Verified 09/28/18 12:52 Latex, Natural Rubber AdvReac Intermediate Redness of Verified 10/01/18 18:11 Skin Food Allergy Severe SEAFOOD - Uncoded 09/02/18 10:14 EYES SWELL IF DRINKS ALCOHOL WITH Carboxymethylcellulose AdvReac Mild Irritates Uncoded 09/02/18 10:14 the skin Consultations 09/29/18 17:47 Consult Cardiology Routine Consult Case Management - Discharge Planning Routine 10/01/18 13:09 Consult Podiatry Routine Hospital Course (1) Symptomatic anemia: It appears likely that the patient symptoms were stemming from his anemia in addition to his congestive heart failure. Iron studies showed low TIBC, high ferritin (may be contributed to inflammation), low iron: anemia of chronic disease. - Received 1 unit of PRBCs on 10/04 with improvement in his shortness of breath - Hemoglobin stable after that. On discharge, hgb was 10.0 and had been stable for >2 days. - Continued Plavix & Eliquis. (2) CHF (congestive heart failure): Prior provider doubted acute systolic heart failure. Held diuretics on 10/04 & 10/05; however, cardiology felt CHF was playing a role, and he was returned to his home dosing of Lasix. - Return to home dosing Lasix 20mg PO daily (3) Weakness: Likely deconditioning s/p [place] in the setting of other medical issues. - PT/OT ordered; will get rehab at [facility]. (4) Rheumatoid arthritis: Some pain for prior provider. Started an 8-day steroid taper on 10/04. - Continue taper - 40mg x 3 days, then 30mg x 3 days, then 20mg, then 10, then return to home dose of 7mg. 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 - Wound care following - Seen by podiatry in hospital - Patient is on Dalvance. [facility] appointment is on [facility] - Will see Dr. Fleming (podiatry) on 10/07 for follow up. (6) Essential hypertension: Only on Toprol for his CAD with BPs in the 100/50 range. - Continue Toprol XL (7) CAD (coronary artery disease): Cath on 09/04/[address] Wright with single KATHERINE to proximal LAD. - Continue Plavix, statin, beta-thomas (8) Anxiety: Xanax PRN as at home (9) Afib: Continue home meds Eliquis (10) Restless leg: continue home meds Total Time Total Time Spent Total Time Spent (In Minutes): 40 Discharge Plan Discharge Items Patient Disposition: Transfer [facility] Reason For Visit: CHF EXACERBATION Discharge Diagnosis: CHF exacerbation and anemia Discharge Goals: Decrease discomfort, Diagnostic testing and Improve function Activity: Resume your previous activity Non-emergency contact: Primary Care Provider and Surgeon Call non-emergency contact if: you have any medication questions, your pain is not controlled and your temperature is above 100.5 Follow-up/Referrals: Daniele Martinez III, CRNP [Primary Care Provider] - Sabra Kelly PA-C [Physician] - Allison Fleming DPM [Physician] - 10/07/[address] ([address] Fleming in her office on Friday to follow up with your foot ulcers.) Diet: Low Sodium (2gm) Fluids: 1500ml (6 cups) Addtl Provider Instructions: [facility] for your next Dalvance injection. Please take Lasix 40mg by mouth daily. Have your kidney function checked later this week to be sure your potassium and creatinine are normal. Please see Dr. Fleming in her office tomorrow for your podiatry visit. Please take the methotrexate on Wednesdays. Please take 30mg of prednisone for the next 2 days, then 20mg for the next 3 days, then 10mg, then return to your dose of 7mg per day. Call your Primary Care doctor if any of the following symptoms or problems start or get worse: * Shortness of breath or difficulty breathing * Wake up at night short of breath * Chest pain * Cough * Swelling of your hands, feet, or legs * More fatigued or tired with your normal activity * Palpitations - sudden fast heart beats WEIGHT * Weigh yourself every morning after using the bathroom. * Use the same scale. * Wear the same amount of clothing. * Write your weight down on a chart. * Call your Primary Care doctor if you gain more than 2-3 pounds in 1-2 days. MEDICATIONS * Use this discharge instruction sheet for medication instructions. * Take your medications at the time your doctor ordered. * Do not skip a dose of your medicines. * If you miss a dose of medicine, take it as soon as possible, but DO NOT DOUBLE A DOSE. * Read your medicine information when you get home. * Know all of the side effects of your medicine. If in doubt, ask your pharmacist * Call your Primary Care doctor's office if you have any side effects. * Be sure all of your doctors know what medicine and herbs you take (including cold, flu, and herbal medicine). Take the following with you to your follow-up doctor appointments: * Weight Chart * Medication List * List of questions Do not drink excessive alcohol, beer or wine. FOLLOW UP WITH [facility]/HEART FAILURE [facility] WITHIN 7 DAYS OF DISCHARGE. Prescriptions: New furosemide 40 mg Tablet 40 mg PO QAM Qty: 1 RF: 0 losartan 25 mg Tablet 12.5 mg PO QAM Qty: 1 RF: 0 Continued cyanocobalamin (vitamin B-12) [Vitamin B-12] 1,000 mcg Tablet 1,000 mcg PO QAM RF: 0 alendronate [Fosamax] 70 mg tablet 70 mg PO WK RF: 0 multivitamin Tablet 1 cap PO DAILY RF: 0 prednisone 5 mg tablet 5 mg PO QAM RF: 0 methotrexate sodium 2.5 mg tablet 15 mg PO WK RF: 0 prednisone 1 mg tablet 2 mg PO QPM RF: 0 esomeprazole magnesium [Nexium] 40 mg capsule,delayed release(DR/EC) 40 mg PO QAM RF: 0 misoprostol 100 mcg tablet 100 mcg PO BID RF: 0 folic acid 1 mg tablet 1 mg PO QAM RF: 0 cholecalciferol (vitamin D3) [Vitamin D3] 1,000 unit Capsule 1,000 unit PO QAM RF: 0 ProAir RespiClick 90 mcg/actuation aerosol powdr breath activated 2 inha INH Q4H RF: 0 atorvastatin 40 mg Tablet 40 mg PO QAM Qty: 30 RF: 0 clopidogrel 75 mg Tablet 75 mg PO QAM Qty: 30 RF: 0 Eliquis 5 mg Tablet 5 mg PO BID Qty: 30 RF: 0 gabapentin 600 mg Tablet 600 mg PO DAILY@1700 Qty: 30 RF: 0 acetaminophen [Tylenol] 325 mg Tablet 650 mg PO Q4 PRN (Reason: Fever Or Pain) RF: 0 terazosin 1 mg capsule 1 mg PO HS RF: 0 tramadol [Ultram] 50 mg tablet 50 - 100 mg PO Q6 PRN (Reason: Pain) RF: 0 ferrous sulfate 325 mg (65 mg iron) Tablet 325 mg PO BID RF: 0 ropinirole [Requip] 0.5 mg tablet 0.25 mg PO HS RF: 0 metoprolol succinate 25 mg tablet extended release 24 hr 12.5 mg PO QAM RF: 0 dalbavancin 500 mg Solution 1,500 mg IV UD RF: 0 Stand-Alone Forms: [facility] Discharge Orders: Discharge Order (Routine); Ordered 10/06/18 Ordered By: Paolo Thorpe Skilled Items Patient informed of condition?: Yes DNR: No Discharge Level of Care: Skilled Communicable Disease: No Discharge Prognosis: Stable Admission Data Admit Date/Time: 09/29/18 17:14 Attending Provider: Paolo Thorpe Admit Provider: Cecelia Shrestha Primary Care Provider: Daniele Martinez III Other Providers: Kuldip Wright ; Home,Nursing Agency ; Allison Fleming Service: Telemetry Other Interventions: Discharge Summary Assessment (RN) Last Done: 10/06/18 13:02 DC Date/Time DO NOT enter until pt leaves facility: 10/06/18 13:10
[2018-10-08] MEDS ORDERED: predniSONE 20 MG TAB PO SCH (09:00)
[2018-10-10] MEDS ORDERED: predniSONE 10 MG TABLET PO SCH (09:00)
== END 2018-10-06 13:10 | DRG 811 ==
LOC: ED 13:48 → 2N 17:14 → SUATTDRO 17:14 → 2N 17:38

== ENCOUNTER 2018-11-30 11:32 | Inpatient (IN) ==
[2018-11-30] MEDS ORDERED: SODIUM CHLORIDE 0.9% 500 ML IV SCH (12:15)
[2018-11-30] MEDS ORDERED: SODIUM CHLORIDE 0.9% 1000ML 1,000 ML IV SCH (12:15)
[2018-11-30] MEDS ORDERED: ONDANSETRON INJ 2 MG/ML 2 ML VIAL IV STA (12:23)
[2018-11-30] MEDS ORDERED: SODIUM CHLORIDE 0.9% 1000ML 1,000 ML IV STA (12:29)
--- NOTE | 2018-11-30 12:44 | CT Scan Report ---
CT OF THE HEAD WITHOUT CONTRAST CLINICAL HISTORY: Fall. Altered mental status. COMPARISON STUDY: Head CT June 06, 2011. MRI of the brain March 10, 2015. CT DOSE: 614.27 mGy.cm TECHNIQUE: Helical axial images of the head were obtained without IV contrast. Automated exposure con trol was utilized for the study. A dose lowering technique was utilized adhering to the principles o f ALARA. FINDINGS: No acute intracranial hemorrhage, midline shift or mass effect is present. Ventricular syst em is stable. The basilar cisterns are patent. There are no extra-axial collections. White matter hyp odensity suggests small vessel disease. There are no findings to suggest acute dural sinus or acute t erritorial infarct. There is no calvarial fracture. IMPRESSION: 1. No acute intracranial findings. 2. No calvarial fracture. Electronically signed by: Edmund Bronson M.D. 11/30/2018 12:43 PM
[2018-11-30] MEDS: HYDROmorphone INJ 0.5 MG/0.5 ML SYR IV PRN ×3 (12:48→20:36)
--- NOTE | 2018-11-30 12:48 | XRay Report ---
XR chest 1V portable CLINICAL HISTORY: weakness dyspnea COMPARISON STUDY: 10/04/2018 FINDINGS: Mild stable cardiomegaly. Mild prominence the pulmonary vasculature. Several healing right- sided rib fractures. Severe degenerative change left shoulder. IMPRESSION: Findings of early congestive heart failure. The above report was generated using voice recognition software. It may contain grammatical, syntax or spelling errors. Electronically signed by: Janusz Owen M.D. 11/30/2018 12:47 PM
--- NOTE | 2018-11-30 12:54 | XRay Report ---
LEFT FOOT 3 VIEWS HISTORY: multiple left foot wounds, ? osteo COMPARISON: Left foot 08/26/2018. FINDINGS: No acute fracture or dislocation. The bones are osteopenic. Vascular calcifications are not ed. Amputation at the PIP joint of the third toe, unchanged. Old, healed fractures involving the shaf ts of the second fourth metatarsals. Moderate osteoarthritis seen throughout the midfoot. There is di ffuse soft tissue swelling. Focal skin ulceration is within the medial aspect of the midfoot and dist al fourth toe. Pes planus deformity is again noted. No radiopaque foreign bodies. Suggestion of a foc al cortical erosion involving the distal tuft of the fourth toe. This is deep to the focal skin ulcer ation. Therefore, this is concerning for osteomyelitis. IMPRESSION: Suggestion of a focal cortical erosion involving the distal tuft of the fourth toe. This is deep to t he focal skin ulceration. Therefore, this is concerning for osteomyelitis. Electronically signed by: Edson Hunter M.D. 11/30/2018 12:52 PM
[2018-11-30 13:33] LABS: Basophils # (auto) 0.01 K/uL (0-0.2); Basophils % (auto) 0.1 %; Eosinophils # (auto) 0.01 K/uL (0-0.5); Eosinophils % (auto) 0.1 %; Hematocrit (blood only) 23.7 % (42-52); Hemoglobin 7.5 g/dL (14.0-18.0); Immature Granulocytes # (auto) 0.06 K/uL (0.00-0.02); Immature Granulocytes % (auto) 0.6 %; Lymphocytes # (auto) 0.58 K/uL (1.2-3.4); Lymphocytes % (auto) 5.7 %; Mean Corpuscular Hgb Conc 31.6 g/dL (32-36); Mean Corpuscular Volume 83.2 fL (80-100); Mean Platelet Volume 8.8 fL (7.4-10.4); Monocytes # (auto) 0.85 K/uL (0.11-0.59); Monocytes % (auto) 8.4 %; Neutrophils % (auto) 85.1 %; Platelet Count 286 K/uL (130-400); RDW Coefficient of Variation 22.6 % (11.5-14.5); RDW Standard Deviation 67.6 fL (36.4-46.3); Red Blood Count 2.85 M/uL (4.7-6.1); White Blood Count 10.11 K/uL (4.8-10.8)
[2018-11-30 13:48] LABS: Albumin Level 2.7 gm/dl (3.4-5.0); BUN Creatinine Ratio 42.1 (10-20); Calcium 8.3 mg/dl (8.5-10.1); Creatinine Clr Calc Pharmacy 94.3 ml/min; Est GFR (African American) 118.1; Est GFR (Non-African American) 101.9; Magnesium 2.2 mg/dl (1.8-2.4); Potassium 4.2 mmol/L (3.5-5.1)
[2018-11-30 13:59] LABS: Albumin Globulin Ratio 0.8 (0.9-2); Anisocytosis Present; Bilirubin,Total 0.3 mg/dl (0.2-1); Echinocytes 1+; Globulin 3.4 gm/dl (2.5-4.0); Hypochromasia Present; Poikilocytosis Present; Total Protein 6.1 gm/dl (6.4-8.2); Troponin I 0.023 ng/ml (0-0.045)
[2018-11-30 14:48] LABS: Appearance Urine Clear (Clear); Bacteria Urine Automated Negative (Negative); Bilirubin Urine Negative (Negative); Cast Urine Automated 0 /lpf (0-5); Color Urine Yellow; Glucose Urine UA Negative (Negative); Ketones Urine Negative (Negative); Leukocyte Esterase Urine Trace (Negative); Nitrite Urine Negative (Negative); Protein Urine Negative (Negative); Specific Gravity Urine 1.022 (1.000-1.030); Urobilinogen Urine Negative (Negative); pH Urine 5.5 (4.5-7.5)
--- NOTE | 2018-11-30 16:05 | History & Physical Report ---
Date of Service November 30, 2018 Assessment & Plan (1) Intractable pain: Consult pain management. 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 Consult infectious disease. Vascular surgery may also need to be consulted if amputation is considered. Present on Admission?: Yes (3) Severe anemia: Check stool Hemoccult and other anemia labs. Serial lab studies. Present on Admission?: Yes (4) Bilateral leg ulcer: Chronic in nature. Consult wound care team Present on Admission?: Yes (5) Heart failure with reduced ejection fraction: Currently stable. Continue losartan and Lasix (6) MRSA (methicillin resistant Staphylococcus aureus) infection: Continue daptomycin therapy (7) Paroxysmal atrial fibrillation: Currently in normal sinus rhythm. 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 He is being treated by infectious disease and the wound clinic. He presents with intractable left foot pain. He has evidence of osteomyelitis involving the distal aspect of the left fourth toe. Hemoglobin is down to 7.5. He denies any melena or hematochezia. He has an deep left heel wound in addition to ulceration of the dorsal aspect of the left foot and multiple ulcerations on the right foot. The left foot appears worse than the right foot however. There is no fever or evidence of sepsis. He is steroid-dependent with rheumatoid arthritis. He is anticoagulated with Eliquis. He is admitted for further eval uation and treatment. He requests full CODE STATUS. Allergies Allergy/AdvReac Type Severity Reaction Status Date / Time amoxicillin Allergy Severe RED Verified 11/30/18 12:10 BLOTCHES HEAD TO TOE Iodinated Contrast- Oral and Allergy Severe "FELT Verified 11/30/18 12:10 IV Dye FUNNY" ioversol Allergy Severe PASSED OUT Verified 11/30/18 12:10 clavulanic acid Allergy Intermediate RASH Verified 11/30/18 12:10 Penicillins Allergy Intermediate RASH Verified 11/30/18 12:10 adhesive Allergy Mild REDNESS Verified 11/30/18 12:10 WITH EXTENDED USE Sulfa (Sulfonamide Allergy Mild RASH Verified 11/30/18 12:10 Antibiotics) sulfamethoxazole Allergy Mild RASH Verified 11/30/18 12:10 trimethoprim Allergy Mild RASH Verified 11/30/18 12:10 Bactrim Allergy Unknown RASH Verified 11/18/17 00:19 Fish Containing Products Allergy Unknown Verified 11/30/18 12:10 fish derived Allergy Unknown Verified 11/30/18 12:10 fish oil Allergy Unknown Verified 11/30/18 12:10 shellfish derived Allergy Unknown Verified 11/30/18 12:10 Latex, Natural Rubber AdvReac Intermediate Redness of Verified 11/30/18 12:10 Skin Food Allergy Severe SEAFOOD - Uncoded 11/30/18 12:10 EYES SWELL IF DRINKS ALCOHOL WITH Carboxymethylcellulose AdvReac Mild Irritates Uncoded 11/30/18 12:10 the skin Home Medications Home Medications Medication Instructions Recorded Confirmed Type cyanocobalamin (vitamin B-12) 1,000 mcg PO DAILY 07/14/18 11/30/18 History [Vitamin B-12] alendronate [Fosamax] 70 mg PO WK 07/16/18 11/30/18 History esomeprazole magnesium [Nexium] 40 mg PO DAILY 07/16/18 11/30/18 History folic acid 1 mg PO DAILY 07/16/18 11/30/18 History methotrexate sodium 15 mg PO WK 07/16/18 11/30/18 History misoprostol 100 mcg PO BID 07/16/18 11/30/18 History multivitamin 1 cap PO DAILY 07/16/18 11/30/18 History prednisone 2 mg PO QPM 07/16/18 11/30/18 History prednisone 5 mg PO DAILY 07/16/18 11/30/18 History ProAir RespiClick 2 inha INH Q4H 08/04/18 11/30/18 History cholecalciferol (vitamin D3) 1,000 unit PO DAILY 08/04/18 11/30/18 History [Vitamin D3] Eliquis 5 mg PO BID #30 tab 09/08/18 11/30/18 Rx acetaminophen [Tylenol] 650 mg PO Q4 PRN 09/29/18 11/30/18 History dalbavancin 1,500 mg IV Q14D 09/29/18 11/30/18 History ferrous sulfate 325 mg PO DAILY 09/29/18 11/30/18 History metoprolol succinate 12.5 mg PO DAILY 09/29/18 11/30/18 History ropinirole [Requip] 0.25 mg PO DAILY 09/29/18 11/30/18 History terazosin 1 mg PO DAILY 09/29/18 11/30/18 History atorvastatin 40 mg PO DAILY 11/30/18 11/30/18 History clopidogrel 75 mg PO DAILY 11/30/18 11/30/18 History docusate sodium [Colace] 100 mg PO DAILY 11/30/18 11/30/18 History furosemide 40 mg PO DAILY 11/30/18 11/30/18 History gabapentin 600 mg PO HS 11/30/18 11/30/18 History losartan 12.5 mg PO DAILY 11/30/18 11/30/18 History Past Med/Surg History Medical History Rib fracture Fall Asthma exacerbation B12 deficiency Rheumatoid arthritis PAD (peripheral artery disease) Chronic foot ulcer with fat layer exposed - continue dressings as discussed, new dressings applied today and will need changed daily Essential hypertension (Chronic 02/12/13) CHF (congestive heart failure) (Acute) Asthma (Chronic) Cellulitis (Chronic) Foot pain, right (Chronic) GERD (gastroesophageal reflux disease) (Chronic) Ulcer (Chronic) LEFT FOOT Anxiety Arrhythmia BPH (benign prostatic hyperplasia) Osteoarthritis Rheumatoid arthritis Surgical History H/O heart artery stent (Acute) History of colectomy POLYPS REMOVED History of colonoscopy History of esophagogastroduodenoscopy (EGD) History of repair of rotator cuff RT History of tooth extraction Family History Father Myocardial infarction Other Family history non-contributory Social History Preferred Language: American Communication Ability: Impaired Beliefs That Will Affect Care: None Current Living Situation: Spouse and Family Current Living Situation Comment: spouse and dtr Feels Safe at Home: Yes Smoking Status: Former smoker Second Hand Exposure: No Hx Alcohol Use: No Hx Substance Use: No Review of Systems Review of Systems: All systems reviewed & are unremarkable except as noted in HPI & below Musculoskeletal: Chronic multiple joint pain Integumentary: Multiple ulcerations of the left and right feet Physical Exam Constitutional: + ill appearing and + thin Alert Eyes: PERRL, conjunctivae normal, anicteric sclerae ENMT: external ear and nose normal, oropharynx normal Neck: trachea midline, no thyromegaly Respiratory: normal respiratory effort, lungs clear to auscultation Cardiovascular: Rate/Rhythm: regular rate and regular rhythm Heart Sounds: normal S1 and normal S2 Grade 1/6 systolic murmur at the apex Gastrointestinal (Abdomen): normal bowel sounds, soft, nontender, no hepatosplenomegaly Musculoskeletal: Left leg held in flexed position. Multiple deformities of bilateral metacarpophalangeal joints from rheumatoid arthritis with ulnar deviation Skin: Multiple ulcerations of the dorsum of the left foot, multiple toes, nonviable tip of the left fourth toe, open deep ulceration left Achilles area. More superficial ulcerations along the medial and lateral aspect of the right foot Neurologic: moves all extremities; no focal motor deficits Results & Data Vital Signs (Past 12 Hours) Vital Signs Temp Pulse Pulse Resp BP BP Pulse Ox 11/30/18 15:36 92 H 20 96/55 L 94 11/30/18 13:52 52 L 19 94/55 L 93 11/30/18 12:24 94 11/30/18 11:43 37 C 85 18 94/55 L 94 Laboratory Results 11/30/18 13:16 11/30/18 13:16 (1) Bilateral leg ulcer Non-pressure ulcer stage: with fat layer exposed Qualified Code(s): L97.912 - Non-pressure chronic ulcer of unspecified part of right lower leg with fat l galilea exposed; L97.922 - Non-pressure chronic ulcer of unspecified part of left lower leg with fat layer exposed
[2018-11-30] MEDS ORDERED: ACETAMINOPHEN 325 MG TAB PO PRN (17:38)
[2018-11-30] MEDS ORDERED: ALUMINUM/MAGNESIUM SUSP 30 ML UDC PO PRN (17:38)
[2018-11-30] MEDS ORDERED: ONDANSETRON INJ 2 MG/ML 2 ML VIAL IV PRN (17:38)
[2018-11-30] MEDS: miSOPROStol 50 MCG TAB PO SCH (19:17)
[2018-11-30] MEDS: ACETAMINOPHEN 325 MG TAB PO PRN (19:17)
[2018-11-30 19:32] LABS: Reticulocyte % 4.9 % (0.5-2.0); Reticulocytes # 0.14 10^6/uL (0.02-0.10)
[2018-11-30 20:05] LABS: Ferritin 48.5 ng/ml (8-388)
[2018-11-30 20:13] LABS: Folate (Folic Acid) > 24.00 ng/ml (>5.38); Vitamin B12 1281 pg/ml (211-911)
--- NOTE | 2018-11-30 20:20 | Emergency Department Note ---
Entered by Isaías Horton acting as a scribe for Vic Chaves MD ED Provider Note CHIEF COMPLAINT: painful leg ulcers HISTORY OF PRESENT ILLNESS: The patient is a 73 year old male who presents to the Emergency Room with compl aints of persistent bilateral leg pain for the past month. Family at bedside reports that the patient has chronic foot ulcers followed by [facility] podiatry, although no interventional treatments aside from antibiotics are currently being given. His pain has been managed by his PCP with Tylenol and Tramadol, but he states that this has not improved his pain. Family states that the patient has been having difficulty sleeping, and he sleeps with his feet hanging over the bed due to pain and his restless leg syndrome. She reports that three days ago the patient fell out of bed and struck his head. She also notes swelling in his legs. She states that the patient has been taking his medications, and the wounds appear unchanged. She notes that infection has not spread to the bone. Pt denies LOC, headache, fevers, chills, diaphoresis, visual changes, neck pain, chest pain, breathing difficulties, nausea, vomiting, loss of appetite, abdominal pain, back pain, melena, hematochezia, urinary symptoms, numbness, lymphadenopathy, or other complaints. REVIEW OF SYSTEMS: See HPI for pertinent positives and negatives. A total of ten systems were reviewed and were otherwise negative. PMHx/PSHx: CHF GERD asthma arthritis PAD SOCIAL HISTORY: Patient lives at home. PHYSICAL EXAM: GENERAL: Awake, alert, well-appearing, in no distress HENT: Normocephalic, but there is ecchymosis and an abrasion to the bridge of the nose. Oropharynx unremarkable. EYES: PERRL. Normal conjunctiva. Sclera non-icteric. NECK: Inspection normal. Non-tender. Supple. No nuchal rigidity. FROM. No masses. RESPIRATORY: Clear to auscultation. No wheezes. No rales. Normal respiratory effort. CARDIAC: Normal rate. Normal rhythm. No murmurs. No rubs. Extremities warm and well perfused. Pulses equal. No JVD. GI: Soft, non-distended. No tenderness to palpation. No rebound or guarding. No masses. RECTAL: Deferred. MUSCULOSKELETAL: Atraumatic. Chest examination reveals no tenderness. The back is symmetrical on inspection without obvious abnormality. There is no CVA tenderness to palpation. No joint edema. LOWER EXTREMITIES: There is an approximately 1 cm stage III decubitus ulcer on the medial instep of the right leg and medial malleolus of the right leg. Right leg has 1+ edema. In the left leg there are stage II decubitus ulcers of the lateral lower fibula and medial malleolus. The left foot has ulcerations of the nail bed in the 2nd, 4th and 5th toes, and there is a partial amputation of the 3rd toe. There are wounds on the dorsal aspect of the left foot, medial instep, and medial aspect of the MTP joint that are mildly red. NEURO: Normal sensorium. No sensory or motor deficits noted. SKIN: No rash or jaundice noted. EMERGENCY DEPARTMENT COURSE: 1212: Past medical records reviewed. The patient was evaluated in room B7, and a complete history and physical examination were performed. 1330: The patient is now resting more comfortably. 1438: I updated the patient on current results. 1439: I consulted [facility]. Allred [facility] Hospitalist. The patient will be reevaluated for hospitalization. MEDICAL DECISION MAKING: Prior records/ancillary studies reviewed. The patient has had a mild anemia in the past. Typically he runs with a hemoglobin in the 9-10 range. Nursing notes reviewed and agree them. Additional history obtained from patient's daughter. The patient's history was concerning for leg pain, chronic wounds, and his fall. Differential diagnosis: Etiologies such as metabolic, infection, hypo/hyperglycemia, electrolyte abnormalities, cardiac sources, intracerebral event, toxicologic, neurologic, intracranial hemorrhage, osteomyelitis, neuropathy, as well as others were entertained. Physical examination: As above. ER treatment provided: IV Lock IV Dilaudid IV Zofran On reassessment the patient felt better. Diagnostics interpretation by me: ECG: No acute ischemia The labs revealed no leukocytosis on CBC but a significant anemia was found. Chemistry panel was unremarkable. Imaging studies: Head CT negative for acute disease. CHF noted on chest x-ray. The patient has findings concerning for developing osteomyelitis on foot imaging with regards to his toe. The patient has multiple issues at this time. He has a significant anemia. He is dealing with multiple wounds of various stages. He appears to be developing an osteomyelitis. His pain is better controlled with the Dilaudid. He will need further management in the hospital. Consultation: A consultation was placed with the hospitalist. The case was discussed and diagnostics were reviewed. The patient was evaluated in the ER for further treatment. IMPRESSION: bilateral lower extremity pain osteomyelitis of left 4th toe severe anemia closed head injury PLAN: evaluation by hospitalist The brianne's documentation has been prepared under my direction and personally reviewed by me in its entirety. I confirm that the note above accurately reflects all work, treatment, procedures, and medical decision making performed by me. Impression & Plan Bilateral leg pain, Osteomyelitis of fourth toe of left foot, Severe anemia, Closed head injury Past Med/Surg History Medical History Rheumatoid arthritis (Chronic) Steroid dependent Paroxysmal atrial fibrillation (Chronic) Intractable pain (Acute) Rib fracture Fall Asthma exacerbation B12 deficiency Rheumatoid arthritis PAD (peripheral artery disease) Chronic foot ulcer with fat layer exposed - continue dressings as discussed, new dressings applied today and will need changed daily Essential hypertension (Chronic 02/12/13) CHF (congestive heart failure) (Acute) Asthma (Chronic) Cellulitis (Chronic) Foot pain, right (Chronic) GERD (gastroesophageal reflux disease) (Chronic) Ulcer (Chronic) LEFT FOOT Anxiety Arrhythmia BPH (benign prostatic hyperplasia) Osteoarthritis Rheumatoid arthritis Surgical History H/O heart artery stent (Acute) History of colectomy POLYPS REMOVED History of colonoscopy History of esophagogastroduodenoscopy (EGD) History of repair of rotator cuff RT History of tooth extraction Family History Father Myocardial infarction Other Family history non-contributory Social History Preferred Language: Latvian Communication Ability: Effective 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 Beliefs That Will Affect Care: None Current Living Situation: Spouse Current Living Situation Comment: spouse and dtr Other Information That Helps Us Care for You: No Feels Safe at Home: Yes Safety Concerns: Feels Safe At This Time Smoking Status: Former smoker Do You Dip or Chew Tobacco: No Second Hand Ex posure: No Tobacco Cessation Education Requested by Patient: No Hx Alcohol Use: No Hx Substance Use: No Results & Data Vital Signs Vital Signs - 24 hr 11/30/18 11:43 11/30/18 12:24 11/30/18 13:52 Temperature 37 C Temperature Source Oral Sepsis Recent Fever Within 48 Hours No Sepsis Action Taken by Nursing No Action Required Pulse Rate 85 Pulse Rate [Apical] 52 L Pulse Rate [Left Finger] Respiratory Rate 18 19 Respiratory Effort / Characteristics Respiratory Depth Respiratory Pattern Blood Pressure 94/55 L Blood Pressure [Left Arm] Blood Pressure [Right Arm] 94/55 L Blood Pressure Mean 68 Blood Pressure Mean [Left Arm] Blood Pressure Mean [Right Arm] 68 Blood Pressure Position [Left Arm] Pulse Oximetry 94 94 93 Oxygen Delivery Method Room Air Room Air 11/30/18 15:36 11/30/18 16:42 11/30/18 17:38 Temperature 36.5 C Temperature Source Oral Sepsis Recent Fever Within 48 Hours Sepsis Action Taken by Nursing Pulse Rate Pulse Rate [Apical] 92 H Pulse Rate [Left Finger] 97 H Respiratory Rate 20 90 H 22 Respiratory Effort / Characteristics Non-Labored Spontaneous Respiratory Depth Normal Respiratory Pattern Regular Blood Pressure 92/43 L Blood Pressure [Left Arm] 113/52 L Blood Pressure [Right Arm] 96/55 L Blood Pressure Mean Blood Pressure Mean [Left Arm] 72 Blood Pressure Mean [Right Arm] 68 Blood Pressure Position [Left Arm] Sitting Pulse Oximetry 94 93 95 Oxygen Delivery Method Room Air Room Air 11/30/18 19:08 11/30/18 20:10 Temperature Temperature Source Sepsis Recent Fever Within 48 Hours Sepsis Action Taken by Nursing Pulse Rate Pulse Rate [Apical] 99 H Pulse Rate [Left Finger] Respiratory Rate Respiratory Effort / Characteristics Respiratory Depth Respiratory Pattern Blood Pressure Blood Pressure [Left Arm] 92/51 L Blood Pressure [Right Arm] 88/46 L Blood Pressure Mean Blood Pressure Mean [Left Arm] 64 Blood Pressure Mean [Right Arm] 60 Blood Pressure Position [Left Arm] Pulse Oximetry Oxygen Delivery Method Home Medications Current Medication List: was personally reviewed by me Laboratory Data Attestation: I reviewed the patient's lab results. Result diagrams: 11/30/18 13:16 11/30/18 13:16 Lab Results 11/30/18 11/30/18 11/30/18 Range/Units 13:09 13:16 13:16 WBC 10.11 (4.8-10.8) K/uL RBC 2.85 L (4.7-6.1) M/uL Hgb 7.5 L (14.0-18.0) g/dL Hct 23.7 L (42-52) % MCV 83.2 (80-100) fL MCH 26.3 (25-34) pg MCHC 31.6 L (32-36) g/dL RDW Std Deviation 67.6 H (36.4-46.3) fL RDW Coeff of Nick 22.6 H (11.5-14.5) % Plt Count 286 (130-400) K/uL MPV 8.8 (7.4-10.4) fL Immature Gran % (Auto) 0.6 % Neut % (Auto) 85.1 % Lymph % (Auto) 5.7 % Trego % (Auto) 8.4 % Eos % (Auto) 0.1 % Baso % (Auto) 0.1 % Reticulocyte % (Auto) (0.5-2.0) % Immature Gran # (Auto) 0.06 H (0.00-0.02) K/uL Neut # (Auto) 8.60 H (1.4-6.5) K/uL Lymph # (Auto) 0.58 L (1.2-3.4) K/uL Trego # (Auto) 0.85 H (0.11-0.59) K/uL Eos # (Auto) 0.01 (0-0.5) K/uL Baso # (Auto) 0.01 (0-0.2) K/uL Reticulocyte # (0.02-0.10) 10^6/uL Hypochromasia Present Poikilocytosis Present Anisocytosis Present Echinocytes 1+ Sodium 138 (136-145) mmol/L Potassium 4.2 (3.5-5.1) mmol/L Chloride 105 (98-107) mmol/L Carbon Dioxide 23 (21-32) mmol/L Anion Gap 9.0 (3-11) BUN 24 H (7-18) mg/dl Creatinine 0.56 L (0.6-1.4) mg/dl Est Cr Clr Drug Dosing 94.3 ml/min Est GFR ( Amer) 118.1 Est GFR (Non-Af Amer) 101.9 BUN/Creatinine Ratio 42.1 H (10-20) Glucose 113 H (70-99) mg/dl POC Lactic Acid Marco 1.57 (0.90-1.70) mmol/L Calcium 8.3 L (8.5-10.1) mg/dl Magnesium 2.2 (1.8-2.4) mg/dl Iron (35-175) mcg/dl Ferritin (8-388) ng/ml Total Bilirubin 0.3 (0.2-1) mg/dl AST 26 (15-37) U/L ALT 29 (12-78) U/L Alkaline Phosphatase 92 (45-117) U/L Troponin I 0.023 (0-0.045) ng/ml Total Protein 6.1 L (6.4-8.2) gm/dl Albumin 2.7 L (3.4-5.0) gm/dl Globulin 3.4 (2.5-4.0) gm/dl Albumin/Globulin Ratio 0.8 L (0.9-2) Vitamin B12 (211-911) pg/ml Folate (>5.38) ng/ml TSH 2.500 (0.300-4.500) uIu/ml Urine Color Urine Appearance (Clear) Urine pH (4.5-7.5) Ur Specific Bruner (1.000-1.030) Urine Protein (Negative) Urine Glucose (UA) (Negative) Urine Ketones (Negative) Urine Blood (Negative) Urine Nitrite (Negative) Urine Bilirubin (Negative) Urine Urobilinogen (Negative) Ur Leukocyte Esterase (Negative) Urine WBC (Auto) (0-5) /hpf Urine RBC (Auto) (0-4) /hpf U Hyaline Cast (Auto) (0-5) /lpf U Epithel Cells (Auto) (0-5) /lpf Urine Bacteria (Auto) (Negative) Blood Type Antibody Screen 11/30/18 11/30/18 11/30/18 Range/Units 14:01 14:40 19:05 WBC (4.8-10.8) K/uL RBC (4.7-6.1) M/uL Hgb (14.0-18.0) g/dL Hct (42-52) % MCV (80-100) fL MCH (25-34) pg MCHC (32-36) g/dL RDW Std Deviation (36.4-46.3) fL RDW Coeff of Nick (11.5-14.5) % Plt Count (130-400) K/uL MPV (7.4-10.4) fL Immature Gran % (Auto) % Neut % (Auto) % Lymph % (Auto) % Trego % (Auto) % Eos % (Auto) % Baso % (Auto) % Reticulocyte % (Auto) (0.5-2.0) % Immature Gran # (Auto) (0.00-0.02) K/uL Neut # (Auto) (1.4-6.5) K/uL Lymph # (Auto) (1.2-3.4) K/uL Trego # (Auto) (0.11-0.59) K/uL Eos # (Auto) (0-0.5) K/uL Baso # (Auto) (0-0.2) K/uL Reticulocyte # (0.02-0.10) 10^6/uL Hypochromasia Poikilocytosis Anisocytosis Echinocytes Sodium (136-145) mmol/L Potassium (3.5-5.1) mmol/L Chloride (98-107) mmol/L Carbon Dioxide (21-32) mmol/L Anion Gap (3-11) BUN (7-18) mg/dl Creatinine (0.6-1.4) mg/dl Est Cr Clr Drug Dosing ml/min Est GFR ( Amer) Est GFR (Non-Af Amer) BUN/Creatinine Ratio (10-20) Glucose (70-99) mg/dl POC Lactic Acid Marco (0.90-1.70) mmol/L Calcium (8.5-10.1) mg/dl Magnesium (1.8-2.4) mg/dl Iron 16 L (35-175) mcg/dl Ferritin 48.5 (8-388) ng/ml Total Bilirubin (0.2-1) mg/dl AST (15-37) U/L ALT (12-78) U/L Alkaline Phosphatase (45-117) U/L Troponin I (0-0.045) ng/ml Total Protein (6.4-8.2) gm/dl Albumin (3.4-5.0) gm/dl Globulin (2.5-4.0) gm/dl Albumin/Globulin Ratio (0.9-2) Vitamin B12 (211-911) pg/ml Folate (>5.38) ng/ml TSH (0.300-4.500) uIu/ml Urine Color Yellow Urine Appearance Clear (Clear) Urine pH 5.5 (4.5-7.5) Ur Specific Bruner 1.022 (1.000-1.030) Urine Protein Negative (Negative) Urine Glucose (UA) Negative (Negative) Urine Ketones Negative (Negative) Urine Blood Negative (Negative) Urine Nitrite Negative (Negative) Urine Bilirubin Negative (Negative) Urine Urobilinogen Negative (Negative) Ur Leukocyte Esterase Trace H (Negative) Urine WBC (Auto) 1-5 (0-5) /hpf Urine RBC (Auto) 0-4 (0-4) /hpf U Hyaline Cast (Auto) 0 (0-5) /lpf U Epithel Cells (Auto) 5-10 H (0-5) /lpf Urine Bacteria (Auto) Negative (Negative) Blood Type B Positive Antibody Screen NEGATIVE 11/30/18 11/30/18 11/30/18 Range/Units 19:19 19:19 19:19 WBC (4.8-10.8) K/uL RBC (4.7-6.1) M/uL Hgb (14.0-18.0) g/dL Hct (42-52) % MCV (80-100) fL MCH (25-34) pg MCHC (32-36) g/dL RDW Std Deviation (36.4-46.3) fL RDW Coeff of Nick (11.5-14.5) % Plt Count (130-400) K/uL MPV (7.4-10.4) fL Immature Gran % (Auto) % Neut % (Auto) % Lymph % (Auto) % Trego % (Auto) % Eos % (Auto) % Baso % (Auto) % Reticulocyte % (Auto) 4.9 H (0.5-2.0) % Immature Gran # (Auto) (0.00-0.02) K/uL Neut # (Auto) (1.4-6.5) K/uL Lymph # (Auto) (1.2-3.4) K/uL Trego # (Auto) (0.11-0.59) K/uL Eos # (Auto) (0-0.5) K/uL Baso # (Auto) (0-0.2) K/uL Reticulocyte # 0.14 H (0.02-0.10) 10^6/uL Hypochromasia Poikilocytosis Anisocytosis Echinocytes Sodium (136-145) mmol/L Potassium (3.5-5.1) mmol/L Chloride (98-107) mmol/L Carbon Dioxide (21-32) mmol/L Anion Gap (3-11) BUN (7-18) mg/dl Creatinine (0.6-1.4) mg/dl Est Cr Clr Drug Dosing ml/min Est GFR ( Amer) Est GFR (Non-Af Amer) BUN/Creatinine Ratio (10-20) Glucose (70-99) mg/dl POC Lactic Acid Marco (0.90-1.70) mmol/L Calcium (8.5-10.1) mg/dl Magnesium (1.8-2.4) mg/dl Iron (35-175) mcg/dl Ferritin (8-388) ng/ml Total Bilirubin (0.2-1) mg/dl AST (15-37) U/L ALT (12-78) U/L Alkaline Phosphatase (45-117) U/L Troponin I (0-0.045) ng/ml Total Protein (6.4-8.2) gm/dl Albumin (3.4-5.0) gm/dl Globulin (2.5-4.0) gm/dl Albumin/Globulin Ratio (0.9-2) Vitamin B12 1281 H Cancelled (211-911) pg/ml Folate > 24.00 (>5.38) ng/ml TSH (0.300-4.500) uIu/ml Urine Color Urine Appearance (Clear) Urine pH (4.5-7.5) Ur Specific Bruner (1.000-1.030) Urine Protein (Negative) Urine Glucose (UA) (Negative) Urine Ketones (Negative) Urine Blood (Negative) Urine Nitrite (Negative) Urine Bilirubin (Negative) Urine Urobilinogen (Negative) Ur Leukocyte Esterase (Negative) Urine WBC (Auto) (0-5) /hpf Urine RBC (Auto) (0-4) /hpf U Hyaline Cast (Auto) (0-5) /lpf U Epithel Cells (Auto) (0-5) /lpf Urine Bacteria (Auto) (Negative) Blood Type Antibody Screen Administered Medications Acetaminophen (Tylenol) 650 mg PO Q4 PRN PRN Reason: Fever Or Pain Stop: 12/30/18 17:37 Last Admin: 11/30/18 19:17 Dose: 650 mg Documented by: [id number] Sodium Chloride (Nss 1000ml) 1,000 mls @ 125 mls/hr IV .Q8H STA Stop: 11/30/18 20:28 Last Infusion: 11/30/18 19:52 Dose: 0 mls/hr Documented by: [id number] Admin: 11/30/18 12:47 Dose: 125 mls/hr Documented by: [id number] Misoprostol (Cytotec) 100 mcg PO BIDM ROBIN Stop: 12/30/18 18:59 Last Admin: 11/30/18 19:17 Dose: 100 mcg Documented by: [id number] Discontinued Medications Hydromorphone HCl (Dilaudid) 0.5 mg IV Q15M PRN PRN Reason: Pain Stop: 12/14/18 12:22 Last Admin: 11/30/18 15:36 Dose: 0.5 mg Documented by: [id number] Admin: 11/30/18 12:48 Dose: 0.5 mg Documented by: [id number] Sodium Chloride (Nss 1000ml) 1,000 mls @ 999 mls/hr IV .Q1H1M ROBIN Stop: 11/30/18 13:15 Last Admin: 11/30/18 13:57 Dose: Not Given Documented by: [id number] Sodium Chloride (Nss) 500 mls @ 999 mls/hr IV .Q31M [facility] Stop: 11/30/18 12:45 Last Admin: 11/30/18 13:57 Dose: Not Given Documented by: [id number] Ondansetron HCl (Zofran) 4 mg IV NOW STA Stop: 11/30/18 12:24 Last Admin: 11/30/18 12:48 Dose: 4 mg Documented by: [id number] Imaging Data Radiologist's Impression: Radiology results as stated below per my review and the radiologist's interpretation: XR chest 1V portable CLINICAL HISTORY: weakness dyspnea COMPARISON STUDY: 10/04/2018 FINDINGS: Mild stable cardiomegaly. Mild prominence the pulmonary vasculature. Several healing right-sided rib fractures. Severe degenerative change left shoulder. IMPRESSION: Findings of early congestive heart failure. The above report was generated using voice recognition software. It may contain grammatical, syntax or spelling errors. Electronically signed by: Janusz Owen M.D. 11/30/2018 12:47 PM LEFT FOOT 3 VIEWS HISTORY: multiple left foot wounds, ? osteo COMPARISON: Left foot 08/26/2018. FINDINGS: No acute fracture or dislocation. The bones are osteopenic. Vascular calcifications are noted. Amputation at the PIP joint of the third toe, unchan ged. Old, healed fractures involving the shafts of the second fourth metatarsals. Moderate osteoarthritis seen throughout the midfoot. There is diffuse soft tissue swelling. Focal skin ulceration is within the medial aspect of the midfoot and distal fourth toe. Pes planus deformity is again noted. No radiopaque foreign bodies. Suggestion of a focal cortical erosion involving the distal tuft of the fourth toe. This is deep to the focal skin ulceration. Therefore, this is concerning for osteomyelitis. IMPRESSION: Suggestion of a focal cortical erosion involving the distal tuft of the fourth t oe. This is deep to the focal skin ulceration. Therefore, this is concerning for osteomyelitis. Electronically signed by: Edson Hunter M.D. 11/30/2018 12:[address] OF THE HEAD WITHOUT CONTRAST CLINICAL HISTORY: Fall. Altered mental status. COMPARISON STUDY: Head CT June 06, 2011. MRI of the brain March 10, 2015. CT DOSE: 614.27 mGy.cm TECHNIQUE: Helical axial images of the head were obtained without IV contrast. Automated exposure control was utilized for the study. A dose lowering technique was utilized adhering to the principles of ALARA. FINDINGS: No acute intracranial hemorrhage, midline shift or mass effect is present. Ventricular system is stable. The basilar cisterns are patent. There are no extra-axial collections. White matter hypodensity suggests small vessel disease. There are no findings to suggest acute dural sinus or acute territorial infarct. There is no calvarial fracture. IMPRESSION: 1. No acute intracranial findings. 2. No calvarial fracture. Electronically signed by: Edmund Bronson M.D. 11/30/2018 12:43 PM ECG Data Attestation: I personally reviewed and interpreted this ECG as follows: Indication: weakness Rate (beats per minute): 88 Rhythm: sinus rhythm Findings: + LPFB, + PVC and + RBBB; no ST depression and no ST elevation Blood Pressure Blood Pressure Findings: Low blood pressure Blood Pressure Disposition: further management by hospitalist Head Trauma GCS Score: 15 Discharge Plan Visit Data *Final* Discharge Date/Time: 11/30/18 16:42 Chief Complaint: Illness Stated Complaint: lethargic/edema, lower legs ED Provider: Vic Chaves Discharge Problem: Bilateral leg pain, Osteomyelitis of fourth toe of left foot, Severe anemia, Closed head injury Patient Disposition: Admitted As Inpatient Discharge Instructions Interventions: ED Discharge Assessment Last Done: 11/30/18 16:42 Discharge Problem: Closed head injury Qualifiers: Encounter type: initial encounter Qualified Code(s): S09.90XA - Unspecified injury of head, initial encounter The scribe's documentation has been prepared under my direction and personally reviewed by me in its entirety. I confirm that the note above accurately reflects all work, treatment, procedures, and medical decision making performed by me.
[2018-11-30] MEDS: ALBUTEROL HFA 8 GM INHALER INH SCH ×2 (20:36→23:52)
[2018-11-30] MEDS: APIXABAN 5 MG TABLET PO SCH (20:41)
[2018-11-30] MEDS: predniSONE 1 MG TAB PO SCH (20:42)
[2018-11-30] MEDS: GABAPENTIN 600 MG TAB PO SCH (20:42)
[2018-12-01] MEDS: ALBUTEROL HFA 8 GM INHALER INH SCH ×5 (03:44→20:28)
[2018-12-01] MEDS: HYDROmorphone INJ 0.5 MG/0.5 ML SYR IV PRN ×4 (06:09→13:52)
[2018-12-01 07:15] LABS: Basophils # (auto) 0.02 K/uL (0-0.2); Basophils % (auto) 0.2 %; Eosinophils # (auto) 0.07 K/uL (0-0.5); Eosinophils % (auto) 0.7 %; Hematocrit (blood only) 23.3 % (42-52); Hemoglobin 7.3 g/dL (14.0-18.0); Immature Granulocytes # (auto) 0.06 K/uL (0.00-0.02); Immature Granulocytes % (auto) 0.6 %; Lymphocytes % (auto) 12.2 %; Mean Corpuscular Hgb Conc 31.3 g/dL (32-36); Mean Corpuscular Volume 83.8 fL (80-100); Mean Platelet Volume 8.9 fL (7.4-10.4); Monocytes # (auto) 1.32 K/uL (0.11-0.59); Monocytes % (auto) 13.4 %; Neutrophils # (auto) 7.15 K/uL (1.4-6.5); Neutrophils % (auto) 72.9 %; Platelet Count 300 K/uL (130-400); RDW Coefficient of Variation 22.7 % (11.5-14.5); RDW Standard Deviation 67.8 fL (36.4-46.3); Red Blood Count 2.78 M/uL (4.7-6.1); White Blood Count 9.82 K/uL (4.8-10.8)
[2018-12-01 07:40] LABS: Anisocytosis Present; Poikilocytosis Present
[2018-12-01 07:42] LABS: BUN Creatinine Ratio 31.9 (10-20); Calcium 7.9 mg/dl (8.5-10.1); Creatinine Clr Calc Pharmacy 77.1 ml/min; Est GFR (Non-African American) 94.1; Potassium 4.4 mmol/L (3.5-5.1)
--- NOTE | 2018-12-01 08:53 | Pain Management Consultation ---
Date of Consultation December 01, 2018 Assessment & Plan (1) Chronic foot ulcer with fat layer exposed: 1. To augment descending regulation of pain recommend initiation of desipramine 10 mg p.o. nightly. Orders are written. 2. Recommend increasing gabapentin to 300 mg p.o. every morning and 600 mg p.o. nightly. Pending tolerance of this new regimen recommend further increasing gabapentin to add a 300 mg lunch dose later this week. 3. Agree with vascular surgery consult for possible surgical intervention. 4. No interventional pain management techniques are an option for this patient at this current time. 5. Agree with utilization of IV hydromorphone until a surgical decision has been made. Consider utilization of hydrocodone versus Nucynta for breakthrough pain pending outcome of vascular surgery consult. 6. Thank you for this consultation. (2) PAD (peripheral artery disease): (3) Bilateral leg pain: (4) Bilateral leg ulcer: Non-pressure ulcer stage: with fat layer exposed Qualified Code(s): L97.912 - Non-pressure chronic ulcer of unspecified part of right lower leg with fat layer exposed; L97.922 - Non-pressure chronic ulcer of unspecified part of left lower leg with fat layer exposed (5) Osteomyelitis of fourth toe of left foot: (6) Rheumatoid arthritis: (7) MRSA (methicillin resistant Staphylococcus aureus) infection: (8) Infection due to Stenotrophomonas maltophilia: (9) CAD (coronary artery disease): (10) Afib: History of Present Illness Attending Physician: Niraj Allred MD History of Present Illness 73-year-old male with long-standing history of rheumatoid arthritis and peripheral arterial disease bilateral lower extremity with ulceration and neuropathic pain. He reports pain is worse over his left lower extremity predominantly over the Achilles region. He reports mild improvement with IV hydromorphone at this time. He has been working with the wound clinic as well as infectious disease to minimize complications. He notes pain over much of his body secondary to rheumatoid arthritis but notes that this is tolerable with current methotrexate dosing. He denies any side effects of his medications at this time. He did have some sedation secondary to IV hydromorphone this a.m. but is now clear and oriented x2. He does report a history of falling recently (prehospitalization )with mild injury to his nasal bridge in the form of a skin tear. He denies any axial low back pain or true radicular symptoms at this time. He denies bowel or bladder incontinence, footdrop, fever, chills, night sweats. He does report to overall deconditioning with some lower extremity weakness which has been chronic. Pain Assessment Pain scale - at its best (0-10): 7 Pain scale - at its worst (0-10): 10 Allergies Allergy/AdvReac Type Severity Reaction Status Date / Time amoxicillin Allergy Severe RED Verified 11/30/18 12:10 BLOTCHES HEAD TO TOE Iodinated Contrast- Oral and Allergy Severe "FELT Verified 11/30/18 12:10 IV Dye FUNNY" ioversol Allergy Severe PASSED OUT Verified 11/30/18 12:10 clavulanic acid Allergy Intermediate RASH Verified 11/30/18 12:10 Penicillins Allergy Intermediate RASH Verified 11/30/18 12:10 adhesive Allergy Mild REDNESS Verified 11/30/18 12:10 WITH EXTENDED USE Sulfa (Sulfonamide Allergy Mild RASH Verified 11/30/18 12:10 Antibiotics) sulfamethoxazole Allergy Mild RASH Verified 11/30/18 12:10 trimethoprim Allergy Mild RASH Verified 11/30/18 12:10 Bactrim Allergy Unknown RASH Verified 11/18/17 00:19 Fish Containing Products Allergy Unknown Verified 11/30/18 12:10 fish derived Allergy Unknown Verified 11/30/18 12:10 fish oil Allergy Unknown Verified 11/30/18 12:10 shellfish derived Allergy Unknown Verified 11/30/18 12:10 silver Allergy Rash Verified 11/30/18 16:12 Latex, Natural Rubber AdvReac Intermediate Redness of Verified 11/30/18 12:10 Skin Food Allergy Severe SEAFOOD - Uncoded 11/30/18 12:10 EYES SWELL IF DRINKS ALCOHOL WITH Carboxymethylcellulose AdvReac Mild Irritates Uncoded 11/30/18 12:10 the skin Home Medications Home Medications Medication Instructions Recorded Confirmed Type cyanocobalamin (vitamin B-12) 1,000 mcg PO DAILY 07/14/18 11/30/18 History [Vitamin B-12] alendronate [Fosamax] 70 mg PO WK 07/16/18 11/30/18 History esomeprazole magnesium [Nexium] 40 mg PO DAILY 07/16/18 11/30/18 History folic acid 1 mg PO DAILY 07/16/18 11/30/18 History methotrexate sodium 15 mg PO WK 07/16/18 11/30/18 History misoprostol 100 mcg PO BID 07/16/18 11/30/18 History multivitamin 1 cap PO DAILY 07/16/18 11/30/18 History prednisone 2 mg PO QPM 07/16/18 11/30/18 History prednisone 5 mg PO DAILY 07/16/18 11/30/18 History ProAir RespiClick 2 inha INH Q4H 08/04/18 11/30/18 History cholecalciferol (vitamin D3) 1,000 unit PO DAILY 08/04/18 11/30/18 History [Vitamin D3] Eliquis 5 mg PO BID #30 tab 09/08/18 11/30/18 Rx acetaminophen [Tylenol] 650 mg PO Q4 PRN 09/29/18 11/30/18 History dalbavancin 1,500 mg IV Q14D 09/29/18 11/30/18 History ferrous sulfate 325 mg PO DAILY 09/29/18 11/30/18 History metoprolol succinate 12.5 mg PO DAILY 09/29/18 11/30/18 History ropinirole [Requip] 0.25 mg PO DAILY 09/29/18 11/30/18 History terazosin 1 mg PO DAILY 09/29/18 11/30/18 History atorvastatin 40 mg PO DAILY 11/30/18 11/30/18 History clopidogrel 75 mg PO DAILY 11/30/18 11/30/18 History docusate sodium [Colace] 100 mg PO DAILY 11/30/18 11/30/18 History furosemide 40 mg PO DAILY 11/30/18 11/30/18 History gabapentin 600 mg PO HS 11/30/18 11/30/18 History losartan 12.5 mg PO DAILY 11/30/18 11/30/18 History Pain History Pain Location Full Body Front + Back: 1. 2. Pain Intensity [facility] Combined Pain Scale: 7-Severe - Pain prevents productive activity. Impossible to tolerate. Pain scale - at its best (0-10): 7 Pain scale - at its worst (0-10): 10 Cause Cause of Pain: Spontaneous Timing Timing: all day and constant Character Pain character: aching, burning and sharp Activity Factors Exacerbated by: other (Nothing makes the pain worse, it is constant) Improved by: other (IV hydromorphone) Daily Typical Activity Daily typical activity: Patient reports he has not walked in multiple years and typically stays in bed or utilizes a motorized scooter. Functional Limitations [facility] Combined Function Scale: 9-Maximal Limitiations - In bed most of the day. Needs help 90% Previous Treatment Treatments: surgery (Multiple wound debridements) and other (Gabapentin, opiates, wound care.) Previous Evaluations and Results Evaluations by other providers: Vascular consult pending Current Therapy Current Medication Therapy: Gabapentin and Opiods Current or Pending Litigation Current or Pending Litigation: No Patient History Medical History Rheumatoid arthritis (Chronic) Steroid dependent Paroxysmal atrial fibrillation (Chronic) Intractable pain (Acute) Rib fracture Fall Asthma exacerbation B12 deficiency Rheumatoid arthritis PAD (peripheral artery disease) Chronic foot ulcer with fat layer exposed - continue dressings as discussed, new dressings applied today and will need changed daily Essential hypertension (Chronic 02/12/13) CHF (congestive heart failure) (Acute) Asthma (Chronic) Cellulitis (Chronic) Foot pain, right (Chronic) GERD (gastroesophageal reflux disease) (Chronic) Ulcer (Chronic) LEFT FOOT Anxiety Arrhythmia BPH (benign prostatic hyperplasia) Osteoarthritis Rheumatoid arthritis Surgical History H/O heart artery stent (Acute) History of colectomy POLYPS REMOVED History of colonoscopy History of esophagogastroduodenoscopy (EGD) History of repair of rotator cuff RT History of tooth extraction Family History Father Myocardial infarction Other Family history non-contributory Social History Preferred Language: Macedonian Communication Ability: Effective Garbage Stoker Required: No Beliefs That Will Affect Care: None Current Living Situation: Spouse Current Living Situation Comment: spouse and dtr Other Information That Helps Us Care for You: No Feels Safe at Home: Yes Safety Concerns: Feels Safe At This Time Smoking Status: Former smoker Do You Dip or Chew Tobacco: No Second Hand Exposure: No Tobacco Cessation Education Requested by Patient: No Hx Alcohol Use: No Hx Substance Use: No Physical Exam Physical Exam: Constitutional: Thin and frail Psych: Awake, alert, and oriented 2, slightly sedate secondary to IV hydromorphone dosing at 600 today, but does respond to questioning appropriately. Recent memory appears grossly intact Eyes: Pupils are equally round and reactive to light with normal size pupils, eyelids appear normal Ear, nose, mouth, and throat: Moist nasal and oral membranes, lips and tongues appear normal, no external ear abnormalities are noted Neck: The trachea is midline without deviation and no thyromegaly is noted Respiratory: Normal respiratory effort without distress, no audible wheezes or rhonchi CV: Diminished pulses posterior tibial and dorsalis pedis bilaterally Chest: Deferred Musculoskeletal: Head is normocephalic and atraumatic, gait not observed Cervical: Lordotic curve: Normal Range of motion is normal with extension, flexion, side-bending, rotation Strength: Strength is grossly equal bilaterally with 5 out of 5 strength in all planes Lumbar: Lordotic curve: Normal Range of motion is normal with extension, flexion, side-bending, rotation Strength: Strength is grossly equal bilaterally with 4+ out of 5 strength in all planes Sensation of lower extremities: Reduced bilaterally over gastroc and anterior tibialis. Positive allodynia and hyperpathia surrounding bilateral lower extremity wound sites. Skin: Bilateral lower extremity dressings were taken down with assistance of wound care nursing. There are multiple peripheral arterial wounds over bilateral lower extremities with significant allodynia predominantly over the left Achilles wound. Please see wound care nursing note and photographs for additional information. Neuro: No nystagmus noted, the tongue is midline, the patient is able to rotate their head bilaterally : Deferred Results Diagnostic Review Radiology: reports reviewed Radiology Findings: [place], [place] [phone] XRay Report Patient: ANGEL CARTER [facility] Date: 11/30/18 MR#: [id number]: [facility] Acct ID:[id number]: Date: [address] [place] [address] [facility] [id number] Age: 73Location: ED Sex: M Room/Bed: Att Phy: Diagnosis: lethargic/edema, lower legs Amelia Phy: Daniele Martinez, III, CRNPService Date: 11/30/18 Fam Phy: Interpreting Phy: Edson Hunter MD Admit Phy: Ordering Phy: Vic Chaves MD cc: ~ LEFT FOOT 3 VIEWS HISTORY: multiple left foot wounds, ? osteo COMPARISON: Left foot 08/26/2018. FINDINGS: No acute fracture or dislocation. The bones are osteopenic. Vascular calcifications are noted. Amputation at the PIP joint of the third toe, unchanged. Old, healed fractures involving the shafts of the second fourth met atarsals. Moderate osteoarthritis seen throughout the midfoot. There is diffuse soft tissue swelling. Focal skin ulceration is within the medial aspect of the midfoot and distal fourth toe. Pes planus deformity is again noted. No radiopaque foreign bodies. Suggestion of a focal cortical erosion involving the distal tuft of the fourth toe. This is deep to the focal skin ulceration. Therefore, this is concerning for osteomyelitis. IMPRESSION:
[2018-12-01] MEDS ORDERED: LOSARTAN POTASSIUM 25 MG TAB PO SCH (09:00)
[2018-12-01] MEDS ORDERED: PANTOprazole 40 MG TAB PO SCH (09:00)
[2018-12-01] MEDS ORDERED: DAPTOmycin 500 MG VIAL IV SCH ×2 (09:00→12:15)
[2018-12-01] MEDS ORDERED: FUROSEMIDE 40 MG TAB PO SCH (09:00)
[2018-12-01] MEDS: DOCUSATE SODIUM 100 MG CAP PO SCH (09:06)
[2018-12-01] MEDS: FOLIC ACID 1 MG TAB PO SCH (09:07)
[2018-12-01] MEDS: ATORVASTATIN 40 MG TAB PO SCH (09:07)
[2018-12-01] MEDS: APIXABAN 5 MG TABLET PO SCH (09:07)
[2018-12-01] MEDS: TERAZOSIN HCL 1 MG CAP PO SCH (09:07)
[2018-12-01] MEDS: MULTIVITAMIN TAB PO SCH (09:07)
[2018-12-01] MEDS: predniSONE 5 MG TAB PO SCH (09:08)
[2018-12-01] MEDS: ROPINIROLE HCL 0.25 MG TABLET PO SCH (09:09)
[2018-12-01] MEDS: miSOPROStol 50 MCG TAB PO SCH ×2 (09:09→16:29)
[2018-12-01] MEDS: CLOPIDOGREL BISULFATE 75 MG TAB PO SCH (09:10)
[2018-12-01] MEDS: CHOLECALCIFEROL 1,000 UNITS TAB PO SCH (09:10)
[2018-12-01] MEDS: CYANOCOBALAMIN 500 MCG TABLET (VITAMIN B-12) PO SCH (09:12)
[2018-12-01] MEDS: FERROUS SULFATE 325 MG TAB PO SCH (09:12)
[2018-12-01] MEDS: METOPROLOL SUCC 25MG EXT REL TAB PO SCH (09:22)
[2018-12-01 10:19] LABS: Hematocrit (blood only) 24.4 % (42-52); Hemoglobin 7.8 g/dL (14.0-18.0)
--- NOTE | 2018-12-01 10:40 | Infectious Disease Consult ---
Date of Consultation December 01, 2018 Assessment & Plan (1) Acute osteomyelitis of toe of left foot: Patient with nonhealing left foot wound, with multiple other ulcerations, with osteomyelitis of the fourth left toe with positive cultures for MRSA. Would recommend use of IV daptomycin, will likely require prolonged IV antibiotic therapy. Would have vascular surgery see patient. Will follow. (2) MRSA (methicillin resistant Staphylococcus aureus) infection: History of Present Illness Reason for Consultation: MRSA wound infection Attending Physician: Ventura Guzman DO History of Present Illness 73-year-old male well-known to the infectious disease service with history of severe peripheral arterial disease, chronic nonhealing foot wounds with open wound left foot with osteomyelitis, recently treated with IV antibiotics including dalbavancin and ertapenem, severe rheumatoid arthritis, coronary artery disease, who was admitted to the hospital with several days of progressively worsening intractable left foot pain. Patient has been receiving antibiotics with some improvement of his wound, but pain has substantially worsened and now admitted to the hospital for parenteral analgesics. He has not had any fever that he is aware of. No increase in drainage from his foot wounds. No increase in shortness of breath or chest pain Allergies Allergy/AdvReac Type Severity Reaction Status Date / Time amoxicillin Allergy Severe RED Verified 11/30/18 12:10 BLOTCHES HEAD TO TOE Iodinated Contrast- Oral and Allergy Severe "FELT Verified 11/30/18 12:10 IV Dye FUNNY" ioversol Allergy Severe PASSED OUT Verified 11/30/18 12:10 clavulanic acid Allergy Intermediate RASH Verified 11/30/18 12:10 Penicillins Allergy Intermediate RASH Verified 11/30/18 12:10 adhesive Allergy Mild REDNESS Verified 11/30/18 12:10 WITH EXTENDED USE Sulfa (Sulfonamide Allergy Mild RASH Verified 11/30/18 12:10 Antibiotics) sulfamethoxazole Allergy Mild RASH Verified 11/30/18 12:10 trimethoprim Allergy Mild RASH Verified 11/30/18 12:10 Bactrim Allergy Unknown RASH Verified 11/18/17 00:19 Fish Containing Products Allergy Unknown Verified 11/30/18 12:10 fish derived Allergy Unknown Verified 11/30/18 12:10 fish oil Allergy Unknown Verified 11/30/18 12:10 shellfish derived Allergy Unknown Verified 11/30/18 12:10 silver Allergy Rash Verified 11/30/18 16:12 Latex, Natural Rubber AdvReac Intermediate Redness of Verified 11/30/18 12:10 Skin Food Allergy Severe SEAFOOD - Uncoded 11/30/18 12:10 EYES SWELL IF DRINKS ALCOHOL WITH Carboxymethylcellulose AdvReac Mild Irritates Uncoded 11/30/18 12:10 the skin Home Medications Home Medications Medication Instructions Recorded Confirmed Type cyanocobalamin (vitamin B-12) 1,000 mcg PO DAILY 07/14/18 11/30/18 History [Vitamin B-12] alendronate [Fosamax] 70 mg PO WK 07/16/18 11/30/18 History esomeprazole magnesium [Nexium] 40 mg PO DAILY 07/16/18 11/30/18 History folic acid 1 mg PO DAILY 07/16/18 11/30/18 History methotrexate sodium 15 mg PO WK 07/16/18 11/30/18 History misoprostol 100 mcg PO BID 07/16/18 11/30/18 History multivitamin 1 cap PO DAILY 07/16/18 11/30/18 History prednisone 2 mg PO QPM 07/16/18 11/30/18 History prednisone 5 mg PO DAILY 07/16/18 11/30/18 History ProAir RespiClick 2 inha INH Q4H 08/04/18 11/30/18 History cholecalciferol (vitamin D3) 1,000 unit PO DAILY 08/04/18 11/30/18 History [Vitamin D3] Eliquis 5 mg PO BID #30 tab 09/08/18 11/30/18 Rx acetaminophen [Tylenol] 650 mg PO Q4 PRN 09/29/18 11/30/18 History dalbavancin 1,500 mg IV Q14D 09/29/18 11/30/18 History ferrous sulfate 325 mg PO DAILY 09/29/18 11/30/18 History metoprolol succinate 12.5 mg PO DAILY 09/29/18 11/30/18 History ropinirole [Requip] 0.25 mg PO DAILY 09/29/18 11/30/18 History terazosin 1 mg PO DAILY 09/29/18 11/30/18 History atorvastatin 40 mg PO DAILY 11/30/18 11/30/18 History clopidogrel 75 mg PO DAILY 11/30/18 11/30/18 History docusate sodium [Colace] 100 mg PO DAILY 11/30/18 11/30/18 History furosemide 40 mg PO DAILY 11/30/18 11/30/18 History gabapentin 600 mg PO HS 11/30/18 11/30/18 History losartan 12.5 mg PO DAILY 11/30/18 11/30/18 History Patient History Medical History Rheumatoid arthritis (Chronic) Steroid dependent Paroxysmal atrial fibrillation (Chronic) Intractable pain (Acute) Rib fracture Fall Asthma exacerbation B12 deficiency Rheumatoid arthritis PAD (peripheral artery disease) Chronic foot ulcer with fat layer exposed - continue dressings as discussed, new dressings applied today and will need changed daily Essential hypertension (Chronic 02/12/13) CHF (congestive heart failure) (Acute) Asthma (Chronic) Cellulitis (Chronic) Foot pain, right (Chronic) GERD (gastroesophageal reflux disease) (Chronic) Ulcer (Chronic) LEFT FOOT Anxiety Arrhythmia BPH (benign prostatic hyperplasia) Osteoarthritis Rheumatoid arthritis Surgical History H/O heart artery stent (Acute) History of colectomy POLYPS REMOVED History of colonoscopy History of esophagogastroduodenoscopy (EGD) History of repair of rotator cuff RT History of tooth extraction Family History Father Myocardial infarction Other Family history non-contributory Social History Preferred Language: [place] Communication Ability: Effective Painter Ski Edge Required: No Beliefs That Will Affect Care: None Current Living Situation: Spouse Current Living Situation Comment: spouse and dtr Other Information That Helps Us Care for You: No Feels Safe at Home: Yes Safety Concerns: Feels Safe At This Time Smoking Status: Former smoker Do You Dip or Chew Tobacco: No Second Hand Exposure: No Tobacco Cessation Education Requested by Patient: No Hx Alcohol Use: No Hx Substance Use: No Review of Systems Review of Systems: All systems reviewed & are unremarkable except as noted in HPI & below Physical Exam Constitutional: well nourished, + acute distress, + ill appearing and + thin Eyes: PERRL, conjunctivae normal, anicteric sclerae ENMT: external ear and nose normal, oropharynx normal Neck: trachea midline, no thyromegaly normal visual inspection Respiratory: normal respiratory effort, lungs clear to auscultation normal percussion; no respiratory distress Cardiovascular: RRR, no murmur, no edema Heart Sounds: no gallop and no cardiac rub Gastrointestinal (Abdomen): normal bowel sounds, soft, nontender, no hepatosplenomegaly Musculoskeletal: Head/Neck/Chest: normocephalic, head atraumatic and neck supple Severe rheumatoid changes Skin: normal turgor and + wound (Multiple foot wound, large left foot dorsal foot wound with some necrotic debris); no rashes Neurologic: moves all extremities; no focal motor deficits Psychiatric: A+Ox3, euthymic affect Lymphatic: no cervical or axillary lymphadenopathy no inguinal lymphadenopathy Results & Data Vital Signs (Past 12 Hours) Vital Signs Temp Pulse Resp BP BP Pulse Ox 12/01/18 07:25 36.7 C 100 H 19 104/62 94 12/01/18 06:06 109/65 12/01/18 02:02 103/64 12/01/18 00:02 37.2 C 92 H 18 98/57 L 92 12/01/18 00:00 105/64 Laboratory Results Short CBC 11/30/18 12/01/18 12/01/18 Range/Units 13:16 06:36 10:06 WBC 10.11 9.82 (4.8-10.8) K/uL Hgb 7.5 L 7.3 L 7.8 L (14.0-18.0) g/dL Hct 23.7 L 23.3 L 24.4 L (42-52) % Plt Count 286 300 (130-400) K/uL BMP 11/30/18 12/01/18 13:16 06:36 Sodium 138 136 Potassium 4.2 4.4 Chloride 105 106 Carbon Dioxide 23 25 BUN 24 H 22 H Creatinine 0.56 L 0.68 Glucose 113 H 90 Calcium 8.3 L 7.9 L Cardiac Enzymes 11/30/18 Range/Units 13:16 Troponin I 0.023 (0-0.045) ng/ml Liver Function 11/30/18 Range/Units 13:16 Total Bilirubin 0.3 (0.2-1) mg/dl AST 26 (15-37) U/L ALT 29 (12-78) U/L Alkaline Phosphatase 92 (45-117) U/L Albumin 2.7 L (3.4-5.0) gm/dl Urine 05/13/19 Range/Units 14:40 Urine Color Yellow Urine Appearance Clear (Clear) Urine pH 5.5 (4.5-7.5) Ur Specific Bullock 1.022 (1.000-1.030) Urine Protein Negative (Negative) Urine Glucose (UA) Negative (Negative) Diagnostic Findings LEFT FOOT 3 VIEWS HISTORY: multiple left foot wounds, ? osteo COMPARISON: Left foot 08/26/2018. FINDINGS: No acute fracture or dislocation. The bones are osteopenic. Vascular calcifications are noted. Amputation at the PIP joint of the third toe, unchanged. Old, healed fractures involving the shafts of the second fourth metatarsals. Moderate osteoarthritis seen throughout the midfoot. There is diffuse soft tissue swelling. Focal skin ulceration is within the medial aspect of the midfoot and distal fourth toe. Pes planus deformity is again noted. No radiopaque foreign bodies. Suggestion of a focal cortical erosion involving the distal tuft of the fourth toe. This is deep to the focal skin ulceration. Therefore, this is concerning for osteomyelitis. IMPRESSION: Suggestion of a focal cortical erosion involving the distal tuft of the fourth toe. This is deep to the focal skin ulceration. Therefore, this is concerning for osteomyelitis. Electronically signed by: Edson Hunter M.D. 11/30/2018 12:52 PM Dictated: 11/30/18 1248 Transcribed: 11/30/18 1248
[2018-12-01] MEDS: GABAPENTIN 300 MG CAP PO SCH (13:46)
[2018-12-01] MEDS: DAPTOmycin 350 MG in SYRINGE 0 ML IV SCH (13:46)
[2018-12-01] MEDS: ACETAMINOPHEN 325 MG TAB PO PRN (16:00)
[2018-12-01 16:42] LABS: Hematocrit (blood only) 22.3 % (42-52); Hemoglobin 7.1 g/dL (14.0-18.0)
[2018-12-01] MEDS ORDERED: methylPREDNISolone 40 MG in SYRINGE 0 ML IV ONE (16:45)
[2018-12-01] MEDS ORDERED: SODIUM CHLORIDE 0.9% 250 ML IV PRN (17:08)
--- NOTE | 2018-12-01 17:51 | Hospitalist Progress Note ---
Date of Service December 01, 2018 Assessment & Plan (1) Intractable pain: - This is likely in the setting of peripheral vascular disease and osteomyelitis -- Pain does seem to improve with dangling of the legs which is pretty consistent with a PVD picture -- In regards to PVD - he did have a SFA stent placed in the past and did discuss with vascular about possible intervention at this current time - bypass/other vascular intervention not an option at this time and stated if needed can be formally consulted but likely not pending if podiatry has further recommendations for such -- Review of outpatient visit from Mar 2018 - U/S prior to that appointment with adequate flow and no focal hemodynamic stenosis that would benefit from surgical intervention - Desipramine 10 mg HS and Gabapentin 300 mg AM and 600 mg HS with plans to start and additional 300 mg at lunch time on 12/04; Dilaudid PRN - Consulted pain management - plan as above; appreciate input Present on Admission?: Yes (2) Osteomyelitis of fourth toe of left foot: - Reports being on Dalvance Q2W and Doxycycline - for ulcerations and cellulitis; H/O MRSA - Imaging now supports Osteomyelitis - could not find documentation that this was noted previously - Started on Daptomycin daily; BCx without growth at this time - Was febrile this afternoon and hypotensive - mentation is still at baseline and does have lower normal BPs, possibly BPs could be volume related given anemia but given fever and infectious source will need to watch for sepsis related involvement - Discussed with vascular as noted above, no intervention at this time - Consult Podiatry - follows with Dr. Tirado - toe amputation? per outpatient records planning on grafting and possible surgical debridement - ID Following - recommending long-term Abx - currently recommending Daptomycin Present on Admission?: Yes (3) Severe anemia: - Repeat hemoccult pending but no bowel movement this admission - was heme+ in September -- Patient/Daughter states he has melena but is on iron supplementation which could explain that however continues to have drops in Hgb with a transfusion on last admission; today patient is hypotensive but rather asymptomatic from it and did have anti-hypertensives today, Hgb trended to 7.1 and will transfuse 1 unit for now and reassess prior to additional unit given H/O CHF and would like to prevent overload - is on Eliquis and Plavix - Given hypotension and anemia will transfer to telemetry for monitoring - Change to Protonix 40 mg BID - Consult GI - daughter states he has never seen a GI provider - will place NPO at midnight and hold Plavix and Eliquis today and can resume pending GI recommendations as he did have recent PCI so Plavix initiation sooner would be beneficial but would like to R/O GI source Present on Admission?: Yes (4) Bilateral leg ulcer: - Chronic issues - multiple unstageable pressure ulcers of B/L LE, POA and 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, POA - Consult podiatry - appreciate recommendations Present on Admission?: Yes (5) Heart failure with reduced ejection fraction: - Currently stable but will monitor given transfusion - Echo (Aug 2018) - EF 30-35% with thin akinetic inferior wall with adjacent inferolateral, basal septal hypokinesis; severe hypokinesis involving mid to apical anterior and lateral wall - Will hold Losartan and Lasix at this time pending repeat evaluation; as well he is currently hypotensive Present on Admission?: Yes (6) Paroxysmal atrial fibrillation: - Currently in NSR - Holding Eliquis given GI consult; Will continue Toprol XL 12.5 mg daily for rate management but will utilize hold parameters Present on Admission?: Yes (7) Rheumatoid arthritis: - Follows with Dr. Haq ([facility]) - Given setting of infection will hold Methotrexate - Given infection and hypotension will do a stress dose of Methylprednisolone 40 mg IV daily - likely can do x 3 days and taper back to home dosing and will monitor Present on Admission?: Yes Subjective Patient evaluated on two separate occasions. This AM patient was mostly sleeping and reported improvement in pain of lower extremities when dangling legs over the bed but worsening pain when laying in bed which supports peripheral vascular disease. Pain was better improved this afternoon however is hypotensive but mentating appropriately. Hgb continues to trend down with repeat this afternoon at 7.1 and will transfuse. Discussed with daughter that he does have black stool at home which he is on iron supplementation which could be causing this however given anticoagulation, Plavix, chronic prednisone, guiac + stool in September he could be at risk for GI bleed. Daughter does not recall him seeing a GI doctor in the past. He is currently following with Podiatry and ID as outpatient. Did spike a fever this afternoon. Review of Systems Constitutional: + fever and + weakness; no chills Eyes: no worsening vision Respiratory: no cough and no dyspnea Cardiovascular: no chest pain, no palpitations and no edema Gastrointestinal: + melena; no abdominal pain, no nausea, no vomiting, no constipation and no diarrhea/loose stools Genitourinary: no dysuria Musculoskeletal: B/L leg pain improves with leg dangling Integumentary: + non-healing lesions Neurologic: + tingling and + numbness Physical Exam Constitutional: + frail appearing; no acute distress and not ill appearing Eyes: + anicteric sclerae Neck: normal visual inspection and trachea midline Respiratory: normal respiratory effort Auscultation: lungs clear to auscultation bilaterally and + diminished lung sounds Cardiovascular: Rate/Rhythm: regular rate and regular rhythm Gastrointestinal (Abdomen): Inspection/Auscultation: normal bowel sounds Percussion/Palpation: abdomen soft; abdomen nontender Musculoskeletal: Head/Neck/Chest: normocephalic and head atraumatic New dressings applied to b/l legs C/D/I (did not remove at this time) Skin: multiple non-healing skin lesions of b/l legs - reviewed wound imaging with tendon exposure of L heel and multiple unstageable ulcerations Neurologic: moves all extremities Psychiatric: Orientation: alert Results & Data Vital Signs (Past 12 Hours) Vital Signs Temp Pulse Resp BP BP Pulse Ox 12/01/18 17:18 37.5 C 12/01/18 15:33 38.0 C H 93 H 16 89/46 L 80/38 L 95 12/01/18 07:25 36.7 C 100 H 19 104/62 94 12/01/18 06:06 109/65 (1) Bilateral leg ulcer Non-pressure ulcer stage: with fat layer exposed Qualified Code(s): L97.912 - Non-pressure chronic ulcer of unspecified part of right lower leg with fat layer exposed; L97.922 - Non-pressure chronic ulcer of unspecified part of left lower leg with fat layer exposed
[2018-12-01] MEDS: PANTOprazole 40 MG TAB PO SCH (20:29)
[2018-12-01] MEDS: GABAPENTIN 600 MG TAB PO SCH (20:30)
[2018-12-01] MEDS: DESIPRAMINE HCL 10 MG TAB PO SCH (20:31)
[2018-12-02] MEDS: ALBUTEROL HFA 8 GM INHALER INH SCH ×7 (00:28→23:26)
[2018-12-02] MEDS: ACETAMINOPHEN 325 MG TAB PO PRN (02:10)
[2018-12-02] MEDS: HYDROmorphone INJ 0.5 MG/0.5 ML SYR IV PRN ×4 (03:15→23:29)
[2018-12-02 06:18] LABS: Basophils # (auto) 0.01 K/uL (0-0.2); Basophils % (auto) 0.1 %; Hematocrit (blood only) 24.1 % (42-52); Immature Granulocytes # (auto) 0.04 K/uL (0.00-0.02); Immature Granulocytes % (auto) 0.4 %; Lymphocytes # (auto) 0.55 K/uL (1.2-3.4); Lymphocytes % (auto) 5.6 %; Mean Corpuscular Hgb Conc 33.2 g/dL (32-36); Mean Corpuscular Volume 80.9 fL (80-100); Monocytes # (auto) 0.71 K/uL (0.11-0.59); Monocytes % (auto) 7.3 %; Neutrophils # (auto) 8.45 K/uL (1.4-6.5); Neutrophils % (auto) 86.6 %; Platelet Count 248 K/uL (130-400); RDW Standard Deviation 61.3 fL (36.4-46.3); Red Blood Count 2.98 M/uL (4.7-6.1); White Blood Count 9.76 K/uL (4.8-10.8)
[2018-12-02 06:45] LABS: BUN Creatinine Ratio 39.5 (10-20); Calcium 7.7 mg/dl (8.5-10.1); Creatinine Clr Calc Pharmacy 90.1 ml/min; Est GFR (African American) 115.6; Est GFR (Non-African American) 99.7; Potassium 4.1 mmol/L (3.5-5.1)
[2018-12-02 07:00] LABS: Anisocytosis Present; Microcytosis Present; Ovalocytes 1+; Spherocytes 1+
[2018-12-02] MEDS: PANTOprazole 40 MG TAB PO SCH ×2 (08:21→20:26)
[2018-12-02] MEDS: miSOPROStol 50 MCG TAB PO SCH ×2 (08:22→17:40)
[2018-12-02] MEDS: GABAPENTIN 300 MG CAP PO SCH (08:23)
[2018-12-02] MEDS: FOLIC ACID 1 MG TAB PO SCH (08:23)
[2018-12-02] MEDS: FERROUS SULFATE 325 MG TAB PO SCH (08:28)
[2018-12-02] MEDS: CYANOCOBALAMIN 500 MCG TABLET (VITAMIN B-12) PO SCH (08:29)
[2018-12-02] MEDS: DOCUSATE SODIUM 100 MG CAP PO SCH (08:29)
[2018-12-02] MEDS: CHOLECALCIFEROL 1,000 UNITS TAB PO SCH (08:29)
[2018-12-02] MEDS: METOPROLOL SUCC 25MG EXT REL TAB PO SCH (08:29)
[2018-12-02] MEDS: MULTIVITAMIN TAB PO SCH (08:30)
[2018-12-02] MEDS: ROPINIROLE HCL 0.25 MG TABLET PO SCH (08:31)
[2018-12-02] MEDS: TERAZOSIN HCL 1 MG CAP PO SCH (08:31)
[2018-12-02] MEDS: methylPREDNISolone 40 MG in SYRINGE 0 ML IV SCH (08:41)
[2018-12-02] MEDS ORDERED: metHOTREXate sodium 2.5 MG TAB PO SCH (09:00)
[2018-12-02 13:13] LABS: Hematocrit (blood only) 25.1 % (42-52); Hemoglobin 8.3 g/dL (14.0-18.0)
[2018-12-02] MEDS: DAPTOmycin 350 MG in SYRINGE 0 ML IV SCH (13:15)
--- NOTE | 2018-12-02 13:48 | Podiatry Consultation ---
Date of Consultation December 02, 2018 History of Present Illness Attending Physician: Ventura Guzman DO Patient seen at bedside today - patient stated he was admitted due to worsening leg pain of bilateral legs. Patient stated that when he would be in bed laying with his legs elevated, patient would feel pain, when he would dangle the legs off the side of the bed patient would feel better - patient is also having pain of the ulcer at the posterior aspect of the left ankle at the achilles tendon - patient is seeing for antibiotic coverage - patient sees me weekly, last appointment, last week patient was improved, the dorsal left foot ulcer is almost healed and the left achilles ulcer was painful but improved from prior week's visit. Patient is noted at this hospital visit to have 4th toe osteomyelitis, clinical presentation of the toe is stable and not cellulitic, the most concerning ulcer is the left achilles ulcer - at this time recommend conservative treatment of the 4th toe with IV abx per ID and dressings as this is stable - achilles ulcer has been treated with in office debridements and IV abx, recommend to continue this especially with patient's worsening PVD, will need to get the ulcer free of MSRA by treatment with IV abx and in office debridements - patient overall was ok during visit today Allergies Allergy/AdvReac Type Severity Reaction Status Date / Time amoxicillin Allergy Severe RED Verified 11/30/18 12:10 BLOTCHES HEAD TO TOE Iodinated Contrast- Oral and Allergy Severe "FELT Verified 11/30/18 12:10 IV Dye FUNNY" ioversol Allergy Severe PASSED OUT Verified 11/30/18 12:10 clavulanic acid Allergy Intermediate RASH Verified 11/30/18 12:10 Penicillins Allergy Intermediate RASH Verified 11/30/18 12:10 adhesive Allergy Mild REDNESS Verified 11/30/18 12:10 WITH EXTENDED USE Sulfa (Sulfonamide Allergy Mild RASH Verified 11/30/18 12:10 Antibiotics) sulfamethoxazole Allergy Mild RASH Verified 11/30/18 12:10 trimethoprim Allergy Mild RASH Verified 11/30/18 12:10 Bactrim Allergy Unknown RASH Verified 11/18/17 00:19 Fish Containing Products Allergy Unknown Verified 11/30/18 12:10 fish derived Allergy Unknown Verified 11/30/18 12:10 fish oil Allergy Unknown Verified 11/30/18 12:10 shellfish derived Allergy Unknown Verified 11/30/18 12:10 silver Allergy Rash Verified 11/30/18 16:12 Latex, Natural Rubber AdvReac Intermediate Redness of Verified 11/30/18 12:10 Skin Food Allergy Severe SEAFOOD - Uncoded 11/30/18 12:10 EYES SWELL IF DRINKS ALCOHOL WITH Carboxymethylcellulose AdvReac Mild Irritates Uncoded 11/30/18 12:10 the skin Home Medications Home Medications Medication Instructions Recorded Confirmed Type cyanocobalamin (vitamin B-12) 1,000 mcg PO DAILY 07/14/18 11/30/18 History [Vitamin B-12] alendronate [Fosamax] 70 mg PO WK 07/16/18 11/30/18 History esomeprazole magnesium [Nexium] 40 mg PO DAILY 07/16/18 11/30/18 History folic acid 1 mg PO DAILY 07/16/18 11/30/18 History methotrexate sodium 15 mg PO WK 07/16/18 11/30/18 History misoprostol 100 mcg PO BID 07/16/18 11/30/18 History multivitamin 1 cap PO DAILY 07/16/18 11/30/18 History prednisone 2 mg PO QPM 07/16/18 11/30/18 History prednisone 5 mg PO DAILY 07/16/18 11/30/18 History ProAir RespiClick 2 inha INH Q4H 08/04/18 11/30/18 History cholecalciferol (vitamin D3) 1,000 unit PO DAILY 08/04/18 11/30/18 History [Vitamin D3] Eliquis 5 mg PO BID #30 tab 09/08/18 11/30/18 Rx acetaminophen [Tylenol] 650 mg PO Q4 PRN 09/29/18 11/30/18 History dalbavancin 1,500 mg IV Q14D 09/29/18 11/30/18 History ferrous sulfate 325 mg PO DAILY 09/29/18 11/30/18 History metoprolol succinate 12.5 mg PO DAILY 09/29/18 11/30/18 History ropinirole [Requip] 0.25 mg PO DAILY 09/29/18 11/30/18 History terazosin 1 mg PO DAILY 09/29/18 11/30/18 History atorvastatin 40 mg PO DAILY 11/30/18 11/30/18 History clopidogrel 75 mg PO DAILY 11/30/18 11/30/18 History docusate sodium [Colace] 100 mg PO DAILY 11/30/18 11/30/18 History furosemide 40 mg PO DAILY 11/30/18 11/30/18 History gabapentin 600 mg PO HS 11/30/18 11/30/18 History losartan 12.5 mg PO DAILY 11/30/18 11/30/18 History Patient History Medical History Rheumatoid arthritis (Chronic) Steroid dependent Paroxysmal atrial fibrillation (Chronic) Intractable pain (Acute) Rib fracture Fall Asthma exacerbation B12 deficiency Rheumatoid arthritis PAD (peripheral artery disease) Chronic foot ulcer with fat layer exposed - continue dressings as discussed, new dressings applied today and will need changed daily Essential hypertension (Chronic 02/12/13) CHF (congestive heart failure) (Acute) Asthma (Chronic) Cellulitis (Chronic) Foot pain, right (Chronic) GERD (gastroesophageal reflux disease) (Chronic) Ulcer (Chronic) LEFT FOOT Anxiety Arrhythmia BPH (benign prostatic hyperplasia) Osteoarthritis Rheumatoid arthritis Surgical History H/O heart artery stent (Acute) History of colectomy POLYPS REMOVED History of colonoscopy History of esophagogastroduodenoscopy (EGD) History of repair of rotator cuff RT History of tooth extraction Family History Father Myocardial infarction Other Family history non-contributory Social History Preferred Language: Welsh Communication Ability: Effective Youth Accommodation Support Worker Required: No Beliefs That Will Affect Care: None Current Living Situation: Spouse Current Living Situation Comment: spouse and dtr Other Information That Helps Us Care for You: No Feels Safe at Home: Yes Safety Concerns: Feels Safe At This Time Smoking Status: Former smoker Do You Dip or Chew Tobacco: No Second Hand Exposure: No Tobacco Cessation Education Requested by Patient: No Hx Alcohol Use: No Hx Substance Use: No Physical Exam Skin: dressings intact to bilateral legs - patient is unable to move left leg out of contracted position - ulcers present on bilateral feet of different stages, over all stable Results & Data Vital Signs (Past 12 Hours) Vital Signs Temp Pulse Pulse Resp BP BP Pulse Ox 12/02/18 11:53 36.7 C 79 20 128/77 99 12/02/18 11:51 36.8 C 94 H 16 82/52 L 94 12/02/18 07:20 88 12/02/18 06:58 36.8 C 86 20 99/56 L 98 12/02/18 04:00 37.1 C 86 20 94/43 L 93
[2018-12-02] MEDS ORDERED: LIDOCAINE HCL 2% 2 ML VIAL/AMP(20MG/ML) INFIL ONE (15:07)
[2018-12-02] MEDS ORDERED: PROPOFOL IV EMULSION 10 MG/ML 20 ML VIAL IV ONE (15:07)
--- NOTE | 2018-12-02 15:29 | Anesthesiology Consultation ---
Date of Service December 02, 2018 Assessment & Plan (1) Encounter for pre-operative examination: Chart Review Chart Review: Acceptable Risk for Surgery, Patient NOT seen in Pre Admission Testing and Acceptable Risk for Labor Epidural History Surgery Operation Date: 12/02/18 10:30 Proposed Procedures p Esophagogastroduodenoscopy Dr Sabiha Landis Height/Weight Height: 5 ft 4 in Weight: 58 kg Allergies Allergy/AdvReac Type Severity Reaction Status Date / Time amoxicillin Allergy Severe RED Verified 11/30/18 12:10 BLOTCHES HEAD TO TOE Iodinated Contrast- Oral and Allergy Severe "FELT Verified 11/30/18 12:10 IV Dye FUNNY" ioversol Allergy Severe PASSED OUT Verified 11/30/18 12:10 clavulanic acid Allergy Intermediate RASH Verified 11/30/18 12:10 Penicillins Allergy Intermediate RASH Verified 11/30/18 12:10 adhesive Allergy Mild REDNESS Verified 11/30/18 12:10 WITH EXTENDED USE Sulfa (Sulfonamide Allergy Mild RASH Verified 11/30/18 12:10 Antibiotics) sulfamethoxazole Allergy Mild RASH Verified 11/30/18 12:10 trimethoprim Allergy Mild RASH Verified 11/30/18 12:10 Bactrim Allergy Unknown RASH Verified 11/18/17 00:19 Fish Containing Products Allergy Unknown Verified 11/30/18 12:10 fish derived Allergy Unknown Verified 11/30/18 12:10 fish oil Allergy Unknown Verified 11/30/18 12:10 shellfish derived Allergy Unknown Verified 11/30/18 12:10 silver Allergy Rash Verified 11/30/18 16:12 Latex, Natural Rubber AdvReac Intermediate Redness of Verified 11/30/18 12:10 Skin Food Allergy Severe SEAFOOD - Uncoded 11/30/18 12:10 EYES SWELL IF DRINKS ALCOHOL WITH Carboxymethylcellulose AdvReac Mild Irritates Uncoded 11/30/18 12:10 the skin Medications Home Medications Medication Instructions Recorded Confirmed Last Taken cyanocobalamin (vitamin B-12) 1,000 mcg PO DAILY 07/14/18 11/30/18 09/02/18 [Vitamin B-12] alendronate [Fosamax] 70 mg PO WK 07/16/18 11/30/18 11/27/18 esomeprazole magnesium [Nexium] 40 mg PO DAILY 07/16/18 11/30/18 09/29/18 07:00 folic acid 1 mg PO DAILY 07/16/18 11/30/18 09/29/18 07:00 methotrexate sodium 15 mg PO WK 07/16/18 11/30/18 11/25/18 misoprostol 100 mcg PO BID 07/16/18 11/30/18 09/29/18 07:00 multivitamin 1 cap PO DAILY 07/16/18 11/30/18 09/02/18 prednisone 2 mg PO QPM 07/16/18 11/30/18 09/01/18 prednisone 5 mg PO DAILY 07/16/18 11/30/18 09/29/18 07:00 ProAir RespiClick 2 inha INH Q4H 08/04/18 11/30/18 09/29/18 09:00 cholecalciferol (vitamin D3) 1,000 unit PO DAILY 08/04/18 11/30/18 09/02/18 [Vitamin D3] Eliquis 5 mg PO BID #30 tab 09/08/18 11/30/18 09/29/18 07:00 acetaminophen [Tylenol] 650 mg PO Q4 PRN 09/29/18 11/30/18 09/29/18 04:00 dalbavancin 1,500 mg IV Q14D 09/29/18 11/30/18 09/28/18 ferrous sulfate 325 mg PO DAILY 09/29/18 11/30/18 09/29/18 07:00 metoprolol succinate 12.5 mg PO DAILY 09/29/18 11/30/18 09/29/18 07:00 ropinirole [Requip] 0.25 mg PO DAILY 09/29/18 11/30/18 Unknown terazosin 1 mg PO DAILY 09/29/18 11/30/18 Unknown atorvastatin 40 mg PO DAILY 11/30/18 11/30/18 Unknown clopidogrel 75 mg PO DAILY 11/30/18 11/30/18 Unknown docusate sodium [Colace] 100 mg PO DAILY 11/30/18 11/30/18 Unknown furosemide 40 mg PO DAILY 11/30/18 11/30/18 Unknown gabapentin 600 mg PO HS 11/30/18 11/30/18 Unknown losartan 12.5 mg PO DAILY 11/30/18 11/30/18 Unknown Active Medications Generic Name Dose Route Start Last Admin Trade Name Freq PRN Reason Stop Dose Admin Acetaminophen 650 mg 11/30/18 17:38 12/02/18 02:10 Tylenol PO 12/30/18 17:37 650 mg Q4 PRN Administration Fever Or Pain Albuterol 2 puffs 11/30/18 20:00 12/02/18 13:15 Ventolin Hfa INH 12/30/18 19:59 2 puffs Q4 ROBIN Administration Apixaban 5 mg 11/30/18 21:00 12/01/18 09:07 Eliquis PO 12/30/18 20:59 5 mg BID ROBIN Administration Atorvastatin Calcium 40 mg 12/01/18 09:00 12/01/18 09:07 Lipitor PO 12/31/18 08:59 40 mg DAILY ROBIN Administration Clopidogrel Bisulfate 75 mg 12/01/18 09:00 12/01/18 09:10 Plavix PO 12/31/18 08:59 75 mg DAILY ROBIN Administration Cyanocobalamin 1,000 mcg 12/01/18 09:00 12/02/18 08:29 Vitamin B-12 PO 12/31/18 08:59 1,000 mcg DAILY ROBIN Administration Desipramine HCl 10 mg 12/01/18 21:00 12/01/18 20:31 Norpramin PO 12/31/18 20:59 10 mg HS ROBIN Administration Docusate Sodium 100 mg 12/01/18 09:00 12/02/18 08:29 Colace PO 12/31/18 08:59 100 mg DAILY ROBIN Administration Ferrous Sulfate 325 mg 12/01/18 09:00 12/02/18 08:28 Feosol PO 12/31/18 08:59 325 mg DAILY ROBIN Administration Folic Acid 1 mg 12/01/18 09:00 12/02/18 08:23 Folvite PO 12/31/18 08:59 1 mg DAILY ROBIN Administration Furosemide 40 mg 12/01/18 09:00 12/01/18 09:10 Lasix PO 12/31/18 08:59 40 mg DAILY ROBIN Administration Gabapentin 600 mg 11/30/18 21:00 12/01/18 20:30 Neurontin PO 12/30/18 20:59 600 mg HS ROBIN Administration Gabapentin 300 mg 12/01/18 09:00 12/02/18 08:23 Neurontin PO 12/31/18 08:59 300 mg QAM ROBIN Administration Hydromorphone HCl 0.5 mg 11/30/18 17:38 12/02/18 12:58 Dilaudid IV 12/14/18 17:37 0.5 mg Q3H PRN Administration Pain Daptomycin 350 mg/ Syringe 7 mls @ 3.5 mls/min 12/01/18 12:30 12/02/18 13:15 IV 01/12/19 12:29 3.5 mls/min Q24H ROBIN Administration Protocol Methylprednisolone 40 mg/ 0.64 mls @ 1.5 mls/min 12/02/18 09:00 12/02/18 08:41 Syringe IV 12/04/18 08:59 1.5 mls/min DAILY ROBIN Administration Losartan Potassium 12.5 mg 12/01/18 09:00 12/01/18 09:08 Cozaar PO 12/31/18 08:59 12.5 mg DAILY ROBIN Administration Metoprolol Succinate 12.5 mg 12/01/18 09:00 12/02/18 08:29 Toprol Xl PO 12/31/18 08:59 12.5 mg DAILY ROBIN Administration Misoprostol 100 mcg 11/30/18 19:00 12/02/18 08:22 Cytotec PO 12/30/18 18:59 100 mcg BIDM ROBIN Administration Multivitamins 1 tab 12/01/18 09:00 12/02/18 08:30 Multivitamin Tab PO 12/31/18 08:59 1 tab DAILY ROBIN Administration Pantoprazole Sodium 40 mg 12/01/18 21:00 12/02/18 08:21 Protonix PO 12/31/18 20:59 40 mg BID ROBIN Administration Prednisone 2 mg 11/30/18 21:00 11/30/18 20:42 Prednisone PO 12/30/18 20:59 2 mg QPM ROBIN Administration Prednisone 5 mg 12/01/18 09:00 12/01/18 09:08 Prednisone PO 12/31/18 08:59 5 mg DAILY ROBIN Administration Ropinirole HCl 0.25 mg 12/01/18 09:00 12/02/18 08:31 Requip PO 12/31/18 08:59 0.25 mg DAILY ROBIN Administration Terazosin HCl 1 mg 12/01/18 09:00 12/02/18 08:31 Hytrin PO 12/31/18 08:59 1 mg DAILY ROBIN Administration Vitamin D 1,000 units 12/01/18 09:00 12/02/18 08:29 Vitamin D3 PO 12/31/18 08:59 1,000 units DAILY ROBIN Administration NPO Date Last Intake of Fluids: 12/02/18 Time Last Intake of Fluids: 08:00 Last Intake of Fluids Comment: sip of water Date Last Intake of Solids: 12/01/18 Time Last Intake of Solids: 18:00 Past Medical History Medical History Rheumatoid arthritis (Chronic) Steroid dependent Paroxysmal atrial fibrillation (Chronic) Intractable pain (Acute) Rib fracture Fall Asthma exacerbation B12 deficiency Rheumatoid arthritis PAD (peripheral artery disease) Chronic foot ulcer with fat layer exposed - continue dressings as discussed, new dressings applied today and will need changed daily Essential hypertension (Chronic 02/12/13) CHF (congestive heart failure) (Acute) Asthma (Chronic) Cellulitis (Chronic) Foot pain, right (Chronic) GERD (gastroesophageal reflux disease) (Chronic) Ulcer (Chronic) LEFT FOOT Anxiety Arrhythmia BPH (benign prostatic hyperplasia) Osteoarthritis Rheumatoid arthritis Past Family History Family History Father Myocardial infarction Other Family history non-contributory Past Surgical History Surgical History H/O heart artery stent (Acute) History of colectomy POLYPS REMOVED History of colonoscopy History of esophagogastroduodenoscopy (EGD) History of repair of rotator cuff RT History of tooth extraction Social History Smoking Status: Former smoker Do You Dip or Chew Tobacco: No Hx Alcohol Use: No Hx Substance Use: No substance use type: does not use Review of Systems no chest pain or sob Physical Exam Vital Signs Last Vital Signs Temp 37.2 C 12/02/18 15:12 Pulse 93 H 12/02/18 15:12 Resp 18 12/02/18 15:12 BP 128/77 12/02/18 11:53 Pulse Ox 99 12/02/18 15:12 Testing Laboratory Results 12/02/18 12:58 12/02/18 05:45 Yellow 11/30/18 14:40 Clear (Clear) 11/30/18 14:40 5.5 (4.5-7.5) 11/30/18 14:40 Ur Specific [place] 1.022 (1.000-1.030) 11/30/18 14:40 Negative (Negative) 11/30/18 14:40 Negative (Negative) 11/30/18 14:40 Negative (Negative) 11/30/18 14:40 Negative (Negative) 11/30/18 14:40 Ur Leukocyte Esterase Trace (Negative) H 11/30/18 14:40 1-5 /hpf (0-5) 11/30/18 14:40 0-4 /hpf (0-4) 11/30/18 14:40 U Hyaline Cast (Auto) 0 /lpf (0-5) 11/30/18 14:40 U Epithel Cells (Auto) 5-10 /lpf (0-5) H 11/30/18 14:40 Negative (Negative) 11/30/18 14:40 Blood Type B Positive 11/30/18 14:01 Antibody Screen NEGATIVE 11/30/18 14:01 11/30/18 13:17 Aerobic Blood Culture - Preliminary Blood No growth in Aerobic bottle after 48 hours. Anaerobic Blood Culture - Preliminary No growth in Anaerobic bottle after 48 hours. 11/30/18 13:16 Aerobic Blood Culture - Preliminary Blood No growth in Aerobic bottle after 48 hours. Anaerobic Blood Culture - Preliminary No growth in Anaerobic bottle after 48 hours.
[2018-12-02] MEDS ORDERED: KETAMINE HCL INJ 50 MG/ML 10 ML VIAL ONE (15:35)
--- NOTE | 2018-12-02 15:36 | Infectious Disease Progress Nt ---
Date of Service December 02, 2018 Assessment & Plan (1) Acute osteomyelitis of toe of left foot: Patient with nonhealing left foot wound, with multiple other ulcerations, with osteomyelitis of the fourth left toe with positive cultures for MRSA. Would recommend use of IV daptomycin, will likely require prolonged IV antibiotic therapy. Would have vascular surgery see patient. Will follow. (2) MRSA (methicillin resistant Staphylococcus aureus) infection: Subjective Patient seen in follow-up for left foot infection. Pain slightly better today. Podiatry consult noted. No fever. Review of Systems Review of Systems: All systems reviewed & are unremarkable except as noted in HPI & below Physical Exam Constitutional: well nourished, + acute distress, + ill appearing and + thin Eyes: PERRL, conjunctivae normal, anicteric sclerae ENMT: external ear and nose normal, oropharynx normal Neck: trachea midline, no thyromegaly normal visual inspection Respiratory: normal respiratory effort, lungs clear to auscultation normal percussion; no respiratory distress Cardiovascular: RRR, no murmur, no edema Heart Sounds: no gallop and no cardiac rub Gastrointestinal (Abdomen): normal bowel sounds, soft, nontender, no hepatosplenomegaly Musculoskeletal: Head/Neck/Chest: normocephalic, head atraumatic and neck supple Skin: normal turgor and + wound (Multiple foot wound, large left foot dorsal foot wound with some necrotic debris); no rashes Neurologic: moves all extremities; no focal motor deficits Psychiatric: A+Ox3, euthymic affect Lymphatic: no cervical or axillary lymphadenopathy no inguinal lymphadenopathy Results & Data Vital Signs (Past 12 Hours) Vital Signs Temp Pulse Pulse Resp BP BP Pulse Ox 12/02/18 15:12 37.2 C 93 H 18 99 12/02/18 11:53 36.7 C 79 20 128/77 99 12/02/18 11:51 36.8 C 94 H 16 82/52 L 94 12/02/18 07:20 88 12/02/18 06:58 36.8 C 86 20 99/56 L 98 12/02/18 04:00 37.1 C 86 20 94/43 L 93 Laboratory Results Short CBC 12/01/18 12/02/18 12/02/18 Range/Units 16:24 05:45 12:58 WBC 9.76 (4.8-10.8) K/uL Hgb 7.1 L 8.0 L 8.3 L (14.0-18.0) g/dL Hct 22.3 L 24.1 L 25.1 L (42-52) % Plt Count 248 (130-400) K/uL BMP 12/02/18 05:45 Sodium 136 Potassium 4.1 Chloride 106 Carbon Dioxide 22 BUN 23 H Creatinine 0.59 L Glucose 122 H Calcium 7.7 L Diagnostic Findings Microbiology 11/30/18 13:17 Blood Aerobic Blood Culture - Preliminary No growth in Aerobic bottle after 48 hours. 11/30/18 13:17 Blood Anaerobic Blood Culture - Preliminary No growth in Anaerobic bottle after 48 hours. 11/30/18 13:16 Blood Aerobic Blood Culture - Preliminary No growth in Aerobic bottle after 48 hours. 11/30/18 13:16 Blood Anaerobic Blood Culture - Preliminary No growth in Anaerobic bottle after 48 hours.
--- NOTE | 2018-12-02 15:49 | Hospitalist Progress Note ---
Date of Service December 02, 2018 Assessment & Plan (1) Intractable pain: - This is likely in the setting of peripheral vascular disease and osteomyelitis -- Pain does seem to improve with dangling of the legs which is pretty consistent with a PVD picture -- In regards to PVD - he did have a RLE SFA stent placed in the past and did discuss with vascular about possible intervention at this current time - bypass/other vascular intervention not an option at this time and stated if needed can be formally consulted but likely not pending if podiatry has further recommendations for such -- Review of outpatient visit from Mar 2018 - LLE U/S prior to that appointment with adequate flow and no focal hemodynamic stenosis that would benefit from surgical intervention - Will repeat B/L U/S to further assess peripheral vessels - Desipramine 10 mg HS and Gabapentin 300 mg AM and 600 mg HS with plans to start and additional 300 mg at lunch time on 12/04; Dilaudid and Hydrocodone/Acetaminophen PRN - Consulted pain management - plan as above; appreciate input (2) Osteomyelitis of fourth toe of left foot: - Reports being on Dalvance Q2W and Doxycycline - for ulcerations and cellulitis; H/O MRSA - Imaging now supports Osteomyelitis - could not find documentation that this was noted previously - Started on Daptomycin daily; BCx without growth at this time - Was febrile on 12/01 and hypotensive - Discussed with vascular as noted above, no intervention at this time - Consult Podiatry - follows with Dr. Tirado - planning on conservative measures at this time with IV Abx - ID Following - recommending long-term Abx - currently recommending Daptomycin (3) Severe anemia: - Repeat hemoccult pending but no bowel movement this admission - was heme+ in September -- Patient/Daughter states he has melena but is on iron supplementation which could explain that however continues to have drops in Hgb with a transfusion on last admission; on 12/01 patient was hypotensive but rather asymptomatic from it as he does have baseline low pressures, was transfused 1 unit and Hgb now at 8.3 and will monitor - Change to Protonix 40 mg BID - Help Plavix and Eliquis for time being given concern of GI blood losses - will resume as quickly as possible given CAD; currently not in A Fib - Consult GI - EGD on 12/02 (4) Bilateral leg ulcer: - Chronic issues - multiple unstageable pressure ulcers of B/L LE, POA and 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, POA - these are slowly improving - Consult podiatry - appreciate recommendations (5) Heart failure with reduced ejection fraction: - Currently stable but will monitor given transfusion - Echo (Aug 2018) - EF 30-35% with thin akinetic inferior wall with adjacent inferolateral, basal septal hypokinesis; severe hypokinesis involving mid to apical anterior and lateral wall - Will hold Losartan and Lasix for now given hypotension on 12/01 which currently is improving (6) Paroxysmal atrial fibrillation: - Currently in NSR - Holding Eliquis given GI consult; Will continue Toprol XL 12.5 mg daily for rate management but will utilize hold parameters (7) Rheumatoid arthritis: - Follows with Dr. Haq ([facility]) - Given setting of infection will hold Methotrexate - Given infection and hypotension will do a stress dose of Methylprednisolone 40 mg IV daily - likely can do x 3 days and taper back to home dosing and will monitor (8) DVT prophylaxis: - Hold chemical prophylaxis pending EGD findings Disposition: Continue to try and control pain and assess vessels; will need PICC line and IV Abx setup; await GI assessment Subjective Patient reports his pain is doing better today but still present when pain medications wear off. Continues to state it helps to dangle his legs. Hgb is now up to 8.3 with transfusion yesterday and BP improved; No signs of decompensated CHF at this time. Planning on EGD today to assess for possible source of Hgb drop; Reports no other complaints today Review of Systems Constitutional: no fever and no chills Respiratory: no cough and no dyspnea Cardiovascular: no chest pain, no palpitations and no edema Gastrointestinal: + melena; no abdominal pain, no nausea, no vomiting, no constipation and no diarrhea/loose stools Genitourinary: no dysuria Musculoskeletal: b/l leg pain when elevating legs and improves with dangling legs; pain at back of L heel Integumentary: + non-healing lesions Neurologic: + tingling and + numbness Physical Exam Constitutional: + frail appearing; no acute distress and not ill appearing Eyes: + anicteric sclerae ENMT: Ears: no hearing impairment Neck: normal visual inspection and trachea midline Respiratory: normal respiratory effort Auscultation: lungs clear to auscultation bilaterally and + diminished lung sounds Cardiovascular: Rate/Rhythm: regular rate and regular rhythm Gastrointestinal (Abdomen): Inspection/Auscultation: normal bowel sounds Percussion/Palpation: abdomen soft; abdomen nontender Musculoskeletal: Head/Neck/Chest: normocephalic and head atraumatic Skin: + wound most wounds currently have dressings applied, yellowed toenails and deformity of toe joints; deformity of hand/fingers consistent with RA Neurologic: moves all extremities Psychiatric: A+Ox3, euthymic affect Results & Data Vital Signs (Past 12 Hours) Vital Signs Temp Pulse Pulse Resp BP BP Pulse Ox 12/02/18 15:12 37.2 C 93 H 18 99 12/02/18 15:00 87 12/02/18 11:53 36.7 C 79 20 128/77 99 12/02/18 11:51 36.8 C 94 H 16 82/52 L 94 12/02/18 07:20 88 12/02/18 06:58 36.8 C 86 20 99/56 L 98 12/02/18 04:00 37.1 C 86 20 94/43 L 93 (1) Bilateral leg ulcer Non-pressure ulcer stage: with fat layer exposed Qualified Code(s): L97.912 - Non-pressure chronic ulcer of unspecified part of right lower leg with fat layer exposed; L97.922 - Non-pressure chronic ulcer of unspecified part of left lower leg with fat layer exposed
--- NOTE | 2018-12-02 15:53 | History & Physical Report ---
Date of Service December 02, 2018 History of Present Illness Chief Complaint: anemia, melena Primary Care Provider: Daniele Martinez, III, RE[employer]ERATION TECH For EGD Allergies Allergy/AdvReac Type Severity Reaction Status Date / Time amoxicillin Allergy Severe RED Verified 11/30/18 12:10 BLOTCHES HEAD TO TOE Iodinated Contrast- Oral and Allergy Severe "FELT Verified 11/30/18 12:10 IV Dye FUNNY" ioversol Allergy Severe PASSED OUT Verified 11/30/18 12:10 clavulanic acid Allergy Intermediate RASH Verified 11/30/18 12:10 Penicillins Allergy Intermediate RASH Verified 11/30/18 12:10 adhesive Allergy Mild REDNESS Verified 11/30/18 12:10 WITH EXTENDED USE Sulfa (Sulfonamide Allergy Mild RASH Verified 11/30/18 12:10 Antibiotics) sulfamethoxazole Allergy Mild RASH Verified 11/30/18 12:10 trimethoprim Allergy Mild RASH Verified 11/30/18 12:10 Bactrim Allergy Unknown RASH Verified 11/18/17 00:19 Fish Containing Products Allergy Unknown Verified 11/30/18 12:10 fish derived Allergy Unknown Verified 11/30/18 12:10 fish oil Allergy Unknown Verified 11/30/18 12:10 shellfish derived Allergy Unknown Verified 11/30/18 12:10 silver Allergy Rash Verified 11/30/18 16:12 Latex, Natural Rubber AdvReac Intermediate Redness of Verified 11/30/18 12:10 Skin Food Allergy Severe SEAFOOD - Uncoded 11/30/18 12:10 EYES SWELL IF DRINKS ALCOHOL WITH Carboxymethylcellulose AdvReac Mild Irritates Uncoded 11/30/18 12:10 the skin Home Medications Home Medications Medication Instructions Recorded Confirmed Type cyanocobalamin (vitamin B-12) 1,000 mcg PO DAILY 07/14/18 11/30/18 History [Vitamin B-12] alendronate [Fosamax] 70 mg PO WK 07/16/18 11/30/18 History esomeprazole magnesium [Nexium] 40 mg PO DAILY 07/16/18 11/30/18 History folic acid 1 mg PO DAILY 07/16/18 11/30/18 History methotrexate sodium 15 mg PO WK 07/16/18 11/30/18 History misoprostol 100 mcg PO BID 07/16/18 11/30/18 History multivitamin 1 cap PO DAILY 07/16/18 11/30/18 History prednisone 2 mg PO QPM 07/16/18 11/30/18 History prednisone 5 mg PO DAILY 07/16/18 11/30/18 History ProAir RespiClick 2 inha INH Q4H 08/04/18 11/30/18 History cholecalciferol (vitamin D3) 1,000 unit PO DAILY 08/04/18 11/30/18 History [Vitamin D3] Eliquis 5 mg PO BID #30 tab 09/08/18 11/30/18 Rx acetaminophen [Tylenol] 650 mg PO Q4 PRN 09/29/18 11/30/18 History dalbavancin 1,500 mg IV Q14D 09/29/18 11/30/18 History ferrous sulfate 325 mg PO DAILY 09/29/18 11/30/18 History metoprolol succinate 12.5 mg PO DAILY 09/29/18 11/30/18 History ropinirole [Requip] 0.25 mg PO DAILY 09/29/18 11/30/18 History terazosin 1 mg PO DAILY 09/29/18 11/30/18 History atorvastatin 40 mg PO DAILY 11/30/18 11/30/18 History clopidogrel 75 mg PO DAILY 11/30/18 11/30/18 History docusate sodium [Colace] 100 mg PO DAILY 11/30/18 11/30/18 History furosemide 40 mg PO DAILY 11/30/18 11/30/18 History gabapentin 600 mg PO HS 11/30/18 11/30/18 History losartan 12.5 mg PO DAILY 11/30/18 11/30/18 History Past Med/Surg History Medical History Rheumatoid arthritis (Chronic) Steroid dependent Paroxysmal atrial fibrillation (Chronic) Intractable pain (Acute) Rib fracture Fall Asthma exacerbation B12 deficiency Rheumatoid arthritis PAD (peripheral artery disease) Chronic foot ulcer with fat layer exposed - continue dressings as discussed, new dressings applied today and will need changed daily Essential hypertension (Chronic 02/12/13) CHF (congestive heart failure) (Acute) Asthma (Chronic) Cellulitis (Chronic) Foot pain, right (Chronic) GERD (gastroesophageal reflux disease) (Chronic) Ulcer (Chronic) LEFT FOOT Anxiety Arrhythmia BPH (benign prostatic hyperplasia) Osteoarthritis Rheumatoid arthritis Surgical History H/O heart artery stent (Acute) History of colectomy POLYPS REMOVED History of colonoscopy History of esophagogastroduodenoscopy (EGD) History of repair of rotator cuff RT History of tooth extraction Family History Father Myocardial infarction Other Family history non-contributory Social History Preferred Language: Setswana Communication Ability: Effective Inventory Worker Required: No Beliefs That Will Affect Care: None Current Living Situation: Spouse Current Living Situation Comment: spouse and dtr Other Information That Helps Us Care for You: No Feels Safe at Home: Yes Safety Concerns: Feels Safe At This Time Smoking Status: Former smoker Do You Dip or Chew Tobacco: No Second Hand Exposure: No Tobacco Cessation Education Requested by Patient: No Hx Alcohol Use: No Hx Substance Use: No Physical Exam Vital Signs (Past 24 Hours): Last Vital Signs Temp 37.2 C 12/02/18 15:12 Pulse 93 H 12/02/18 15:12 Resp 18 12/02/18 15:12 BP 128/77 12/02/18 11:53 Pulse Ox 99 12/02/18 15:12 Constitutional: + thin and + frail appearing Respiratory: normal respiratory effort Cardiovascular: Rate/Rhythm: regular rate and regular rhythm Gastrointestinal (Abdomen): Percussion/Palpation: abdomen soft Musculoskeletal: Hand deformity
[2018-12-02] MEDS ORDERED: SODIUM CHLORIDE 0.9% 1000ML 1,000 ML IV SCH (16:00)
--- NOTE | 2018-12-02 16:17 | GI REPORT ---
Patient Name: Juventino Condon Procedure Date: 12/02/2018 3:18 PM Date of : 1945 Admit Type: Inpatient Age: 73 Gender: Male Attending MD: Jorge Landis MD Procedure: Upper GI endoscopy Providers: Jorge Landis MD Referring MD: Ventura Guzman Indications: Iron deficiency anemia, Melena Medicines: Propofol total dose 40 mg IV, Ketamine 20 mg IV Complications: No immediate complications. Estimated Blood Loss: Estimated blood loss: none. Procedure: Pre-Anesthesia Assessment: - Prior to the procedure, a History and Physical was performed, and patient medications, allergies and sensitivities were reviewed. The patient's tolerance of previous anesthesia was reviewed. - The risks and benefits of the procedure and the sedation options and risks were discussed with the patient. All questions were answered and informed consent was obtained. After obtaining informed consent, the endoscope was passed under direct vision. Throughout the procedure, the patient's blood pressure, pulse, and oxygen saturations were monitored continuously. The Endoscope was introduced through the mouth, and advanced to the second part of duodenum. The upper GI endoscopy was accomplished without difficulty. The patient tolerated the procedure well. Findings: The Z-line was regular and was found 40 cm from the incisors. A non-obstructing Schatzki ring was found at the gastroesophageal junction. The entire examined stomach was normal. The examined duodenum was normal. Impression: - Z-line regular, 40 cm from the incisors. - Non-obstructing Schatzki ring. - Normal stomach. - Normal examined duodenum. - No specimens collected. Recommendation: - [facility]. - Perform a colonoscopy tomorrow. Jorge Landis M.D. Jorge Landis MD 12/02/2018 4:17:28 PM This report has been signed electronically. Note Initiated On: 12/02/2018 3:18 PM Number of Addenda: 0 I attest to the content of the Intraoperative Record and orders documented therein, exceptions below {[id number]}
--- NOTE | 2018-12-02 16:19 | Anesthesiology Progress Note ---
Date of Service December 02, 2018 Anesthesia Post Procedure Vital Signs Vital Signs: Temp Pulse Pulse Resp BP BP BP 12/02/18 16:12 91 H 16 12/02/18 15:12 37.2 C 93 H 18 12/02/18 15:00 87 12/02/18 11:53 36.7 C 79 20 128/77 12/02/18 11:51 36.8 C 94 H 16 82/52 L 12/02/18 07:20 88 12/02/18 06:58 36.8 C 86 20 99/56 L 12/02/18 04:00 37.1 C 86 20 94/43 L 12/02/18 00:00 90 12/01/18 23:57 36.7 C 95 H 20 106/66 12/01/18 23:04 37.9 C H 93 H 20 109/52 L 12/01/18 21:00 36.8 C 78 16 102/68 12/01/18 20:00 37.1 C 91 H 18 99/62 L 12/01/18 19:20 37.7 C H 89 18 88/60 L 12/01/18 18:20 37.5 C 92 H 20 93/51 L 12/01/18 18:05 37.6 C H 92 H 22 80/46 L 12/01/18 17:50 37.4 C 93 H 18 92/44 L 12/01/18 17:18 37.5 C Pulse Ox 12/02/18 16:12 99 12/02/18 15:12 99 12/02/18 15:00 12/02/18 11:53 99 12/02/18 11:51 94 12/02/18 07:20 12/02/18 06:58 98 12/02/18 04:00 93 12/02/18 00:00 12/01/18 23:57 95 12/01/18 23:04 93 12/01/18 21:00 99 12/01/18 20:00 91 12/01/18 19:20 91 12/01/18 18:20 92 12/01/18 18:05 92 12/01/18 17:50 94 12/01/18 17:18 Pain Intensity Bilateral Foot: Pain Intensity: 2 Transfer of Care Handoff Completed per policy Notes Mental Status: alert / awake / arousable Patient Amnestic to Procedure: Yes Nausea / Vomiting: adequately controlled Pain: adequately controlled Airway Patency, RR, SpO2: stable & adequate BP & HR: stable & adequate Hydration State: stable & adequate Anesthetic Complications: no major complications apparent and Pt Satisfied with anesthetic care Notes: The patient is awake and stable.
--- NOTE | 2018-12-02 16:54 | Consultation Report ---
DATE OF CONSULTATION: 12/02/2018 GASTROINTESTINAL CONSULTATION REASON FOR EVALUATION: Anemia with heme-positive stool. HISTORY OF PRESENT ILLNESS: The patient is a 73-year-old with severe rheumatoid arthritis and osteomyelitis in his left fourth toe. He has got intractable pain and was admitted for further care and evaluation of that. At the time of hospitalization, he was noted to be anemic with a hemoglobin of 7.5 and heme-positive stools. The patient is not taking any aspirin or nonsteroidals but he does have chronic diseases that would contribute to chronic anemia. GI consultation has been requested for further evaluation. PAST MEDICAL HISTORY: Remarkable for congestive heart failure, methicillin-resistant Staph aureus, paroxysmal atrial fibrillation, steroid-dependent rheumatoid arthritis, osteomyelitis and intractable pain. MEDICATIONS: Per list. ALLERGIES: Per list. FAMILY HISTORY: Positive for myocardial infarction. SOCIAL HISTORY: The patient is and lives with his and daughter. Former smoker. No alcohol. REVIEW OF SYSTEMS: Remarkable for chronic pain and multiple joint deformities. PHYSICAL EXAMINATION: GENERAL: The patient appears frail and thin. EXTREMITIES: He has got severe deformities of his hands. ABDOMEN: Soft and nontender. IMPRESSION AND PLAN: The patient has severe multisystem disease with severe anemia and heme-positive stools. He is not taking any aspirin or nonsteroidals. We will start his evaluation with an upper endoscopy. If that is negative, we will pursue a colonoscopy for further evaluation.
[2018-12-02] MEDS: HYDROCODONE/ACETAMOPHEN 5/325MG TAB PO PRN ×2 (18:30→23:37)
[2018-12-02] MEDS: LAVAGE SOLUTION 4000ML PO SCH (19:03)
[2018-12-02] MEDS: GABAPENTIN 600 MG TAB PO SCH (20:25)
[2018-12-02] MEDS: DESIPRAMINE HCL 10 MG TAB PO SCH (20:26)
[2018-12-03] MEDS: HYDROmorphone INJ 0.5 MG/0.5 ML SYR IV PRN ×2 (01:46→23:37)
[2018-12-03] MEDS: ALBUTEROL HFA 8 GM INHALER INH SCH ×6 (06:09→23:44)
[2018-12-03 06:10] LABS: Hematocrit (blood only) 26.5 % (42-52); Hemoglobin 8.4 g/dL (14.0-18.0); Immature Granulocytes # (auto) 0.03 K/uL (0.00-0.02); Immature Granulocytes % (auto) 0.3 %; Lymphocytes # (auto) 1.15 K/uL (1.2-3.4); Mean Corpuscular Hgb Conc 31.7 g/dL (32-36); Mean Corpuscular Volume 82.6 fL (80-100); Mean Platelet Volume 8.7 fL (7.4-10.4); Monocytes # (auto) 1.27 K/uL (0.11-0.59); Monocytes % (auto) 13.3 %; Neutrophils # (auto) 7.13 K/uL (1.4-6.5); Neutrophils % (auto) 74.4 %; Nucleated RBC # (auto) 0.06 K/uL (0-0); Nucleated RBC % (auto) 0.7 %; Platelet Count 261 K/uL (130-400); RDW Coefficient of Variation 20.9 % (11.5-14.5); RDW Standard Deviation 62.6 fL (36.4-46.3); Red Blood Count 3.21 M/uL (4.7-6.1); White Blood Count 9.58 K/uL (4.8-10.8)
[2018-12-03 06:36] LABS: BUN Creatinine Ratio 45.5 (10-20); Calcium 7.6 mg/dl (8.5-10.1); Creatinine Clr Calc Pharmacy 87.2 ml/min; Est GFR (Non-African American) 98.4; Potassium 3.8 mmol/L (3.5-5.1)
[2018-12-03 06:47] LABS: Anisocytosis Present; Hypochromasia Present; Ovalocytes 1+; Spherocytes Occasional
[2018-12-03] MEDS: LAVAGE SOLUTION 4000ML PO SCH ×2 (06:55→08:00)
--- NOTE | 2018-12-03 08:39 | Anesthesiology Consultation ---
Date of Service December 03, 2018 Assessment & Plan (1) Encounter for pre-operative examination: Chart Review Chart Review: Acceptable Risk for Surgery and Patient NOT seen in Pre Admission Testing Consults Requested none ASA ASA4 Proposed Anesthesia Anesthesia Type: MAC History Surgery Operation Date: 12/02/18 10:30 Proposed Procedures p Esophagogastroduodenoscopy Dr Sabiha Landis Operation Date: 12/03/18 09:45 Proposed Procedures p Colonoscopy Dr Sabiha Landis Height/Weight Height: 5 ft 4 in Weight: 58 kg Allergies Allergy/AdvReac Type Severity Reaction Status Date / Time amoxicillin Allergy Severe RED Verified 11/30/18 12:10 BLOTCHES HEAD TO TOE Iodinated Contrast- Oral and Allergy Severe "FELT Verified 11/30/18 12:10 IV Dye FUNNY" ioversol Allergy Severe PASSED OUT Verified 11/30/18 12:10 clavulanic acid Allergy Intermediate RASH Verified 11/30/18 12:10 Penicillins Allergy Intermediate RASH Verified 11/30/18 12:10 adhesive Allergy Mild REDNESS Verified 11/30/18 12:10 WITH EXTENDED USE Sulfa (Sulfonamide Allergy Mild RASH Verified 11/30/18 12:10 Antibiotics) sulfamethoxazole Allergy Mild RASH Verified 11/30/18 12:10 trimethoprim Allergy Mild RASH Verified 11/30/18 12:10 Bactrim Allergy Unknown RASH Verified 11/18/17 00:19 Fish Containing Products Allergy Unknown Verified 11/30/18 12:10 fish derived Allergy Unknown Verified 11/30/18 12:10 fish oil Allergy Unknown Verified 11/30/18 12:10 shellfish derived Allergy Unknown Verified 11/30/18 12:10 silver Allergy Rash Verified 11/30/18 16:12 Latex, Natural Rubber AdvReac Intermediate Redness of Verified 11/30/18 12:10 Skin Food Allergy Severe SEAFOOD - Uncoded 11/30/18 12:10 EYES SWELL IF DRINKS ALCOHOL WITH Carboxymethylcellulose AdvReac Mild Irritates Uncoded 11/30/18 12:10 the skin Medications Home Medications Medication Instructions Recorded Confirmed Last Taken cyanocobalamin (vitamin B-12) 1,000 mcg PO DAILY 07/14/18 11/30/18 09/02/18 [Vitamin B-12] alendronate [Fosamax] 70 mg PO WK 07/16/18 11/30/18 11/27/18 esomeprazole magnesium [Nexium] 40 mg PO DAILY 07/16/18 11/30/18 09/29/18 07:00 folic acid 1 mg PO DAILY 07/16/18 11/30/18 09/29/18 07:00 methotrexate sodium 15 mg PO WK 07/16/18 11/30/18 11/25/18 misoprostol 100 mcg PO BID 07/16/18 11/30/18 09/29/18 07:00 multivitamin 1 cap PO DAILY 07/16/18 11/30/18 09/02/18 prednisone 2 mg PO QPM 07/16/18 11/30/18 09/01/18 prednisone 5 mg PO DAILY 07/16/18 11/30/18 09/29/18 07:00 ProAir RespiClick 2 inha INH Q4H 08/04/18 11/30/18 09/29/18 09:00 cholecalciferol (vitamin D3) 1,000 unit PO DAILY 08/04/18 11/30/18 09/02/18 [Vitamin D3] Eliquis 5 mg PO BID #30 tab 09/08/18 11/30/18 09/29/18 07:00 acetaminophen [Tylenol] 650 mg PO Q4 PRN 09/29/18 11/30/18 09/29/18 04:00 dalbavancin 1,500 mg IV Q14D 09/29/18 11/30/18 09/28/18 ferrous sulfate 325 mg PO DAILY 09/29/18 11/30/18 09/29/18 07:00 metoprolol succinate 12.5 mg PO DAILY 09/29/18 11/30/18 09/29/18 07:00 ropinirole [Requip] 0.25 mg PO DAILY 09/29/18 11/30/18 Unknown terazosin 1 mg PO DAILY 09/29/18 11/30/18 Unknown atorvastatin 40 mg PO DAILY 11/30/18 11/30/18 Unknown clopidogrel 75 mg PO DAILY 11/30/18 11/30/18 Unknown docusate sodium [Colace] 100 mg PO DAILY 11/30/18 11/30/18 Unknown furosemide 40 mg PO DAILY 11/30/18 11/30/18 Unknown gabapentin 600 mg PO HS 11/30/18 11/30/18 Unknown losartan 12.5 mg PO DAILY 11/30/18 11/30/18 Unknown Active Medications Generic Name Dose Route Start Last Admin Trade Name Freq PRN Reason Stop Dose Admin Hydrocodone Bitart/Acetaminophen 1 tab 12/02/18 14:57 12/03/18 08:41 [place] 5/325 PO 12/16/18 14:56 1 tab Q4H PRN Administration Pain Albuterol 2 puffs 11/30/18 20:00 12/03/18 15:24 Ventolin Hfa INH 12/30/18 19:59 2 puffs Q4 ROBIN Administration Apixaban 5 mg 11/30/18 21:00 12/01/18 09:07 Eliquis PO 12/30/18 20:59 5 mg BID ROBIN Administration Atorvastatin Calcium 40 mg 12/01/18 09:00 12/01/18 09:07 Lipitor PO 12/31/18 08:59 40 mg DAILY ROBIN Administration Clopidogrel Bisulfate 75 mg 12/01/18 09:00 12/01/18 09:10 Plavix PO 12/31/18 08:59 75 mg DAILY ROBIN Administration Cyanocobalamin 1,000 mcg 12/01/18 09:00 12/03/18 08:44 Vitamin B-12 PO 12/31/18 08:59 1,000 mcg DAILY ROBIN Administration Desipramine HCl 10 mg 12/01/18 21:00 12/02/18 20:26 Norpramin PO 12/31/18 20:59 10 mg HS ROBIN Administration Docusate Sodium 100 mg 12/01/18 09:00 12/03/18 08:47 Colace PO 12/31/18 08:59 100 mg DAILY ROBIN Administration Ferrous Sulfate 325 mg 12/01/18 09:00 12/03/18 08:42 Feosol PO 12/31/18 08:59 325 mg DAILY ROBIN Administration Folic Acid 1 mg 12/01/18 09:00 12/03/18 08:42 Folvite PO 12/31/18 08:59 1 mg DAILY ROBIN Administration Furosemide 40 mg 12/01/18 09:00 12/01/18 09:10 Lasix PO 12/31/18 08:59 40 mg DAILY ROBIN Administration Gabapentin 600 mg 11/30/18 21:00 12/02/18 20:25 Neurontin PO 12/30/18 20:59 600 mg HS ROBIN Administration Gabapentin 300 mg 12/01/18 09:00 12/03/18 08:44 Neurontin PO 12/31/18 08:59 300 mg QAM ROBIN Administration Hydromorphone HCl 0.5 mg 11/30/18 17:38 12/03/18 01:46 Dilaudid IV 12/14/18 17:37 0.5 mg Q3H PRN Administration Pain Daptomycin 350 mg/ Syringe 7 mls @ 3.5 mls/min 12/01/18 12:30 12/03/18 13:15 IV 01/12/19 12:29 3.5 mls/min Q24H ROBIN Administration Protocol Methylprednisolone 40 mg/ 0.64 mls @ 1.5 mls/min 12/02/18 09:00 12/03/18 08:42 Syringe IV 12/04/18 08:59 1.5 mls/min DAILY ROBIN Administration Losartan Potassium 12.5 mg 12/01/18 09:00 12/01/18 09:08 Cozaar PO 12/31/18 08:59 12.5 mg DAILY ROBIN Administration Metoprolol Succinate 12.5 mg 12/01/18 09:00 12/03/18 08:43 Toprol Xl PO 12/31/18 08:59 12.5 mg DAILY ROBIN Administration Misoprostol 100 mcg 11/30/18 19:00 12/03/18 08:44 Cytotec PO 12/30/18 18:59 100 mcg BIDM ROBIN Administration Multivitamins 1 tab 12/01/18 09:00 12/03/18 08:43 Multivitamin Tab PO 12/31/18 08:59 1 tab DAILY ROBIN Administration Pantoprazole Sodium 40 mg 12/01/18 21:00 12/03/18 08:43 Protonix PO 12/31/18 20:59 40 mg BID ROBIN Administration Prednisone 2 mg 11/30/18 21:00 11/30/18 20:42 Prednisone PO 12/30/18 20:59 2 mg QPM ROBIN Administration Prednisone 5 mg 12/01/18 09:00 12/01/18 09:08 Prednisone PO 12/31/18 08:59 5 mg DAILY ROBIN Administration Ropinirole HCl 0.25 mg 12/01/18 09:00 12/03/18 08:42 Requip PO 12/31/18 08:59 0.25 mg DAILY ROBIN Administration Terazosin HCl 1 mg 12/01/18 09:00 12/03/18 08:43 Hytrin PO 12/31/18 08:59 1 mg DAILY ROBIN Administration Vitamin D 1,000 units 12/01/18 09:00 12/03/18 08:44 Vitamin D3 PO 12/31/18 08:59 1,000 units DAILY ROBIN Administration NPO Date Last Intake of Fluids: 12/03/18 Time Last Intake of Fluids: 00:05 Last Intake of Fluids Comment: Pt refusing to drink golytely. at pt bedside Date Last Intake of Solids: 12/02/18 Time Last Intake of Solids: 21:00 Past Medical History Medical History Rheumatoid arthritis (Chronic) Steroid dependent Paroxysmal atrial fibrillation (Chronic) Intractable pain (Acute) Rib fracture Fall Asthma exacerbation B12 deficiency Rheumatoid arthritis PAD (peripheral artery disease) Chronic foot ulcer with fat layer exposed - continue dressings as discussed, new dressings applied today and will need changed daily Essential hypertension (Chronic 02/12/13) CHF (congestive heart failure) (Acute) Asthma (Chronic) Cellulitis (Chronic) Foot pain, right (Chronic) GERD (gastroesophageal reflux disease) (Chronic) Ulcer (Chronic) LEFT FOOT Anxiety Arrhythmia BPH (benign prostatic hyperplasia) Osteoarthritis Rheumatoid arthritis Exercise / Class Metabolic Activity IV < 2 Limit ADL/Bedbound Past Family History Family History Father Myocardial infarction Other Family history non-contributory Past Surgical History Surgical History H/O heart artery stent (Acute) History of colectomy POLYPS REMOVED History of colonoscopy History of esophagogastroduodenoscopy (EGD) 12/02/18 History of repair of rotator cuff RT History of tooth extraction Past Anesthesia History No Hx of Anesthesia Complications and No Family Hx of Anesthesia Complications History of PONV No Hx of PONV and No Hx of Motion Sickness Social History Smoking Status: Former smoker Do You Dip or Chew Tobacco: No Hx Alcohol Use: No Hx Substance Use: No substance use type: does not use Physical Exam Vital Signs Last Vital Signs Temp 37.2 C 12/03/18 15:52 Pulse 99 H 12/03/18 15:52 Resp 24 12/03/18 15:52 BP 102/67 12/03/18 15:52 Pulse Ox 96 12/03/18 15:52 Testing Electrocardiogram Date: 11/30/18 Findings: + NSR @ (88 bpm) Sinus rhythm with occasional Premature ventricular complexes Right bundle branch block Left posterior fascicular block Bifascicular block Abnormal ECG When compared with ECG of 01-OCT-2018 07:02, Premature ventricular complexes are now Present Confirmed by Audie Burks ([id number]) on 11/30/2018 10:44:27 PM Chest X-Ray Date: 11/30/18 Findings: + cardiomegaly (Mild stable cardiomegaly) Findings of early congestive heart failure Echocardiogram Date: 09/03/18 EF: 30-35% Cardiac Catheterization Date: 09/04/18 Summary: 1. Severe multi vessel coronary artery disease -70-80% lateproximal LAD 60-70% diffuse small mid circumflex 100% chronic mid RCA occlusion, PDA/PLB fills via [id number] collaterals 2. Elevated intracardiac filling pressure 3. Successful PCI of lateproximal LAD with single drug-eluting stent (2.5 x 18 mm [place]). Laboratory Results 12/03/18 05:40 12/03/18 05:40 Yellow 11/30/18 14:40 Clear (Clear) 11/30/18 14:40 5.5 (4.5-7.5) 11/30/18 14:40 Ur Specific [place] 1.022 (1.000-1.030) 11/30/18 14:40 Negative (Negative) 11/30/18 14:40 Negative (Negative) 11/30/18 14:40 Negative (Negative) 11/30/18 14:40 Negative (Negative) 11/30/18 14:40 Ur Leukocyte Esterase Trace (Negative) H 11/30/18 14:40 1-5 /hpf (0-5) 11/30/18 14:40 0-4 /hpf (0-4) 11/30/18 14:40 U Hyaline Cast (Auto) 0 /lpf (0-5) 11/30/18 14:40 U Epithel Cells (Auto) 5-10 /lpf (0-5) H 11/30/18 14:40 Negative (Negative) 11/30/18 14:40 Blood Type B Positive 11/30/18 14:01 Antibody Screen NEGATIVE 11/30/18 14:01 11/30/18 13:17 Aerobic Blood Culture - Preliminary Blood No growth in Aerobic bottle after 48 hours. Anaerobic Blood Culture - Preliminary No growth in Anaerobic bottle after 48 hours. 11/30/18 13:16 Aerobic Blood Culture - Preliminary Blood No growth in Aerobic bottle after 48 hours. Anaerobic Blood Culture - Preliminary No growth in Anaerobic bottle after 48 hours.
[2018-12-03] MEDS: HYDROCODONE/ACETAMOPHEN 5/325MG TAB PO PRN ×2 (08:41→17:19)
[2018-12-03] MEDS: ROPINIROLE HCL 0.25 MG TABLET PO SCH (08:42)
[2018-12-03] MEDS: FOLIC ACID 1 MG TAB PO SCH (08:42)
[2018-12-03] MEDS: FERROUS SULFATE 325 MG TAB PO SCH (08:42)
[2018-12-03] MEDS: methylPREDNISolone 40 MG in SYRINGE 0 ML IV SCH (08:42)
[2018-12-03] MEDS: TERAZOSIN HCL 1 MG CAP PO SCH (08:43)
[2018-12-03] MEDS: MULTIVITAMIN TAB PO SCH (08:43)
[2018-12-03] MEDS: PANTOprazole 40 MG TAB PO SCH ×2 (08:43→21:35)
[2018-12-03] MEDS: METOPROLOL SUCC 25MG EXT REL TAB PO SCH (08:43)
[2018-12-03] MEDS: CHOLECALCIFEROL 1,000 UNITS TAB PO SCH (08:44)
[2018-12-03] MEDS: miSOPROStol 50 MCG TAB PO SCH ×2 (08:44→17:20)
[2018-12-03] MEDS: CYANOCOBALAMIN 500 MCG TABLET (VITAMIN B-12) PO SCH (08:44)
[2018-12-03] MEDS: GABAPENTIN 300 MG CAP PO SCH (08:44)
[2018-12-03] MEDS: DOCUSATE SODIUM 100 MG CAP PO SCH (08:47)
[2018-12-03] MEDS: DAPTOmycin 350 MG in SYRINGE 0 ML IV SCH (13:15)
--- NOTE | 2018-12-03 16:04 | History & Physical Report ---
Date of Service December 03, 2018 History of Present Illness Chief Complaint: Anemia, melena Primary Care Provider: Daniele Martinez, III, [employer]IVE For colonoscopy Allergies Allergy/AdvReac Type Severity Reaction Status Date / Time amoxicillin Allergy Severe RED Verified 11/30/18 12:10 BLOTCHES HEAD TO TOE Iodinated Contrast- Oral and Allergy Severe "FELT Verified 11/30/18 12:10 IV Dye FUNNY" ioversol Allergy Severe PASSED OUT Verified 11/30/18 12:10 clavulanic acid Allergy Intermediate RASH Verified 11/30/18 12:10 Penicillins Allergy Intermediate RASH Verified 11/30/18 12:10 adhesive Allergy Mild REDNESS Verified 11/30/18 12:10 WITH EXTENDED USE Sulfa (Sulfonamide Allergy Mild RASH Verified 11/30/18 12:10 Antibiotics) sulfamethoxazole Allergy Mild RASH Verified 11/30/18 12:10 trimethoprim Allergy Mild RASH Verified 11/30/18 12:10 Bactrim Allergy Unknown RASH Verified 11/18/17 00:19 Fish Containing Products Allergy Unknown Verified 11/30/18 12:10 fish derived Allergy Unknown Verified 11/30/18 12:10 fish oil Allergy Unknown Verified 11/30/18 12:10 shellfish derived Allergy Unknown Verified 11/30/18 12:10 silver Allergy Rash Verified 11/30/18 16:12 Latex, Natural Rubber AdvReac Intermediate Redness of Verified 11/30/18 12:10 Skin Food Allergy Severe SEAFOOD - Uncoded 11/30/18 12:10 EYES SWELL IF DRINKS ALCOHOL WITH Carboxymethylcellulose AdvReac Mild Irritates Uncoded 11/30/18 12:10 the skin Home Medications Home Medications Medication Instructions Recorded Confirmed Type cyanocobalamin (vitamin B-12) 1,000 mcg PO DAILY 07/14/18 11/30/18 History [Vitamin B-12] alendronate [Fosamax] 70 mg PO WK 07/16/18 11/30/18 History esomeprazole magnesium [Nexium] 40 mg PO DAILY 07/16/18 11/30/18 History folic acid 1 mg PO DAILY 07/16/18 11/30/18 History methotrexate sodium 15 mg PO WK 07/16/18 11/30/18 History misoprostol 100 mcg PO BID 07/16/18 11/30/18 History multivitamin 1 cap PO DAILY 07/16/18 11/30/18 History prednisone 2 mg PO QPM 07/16/18 11/30/18 History prednisone 5 mg PO DAILY 07/16/18 11/30/18 History ProAir RespiClick 2 inha INH Q4H 08/04/18 11/30/18 History cholecalciferol (vitamin D3) 1,000 unit PO DAILY 08/04/18 11/30/18 History [Vitamin D3] Eliquis 5 mg PO BID #30 tab 09/08/18 11/30/18 Rx acetaminophen [Tylenol] 650 mg PO Q4 PRN 09/29/18 11/30/18 History dalbavancin 1,500 mg IV Q14D 09/29/18 11/30/18 History ferrous sulfate 325 mg PO DAILY 09/29/18 11/30/18 History metoprolol succinate 12.5 mg PO DAILY 09/29/18 11/30/18 History ropinirole [Requip] 0.25 mg PO DAILY 09/29/18 11/30/18 History terazosin 1 mg PO DAILY 09/29/18 11/30/18 History atorvastatin 40 mg PO DAILY 11/30/18 11/30/18 History clopidogrel 75 mg PO DAILY 11/30/18 11/30/18 History docusate sodium [Colace] 100 mg PO DAILY 11/30/18 11/30/18 History furosemide 40 mg PO DAILY 11/30/18 11/30/18 History gabapentin 600 mg PO HS 11/30/18 11/30/18 History losartan 12.5 mg PO DAILY 11/30/18 11/30/18 History Past Med/Surg History Medical History Rheumatoid arthritis (Chronic) Steroid dependent Paroxysmal atrial fibrillation (Chronic) Intractable pain (Acute) Rib fracture Fall Asthma exacerbation B12 deficiency Rheumatoid arthritis PAD (peripheral artery disease) Chronic foot ulcer with fat layer exposed - continue dressings as discussed, new dressings applied today and will need changed daily Essential hypertension (Chronic 02/12/13) CHF (congestive heart failure) (Acute) Asthma (Chronic) Cellulitis (Chronic) Foot pain, right (Chronic) GERD (gastroesophageal reflux disease) (Chronic) Ulcer (Chronic) LEFT FOOT Anxiety Arrhythmia BPH (benign prostatic hyperplasia) Osteoarthritis Rheumatoid arthritis Surgical History H/O heart artery stent (Acute) History of colectomy POLYPS REMOVED History of colonoscopy History of esophagogastroduodenoscopy (EGD) 12/02/18 History of repair of rotator cuff RT History of tooth extraction Family History Father Myocardial infarction Other Family history non-contributory Social History Preferred Language: Armenian Communication Ability: Effective Payroll And Benefits Analyst Required: No Beliefs That Will Affect Care: None Current Living Situation: Spouse Current Living Situation Comment: spouse and dtr Other Information That Helps Us Care for You: No Feels Safe at Home: Yes Safety Concerns: Feels Safe At This Time Smoking Status: Former smoker Do You Dip or Chew Tobacco: No Second Hand Exposure: No Tobacco Cessation Education Requested by Patient: No Hx Alcohol Use: No Hx Substance Use: No Physical Exam Vital Signs (Past 24 Hours): Last Vital Signs Temp 37.2 C 12/03/18 15:52 Pulse 99 H 12/03/18 15:52 Resp 24 12/03/18 15:52 BP 102/67 12/03/18 15:52 Pulse Ox 96 12/03/18 15:52 Constitutional: + ill appearing and + thin Deformed hands Respiratory: normal respiratory effort Cardiovascular: Rate/Rhythm: + irregularly irregular Gastrointestinal (Abdomen): Percussion/Palpation: abdomen soft
--- NOTE | 2018-12-03 16:33 | Podiatry Consultation ---
Date of Consultation December 03, 2018 History of Present Illness Attending Physician: Ventura Guzman, DO Patient seen at bedside today and wounds examined, the medial wound on the left foot appears more macerated today due to the use of xerform, recommend to d/c xerform usage and recommend the use of aquacell silver, patient has been using this daily and while I have seen him it has continued to improve the wounds - recommend wound care to use aquacell silver of wounds - patient was feeling better today Allergies Allergy/AdvReac Type Severity Reaction Status Date / Time amoxicillin Allergy Severe RED Verified 11/30/18 12:10 BLOTCHES HEAD TO TOE Iodinated Contrast- Oral and Allergy Severe "FELT Verified 11/30/18 12:10 IV Dye FUNNY" ioversol Allergy Severe PASSED OUT Verified 11/30/18 12:10 clavulanic acid Allergy Intermediate RASH Verified 11/30/18 12:10 Penicillins Allergy Intermediate RASH Verified 11/30/18 12:10 adhesive Allergy Mild REDNESS Verified 11/30/18 12:10 WITH EXTENDED USE Sulfa (Sulfonamide Allergy Mild RASH Verified 11/30/18 12:10 Antibiotics) sulfamethoxazole Allergy Mild RASH Verified 11/30/18 12:10 trimethoprim Allergy Mild RASH Verified 11/30/18 12:10 Bactrim Allergy Unknown RASH Verified 11/18/17 00:19 Fish Containing Products Allergy Unknown Verified 11/30/18 12:10 fish derived Allergy Unknown Verified 11/30/18 12:10 fish oil Allergy Unknown Verified 11/30/18 12:10 shellfish derived Allergy Unknown Verified 11/30/18 12:10 silver Allergy Rash Verified 11/30/18 16:12 Latex, Natural Rubber AdvReac Intermediate Redness of Verified 11/30/18 12:10 Skin Food Allergy Severe SEAFOOD - Uncoded 11/30/18 12:10 EYES SWELL IF DRINKS ALCOHOL WITH Carboxymethylcellulose AdvReac Mild Irritates Uncoded 11/30/18 12:10 the skin Home Medications Home Medications Medication Instructions Recorded Confirmed Type cyanocobalamin (vitamin B-12) 1,000 mcg PO DAILY 07/14/18 11/30/18 History [Vitamin B-12] alendronate [Fosamax] 70 mg PO WK 07/16/18 11/30/18 History esomeprazole magnesium [Nexium] 40 mg PO DAILY 07/16/18 11/30/18 History folic acid 1 mg PO DAILY 07/16/18 11/30/18 History methotrexate sodium 15 mg PO WK 07/16/18 11/30/18 History misoprostol 100 mcg PO BID 07/16/18 11/30/18 History multivitamin 1 cap PO DAILY 07/16/18 11/30/18 History prednisone 2 mg PO QPM 07/16/18 11/30/18 History prednisone 5 mg PO DAILY 07/16/18 11/30/18 History ProAir RespiClick 2 inha INH Q4H 08/04/18 11/30/18 History cholecalciferol (vitamin D3) 1,000 unit PO DAILY 08/04/18 11/30/18 History [Vitamin D3] Eliquis 5 mg PO BID #30 tab 09/08/18 11/30/18 Rx acetaminophen [Tylenol] 650 mg PO Q4 PRN 09/29/18 11/30/18 History dalbavancin 1,500 mg IV Q14D 09/29/18 11/30/18 History ferrous sulfate 325 mg PO DAILY 09/29/18 11/30/18 History metoprolol succinate 12.5 mg PO DAILY 09/29/18 11/30/18 History ropinirole [Requip] 0.25 mg PO DAILY 09/29/18 11/30/18 History terazosin 1 mg PO DAILY 09/29/18 11/30/18 History atorvastatin 40 mg PO DAILY 11/30/18 11/30/18 History clopidogrel 75 mg PO DAILY 11/30/18 11/30/18 History docusate sodium [Colace] 100 mg PO DAILY 11/30/18 11/30/18 History furosemide 40 mg PO DAILY 11/30/18 11/30/18 History gabapentin 600 mg PO HS 11/30/18 11/30/18 History losartan 12.5 mg PO DAILY 11/30/18 11/30/18 History Patient History Medical History Rheumatoid arthritis (Chronic) Steroid dependent Paroxysmal atrial fibrillation (Chronic) Intractable pain (Acute) Rib fracture Fall Asthma exacerbation B12 deficiency Rheumatoid arthritis PAD (peripheral artery disease) Chronic foot ulcer with fat layer exposed - continue dressings as discussed, new dressings applied today and will need changed daily Essential hypertension (Chronic 02/12/13) CHF (congestive heart failure) (Acute) Asthma (Chronic) Cellulitis (Chronic) Foot pain, right (Chronic) GERD (gastroesophageal reflux disease) (Chronic) Ulcer (Chronic) LEFT FOOT Anxiety Arrhythmia BPH (benign prostatic hyperplasia) Osteoarthritis Rheumatoid arthritis Surgical History H/O heart artery stent (Acute) History of colectomy POLYPS REMOVED History of colonoscopy History of esophagogastroduodenoscopy (EGD) 12/02/18 History of repair of rotator cuff RT History of tooth extraction Family History Father Myocardial infarction Other Family history non-contributory Social History Preferred Language: Armenian Communication Ability: Effective Polygraph Examiner Required: No Beliefs That Will Affect Care: None Current Living Situation: Spouse Current Living Situation Comment: spouse and dtr Other Information That Helps Us Care for You: No Feels Safe at Home: Yes Safety Concerns: Feels Safe At This Time Smoking Status: Former smoker Do You Dip or Chew Tobacco: No Second Hand Exposure: No Tobacco Cessation Education Requested by Patient: No Hx Alcohol Use: No Hx Substance Use: No Physical Exam Physical Exam: - left foot with muliplte wounds - all stable while on IV abx, however medial foot ulcer appears more macerated today and I recommend changing the dressing Results & Data Vital Signs (Past 12 Hours) Vital Signs Temp Pulse Pulse Resp BP BP Pulse Ox 12/03/18 15:52 37.2 C 99 H 24 102/67 96 12/03/18 15:16 36.3 C L 99 H 18 99/65 L 94 12/03/18 11:24 36.4 C L 93 H 18 109/67 97 12/03/18 08:38 97 H 112/65 12/03/18 07:37 50 L 12/03/18 07:33 36.5 C 95 H 18 113/68 99 12/03/18 06:17 50 L 12/03/18 04:32 36.7 C 88 18 108/71 98
[2018-12-03] MEDS ORDERED: PHENYLEPHRINE 100MCG/ML 5ML SYR ONE (16:44)
[2018-12-03] MEDS ORDERED: PROPOFOL IV EMULSION 10 MG/ML 20 ML VIAL IV ONE (16:44)
[2018-12-03] MEDS ORDERED: LIDOCAINE HCL 2% 2 ML VIAL/AMP(20MG/ML) INFIL ONE (16:44)
--- NOTE | 2018-12-03 16:48 | GI REPORT ---
Patient Name: Juventino Condon Procedure Date: 12/03/2018 4:02 PM Date of : 1945 Admit Type: Inpatient Age: 73 Gender: Male Attending MD: Jorge Landis MD Procedure: Colonoscopy Providers: Jorge Landis MD Referring MD: Ventura Guzman Indications: Iron deficiency anemia Medicines: Propofol total dose 100 mg IV, Lidocaine 40 mg IV Complications: No immediate complications. Estimated Blood Loss: Estimated blood loss: none. Procedure: Pre-Anesthesia Assessment: - Prior to the procedure, a History and Physical was performed, and patient medications, allergies and sensitivities were reviewed. The patient's tolerance of previous anesthesia was reviewed. - The risks and benefits of the procedure and the sedation options and risks were discussed with the patient. All questions were answered and informed consent was obtained. After I obtained informed consent, the scope was passed under direct vision. Throughout the procedure, the patient's blood pressure, pulse, and oxygen saturations were monitored continuously. The Scope was introduced through the anus and advanced to the cecum, identified by appendiceal orifice and ileocecal valve. The colonoscopy was technically difficult and complex due to poor bowel prep with stool present. The patient tolerated the procedure well. The quality of the bowel preparation was poor. Findings: Multiple diverticula were found in the sigmoid colon. Impression: - Preparation of the colon was poor. - Diverticulosis in the sigmoid colon. - No specimens collected. Recommendation: - [facility]. Jorge Landis M.D. Jorge Landis MD 12/03/2018 4:47:52 PM This report has been signed electronically. Note Initiated On: 12/03/2018 4:02 PM Number of Addenda: 0 I attest to the content of the Intraoperative Record and orders documented therein, exceptions below {[id number]}
--- NOTE | 2018-12-03 17:02 | Anesthesiology Progress Note ---
Date of Service December 03, 2018 Anesthesia Post Procedure Vital Signs Vital Signs: Temp Pulse Pulse Pulse Resp BP BP 12/03/18 16:54 98 H 20 112/46 L 12/03/18 16:42 95 H 24 101/56 L 12/03/18 15:52 37.2 C 99 H 24 102/67 12/03/18 15:16 36.3 C L 99 H 18 99/65 L 12/03/18 11:24 36.4 C L 93 H 18 109/67 12/03/18 08:38 97 H 112/65 12/03/18 07:37 50 L 12/03/18 07:33 36.5 C 95 H 18 113/68 12/03/18 06:17 50 L 12/03/18 04:32 36.7 C 88 18 108/71 12/02/18 23:54 91 H 12/02/18 23:42 36.7 C 101 H 18 104/53 L 12/02/18 20:00 36.5 C 98 H 18 100/65 12/02/18 17:09 37 C 79 18 103/68 Pulse Ox 12/03/18 16:54 98 12/03/18 16:42 95 12/03/18 15:52 96 12/03/18 15:16 94 12/03/18 11:24 97 12/03/18 08:38 12/03/18 07:37 12/03/18 07:33 99 12/03/18 06:17 12/03/18 04:32 98 12/02/18 23:54 12/02/18 23:42 97 12/02/18 20:00 97 12/02/18 17:09 95 Pain Intensity Bilateral Foot: Pain Intensity: 0 Transfer of Care Handoff Completed per policy Notes Mental Status: alert / awake / arousable and participated in evaluation Patient Amnestic to Procedure: Yes Nausea / Vomiting: adequately controlled Pain: adequately controlled Airway Patency, RR, SpO2: stable & adequate BP & HR: stable & adequate Hydration State: stable & adequate Anesthetic Complications: no major complications apparent and Pt Satisfied with anesthetic care
--- NOTE | 2018-12-03 17:03 | Progress Note ---
DATE: 12/03/2018 The patient underwent a colonoscopy today for anemia. The patient was found to have soft stool filling the rectum at the time of the exam. I was able to remove a small amount of this, but I was able to maneuver the scope past it and around the remainder of his colon. There was a lot of iron staining in his colon, which made it very difficult to see any small lesions. After reaching the cecum, the scope was withdrawn slowly and there were no mass lesions or anything that was obviously bleeding. He did have several diverticula in the sigmoid area, but no major source of blood loss and the dark stool is due to his Feosol that was not stopped for his bowel prep. IMPRESSION: The patient's bowel prep was poor, but there were no major lesions or bleeding site seen. He does have sigmoid diverticulosis. At this point, we will sign off the case unless there are any signs of gross bleeding in the future.
--- NOTE | 2018-12-03 17:12 | Infectious Disease Progress Nt ---
Date of Service December 03, 2018 Assessment & Plan (1) Acute osteomyelitis of toe of left foot: Patient with nonhealing left foot wound, with multiple other ulcerations, with osteomyelitis of the fourth left toe with positive cultures for MRSA. We will continue patient on IV daptomycin, will likely need prolonged i.e. 6 weeks plus of antibiotics. Will follow. (2) MRSA (methicillin resistant Staphylococcus aureus) infection: Subjective . Patient seen in follow-up for left foot infection. Pain slightly better today. Podiatry consult noted. No fever. Had colonoscopy today, no significant findings. Review of Systems Review of Systems: All systems reviewed & are unremarkable except as noted in HPI & below Physical Exam Constitutional: well nourished, + acute distress, + ill appearing and + thin Eyes: PERRL, conjunctivae normal, anicteric sclerae ENMT: external ear and nose normal, oropharynx normal Neck: trachea midline, no thyromegaly normal visual inspection Respiratory: normal respiratory effort, lungs clear to auscultation normal percussion; no respiratory distress Cardiovascular: RRR, no murmur, no edema Heart Sounds: no gallop and no cardiac rub Gastrointestinal (Abdomen): normal bowel sounds, soft, nontender, no hepatosplenomegaly Musculoskeletal: Head/Neck/Chest: normocephalic, head atraumatic and neck supple Skin: normal turgor and + wound (Multiple foot wound, large left foot dorsal foot wound with some necrotic debris); no rashes Neurologic: moves all extremities; no focal motor deficits Psychiatric: A+Ox3, euthymic affect Lymphatic: no cervical or axillary lymphadenopathy no inguinal lymphadenopathy Results & Data Vital Signs (Past 12 Hours) Vital Signs Temp Pulse Pulse Resp BP BP Pulse Ox 12/03/18 16:54 98 H 20 112/46 L 98 12/03/18 16:42 95 H 24 101/56 L 95 12/03/18 15:52 37.2 C 99 H 24 102/67 96 12/03/18 15:16 36.3 C L 99 H 18 99/65 L 94 12/03/18 11:24 36.4 C L 93 H 18 109/67 97 12/03/18 08:38 97 H 112/65 12/03/18 07:37 50 L 12/03/18 07:33 36.5 C 95 H 18 113/68 99 12/03/18 06:17 50 L Laboratory Results Short CBC 12/03/18 Range/Units 05:40 WBC 9.58 (4.8-10.8) K/uL Hgb 8.4 L (14.0-18.0) g/dL Hct 26.5 L (42-52) % Plt Count 261 (130-400) K/uL BMP 12/03/18 05:40 Sodium 138 Potassium 3.8 Chloride 106 Carbon Dioxide 26 BUN 28 H Creatinine 0.61 Glucose 104 H Calcium 7.6 L Diagnostic Findings Microbiology 11/30/18 13:17 Blood Aerobic Blood Culture - Preliminary No growth in Aerobic bottle after 48 hours. 11/30/18 13:17 Blood Anaerobic Blood Culture - Preliminary No growth in Anaerobic bottle after 48 hours. 11/30/18 13:16 Blood Aerobic Blood Culture - Preliminary No growth in Aerobic bottle after 48 hours. 11/30/18 13:16 Blood Anaerobic Blood Culture - Preliminary No growth in Anaerobic bottle after 48 hours.
--- NOTE | 2018-12-03 17:21 | Hospitalist Progress Note ---
Date of Service December 03, 2018 Assessment & Plan (1) Intractable pain: - This is likely in the setting of peripheral vascular disease and osteomyelitis -- Pain does seem to improve with dangling of the legs which is pretty consistent with a PVD picture -- In regards to PVD - he did have a RLE SFA stent placed in the past and did discuss with vascular about possible intervention at this current time - bypass/other vascular intervention not an option at this time and stated if needed can be formally consulted -- Review of outpatient visit from Mar 2018 - LLE U/S prior to that appointment with adequate flow and no focal hemodynamic stenosis that would benefit from surgical intervention - Will repeat B/L U/S to further assess peripheral vessels and see if changes are evident to warrant intervention - Desipramine 10 mg HS and Gabapentin 300 mg AM and 600 mg HS with plans to start and additional 300 mg at lunch time on 12/04; Dilaudid and Hydrocodone/Acetaminophen PRN - Consulted pain management - plan as above; appreciate input (2) Osteomyelitis of fourth toe of left foot: - Reports being on Dalvance Q2W and Doxycycline - for ulcerations and cellulitis; H/O MRSA - Imaging now supports Osteomyelitis - could not find documentation that this was noted previously - Started on Daptomycin daily; BCx without growth at this time - Was febrile on 12/01 but has been afebrile since - Discussed with vascular as noted above, no intervention at this time - Consult Podiatry - follows with Dr. Tirado - planning on conservative measures at this time with IV Abx - ID Following - recommending long-term Abx (approx. 6 weeks) - currently yasmine mmending Daptomycin -- Will need PICC line insertion (3) Severe anemia: - Heme+ Stool -- Patient/Daughter states he has melena but is on iron supplementation which could explain that however continues to have drops in Hgb with a transfusion on last admission; on 12/01 patient was hypotensive but rather asymptomatic from it as he does have baseline low pressures, was transfused 1 unit and Hgb low but stable - Change to Protonix 40 mg BID - EGD (12/02) and Colonoscopy (12/03) without findings of bleeding - will resume Plavix and Eliquis - Consult GI - no signs of bleeding at this time (4) Bilateral leg ulcer: - Chronic issues - multiple unstageable pressure ulcers of B/L LE, POA and 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5 mg daily for rate management but will utilize hold parameters (7) Rheumatoid arthritis: - Follows with Dr. Haq ([facility]) - Given setting of infection will hold Methotrexate - Given infection and hypotension will do a stress dose of Methylprednisolone 40 mg IV daily x 3 days then resume home dosing of Prednisone (8) DVT prophylaxis: - Eliquis Disposition: Continue to try and control pain and assess vessels; will need PICC line and IV Abx setup Subjective Reports feeling well today. Did finish bowel prep today and went for colonoscopy without a source of bleeding. Reports pain is doing better in the legs but still mostly improved by dangling his legs. Await U/S to further evaluate vasculature Tolerating antibiotics without issue. Verbalizes no other complaints Review of Systems Constitutional: no fever and no chills Respiratory: no cough and no dyspnea Cardiovascular: no chest pain and no palpitations Gastrointestinal: no abdominal pain, no nausea, no vomiting, no constipation and no diarrhea/loose stools Genitourinary: no dysuria Musculoskeletal: pain in b/l legs improving when dangling legs Integumentary: + non-healing lesions Neurologic: + tingling and + numbness Physical Exam Constitutional: + frail appearing; no acute distress and not ill appearing Eyes: + anicteric sclerae ENMT: Ears: no hearing impairment Neck: normal visual inspection and trachea midline Respiratory: normal respiratory effort Auscultation: lungs clear to auscultation bilaterally and + diminished lung sounds Cardiovascular: Rate/Rhythm: regular rate and regular rhythm Gastrointestinal (Abdomen): Inspection/Auscultation: normal bowel sounds Percussion/Palpation: abdomen soft; abdomen nontender Musculoskeletal: Head/Neck/Chest: normocephalic and head atraumatic Skin: + wound Neurologic: moves all extremities Psychiatric: A+Ox3, euthymic affect Orientation: alert Results & Data Vital Signs (Past 12 Hours) Vital Signs Temp Pulse Pulse Resp BP BP Pulse Ox 12/03/18 17:09 99 H 20 97/66 L 94 12/03/18 16:54 98 H 20 112/46 L 98 12/03/18 16:42 95 H 24 101/56 L 95 12/03/18 15:52 37.2 C 99 H 24 102/67 96 12/03/18 15:16 36.3 C L 99 H 18 99/65 L 94 12/03/18 11:24 36.4 C L 93 H 18 109/67 97 12/03/18 08:38 97 H 112/65 12/03/18 07:37 50 L 12/03/18 07:33 36.5 C 95 H 18 113/68 99 12/03/18 06:17 50 L (1) Bilateral leg ulcer Non-pressure ulcer stage: with fat layer exposed Qualified Code(s): L97.912 - Non-pressure chronic ulcer of unspecified part of right lower leg with fat layer exposed; L97.922 - Non-pressure chronic ulcer of unspecified part of left lower leg with fat layer exposed
[2018-12-03] MEDS ORDERED: METOPROLOL TARTRATE 1 MG/ML VIAL IV PRN (18:22)
[2018-12-03] MEDS: SODIUM CHLORIDE 0.9% 1000ML 1,000 ML IV SCH (18:27)
[2018-12-03] MEDS: APIXABAN 5 MG TABLET PO SCH ×2 (18:31→21:33)
--- NOTE | 2018-12-03 21:09 | Ultrasound Report ---
US arterial duplex LE BI CLINICAL HISTORY: Worsening PAD? Stenosis/Pain. Bilateral lower extremity pain. COMPARISON STUDY: Right lower extremity arterial Doppler 08/04/2014. FINDINGS: The ankle brachial indices were not obtained. The bilateral lateral dorsalis pedis arteries were not identified due to the patient's overlying bandages. Monophasic waveforms throughout the lef t lower extremity without elevated the soft velocities to suggest stenosis. Elevated peak systolic ve locity within the mid right superficial femoral artery of 231 cm/s consistent with stenosis. Monophas ic low velocity waveforms seen within the right calf vessels. Scattered calcified plaques seen throug hout the bilateral lower extremities. No areas of arterial occlusion. IMPRESSION: 1. Focal area of hemodynamically significant stenosis seen within the mid right superficial femoral a rtery. 2. Monophasic low velocity waveforms throughout the left lower extremity arterial system which may re present diffuse atherosclerotic disease versus proximal iliac stenosis. 3. No arterial occlusion identified within the bilateral lower extremities. Electronically signed by: Edson Hunter M.D. 12/03/2018 9:08 PM
[2018-12-03] MEDS: GABAPENTIN 600 MG TAB PO SCH (21:33)
[2018-12-03] MEDS: DESIPRAMINE HCL 10 MG TAB PO SCH (21:34)
[2018-12-04] MEDS: ALBUTEROL HFA 8 GM INHALER INH SCH ×5 (04:17→20:57)
[2018-12-04] MEDS: HYDROCODONE/ACETAMOPHEN 5/325MG TAB PO PRN ×3 (06:39→15:16)
[2018-12-04] MEDS: CHOLECALCIFEROL 1,000 UNITS TAB PO SCH (09:06)
[2018-12-04] MEDS: APIXABAN 5 MG TABLET PO SCH ×2 (09:06→20:58)
[2018-12-04] MEDS: METOPROLOL SUCC 25MG EXT REL TAB PO SCH (09:07)
[2018-12-04] MEDS: CLOPIDOGREL BISULFATE 75 MG TAB PO SCH (09:07)
[2018-12-04] MEDS: miSOPROStol 50 MCG TAB PO SCH ×2 (09:07→16:58)
[2018-12-04] MEDS: FOLIC ACID 1 MG TAB PO SCH (09:07)
[2018-12-04] MEDS: MULTIVITAMIN TAB PO SCH (09:08)
[2018-12-04] MEDS: CYANOCOBALAMIN 500 MCG TABLET (VITAMIN B-12) PO SCH (09:08)
[2018-12-04] MEDS: PANTOprazole 40 MG TAB PO SCH ×2 (09:08→20:59)
[2018-12-04] MEDS: ROPINIROLE HCL 0.25 MG TABLET PO SCH (09:08)
[2018-12-04] MEDS: FERROUS SULFATE 325 MG TAB PO SCH (09:08)
[2018-12-04] MEDS: TERAZOSIN HCL 1 MG CAP PO SCH (09:09)
[2018-12-04] MEDS: ATORVASTATIN 40 MG TAB PO SCH (09:09)
[2018-12-04] MEDS: DOCUSATE SODIUM 100 MG CAP PO SCH (09:10)
[2018-12-04] MEDS: predniSONE 5 MG TAB PO SCH (09:15)
[2018-12-04] MEDS: GABAPENTIN 300 MG CAP PO SCH ×2 (10:27→12:03)
[2018-12-04] MEDS ORDERED: GABAPENTIN 300 MG CAP PO SCH (10:30)
[2018-12-04] MEDS ORDERED: METOPROLOL TARTRATE 25 MG TAB PO STA (11:18)
--- NOTE | 2018-12-04 11:48 | Podiatry Consultation ---
Date of Consultation December 04, 2018 History of Present Illness Attending Physician: Ventura Guzman, DO patient seen at bedside today - dressings in place - I placed a call with wound care nurse Maliha, awaiting return call, will discuss changing dressings from xerform to Aquacell patient's daughter at bedside today during visit she was inquiring about vascular intervention and surgical intervention, I explained to her that the 4th toe osteomyelitis will be treated conservatively with 6 weeks of IV abx per ID, discussed that the toe is not the sourse of his MSRA infection, the achilles ulcer was the source and that has improved with abx, I feel that the patient will no gain any further improvement from 4th toe amputation, in fact I have concern that he could worsen given the setting of worsening small vessel disease that was no amenable to vascular surgery intervention discussed that he is stable, the only new concern was that the left foot medial midfoot ulcer had more maceration on presentation from last week to this week, I discussed that may have been due to the use of the xerform and I am trying to get a in touch with in patient wound nurse to discuss this, otherwise his ulcers are stable giving his arthritis, extremity contractures and worsening arterial disease will make out patient appointment for patient next week if he is d/c this weekend Allergies Allergy/AdvReac Type Severity Reaction Status Date / Time amoxicillin Allergy Severe RED Verified 11/30/18 12:10 BLOTCHES HEAD TO TOE Iodinated Contrast- Oral and Allergy Severe "FELT Verified 11/30/18 12:10 IV Dye FUNNY" ioversol Allergy Severe PASSED OUT Verified 11/30/18 12:10 clavulanic acid Allergy Intermediate RASH Verified 11/30/18 12:10 Penicillins Allergy Intermediate RASH Verified 11/30/18 12:10 adhesive Allergy Mild REDNESS Verified 11/30/18 12:10 WITH EXTENDED USE Sulfa (Sulfonamide Allergy Mild RASH Verified 11/30/18 12:10 Antibiotics) sulfamethoxazole Allergy Mild RASH Verified 11/30/18 12:10 trimethoprim Allergy Mild RASH Verified 11/30/18 12:10 Bactrim Allergy Unknown RASH Verified 11/18/17 00:19 Fish Containing Products Allergy Unknown Verified 11/30/18 12:10 fish derived Allergy Unknown Verified 11/30/18 12:10 fish oil Allergy Unknown Verified 11/30/18 12:10 shellfish derived Allergy Unknown Verified 11/30/18 12:10 silver Allergy Rash Verified 11/30/18 16:12 Latex, Natural Rubber AdvReac Intermediate Redness of Verified 11/30/18 12:10 Skin Food Allergy Severe SEAFOOD - Uncoded 11/30/18 12:10 EYES SWELL IF DRINKS ALCOHOL WITH Carboxymethylcellulose AdvReac Mild Irritates Uncoded 11/30/18 12:10 the skin Home Medications Home Medications Medication Instructions Recorded Confirmed Type cyanocobalamin (vitamin B-12) 1,000 mcg PO DAILY 07/14/18 11/30/18 History [Vitamin B-12] alendronate [Fosamax] 70 mg PO WK 07/16/18 11/30/18 History esomeprazole magnesium [Nexium] 40 mg PO DAILY 07/16/18 11/30/18 History folic acid 1 mg PO DAILY 07/16/18 11/30/18 History methotrexate sodium 15 mg PO WK 07/16/18 11/30/18 History misoprostol 100 mcg PO BID 07/16/18 11/30/18 History multivitamin 1 cap PO DAILY 07/16/18 11/30/18 History prednisone 2 mg PO QPM 07/16/18 11/30/18 History prednisone 5 mg PO DAILY 07/16/18 11/30/18 History ProAir RespiClick 2 inha INH Q4H 08/04/18 11/30/18 History cholecalciferol (vitamin D3) 1,000 unit PO DAILY 08/04/18 11/30/18 History [Vitamin D3] Eliquis 5 mg PO BID #30 tab 09/08/18 11/30/18 Rx acetaminophen [Tylenol] 650 mg PO Q4 PRN 09/29/18 11/30/18 History dalbavancin 1,500 mg IV Q14D 09/29/18 11/30/18 History ferrous sulfate 325 mg PO DAILY 09/29/18 11/30/18 History metoprolol succinate 12.5 mg PO DAILY 09/29/18 11/30/18 History ropinirole [Requip] 0.25 mg PO DAILY 09/29/18 11/30/18 History terazosin 1 mg PO DAILY 09/29/18 11/30/18 History atorvastatin 40 mg PO DAILY 11/30/18 11/30/18 History clopidogrel 75 mg PO DAILY 11/30/18 11/30/18 History docusate sodium [Colace] 100 mg PO DAILY 11/30/18 11/30/18 History furosemide 40 mg PO DAILY 11/30/18 11/30/18 History gabapentin 600 mg PO HS 11/30/18 11/30/18 History losartan 12.5 mg PO DAILY 11/30/18 11/30/18 History Patient History Medical History Rheumatoid arthritis (Chronic) Steroid dependent Paroxysmal atrial fibrillation (Chronic) Intractable pain (Acute) Rib fracture Fall Asthma exacerbation B12 deficiency Rheumatoid arthritis PAD (peripheral artery disease) Chronic foot ulcer with fat layer exposed - continue dressings as discussed, new dressings applied today and will need changed daily Essential hypertension (Chronic 02/12/13) CHF (congestive heart failure) (Acute) Asthma (Chronic) Cellulitis (Chronic) Foot pain, right (Chronic) GERD (gastroesophageal reflux disease) (Chronic) Ulcer (Chronic) LEFT FOOT Anxiety Arrhythmia BPH (benign prostatic hyperplasia) Osteoarthritis Rheumatoid arthritis Surgical History H/O heart artery stent (Acute) History of colectomy POLYPS REMOVED History of colonoscopy History of esophagogastroduodenoscopy (EGD) 12/02/18 History of repair of rotator cuff RT History of tooth extraction Family History Father Myocardial infarction Other Family history non-contributory Social History Preferred Language: Finnish Communication Ability: Effective Associate 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: No Beliefs That Will Affect Care: None Current Living Situation: Spouse Current Living Situation Comment: spouse and dtr Other Information That Helps Us Care for You: No Feels Safe at Home: Yes Safety Concerns: Feels Safe At This Time Smoking Status: Former smoker Do You Dip or Chew Tobacco: No Second Hand Exposure: No Tobacco Cessation Education Requested by Patient: No Hx Alcohol Use: No Hx Substance Use: No Physical Exam Skin: dressings in tact to bilateral legs and stable Results & Data Vital Signs (Past 12 Hours) Vital Signs Temp Pulse Pulse Resp BP Pulse Ox 12/04/18 07:04 36.7 C 108 H 20 127/81 97 12/04/18 00:00 102 H
[2018-12-04] MEDS: DAPTOmycin 350 MG in SYRINGE 0 ML IV SCH (12:03)
[2018-12-04] MEDS: SODIUM CHLORIDE 0.9% 1000ML 1,000 ML IV SCH (15:15)
[2018-12-04] MEDS: HYDROmorphone INJ 0.5 MG/0.5 ML SYR IV PRN (15:16)
--- NOTE | 2018-12-04 19:22 | Infectious Disease Progress Nt ---
Date of Service December 04, 2018 Assessment & Plan (1) Acute osteomyelitis of toe of left foot: Patient with nonhealing left foot wound, with multiple other ulcerations, with osteomyelitis of the fourth left toe with positive cultures for MRSA. We will continue patient on IV daptomycin, will likely need prolonged i.e. 6 weeks plus of antibiotics. Will follow. (2) MRSA (methicillin resistant Staphylococcus aureus) infection: Subjective Patient seen in follow-up for left foot infection. Foot pain slightly better today. Podiatry consult noted. Remains afebrile. Review of Systems Review of Systems: All systems reviewed & are unremarkable except as noted in HPI & below Physical Exam Constitutional: well nourished, + acute distress, + ill appearing and + thin Eyes: PERRL, conjunctivae normal, anicteric sclerae ENMT: external ear and nose normal, oropharynx normal Neck: trachea midline, no thyromegaly normal visual inspection Respiratory: normal respiratory effort, lungs clear to auscultation normal percussion; no respiratory distress Cardiovascular: RRR, no murmur, no edema Heart Sounds: no gallop and no cardiac rub Gastrointestinal (Abdomen): normal bowel sounds, soft, nontender, no hepatosplenomegaly Musculoskeletal: Head/Neck/Chest: normocephalic, head atraumatic and neck supple Skin: normal turgor and + wound (Multiple foot wound, large left foot dorsal foot wound with some necrotic debris); no rashes Neurologic: moves all extremities; no focal motor deficits Psychiatric: A+Ox3, euthymic affect Lymphatic: no cervical or axillary lymphadenopathy no inguinal lymphadenopathy Results & Data Vital Signs (Past 12 Hours) Vital Signs Temp Pulse Resp BP Pulse Ox 12/04/18 15:11 36.7 C 80 20 108/67 96 Laboratory Results Laboratory Results - last 48 hr 11/30/18 12/03/18 12/03/18 14:01 00:20 05:40 WBC 9.58 RBC 3.21 L Hgb 8.4 L Hct 26.5 L MCV 82.6 MCH 26.2 MCHC 31.7 L RDW Std Deviation 62.6 H RDW Coeff of Nick 20.9 H Plt Count 261 MPV 8.7 Immature Gran % (Auto) 0.3 Neut % (Auto) 74.4 Lymph % (Auto) 12.0 [place] % (Auto) 13.3 Eos % (Auto) 0.0 Baso % (Auto) 0.0 Immature Gran # (Auto) 0.03 H Neut # (Auto) 7.13 H Lymph # (Auto) 1.15 L [place] # (Auto) 1.27 H Eos # (Auto) 0.00 Baso # (Auto) 0.00 Absolute Nucleated RBC 0.06 H Nucleated RBC % (auto) 0.7 Hypochromasia Present Anisocytosis Present Spherocytes Occasional Ovalocytes 1+ Sodium Potassium Chloride Carbon Dioxide Anion Gap BUN Creatinine Est Cr Clr Drug Dosing Est GFR ( Amer) Est GFR (Non-Af Amer) BUN/Creatinine Ratio Glucose Calcium Stool Occult Bld Scrn Positive A Crossmatch See Detail 12/03/18 05:40 WBC RBC Hgb Hct MCV MCH MCHC RDW Std Deviation RDW Coeff of Nick Plt Count MPV Immature Gran % (Auto) Neut % (Auto) Lymph % (Auto) [place] % (Auto) Eos % (Auto) Baso % (Auto) Immature Gran # (Auto) Neut # (Auto) Lymph # (Auto) [place] # (Auto) Eos # (Auto) Baso # (Auto) Absolute Nucleated RBC Nucleated RBC % (auto) Hypochromasia Anisocytosis Spherocytes Ovalocytes Sodium 138 Potassium 3.8 Chloride 106 Carbon Dioxide 26 Anion Gap 6.0 BUN 28 H Creatinine 0.61 Est Cr Clr Drug Dosing 87.2 Est GFR ( Amer) 114.0 Est GFR (Non-Af Amer) 98.4 BUN/Creatinine Ratio 45.5 H Glucose 104 H Calcium 7.6 L Stool Occult Bld Scrn Crossmatch Diagnostic Findings Microbiology 11/30/18 13:17 Blood Aerobic Blood Culture - Preliminary No growth in Aerobic bottle after 48 hours. 11/30/18 13:17 Blood Anaerobic Blood Culture - Preliminary No growth in Anaerobic bottle after 48 hours. 11/30/18 13:16 Blood Aerobic Blood Culture - Preliminary No growth in Aerobic bottle after 48 hours. 11/30/18 13:16 Blood Anaerobic Blood Culture - Preliminary No growth in Anaerobic bottle after 48 hours.
[2018-12-04] MEDS: GABAPENTIN 600 MG TAB PO SCH (20:57)
[2018-12-04] MEDS: DESIPRAMINE HCL 10 MG TAB PO SCH (20:58)
[2018-12-04] MEDS: predniSONE 1 MG TAB PO SCH (21:00)
--- NOTE | 2018-12-04 22:06 | Hospitalist Progress Note ---
Date of Service December 04, 2018 Assessment & Plan (1) Intractable pain: - This is likely in the setting of peripheral vascular disease and osteomyelitis -- Pain does seem to improve with dangling of the legs which is pretty consistent with a PVD picture -- In regards to PVD - he did have a RLE SFA stent placed in the past and did discuss with vascular about possible intervention at this current time - bypass/other vascular intervention not an option at this time and stated if needed can be formally consulted -- Review of outpatient visit from Mar 2018 - LLE U/S prior to that appointment with adequate flow and no focal hemodynamic stenosis that would benefit from surgical intervention - Will repeat B/L U/S to further assess peripheral vessels and see if changes are evident to warrant intervention - Desipramine 10 mg HS and Gabapentin 300 mg AM and 600 mg HS with plans to start and additional 300 mg at lunch time on 12/04; Dilaudid and Hydrocodone/Acetaminophen PRN - Consulted pain management - plan as above; appreciate input pain is reasonable controlled today (2) Osteomyelitis of fourth toe of left foot: - Reports being on Dalvance Q2W and Doxycycline - for ulcerations and cellulitis; H/O MRSA - Imaging now supports Osteomyelitis - could not find documentation that this was noted previously - Started on Daptomycin daily; BCx without growth at this time - Was febrile on 12/01 but has been afebrile since - Discussed with vascular as noted above, no intervention at this time - Consult Podiatry - follows with Dr. Tirado - planning on conservative measures at this time with IV Abx - ID Following - recommending long-term Abx (approx. 6 weeks) - currently recommending Daptomycin attempted PICC today, could not be placed due to poor veins, US guided will be attempted awaiting answer on Daptomycin approval, needs preauth, could take up to 72 hours for answer (3) Severe anemia: - Heme+ Stool -- Patient/Daughter states he has melena but is on iron supplementation which could explain that however continues to have drops in Hgb with a transfusion on last admission; on 12/01 patient was hypotensive but rather asymptomatic from it as he does have baseline low pressures, was transfused 1 unit and Hgb low but stable - Change to Protonix 40 mg BID - EGD (12/02) and Colonoscopy (12/03) without findings of bleeding - resumed Plavix and Eliquis on 12/03 - Consult GI - no signs of bleeding at this time check H/H tomorrow (4) Bilateral leg ulcer: - Chronic issues - multiple unstageable pressure ulcers of B/L LE, POA and 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5 mg daily for rate management but will utilize hold parameters (7) Rheumatoid arthritis: - Follows with Dr. Haq ([facility]) - Given setting of infection will hold Methotrexate - Given infection and hypotension will do a stress dose of Methylprednisolone 40 mg IV daily x 3 days then resume home dosing of Prednisone (8) DVT prophylaxis: - Eliquis Disposition: plan for outpatient IV Daptomycin for 6 weeks, needs approval and then determined home vs [facility], he prefers home Subjective patient laying in bed, says all he wants to do is go home, getting anxious being here discussed going home with IV Daptomycin, he agrees to this, daughter at the bedside says she will be willing to help d/w CM, will be expensive with the Dapto personally called his insurance company to get pre-authorization, spent 20 minutes on the phone with passenger relations representative requested expidited response, said it will be in < 72 hours patient consented for PICC, however, d/w IV team, they could not find a suitable vein asked that they try for US guided peripheral line unfortunately patient will be here all weekend vitals stable, no labs today Review of Systems Review of Systems: All systems reviewed & are unremarkable except as noted in HPI & below Constitutional: + fatigue and + weakness; no fever Gastrointestinal: no abdominal pain, no nausea, no vomiting, no constipation and no diarrhea/loose stools Integumentary: + non-healing lesions Neurologic: + tingling and + numbness Psychiatric: + anxiety Physical Exam Constitutional: well developed and + thin; no acute distress Eyes: PERRL, conjunctivae normal, anicteric sclerae ENMT: external ear and nose normal, oropharynx normal Neck: trachea midline, no thyromegaly Respiratory: normal respiratory effort, lungs clear to auscultation Cardiovascular: Rate/Rhythm: regular rate and regular rhythm Heart Sounds: normal S1 and normal S2; no murmur Vessels: no JVD and + abnormal peripheral pulses (weak) Extremities: + abnormal capillary refill and no edema Gastrointestinal (Abdomen): normal bowel sounds, soft, nontender, no hepatosplenomegaly Musculoskeletal: Head/Neck/Chest: normocephalic, head atraumatic and neck supple Extremities: + abnormal strength and + muscle atrophy; + extremities abnormal to inspection, no cyanosis and no clubbing Skin: + wound (distal wounds on toes, ankles, they are dressed) Neurologic: PERRL, EOMI, accommodation nl, no face palsy, no dysarthria moves all extremities; + abnormal touch/pain/proprioception (decreased sensation in lower extremities distally) Psychiatric: Orientation: alert and oriented x 3 Affect: + anxious affect Mood: + anxious mood Lymphatic: no cervical or axillary lymphadenopathy Results & Data Vital Signs (Past 12 Hours) Vital Signs Temp Pulse Resp BP BP Pulse Ox 12/04/18 19:23 36.8 C 81 20 117/75 92 12/04/18 15:11 36.7 C 80 20 108/67 96 Laboratory Results Microbiology 11/30/18 13:17 Blood Aerobic Blood Culture - Preliminary No growth in Aerobic bottle after 48 hours. 11/30/18 13:17 Blood Anaerobic Blood Culture - Preliminary No growth in Anaerobic bottle after 48 hours. 11/30/18 13:16 Blood Aerobic Blood Culture - Preliminary No growth in Aerobic bottle after 48 hours. 11/30/18 13:16 Blood Anaerobic Blood Culture - Preliminary No growth in Anaerobic bottle after 48 hours. Medications Administered Current Inpatient Medications Acetaminophen (Tylenol) 650 mg PO Q4H PRN PRN Reason: pain/fever Stop: 12/30/18 17:37 Hydrocodone Bitart/Acetaminophen ([place] 5/325) 1 tab PO Q4H PRN PRN Reason: Pain Stop: 12/16/18 14:56 Last Admin: 12/04/18 15:16 Dose: 1 tab Documented by: Al Hydrox/Mg Hydrox/Simethicone (Maalox) 30 ml PO Q6H PRN PRN Reason: Dyspepsia Stop: 12/30/18 17:37 Albuterol (Ventolin Hfa) 2 puffs INH Q4 ROBIN Stop: 12/30/18 19:59 Last Admin: 12/04/18 20:57 Dose: 2 puffs Documented by: Apixaban (Eliquis) 5 mg PO BID ROBIN Stop: 01/02/19 20:59 Last Admin: 12/04/18 20:58 Dose: 5 mg Documented by: Atorvastatin Calcium (Lipitor) 40 mg PO DAILY ROBIN Stop: 12/31/18 08:59 Last Admin: 12/04/18 09:09 Dose: 40 mg Documented by: Clopidogrel Bisulfate (Plavix) 75 mg PO DAILY ROBIN Stop: 12/31/18 08:59 Last Admin: 12/04/18 09:07 Dose: 75 mg Documented by: Cyanocobalamin (Vitamin B-12) 1,000 mcg PO DAILY ROBIN Stop: 12/31/18 08:59 Last Admin: 12/04/18 09:08 Dose: 1,000 mcg Documented by: Desipramine HCl (Norpramin) 10 mg PO HS ROBIN Stop: 12/31/18 20:59 Last Admin: 12/04/18 20:58 Dose: 10 mg Documented by: Docusate Sodium (Colace) 100 mg PO DAILY ROBIN Stop: 12/31/18 08:59 Last Admin: 12/04/18 09:10 Dose: 100 mg Documented by: Ferrous Sulfate (Feosol) 325 mg PO DAILY ROBIN Stop: 12/31/18 08:59 Last Admin: 12/04/18 09:08 Dose: 325 mg Documented by: Folic Acid (Folvite) 1 mg PO DAILY ROBIN Stop: 12/31/18 08:59 Last Admin: 12/04/18 09:07 Dose: 1 mg Documented by: Furosemide (Lasix) 40 mg PO DAILY ROBIN Stop: 12/31/18 08:59 Last Admin: 12/01/18 09:10 Dose: 40 mg Documented by: Gabapentin (Neurontin) 600 mg PO HS ROBIN Stop: 12/30/18 20:59 Last Admin: 12/04/18 20:57 Dose: 600 mg Documented by: Gabapentin (Neurontin) 300 mg PO QAM ROBIN Stop: 12/31/18 08:59 Last Admin: 12/04/18 10:27 Dose: 300 mg Documented by: Gabapentin (Neurontin) 300 mg PO DAILY@1200 ROBIN Stop: 01/03/19 12:29 Last Admin: 12/04/18 12:03 Dose: 300 mg Documented by: Hydromorphone HCl (Dilaudid) 0.5 mg IV Q3H PRN PRN Reason: Pain Stop: 12/14/18 17:37 Last Admin: 12/04/18 15:16 Dose: 0.5 mg Documented by: Daptomycin 350 mg/ Syringe 7 mls @ 3.5 mls/min IV Q24H ROBIN; Protocol Stop: 01/12/19 12:29 Last Admin: 12/04/18 12:03 Dose: 3.5 mls/min Documented by: Sodium Chloride (Nss) 250 mls @ 15 mls/hr IV .[id number] PRN PRN Reason: For Transfusion Stop: 12/31/18 17:07 Sodium Chloride (Nss 1000ml) 1,000 mls @ 15 mls/hr IV .Q24H ROBIN Stop: 01/02/19 16:14 Last Admin: 12/04/18 15:15 Dose: 15 mls/hr Documented by: Losartan Potassium (Cozaar) 12.5 mg PO DAILY [facility] Stop: 12/31/18 08:59 Last Admin: 12/01/18 09:08 Dose: 12.5 mg Documented by: Metoprolol Succinate (Toprol Xl) 25 mg PO DAILY [facility] Stop: 01/04/19 08:59 Metoprolol Tartrate (Lopressor) 2.5 mg IV Q4H PRN PRN Reason: Heart Rate greater than 110 Stop: 01/02/19 18:21 Misoprostol (Cytotec) 100 mcg PO BIDM [facility] Stop: 12/30/18 18:59 Last Admin: 12/04/18 16:58 Dose: 100 mcg Documented by: Multivitamins (Multivitamin Tab) 1 tab PO DAILY [facility] Stop: 12/31/18 08:59 Last Admin: 12/04/18 09:08 Dose: 1 tab Documented by: Ondansetron HCl (Zofran) 4 mg IV Q6H PRN PRN Reason: Nausea Stop: 12/30/18 17:37 Pantoprazole Sodium (Protonix) 40 mg PO BID ROBIN Stop: 12/31/18 20:59 Last Admin: 12/04/18 20:59 Dose: 40 mg Documented by: Prednisone (Prednisone) 2 mg PO QPM ROBIN Stop: 12/30/18 20:59 Last Admin: 12/04/18 21:00 Dose: 2 mg Documented by: Prednisone (Prednisone) 5 mg PO DAILY ROBIN Stop: 12/31/18 08:59 Last Admin: 12/04/18 09:15 Dose: 5 mg Documented by: Ropinirole HCl (Requip) 0.25 mg PO DAILY ROBIN Stop: 12/31/18 08:59 Last Admin: 12/04/18 09:08 Dose: 0.25 mg Documented by: Terazosin HCl (Hytrin) 1 mg PO DAILY [facility]IN Stop: 12/31/18 08:59 Last Admin: 12/04/18 09:09 Dose: 1 mg Documented by: Vitamin D (Vitamin D3) 1,000 units PO DAILY ROBIN Stop: 12/31/18 08:59 Last Admin: 12/04/18 09:06 Dose: 1,000 units Documented by: (1) Bilateral leg ulcer Non-pressure ulcer stage: with fat layer exposed Qualified Code(s): L97.912 - Non-pressure chronic ulcer of unspecified part of right lower leg with fat layer exposed; L97.922 - Non-pressure chronic ulcer of unspecified part of left lower leg with fat layer exposed
[2018-12-05] MEDS: ALBUTEROL HFA 8 GM INHALER INH SCH ×7 (01:10→23:23)
[2018-12-05] MEDS: HYDROCODONE/ACETAMOPHEN 5/325MG TAB PO PRN ×2 (01:12→09:48)
[2018-12-05] MEDS: HYDROmorphone INJ 0.5 MG/0.5 ML SYR IV PRN ×4 (02:42→23:28)
[2018-12-05 06:10] LABS: Basophils # (auto) 0.01 K/uL (0-0.2); Basophils % (auto) 0.1 %; Eosinophils # (auto) 0.06 K/uL (0-0.5); Eosinophils % (auto) 0.5 %; Hematocrit (blood only) 28.9 % (42-52); Immature Granulocytes # (auto) 0.05 K/uL (0.00-0.02); Immature Granulocytes % (auto) 0.4 %; Lymphocytes # (auto) 1.03 K/uL (1.2-3.4); Lymphocytes % (auto) 7.9 %; Mean Corpuscular Hgb Conc 31.1 g/dL (32-36); Mean Corpuscular Volume 82.8 fL (80-100); Mean Platelet Volume 9.2 fL (7.4-10.4); Monocytes # (auto) 1.11 K/uL (0.11-0.59); Monocytes % (auto) 8.5 %; Neutrophils # (auto) 10.86 K/uL (1.4-6.5); Neutrophils % (auto) 82.6 %; Nucleated RBC # (auto) 0.02 K/uL (0-0); Nucleated RBC % (auto) 0.2 %; Platelet Count 263 K/uL (130-400); RDW Coefficient of Variation 20.6 % (11.5-14.5); RDW Standard Deviation 62.3 fL (36.4-46.3); Red Blood Count 3.49 M/uL (4.7-6.1); White Blood Count 13.12 K/uL (4.8-10.8)
[2018-12-05 06:42] LABS: BUN Creatinine Ratio 37.5 (10-20); Calcium 7.6 mg/dl (8.5-10.1); Creatinine Clr Calc Pharmacy 102.2 ml/min; Est GFR (African American) 121.8; Est GFR (Non-African American) 105.1; Potassium 3.7 mmol/L (3.5-5.1)
[2018-12-05 06:56] LABS: Anisocytosis Present; Echinocytes 1+; Ovalocytes 1+; Polychromasia 1+
[2018-12-05] MEDS: PANTOprazole 40 MG TAB PO SCH ×2 (09:04→20:36)
[2018-12-05] MEDS: ROPINIROLE HCL 0.25 MG TABLET PO SCH (09:04)
[2018-12-05] MEDS: CHOLECALCIFEROL 1,000 UNITS TAB PO SCH (09:04)
[2018-12-05] MEDS: ATORVASTATIN 40 MG TAB PO SCH (09:04)
[2018-12-05] MEDS: CYANOCOBALAMIN 500 MCG TABLET (VITAMIN B-12) PO SCH (09:04)
[2018-12-05] MEDS: APIXABAN 5 MG TABLET PO SCH ×2 (09:04→20:39)
[2018-12-05] MEDS: TERAZOSIN HCL 1 MG CAP PO SCH (09:04)
[2018-12-05] MEDS: FOLIC ACID 1 MG TAB PO SCH (09:04)
[2018-12-05] MEDS: FERROUS SULFATE 325 MG TAB PO SCH (09:04)
[2018-12-05] MEDS: CLOPIDOGREL BISULFATE 75 MG TAB PO SCH (09:04)
[2018-12-05] MEDS: MULTIVITAMIN TAB PO SCH (09:04)
[2018-12-05] MEDS: GABAPENTIN 300 MG CAP PO SCH ×2 (09:04→13:52)
[2018-12-05] MEDS: miSOPROStol 50 MCG TAB PO SCH ×2 (09:04→17:51)
[2018-12-05] MEDS: METOPROLOL SUCC 25MG EXT REL TAB PO SCH (09:04)
[2018-12-05] MEDS: predniSONE 5 MG TAB PO SCH (09:04)
[2018-12-05] MEDS: DOCUSATE SODIUM 100 MG CAP PO SCH (09:10)
[2018-12-05] MEDS: DAPTOmycin 350 MG in SYRINGE 0 ML IV SCH (13:53)
--- NOTE | 2018-12-05 14:46 | Hospitalist Progress Note ---
Date of Service December 05, 2018 Assessment & Plan (1) Intractable pain: - This is likely in the setting of peripheral vascular disease and osteomyelitis -- Pain does seem to improve with dangling of the legs which is pretty consistent with a PVD picture -- In regards to PVD - he did have a RLE SFA stent placed in the past and did discuss with vascular about possible intervention at this current time - bypass/other vascular intervention not an option at this time and stated if needed can be formally consulted -- Review of outpatient visit from Mar 2018 - LLE U/S prior to that appointment with adequate flow and no focal hemodynamic stenosis that would benefit from surgical intervention - Will repeat B/L U/S to further assess peripheral vessels and see if changes are evident to warrant intervention - Desipramine 10 mg HS and Gabapentin 300 mg AM and 600 mg HS with plans to start and additional 300 mg at lunch time on 12/04; Dilaudid and Hydrocodone/Acetaminophen PRN still with pain, needing Dilaudid at times cannot use the Dilaudid at home will increase the Hydrocodone from 5 to 10mg q4 PRN for severe pain - Consulted pain management - plan as above; appreciate input (2) Osteomyelitis of fourth toe of left foot: - Reports being on Dalvance Q2W and Doxycycline - for ulcerations and cellulitis; H/O MRSA - Imaging now supports Osteomyelitis - could not find documentation that this was noted previously - Started on Daptomycin daily; BCx without growth at this time - Was febrile on 12/01 but has been afebrile since - Discussed with vascular as noted above, no intervention at this time - Consult Podiatry - follows with Dr. Tirado - planning on conservative measures at this time with IV Abx - ID Following - recommending long-term Abx (approx. 6 weeks) - currently recommending Daptomycin US guided IV placed awaiting answer on Daptomycin approval, needs preauth, could take up to 72 hours for answer hopeful for answer by Friday (3) Severe anemia: - Heme+ Stool -- Patient/Daughter states he has melena but is on iron supplementation which could explain that however continues to have drops in Hgb with a transfusion on last admission; on 12/01 patient was hypotensive but rather asymptomatic from it as he does have baseline low pressures, was transfused 1 unit and Hgb low but stable - Change to Protonix 40 mg BID - EGD (12/02) and Colonoscopy (12/03) without findings of bleeding - resumed Plavix and Eliquis on 12/03 - Consult GI - no signs of bleeding at this time Hb is 9 today, stable (4) Bilateral leg ulcer: - Chronic issues - multiple unstageable pressure ulcers of B/L LE, POA and 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, POA - these are slowly improving - Consult podiatry - appreciate recommendations (5) Heart failure with reduced ejection fraction: - Currently stable but will monitor given transfusion - Echo (Aug 2018) - EF 30-35% with thin akinetic inferior wall with adjacent inferolateral, basal septal hypokinesis; severe hypokinesis involving mid to apical anterior and lateral wall continue to hold Losartan and Lasix, BP low normal, consider resuming tomorrow if needed (6) Paroxysmal atrial fibrillation: - Currently in NSR - Eliquis; Will continue Toprol XL 12.5 mg daily for rate management but will utilize hold parameters (7) Rheumatoid arthritis: - Follows with Dr. Haq ([facility]) - Given setting of infection will hold Methotrexate - Given infection and hypotension will do a stress dose of Methylprednisolone 40 mg IV daily x 3 days then resume home dosing of Prednisone (8) DVT prophylaxis: - Eliquis Disposition: plan for outpatient IV Daptomycin for 6 weeks, needs approval and then determined home vs [facility], he prefers home Subjective patient feels well, less anxious today c/o pain in left foot, intermittent but sometimes it is really severe he worries about how he will get through the severe attacks at home discussed that we can work on pain control no fever, vitals stable discussed with him that he will need to wait for the Daptomycin to be approved Review of Systems Review of Systems: All systems reviewed & are unremarkable except as noted in HPI & below Constitutional: + fatigue and + weakness; no fever Integumentary: + non-healing lesions Neurologic: + tingling and + numbness Psychiatric: + anxiety Physical Exam Constitutional: well developed and + thin; no acute distress Eyes: PERRL, conjunctivae normal, anicteric sclerae ENMT: external ear and nose normal, oropharynx normal Neck: trachea midline, no thyromegaly Respiratory: normal respiratory effort, lungs clear to auscultation Cardiovascular: Rate/Rhythm: regular rate and regular rhythm Heart Sounds: normal S1 and normal S2; no murmur Vessels: no JVD and + abnormal peripheral pulses (weak) Extremities: + abnormal capillary refill and no edema Gastrointestinal (Abdomen): normal bowel sounds, soft, nontender, no hepatosplenomegaly Musculoskeletal: Head/Neck/Chest: normocephalic, head atraumatic and neck supple Extremities: + abnormal strength and + muscle atrophy; + extremities abnormal to inspection, no cyanosis and no clubbing Skin: + wound (distal wounds on toes, ankles, they are dressed) Neurologic: PERRL, EOMI, accommodation nl, no face palsy, no dysarthria moves all extremities; + abnormal touch/pain/proprioception (decreased sensation in lower extremities distally) Psychiatric: Orientation: alert and oriented x 3 Lymphatic: no cervical or axillary lymphadenopathy Results & Data Vital Signs (Past 12 Hours) Vital Signs Temp Pulse Pulse Resp BP Pulse Ox 12/05/18 11:08 36.7 C 78 18 113/65 93 12/05/18 09:00 91 H 12/05/18 07:14 36.9 C 81 18 116/73 92 Laboratory Results Laboratory Results - last 24 hr 12/05/18 12/05/18 05:39 05:39 WBC 13.12 H RBC 3.49 L Hgb 9.0 L Hct 28.9 L MCV 82.8 MCH 25.8 MCHC 31.1 L RDW Std Deviation 62.3 H RDW Coeff of Nick 20.6 H Plt Count 263 MPV 9.2 Immature Gran % (Auto) 0.4 Neut % (Auto) 82.6 Lymph % (Auto) 7.9 Gray % (Auto) 8.5 Eos % (Auto) 0.5 Baso % (Auto) 0.1 Immature Gran # (Auto) 0.05 H Neut # (Auto) 10.86 H Lymph # (Auto) 1.03 L Gray # (Auto) 1.11 H Eos # (Auto) 0.06 Baso # (Auto) 0.01 Absolute Nucleated RBC 0.02 H Nucleated RBC % (auto) 0.2 Polychromasia 1+ Anisocytosis Present Ovalocytes 1+ Echinocytes 1+ Acanthocytes (Spur) 1+ Sodium 138 Potassium 3.7 Chloride 108 H Carbon Dioxide 24 Anion Gap 6.0 BUN 19 H Creatinine 0.52 L Est Cr Clr Drug Dosing 102.2 Est GFR ( Amer) 121.8 Est GFR (Non-Af Amer) 105.1 BUN/Creatinine Ratio 37.5 H Glucose 86 Calcium 7.6 L Medications Administered Current Inpatient Medications Acetaminophen (Tylenol) 650 mg PO Q4H PRN PRN Reason: pain/fever Stop: 12/30/18 17:37 Hydrocodone Bitart/Acetaminophen ([place] 5/325) 1 tab PO Q4H PRN PRN Reason: Pain Stop: 12/16/18 14:56 Last Admin: 12/05/18 09:48 Dose: 1 tab Documented by: Al Hydrox/Mg Hydrox/Simethicone (Maalox) 30 ml PO Q6H PRN PRN Reason: Dyspepsia Stop: 12/30/18 17:37 Albuterol (Ventolin Hfa) 2 puffs INH Q4 ROBIN Stop: 12/30/18 19:59 Last Admin: 12/05/18 13:52 Dose: 2 puffs Documented by: Apixaban (Eliquis) 5 mg PO BID ROBIN Stop: 01/02/19 20:59 Last Admin: 12/05/18 09:04 Dose: 5 mg Documented by: Atorvastatin Calcium (Lipitor) 40 mg PO DAILY [facility]IN Stop: 12/31/18 08:59 Last Admin: 12/05/18 09:04 Dose: 40 mg Documented by: Clopidogrel Bisulfate (Plavix) 75 mg PO DAILY [facility]IN Stop: 12/31/18 08:59 Last Admin: 12/05/18 09:04 Dose: 75 mg Documented by: Cyanocobalamin (Vitamin B-12) 1,000 mcg PO DAILY [facility]IN Stop: 12/31/18 08:59 Last Admin: 12/05/18 09:04 Dose: 1,000 mcg Documented by: Desipramine HCl (Norpramin) 10 mg PO HS ROBIN Stop: 12/31/18 20:59 Last Admin: 12/04/18 20:58 Dose: 10 mg Documented by: Docusate Sodium (Colace) 100 mg PO DAILY [facility]IN Stop: 12/31/18 08:59 Last Admin: 12/05/18 09:10 Dose: 100 mg Documented by: Ferrous Sulfate (Feosol) 325 mg PO DAILY [facility]IN Stop: 12/31/18 08:59 Last Admin: 12/05/18 09:04 Dose: 325 mg Documented by: Folic Acid (Folvite) 1 mg PO DAILY [facility] Stop: 12/31/18 08:59 Last Admin: 12/05/18 09:04 Dose: 1 mg Documented by: Furosemide (Lasix) 40 mg PO DAILY [facility] Stop: 12/31/18 08:59 Last Admin: 12/01/18 09:10 Dose: 40 mg Documented by: Gabapentin (Neurontin) 600 mg PO HS [facility] Stop: 12/30/18 20:59 Last Admin: 12/04/18 20:57 Dose: 600 mg Documented by: Gabapentin (Neurontin) 300 mg PO QAM [facility] Stop: 12/31/18 08:59 Last Admin: 12/05/18 09:04 Dose: 300 mg Documented by: Gabapentin (Neurontin) 300 mg PO DAILY@1200 [facility] Stop: 01/03/19 12:29 Last Admin: 12/05/18 13:52 Dose: 300 mg Documented by: Hydromorphone HCl (Dilaudid) 0.5 mg IV Q3H PRN PRN Reason: Pain Stop: 12/14/18 17:37 Last Admin: 12/05/18 13:53 Dose: 0.5 mg Documented by: Daptomycin 350 mg/ Syringe 7 mls @ 3.5 mls/min IV Q24H [facility]; Protocol Stop: 01/12/19 12:29 Last Admin: 12/05/18 13:53 Dose: 3.5 mls/min Documented by: Losartan Potassium (Cozaar) 12.5 mg PO DAILY [facility] Stop: 12/31/18 08:59 Last Admin: 12/01/18 09:08 Dose: 12.5 mg Documented by: Metoprolol Succinate (Toprol Xl) 25 mg PO DAILY [facility] Stop: 01/04/19 08:59 Last Admin: 12/05/18 09:04 Dose: 25 mg Documented by: Metoprolol Tartrate (Lopressor) 2.5 mg IV Q4H PRN PRN Reason: Heart Rate greater than 110 Stop: 01/02/19 18:21 Misoprostol (Cytotec) 100 mcg PO BIDM [facility] Stop: 12/30/18 18:59 Last Admin: 12/05/18 09:04 Dose: 100 mcg Documented by: Multivitamins (Multivitamin Tab) 1 tab PO DAILY [facility] Stop: 12/31/18 08:59 Last Admin: 12/05/18 09:04 Dose: 1 tab Documented by: Ondansetron HCl (Zofran) 4 mg IV Q6H PRN PRN Reason: Nausea Stop: 12/30/18 17:37 Pantoprazole Sodium (Protonix) 40 mg PO BID ROBIN Stop: 12/31/18 20:59 Last Admin: 12/05/18 09:04 Dose: 40 mg Documented by: Prednisone (Prednisone) 2 mg PO QPM [facility]IN Stop: 12/30/18 20:59 Last Admin: 12/04/18 21:00 Dose: 2 mg Documented by: Prednisone (Prednisone) 5 mg PO DAILY [facility] Stop: 12/31/18 08:59 Last Admin: 12/05/18 09:04 Dose: 5 mg Documented by: Ropinirole HCl (Requip) 0.25 mg PO DAILY [facility] Stop: 12/31/18 08:59 Last Admin: 12/05/18 09:04 Dose: 0.25 mg Documented by: Terazosin HCl (Hytrin) 1 mg PO DAILY [facility] Stop: 12/31/18 08:59 Last Admin: 12/05/18 09:04 Dose: 1 mg Documented by: Vitamin D (Vitamin D3) 1,000 units PO DAILY [facility] Stop: 12/31/18 08:59 Last Admin: 12/05/18 09:04 Dose: 1,000 units Documented by: (1) Bilateral leg ulcer Non-pressure ulcer stage: with fat layer exposed Qualified Code(s): L97.912 - Non-pressure chronic ulcer of unspecified part of right lower leg with fat layer exposed; L97.922 - Non-pressure chronic ulcer of unspecified part of left lower leg with fat layer exposed
[2018-12-05] MEDS: predniSONE 1 MG TAB PO SCH (20:35)
[2018-12-05] MEDS: GABAPENTIN 600 MG TAB PO SCH (20:38)
[2018-12-05] MEDS: DESIPRAMINE HCL 10 MG TAB PO SCH (20:40)
[2018-12-06] MEDS: ALBUTEROL HFA 8 GM INHALER INH SCH ×6 (03:26→23:12)
[2018-12-06] MEDS: HYDROCODONE/ACETAMINOPHEN 10/325 TAB PO PRN ×2 (04:01→10:34)
[2018-12-06] MEDS: DOCUSATE SODIUM 100 MG CAP PO SCH (09:00)
[2018-12-06] MEDS: HYDROmorphone INJ 0.5 MG/0.5 ML SYR IV PRN ×2 (09:04→20:43)
[2018-12-06] MEDS: TERAZOSIN HCL 1 MG CAP PO SCH (09:06)
[2018-12-06] MEDS: CLOPIDOGREL BISULFATE 75 MG TAB PO SCH (09:06)
[2018-12-06] MEDS: FERROUS SULFATE 325 MG TAB PO SCH (09:06)
[2018-12-06] MEDS: GABAPENTIN 300 MG CAP PO SCH ×2 (09:06→12:29)
[2018-12-06] MEDS: APIXABAN 5 MG TABLET PO SCH ×2 (09:06→20:44)
[2018-12-06] MEDS: miSOPROStol 50 MCG TAB PO SCH ×2 (09:06→16:19)
[2018-12-06] MEDS: METOPROLOL SUCC 25MG EXT REL TAB PO SCH (09:06)
[2018-12-06] MEDS: MULTIVITAMIN TAB PO SCH (09:06)
[2018-12-06] MEDS: ATORVASTATIN 40 MG TAB PO SCH (09:06)
[2018-12-06] MEDS: FOLIC ACID 1 MG TAB PO SCH (09:06)
[2018-12-06] MEDS: PANTOprazole 40 MG TAB PO SCH ×2 (09:07→20:46)
[2018-12-06] MEDS: ROPINIROLE HCL 0.25 MG TABLET PO SCH (09:07)
[2018-12-06] MEDS: CYANOCOBALAMIN 500 MCG TABLET (VITAMIN B-12) PO SCH (09:07)
[2018-12-06] MEDS: predniSONE 5 MG TAB PO SCH (09:07)
[2018-12-06] MEDS: CHOLECALCIFEROL 1,000 UNITS TAB PO SCH (09:07)
[2018-12-06] MEDS: DAPTOmycin 350 MG in SYRINGE 0 ML IV SCH (12:29)
--- NOTE | 2018-12-06 15:35 | Hospitalist Progress Note ---
Date of Service December 06, 2018 Assessment & Plan (1) Intractable pain: - This is likely in the setting of peripheral vascular disease and osteomyelitis -- Pain does seem to improve with dangling of the legs which is pretty consistent with a PVD picture -- In regards to PVD - he did have a RLE SFA stent placed in the past and did discuss with vascular about possible intervention at this current time - bypass/other vascular intervention not an option at this time and stated if needed can be formally consulted -- Review of outpatient visit from Mar 2018 - LLE U/S prior to that appointment with adequate flow and no focal hemodynamic stenosis that would benefit from surgical intervention - Will repeat B/L U/S to further assess peripheral vessels and see if changes are evident to warrant intervention - Desipramine 10 mg HS and Gabapentin 300 mg AM and 600 mg HS with plans to start and additional 300 mg at lunch time on 12/04; Dilaudid and Hydrocodone/Acetaminophen PRN still with pain, needing Dilaudid at times cannot use the Dilaudid at home will increase the Hydrocodone from 5 to 10mg q4 PRN for severe pain -- NO IMPROVEMENT IN PAIN 12/06, will increase Neurontin to 600mg AM, lunch and PM, look for improvement, his Cr Cl is 90 - Consulted pain management - plan as above; appreciate input (2) Osteomyelitis of fourth toe of left foot: - Reports being on Dalvance Q2W and Doxycycline - for ulcerations and cellulitis; H/O MRSA - Imaging now supports Osteomyelitis - could not find documentation that this was noted previously - Started on Daptomycin daily; BCx without growth at this time - Was febrile on 12/01 but has been afebrile since - Discussed with vascular as noted above, no intervention at this time - Consult Podiatry - follows with Dr. Tirado - planning on conservative measures at this time with IV Abx - ID Following - recommending long-term Abx (approx. 6 weeks) - currently recommending Daptomycin US guided IV placed awaiting answer on Daptomycin approval, needs preauth, could take up to 72 hours for answer hopeful for answer by Friday, ask CM to check with insurance in the morning (3) Severe anemia: - Heme+ Stool -- Patient/Daughter states he has melena but is on iron supplementation which could explain that however continues to have drops in Hgb with a transfusion on last admission; on 12/01 patient was hypotensive but rather asymptomatic from it as he does have baseline low pressures, was transfused 1 unit and Hgb low but stable - Change to Protonix 40 mg BID - EGD (12/02) and Colonoscopy (12/03) without findings of bleeding - resumed Plavix and Eliquis on 12/03 - Consult GI - no signs of bleeding at this time Hb is 9 on 12/05, stable, no signs of GI bleeding (4) Bilateral leg ulcer: - Chronic issues - multiple unstageable pressure ulcers of B/L LE, POA and 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, POA - these are slowly improving - Consult podiatry - appreciate recommendations (5) Heart failure with reduced ejection fraction: - Currently stable but will monitor given transfusion - Echo (Aug 2018) - EF 30-35% with thin akinetic inferior wall with adjacent inferolateral, basal septal hypokinesis; severe hypokinesis involving mid to apical anterior and lateral wall continue to hold Losartan and Lasix, BP low normal, no signs of volume overload, oral intake not great (6) Paroxysmal atrial fibrillation: - Currently in NSR - Eliquis; Will continue Toprol XL 12.5 mg daily for rate management but will utilize hold parameters (7) Rheumatoid arthritis: - Follows with Dr. Haq ([facility]) - Given setting of infection will hold Methotrexate - Given infection and hypotension will do a stress dose of Methylprednisolone 40 mg IV daily x 3 days then resume home dosing of Prednisone (8) DVT prophylaxis: - Eliquis Disposition: plan for outpatient IV Daptomycin for 6 weeks, needs approval and then determined home vs [facility], he prefers home see if pain improves on the Gabapentin 600mg TID in addition to Hydrocodone 1 0mg PRN currently getting Dilaudid IV for breakthrough which of course will not be available on discharge Subjective patient with pain still, the increase dose of Hydrocodone not helping described as a burning, shooting pain up the legs, specifically the left leg appetite is not that great he asked about an answer on the Daptomycin, discussed that it would not happen until tomorrow a the earliest no labs today Review of Systems Review of Systems: All systems reviewed & are unremarkable except as noted in HPI & below Constitutional: + fatigue and + weakness; no fever Respiratory: no cough and no dyspnea Cardiovascular: no chest pain Gastrointestinal: + early satiety; no abdominal pain, no nausea, no vomiting, no constipation and no diarrhea/loose stools Neurologic: + tingling, + numbness and + radiating pain (shooting pain up the left leg) Physical Exam Constitutional: well developed and + thin; no acute distress Eyes: PERRL, conjunctivae normal, anicteric sclerae ENMT: external ear and nose normal, oropharynx normal Neck: trachea midline, no thyromegaly Respiratory: normal respiratory effort, lungs clear to auscultation Cardiovascular: Rate/Rhythm: regular rate and regular rhythm Heart Sounds: normal S1 and normal S2; no murmur Vessels: no JVD and + abnormal peripheral pulses (weak) Extremities: + abnormal capillary refill and no edema Gastrointestinal (Abdomen): normal bowel sounds, soft, nontender, no hepatosplenomegaly Musculoskeletal: Head/Neck/Chest: normocephalic, head atraumatic and neck supple Extremities: + abnormal strength and + muscle atrophy; + extremities abnormal to inspection, no cyanosis and no clubbing Skin: + wound (distal wounds on toes, ankles, they are dressed) Neurologic: PERRL, EOMI, accommodation nl, no face palsy, no dysarthria m oves all extremities; + abnormal touch/pain/proprioception (decreased sensation in lower extremities distally) Psychiatric: Orientation: alert and oriented x 3 Affect: + anxious affect Mood: + anxious mood Lymphatic: no cervical or axillary lymphadenopathy Results & Data Vital Signs (Past 12 Hours) Vital Signs Temp Pulse Resp BP Pulse Ox 12/06/18 07:11 37.0 C 91 H 18 106/64 94 Medications Administered Current Inpatient Medications Acetaminophen (Tylenol) 650 mg PO Q4H PRN PRN Reason: pain/fever Stop: 12/30/18 17:37 Hydrocodone Bitart/Acetaminophen ([place] 10/325) 1 tab PO Q4 PRN PRN Reason: Pain Stop: 12/19/18 14:45 Last Admin: 12/06/18 10:34 Dose: 1 tab Documented by: Al Hydrox/Mg Hydrox/Simethicone (Maalox) 30 ml PO Q6H PRN PRN Reason: Dyspepsia Stop: 12/30/18 17:37 Last Admin: 12/05/18 20:35 Dose: 30 ml Documented by: Albuterol (Ventolin Hfa) 2 puffs INH Q4 ROBIN Stop: 12/30/18 19:59 Last Admin: 12/06/18 12:29 Dose: 2 puffs Documented by: Apixaban (Eliquis) 5 mg PO BID ROBIN Stop: 01/02/19 20:59 Last Admin: 12/06/18 09:06 Dose: 5 mg Documented by: Atorvastatin Calcium (Lipitor) 40 mg PO DAILY ROBIN Stop: 12/31/18 08:59 Last Admin: 12/06/18 09:06 Dose: 40 mg Documented by: Clopidogrel Bisulfate (Plavix) 75 mg PO DAILY ROBIN Stop: 12/31/18 08:59 Last Admin: 12/06/18 09:06 Dose: 75 mg Documented by: Cyanocobalamin (Vitamin B-12) 1,000 mcg PO DAILY ROBIN Stop: 12/31/18 08:59 Last Admin: 12/06/18 09:07 Dose: 1,000 mcg Documented by: Desipramine HCl (Norpramin) 10 mg PO HS ROBIN Stop: 12/31/18 20:59 Last Admin: 12/05/18 20:40 Dose: 10 mg Documented by: Docusate Sodium (Colace) 100 mg PO DAILY ROBIN Stop: 12/31/18 08:59 Last Admin: 12/06/18 09:00 Dose: Not Given Documented by: Ferrous Sulfate (Feosol) 325 mg PO DAILY ROBIN Stop: 12/31/18 08:59 Last Admin: 12/06/18 09:06 Dose: 325 mg Documented by: Folic Acid (Folvite) 1 mg PO DAILY ROBIN Stop: 12/31/18 08:59 Last Admin: 12/06/18 09:06 Dose: 1 mg Documented by: Furosemide (Lasix) 40 mg PO DAILY ROBIN Stop: 12/31/18 08:59 Last Admin: 12/01/18 09:10 Dose: 40 mg Documented by: Gabapentin (Neurontin) 600 mg PO HS [facility] Stop: 12/30/18 20:59 Last Admin: 12/05/18 20:38 Dose: 600 mg Documented by: Gabapentin (Neurontin) 600 mg PO QAM ROBIN Stop: 01/06/19 08:59 Gabapentin (Neurontin) 600 mg PO DAILY@1200 [facility] Stop: 01/06/19 11:59 Hydromorphone HCl (Dilaudid) 0.5 mg IV Q3H PRN PRN Reason: Pain Stop: 12/14/18 17:37 Last Admin: 12/06/18 09:04 Dose: 0.5 mg Documented by: Daptomycin 350 mg/ Syringe 7 mls @ 3.5 mls/min IV Q24H [facility]; Protocol Stop: 01/12/19 12:29 Last Admin: 12/06/18 12:29 Dose: 3.5 mls/min Documented by: Losartan Potassium (Cozaar) 12.5 mg PO DAILY ROBIN Stop: 12/31/18 08:59 Last Admin: 12/01/18 09:08 Dose: 12.5 mg Documented by: Metoprolol Succinate (Toprol Xl) 25 mg PO DAILY [facility] Stop: 01/04/19 08:59 Last Admin: 12/06/18 09:06 Dose: 25 mg Documented by: Metoprolol Tartrate (Lopressor) 2.5 mg IV Q4H PRN PRN Reason: Heart Rate greater than 110 Stop: 01/02/19 18:21 Misoprostol (Cytotec) 100 mcg PO BIDM [facility] Stop: 12/30/18 18:59 Last Admin: 12/06/18 09:06 Dose: 100 mcg Documented by: Multivitamins (Multivitamin Tab) 1 tab PO DAILY [facility] Stop: 12/31/18 08:59 Last Admin: 12/06/18 09:06 Dose: 1 tab Documented by: Ondansetron HCl (Zofran) 4 mg IV Q6H PRN PRN Reason: Nausea Stop: 12/30/18 17:37 Pantoprazole Sodium (Protonix) 40 mg PO BID [facility] Stop: 12/31/18 20:59 Last Admin: 12/06/18 09:07 Dose: 40 mg Documented by: Prednisone (Prednisone) 2 mg PO QPM ROBIN Stop: 12/30/18 20:59 Last Admin: 12/05/18 20:35 Dose: 2 mg Documented by: Prednisone (Prednisone) 5 mg PO DAILY [facility] Stop: 12/31/18 08:59 Last Admin: 12/06/18 09:07 Dose: 5 mg Documented by: Ropinirole HCl (Requip) 0.25 mg PO DAILY [facility] Stop: 12/31/18 08:59 Last Admin: 12/06/18 09:07 Dose: 0.25 mg Documented by: Terazosin HCl (Hytrin) 1 mg PO DAILY [facility] Stop: 12/31/18 08:59 Last Admin: 12/06/18 09:06 Dose: 1 mg Documented by: Vitamin D (Vitamin D3) 1,000 units PO DAILY [facility] Stop: 12/31/18 08:59 Last Admin: 12/06/18 09:07 Dose: 1,000 units Documented by: (1) Bilateral leg ulcer Non-pressure ulcer stage: with fat layer exposed Qualified Code(s): L97.912 - Non-pressure chronic ulcer of unspecified part of right lower leg with fat layer exposed; L97.922 - Non-pressure chronic ulcer of unspecified part of left lower leg with fat layer exposed
[2018-12-06] MEDS: predniSONE 1 MG TAB PO SCH (20:45)
[2018-12-06] MEDS: GABAPENTIN 600 MG TAB PO SCH (20:45)
[2018-12-06] MEDS: DESIPRAMINE HCL 10 MG TAB PO SCH (20:48)
[2018-12-07] MEDS: HYDROCODONE/ACETAMINOPHEN 10/325 TAB PO PRN ×2 (01:34→08:02)
[2018-12-07] MEDS: ALBUTEROL HFA 8 GM INHALER INH SCH ×3 (02:56→11:41)
[2018-12-07] MEDS: CLOPIDOGREL BISULFATE 75 MG TAB PO SCH (08:03)
[2018-12-07] MEDS: CYANOCOBALAMIN 500 MCG TABLET (VITAMIN B-12) PO SCH (08:03)
[2018-12-07] MEDS: ATORVASTATIN 40 MG TAB PO SCH (08:03)
[2018-12-07] MEDS: CHOLECALCIFEROL 1,000 UNITS TAB PO SCH (08:03)
[2018-12-07] MEDS: ROPINIROLE HCL 0.25 MG TABLET PO SCH (08:06)
[2018-12-07] MEDS: PANTOprazole 40 MG TAB PO SCH (08:06)
[2018-12-07] MEDS: METOPROLOL SUCC 25MG EXT REL TAB PO SCH (08:06)
[2018-12-07] MEDS: predniSONE 5 MG TAB PO SCH (08:06)
[2018-12-07] MEDS: FOLIC ACID 1 MG TAB PO SCH (08:07)
[2018-12-07] MEDS: miSOPROStol 50 MCG TAB PO SCH (08:07)
[2018-12-07] MEDS: TERAZOSIN HCL 1 MG CAP PO SCH (08:07)
[2018-12-07] MEDS: MULTIVITAMIN TAB PO SCH (08:08)
[2018-12-07] MEDS: APIXABAN 5 MG TABLET PO SCH (08:08)
[2018-12-07] MEDS: FERROUS SULFATE 325 MG TAB PO SCH (08:08)
[2018-12-07] MEDS ORDERED: GABAPENTIN 300 MG CAP PO SCH ×2 (09:00→12:00)
[2018-12-07] MEDS: DOCUSATE SODIUM 100 MG CAP PO SCH (09:06)
[2018-12-07 09:19] LABS: Basophils # (auto) 0.01 K/uL (0-0.2); Basophils % (auto) 0.1 %; Eosinophils # (auto) 0.23 K/uL (0-0.5); Eosinophils % (auto) 2.1 %; Hematocrit (blood only) 27.2 % (42-52); Hemoglobin 8.7 g/dL (14.0-18.0); Immature Granulocytes # (auto) 0.04 K/uL (0.00-0.02); Immature Granulocytes % (auto) 0.4 %; Lymphocytes # (auto) 0.93 K/uL (1.2-3.4); Lymphocytes % (auto) 8.3 %; Mean Corpuscular Volume 81.2 fL (80-100); Mean Platelet Volume 9.3 fL (7.4-10.4); Monocytes # (auto) 0.96 K/uL (0.11-0.59); Monocytes % (auto) 8.6 %; Neutrophils # (auto) 9.02 K/uL (1.4-6.5); Neutrophils % (auto) 80.5 %; Nucleated RBC # (auto) 0.02 K/uL (0-0); Nucleated RBC % (auto) 0.2 %; Platelet Count 253 K/uL (130-400); RDW Coefficient of Variation 19.9 % (11.5-14.5); RDW Standard Deviation 58.7 fL (36.4-46.3); Red Blood Count 3.35 M/uL (4.7-6.1); White Blood Count 11.19 K/uL (4.8-10.8)
[2018-12-07 09:49] LABS: BUN Creatinine Ratio 27.2 (10-20); Calcium 8.1 mg/dl (8.5-10.1); Creatinine Clr Calc Pharmacy 91.7 ml/min; Est GFR (African American) 116.4; Est GFR (Non-African American) 100.4; Potassium 3.7 mmol/L (3.5-5.1)
[2018-12-07] MEDS: DAPTOmycin 350 MG in SYRINGE 0 ML IV SCH (11:52)
--- NOTE | 2018-12-07 14:29 | Discharge Summary ---
Date of Service December 07, 2018 Admission HPI Per Admitting Provider Chief Complaint: Intractable left foot pain Primary Care Provider: Daniele Martinez, DENIA, CONTAINER [employer]ER [employer]PERATOR 70-year-old male with peripheral arterial disease and chronic bilateral lower extremity ulcerations with osteomyelitis in the past and MRSA infection. He is being treated by infectious disease and the wound clinic. He presents with intractable left foot pain. He has evidence of osteomyelitis involving the distal aspect of the left fourth toe. Hemoglobin is down to 7.5. He denies any melena or hematochezia. He has an deep left heel wound in addition to ulceration of the dorsal aspect of the left foot and multiple ulcerations on the right foot. The left foot appears worse than the right foot however. There is no fever or evidence of sepsis. He is steroid-dependent with rheumatoid arthritis. He is anticoagulated with Eliquis. He is admitted for further evaluation and treatment. He requests full CODE STATUS. Principal Diagnosis Intractable foot pain, Osteomyelitis toe Discharge Exam Constitutional well developed, + thin and + frail appearing; no acute distress and not ill appearing Eyes PERRL, conjunctivae normal, anicteric sclerae + anicteric sclerae ENMT external ear and nose normal, oropharynx normal Ears: no hearing impairment Neck trachea midline, no thyromegaly normal visual inspection and trachea midline Respiratory normal respiratory effort, lungs clear to auscultation normal respiratory effort Auscultation: lungs clear to auscultation bilaterally and + diminished lung sounds Cardiovascular Rate/Rhythm: regular rate and regular rhythm Heart Sounds: normal S1 and normal S2; no murmur Vessels: no JVD and + abnormal peripheral pulses (weak) Extremities: + abnormal capillary refill and no edema Gastrointestinal (Abdomen) normal bowel sounds, soft, nontender, no hepatosplenomegaly Inspection/Auscultation: normal bowel sounds Percussion/Palpation: abdomen soft; abdomen nontender Musculoskeletal Head/Neck/Chest: normocephalic, head atraumatic and neck supple Extremities: + abnormal strength and + muscle atrophy; + extremities abnormal to inspection, no cyanosis and no clubbing Skin + wound (distal wounds on toes, ankles, they are dressed) Neurologic moves all extremities; + abnormal touch/pain/proprioception (decreased sensation in lower extremities distally) Psychiatric A+Ox3, euthymic affect Discharge Data Allergies Allergy/AdvReac Type Severity Reaction Status Date / Time amoxicillin Allergy Severe RED Verified 12/08/18 11:05 BLOTCHES HEAD TO TOE Iodinated Contrast- Oral and Allergy Severe "FELT Verified 12/08/18 11:05 IV Dye FUNNY" ioversol Allergy Severe PASSED OUT Verified 12/08/18 11:05 clavulanic acid Allergy Intermediate RASH Verified 12/08/18 11:05 Penicillins Allergy Intermediate RASH Verified 12/08/18 11:05 adhesive Allergy Mild REDNESS Verified 12/08/18 11:05 WITH EXTENDED USE Sulfa (Sulfonamide Allergy Mild RASH Verified 12/08/18 11:05 Antibiotics) sulfamethoxazole Allergy Mild RASH Verified 12/08/18 11:05 trimethoprim Allergy Mild RASH Verified 12/08/18 11:05 Bactrim Allergy Unknown RASH Verified 11/18/17 00:19 Fish Containing Products Allergy Unknown Verified 12/08/18 11:05 fish derived Allergy Unknown Verified 12/08/18 11:05 fish oil Allergy Unknown Verified 12/08/18 11:05 shellfish derived Allergy Unknown Verified 12/08/18 11:05 silver Allergy Rash Verified 12/08/18 11:05 Latex, Natural Rubber AdvReac Intermediate Redness of Verified 12/08/18 11:05 Skin Food Allergy Severe SEAFOOD - Uncoded 11/30/18 12:10 EYES SWELL IF DRINKS ALCOHOL WITH Carboxymethylcellulose AdvReac Mild Irritates Uncoded 11/30/18 12:10 the skin Consultations 11/30/18 12:29 Consult Wound Care Provider Stat 11/30/18 15:15 ED Decision to Admit Stat 11/30/18 17:38 Consult Infectious Diseases Routine Consult Pain Management Routine 12/01/18 15:14 Consult Podiatry Routine 12/01/18 16:41 Consult Gastroenterology Routine Procedures Performed Operation Date: 12/02/18 10:30 Actual Procedures p Esophagogastroduodenoscopy - Rolando Felipe Case, DO Operation Date: 12/03/18 09:45 Actual Procedures p Colonoscopy - Jorge Landis Ordered Studies 11/30/18 12:07 CT head/brain wo con Stat 12/03/18 15:50 US arterial duplex LE BI Routine Hospital Course (1) Intractable pain: - This is likely in the setting of peripheral vascular disease and osteomyelitis -- Pain does seem to improve with dangling of the legs which is pretty consistent with a PVD picture -- In regards to PVD - he did have a RLE SFA stent placed in the past and did discuss with vascular about possible intervention at this current time - bypass/other vascular intervention not an option at this time -- Review of outpatient visit from Mar 2018 - LLE U/S prior to that appointment with adequate flow and no focal hemodynamic stenosis that would benefit from surgical intervention - repeat B/L U/S to further assess peripheral vessels and see if changes are evident to warrant intervention showed: 1. Focal area of hemodynamically significant stenosis seen within the mid right superficial femoral artery. 2. Monophasic low velocity waveforms throughout the left lower extremity arterial system which may represent diffuse atherosclerotic disease versus proximal iliac stenosis. 3. No arterial occlusion identified within the bilateral lower extremities. - continue Desipramine 10 mg HS and Gabapentin titrated up to 600 mg tid with good relief; was also treated with Dilaudid and Hydrocodone/Acetaminophen PRN - Consulted pain management - plan as above; appreciate input (2) Osteomyelitis of fourth toe of left foot: - Reports being on Dalvance Q2W and Doxycycline - for ulcerations and cellulitis; H/O MRSA - Imaging now supports Osteomyelitis - could not find documentation that this was noted previously - Started on Daptomycin daily; BCx without growth at this time - Was febrile on 12/01 but has been afebrile since - Discussed with vascular as noted above, no intervention at this time - Consult Podiatry - follows with Dr. Tirado - planning on conservative measures at this time with IV Abx - ID Following - recommending long-term IV Abx (approx. 6 weeks) with Daptomycin -will need weekly CBC, CMP, CPK, ESR,CRP while on Dapto US guided IV placed for this purpose (3) Severe anemia: - Heme+ Stool and hgb 7.5 on admission, microcytic with MCV 80 Fe studies borderline low, B12 and folate normal -- Patient/Daughter states he has dark stools but is on iron supplementation -on 12/01 patient was hypotensive but rather asymptomatic from it as he does have baseline low pressures, was transfused 1 unit and Hgb low but stable at 8.7 on day of dc - Changed to Protonix 40 mg BID initially here and then returned to home dosig o fNexium once daily after EGD normal - EGD (12/02) and Colonoscopy (12/03) without findings of bleeding - resumed Plavix and Eliquis on 12/03 - Consult GI - no signs of bleeding at this time -continue ferrous sulfate and increased to bid -follow CBC as outpt -consider capsule endoscopy (4) Bilateral leg ulcer: - Chronic issues - multiple unstageable pressure ulcers of B/L LE, POA and 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, POA - these are slowly improving - Consult podiatry - appreciate recommendations (5) Heart failure with reduced ejection fraction: - Currently stabl, euvolemic - Echo (Aug 2018) - EF 30-35% with thin akinetic inferior wall with adjacent inferolateral, basal septal hypokinesis; severe hypokinesis involving mid to apical anterior and lateral wall -held Losartan and Lasix initially but ok to restart on discharge as BPs improved (6) Paroxysmal atrial fibrillation: - Currently in NSR - continue Eliquis; Will continue Toprol XL 12.5 mg daily for rate control (7) Rheumatoid arthritis: - Follows with Dr. Haq ([facility]) - Given setting of infection held Methotrexate-check with Rheum on when ok to restart - Given infection and hypotension, was given stress dose of Methylprednisolone 40 mg IV daily x 3 days then resumed home dosing of Prednisone (8) DVT prophylaxis: - Eliquis was provided Disposition: plan for outpatient IV Daptomycin for 6 weeks, stable for dc to home today Total Time Total Time Spent Total Time Spent (In Minutes): >30 min Total Time Includes: Examination of the Patient, Discharge Planning, Medication Reconciliation and Communication With Other Providers (ID) Discharge Plan Discharge Items Patient Disposition: Home - Home Health Services Reason For Visit: INTRACTABLE PAIN Discharge Diagnosis: Intractable foot pain, foot infection Condition: Fair Discharge Goals: Decrease discomfort and Improve disease control Activity: Resume your previous activity Bathing: No limitations Bathing Comment: Follow wound care instructions Exercise/Sports: As tolerated Non-emergency contact: Primary Care Provider Call non-emergency contact if: you have any medication questions, your symptoms worsen, your pain is not controlled, your pain is worsening, your pain is unusual for you, your pain is concerning for you, your temperature is above 100.5, your wound has increased redness, your wound has increased drainage and your wound pain has increased Follow-up/Referrals: Juan M Johns MD [Physician] - 12/11/18 9:30 am (Please, follow up with Dr. Johns (infectious disease specialist) on FridayDecember 11 at 9:30 am. *If you need to change this appointment, call the office at [phone].) Daniele Martinez III, CRNP [Primary Care Provider] - 12/15/18 11:00 am (Please, follow up with Dr. Martinez on FridayDecember 15 at 11:00 am. *If you need to change this appointment, call the office at [phone].) Sabra Kelly PA-C [Physician [employer]] - 12/11/18 9:00 am (Please, follow up at [facility] Card[facility] Office / [facility] with Sasha Kelly PA-C on FridayDecember 11 at 9:00 am. *If you need to change this appointment, call the office at [phone].) Allison Fleming DPM [Physician] - 12/16/18 1:15 pm (Please, follow up with Dr. Allison Fleming on FridayDecember 16 at 1:15 pm. *The office is located in [address] of [facility]. This is the big building next to this hospital. *If you need to change this appointment, call the office at [phone].) Diet: Heart Healthy and Low Sodium (2gm) Addtl Provider Instructions: You were admitted with pain in the feet and an infection of your Achilles tendon. Please continue the IV antibiotics daily as prescribed for 6 weeks. Please follow up with Dr. Johns in the Infectious Disease Clinic and continue to see Dr. Fleming of Podiatry weekly as scheduled. You were started on new medications for pain which are helping you. Please continue to take these exactly as prescribed. PLEASE DO NOT TAKE YOUR ATORVASTATIN WHILE YOU ARE ON THE IV ANTIBIOTICS. YOU CAN RESTART YOUR ATORVASTATIN ONCE YOUR IV ANTIBIOTICS ARE COMPLETED. Please follow up with your PCP within 1-2 weeks as scheduled for you. Prescriptions: New desipramine 10 mg Tablet 10 mg PO HS Qty: 30 RF: 0 daptomycin 350 mg recon soln 350 mg IV DAILY Qty: 35 RF: 0 hydrocodone-acetaminophen 5-325 mg tablet 1 tab PO Q6H PRN (Reason: pain) Qty: 30 RF: 0 Continued cyanocobalamin (vitamin B-12) [Vitamin B-12] 1,000 mcg Tablet 1,000 mcg PO DAILY RF: 0 alendronate [Fosamax] 70 mg tablet 70 mg PO WK RF: 0 multivitamin Tablet 1 cap PO DAILY RF: 0 prednisone 5 mg tablet 5 mg PO DAILY RF: 0 methotrexate sodium 2.5 mg tablet 15 mg PO WK RF: 0 prednisone 1 mg tablet 2 mg PO QPM RF: 0 esomeprazole magnesium [Nexium] 40 mg capsule,delayed release(DR/EC) 40 mg PO DAILY RF: 0 misoprostol 100 mcg tablet 100 mcg PO BID RF: 0 folic acid 1 mg tablet 1 mg PO DAILY RF: 0 cholecalciferol (vitamin D3) [Vitamin D3] 1,000 unit Capsule 1,000 unit PO DAILY RF: 0 ProAir RespiClick 90 mcg/actuation aerosol powdr breath activated 2 inha INH Q4H RF: 0 docusate sodium [Colace] 100 mg Capsule 100 mg PO DAILY RF: 0 clopidogrel 75 mg tablet 75 mg PO DAILY RF: 0 losartan 25 mg tablet 12.5 mg PO DAILY RF: 0 Eliquis 5 mg Tablet 5 mg PO BID Qty: 30 RF: 0 acetaminophen [Tylenol] 325 mg Tablet 650 mg PO Q4 PRN (Reason: Fever Or Pain) RF: 0 terazosin 1 mg capsule 1 mg PO DAILY RF: 0 ropinirole [Requip] 0.5 mg tablet 0.25 mg PO DAILY RF: 0 metoprolol succinate 25 mg tablet extended release 24 hr 12.5 mg PO DAILY RF: 0 Changed furosemide 40 mg tablet 40 mg PO DAILY PRN (Reason: weight gain >2 lbs in 24 hours) Qty: 0 RF: 0 gabapentin 600 mg tablet 600 mg PO TID Qty: 90 RF: 0 ferrous sulfate 325 mg (65 mg iron) Tablet 325 mg PO BID Qty: 0 RF: 0 Discontinued atorvastatin 40 mg tablet 40 mg PO DAILY RF: 0 dalbavancin 500 mg Solution 1,500 mg IV Q14D RF: 0 No Action alprazolam 0.25 mg tablet PO .TAKE 1 TABLET 3 TIME RF: 0 Stand-Alone Forms: [facility] Discharge Orders: Discharge Order (Routine); Ordered 12/07/18 Ordered By: Ronda Benjamin Admission Data Admit Date/Time: 11/30/18 15:54 Attending Provider: Ronda Benjamin Admit Provider: Niraj Allred Primary Care Provider: Daniele Martinez III Other Providers: Sudheer Hatch ; Niraj Allred ; Sabra Mota ; Sabra Dickerson ; Allison Fleming ; Mauro Han ; Home,Nursing Agency Service: Telemetry Other Interventions: Discharge Summary Assessment (RN) Last Done: 12/07/18 15:11 Pending Studies at Discharge: No DC Date/Time DO NOT enter until pt leaves facility: 12/07/18 15:37
== END 2018-12-07 15:37 | disposition home health service (06) | DRG 539 ==
LOC: ED 11:32 → SUATTDRO 15:54 → 4W 15:54 → 2N 12-01 18:57
DX: K21.9 Gastro-esophageal reflux disease without esophagitis; Z79.52 Long term (current) use of systemic steroids; J45.909 Unspecified asthma, uncomplicated; L89.890 Pressure ulcer of other site, unstageable; S09.90XA Unspecified injury of head, initial encounter; I73.9 Peripheral vascular disease, unspecified; D64.9 Anemia, unspecified; I48.0 Paroxysmal atrial fibrillation; L89.624 Pressure ulcer of left heel, stage 4; L89.520 Pressure ulcer of left ankle, unstageable; M86.172 Other acute osteomyelitis, left ankle and foot; I11.0 Hypertensive heart disease with heart failure; Z82.49 Family history of ischemic heart disease and other diseases of the circulatory system; L89.620 Pressure ulcer of left heel, unstageable; Z79.51 Long term (current) use of inhaled steroids; B95.62 Methicillin resistant Staphylococcus aureus infection as the cause of diseases classified elsewhere; I50.22 Chronic systolic (congestive) heart failure